=== PATIENT | male | born 1950 | race Caucasian/White ===

== ENCOUNTER → 2017-06-08 | Outpatient (CLI) | payer MEDICARE ==
--- NOTE | 2017-06-08 17:59 | Diagnostic Imaging Report ---
PROCEDURE: CT head without contrast. TECHNIQUE: Multiple contiguous axial images were obtained through the brain without the use of intravenous contrast. INDICATION: Headache. CT HEAD: Multiple contiguous axial CT images of the head were obtained. FINDINGS: Ventricles and sulci are within normal limits for size. There is no intracranial hemorrhage identified. There is no abnormal mass effect or shift of midline structures. IMPRESSION: Unremarkable CT of the head. Dictated by: Dictated on workstation # [id number]
== END ==
LOC: RAD 17:11
PROVIDERS: ATTEND Nurse Practitioner Family
DX: R51 Headache (principal); R11.10 Vomiting, unspecified
CPT/HCPCS: 70450

== ENCOUNTER → 2017-09-04 | Outpatient (CLI) | payer MEDICARE, BC ==
--- NOTE | 2017-09-04 14:20 | Diagnostic Imaging Report ---
Renal vascular duplex ultrasound. INDICATION: Hypertension, bradycardia. FINDINGS: The right kidney is 11.9 cm, and the left kidney is 11.2 cm in length. There is no hydronephrosis. There is a 5.0 x 4.8 x 5.8-cm cystic lesion suggested in the upper pole of the left kidney with minimal internal debris but without solid component, internal vascularity, or thickened septations. There is through transmission demonstrated. The proximal and mid segments of the right renal artery are obscured. The distal segment of the right renal artery is seen with velocity of 109 cm/s. The distal segment of the left renal artery demonstrates velocity of 72 cm/s. The resistive index in the right kidney is in the range of 0.62 to 0.72 and on the left side is 0.61 to 0.77. IMPRESSION: The proximal and mid segments of the renal arteries are obscured on both sides due to enlarged body habitus and bowel gas. The renal artery velocities distally are within normal limits. Dictated by: Dictated on workstation # [id number]
== END ==
LOC: RAD 08:10
PROVIDERS: ATTEND Internal Medicine Cardiovascular Disease
DX: I10 Essential (primary) hypertension (principal); R00.1 Bradycardia, unspecified
CPT/HCPCS: 93975

== ENCOUNTER → 2017-09-27 | Outpatient (CLI) | payer MEDICARE, BC | LOC: CARD 13:48 | PROVIDERS: ATTEND Internal Medicine Cardiovascular Disease | DX: R00.1 Bradycardia, unspecified (principal); R53.83 Other fatigue; E13.9 Other specified diabetes mellitus without complications; Z83.3 Family history of diabetes mellitus | CPT/HCPCS: 93306 ==

== ENCOUNTER → 2017-10-02 | Outpatient (CLI) | payer MEDICARE, BC ==
[~2017-10-02] MED LIST: CATHETER FLUSH 10 ML SYR IV PRN; REGADENOSON 0.4 MG/5 ML SYR (LEXISCAN) IV ONE
[2017-10-02 09:30] VITALS: BP 213/93
--- NOTE | 2017-10-02 23:02 | STRESS TEST ---
DATE OF SERVICE: LEXISCAN MYOVIEW STRESS TEST REPORT REFERRING PHYSICIAN: Dr. Loera. Baseline heart rate is 55. Baseline blood pressure 213/93. Baseline EKG is sinus rhythm with no ischemic changes. In summary, the patient was injected with 10.53 mCi of technetium-99 Myoview and the resting images were obtained. Then, the patient received 0.4 mg of Lexiscan followed by 29.5 mCi of technetium-99 Myoview. The patient was having Wenckebach pattern AV block, was asymptomatic. The resting and stress images were reviewed and compared in the short axis, horizontal long axis and vertical long axis views. Review of the images showed diaphragmatic attenuation with mild decreased uptake at the inferoapical segment of the left ventricle with mild reversibility. SSS is 3, SDS 3, TID value 1.02. No gated images were done due to the irregular rhythm. CONCLUSION: 1. The patient tolerated Lexiscan well. 2. The patient developed Wenckebach pattern second-degree AV block, Mobitz I, during the test, was asymptomatic. 3. Diaphragmatic attenuation with typical male pattern. 4. With typical male pattern, mild decreased uptake at the inferoapical segment with subtle reversibility. No significant ischemia was noted. 5. No gated images were done due to the irregular rhythm. Job ID: [id number] DocumentID: [id number] Dictated Date: 10/02/2017 16:54:25 Barrel Bander Date: 10/02/2017 19:46:57 Dictated By: PEPITO COLINDRES MD
== END ==
LOC: CARD 07:12
PROVIDERS: ATTEND Internal Medicine Cardiovascular Disease
DX: R00.1 Bradycardia, unspecified (principal); E11.9 Type 2 diabetes mellitus without complications; R53.83 Other fatigue; Z83.3 Family history of diabetes mellitus

== ENCOUNTER 2018-12-05 11:49 | Day surgery (SDC) | payer MEDICARE ==
[~2018-12-05] VITALS: Ht 180.3 cm; Wt 111.1 kg
[2018-12-05] MEDS ORDERED: LIDOCAINE 1% INJ 20 ML 20 ML VIAL ONE (11:52)
[2018-12-05] MEDS ORDERED: NS IV 1000 ML 1,000 ML ONE (11:52)
[2018-12-05] MEDS ORDERED: HEParin (CATH LAB) 1,000 ML IV ONE (11:52)
[2018-12-05] MEDS ORDERED: ceFAZolin INJECTION 1,000 MG VIAL ONE (11:52)
--- OUTSIDE RECORDS SUMMARY | 2018-12-05 11:57 | XMS REPORT | CCD ---
Author Author [facility] Organization [facility] Address [address] [place] [address] Phone Care Team Providers Care Sample Maker Original Name Role Phone Fatemeh Loera PP Unavailable CCM Unavailable Summary Purpose Interface Exchange Insurance Providers Payer name Policy type / Coverage type Covered democrat ID Effective Begin Date Effective End Date WPS Medicare Part B [id number] 2014 Unknown [facility] [id number] 2014 Unknown Family history Mother Diagnosis Age At Onset Diabetes mellitus Type 1 Unknown Social History Social History Element Codes Description Effective Dates Number of children Unknown 1 step-daughter 03/29/2018 Alcohol history Unknown occasionally drinks alcohol <1 per week 03/29/2018 Marital status Unknown Nicol Nathan 08/01/2017 Employment Unknown Retired 12/19/2016 Living arrangements Unknown House 08/21/2015 Education level Unknown College Graduate 08/21/[address]: 570704904 Never smoker 04/14/2014 Allergies, Adverse Reactions, Alerts Substance Reaction Codes Entered Date Inactivated Date Status * NO KNOWN FOOD ALLERGIES Unknown 04/14/2014 No Inactive Date Active * NO KNOWN DRUG ALLERGIES Unknown 04/14/2014 No Inactive Date Active Past Medical History Illness Codes Condition Status Onset Date Resolved Date Benign prostatic hyperplasia with lower urinary tract symptoms ICD-9: 600.01 ICD-10: N40.1 Active 10/09/2018 Unknown Essential (primary) hypertension ICD-9: 401.1 ICD-10: I10 Active 06/23/2017 Unknown Type 2 diabetes mellitus without complications ICD-9: 250.00 ICD-10: E11.9 Active 10/09/2018 Unknown Encounter for general adult medical examination with abnormal findings ICD-9: V70.0 ICD-10: Z00.01 Active 03/23/2017 Unknown Other elevated white blood cell count ICD-9: 288.69 ICD-10: D72.828 Active 07/13/2017 Unknown Rash and other nonspecific skin eruption ICD-9: 782.1 ICD-10: R21 Active 11/03/2017 Unknown Urethral discharge, unspecified ICD-9: 788.7 ICD-10: R36.9 Active 11/03/2017 Unknown Bradycardia, unspecified ICD-9: 427.89 ICD-10: R00.1 Active 07/06/2017 Unknown Melena ICD-9: 578.1 ICD-10: K92.1 Active 07/06/2017 Unknown Dysuria ICD-9: 788.1 ICD-10: R30.0 Active 06/26/2017 Unknown Other obesity due to excess calories ICD-9: 278.00 ICD-10: E66.09 Active 03/23/2016 Unknown Headache ICD-9: 784.0 ICD-10: R51 Active 06/08/2017 Unknown Vomiting, unspecified ICD-9: 787.03 ICD-10: R11.10 Active 06/08/2017 Unknown Other allergic rhinitis ICD-9: 477.8 ICD-10: J30.89 Active 06/08/2017 Unknown Benign prostatic hyperplasia without lower urinary tract symptoms ICD-9: 600.00 ICD-10: N40.0 Active 12/19/2016 Unknown Essential (primary) hypertension ICD-9: 401.9 ICD-10: I10 Active 04/29/2014 Unknown Type 2 diabetes mellitus with hyperglycemia ICD-9: 250.02 ICD-10: E11.65 Active 04/29/2014 Unknown Allergic rhinitis due to pollen ICD-9: 477.9 ICD-10: J30.1 Active 10/02/2016 Unknown Cough ICD-9: 786.2 ICD-10: R05 Active 10/02/2016 Unknown Actinic keratosis ICD- 9: 702.0 ICD-10: L57.0 Active 08/21/2016 Unknown Cellulitis of right lower limb ICD-9: 682.6 ICD-10: L03.115 Active 07/28/2015 Unknown OBESITY ICD-9: 278.00 Active 04/14/2014 Unknown DIABETES TYPE II ICD-9 : 250.00 Active 12/16/2014 Unknown ALLERGIC RHINITIS ICD- 9: 477.9 Active 08/05/2014 Unknown ACUTE URI ICD-9: 465.9 Active 07/25/2014 Unknown COUGH ICD-9: 786.2 Active 07/25/2014 Unknown Diabetes Unknown Active 04/29/2014 Unknown Hypertension Unknown Active 04/29/2014 Unknown ESSENTIAL HYPERTENSION ICD-9: 401.9 Active 04/29/2014 Unknown OA (osteoarthritis) of knee ICD-9: 715.96 Active 04/29/2014 Unknown Type II diabetes mellitus, uncontrolled ICD-9: 250.02 Active Unknown BPH (benign prostatic hyperplasia) ICD-9: 600.00 Active 2013 Unknown Elevated blood pressure ICD-9: 796.2 Active 04/14/2014 Unknown 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 male patient ICD-9: 607.84 Active 04/14/2014 Unknown Problems Condition Codes Effective Dates Condition Status Benign prostatic hyperplasia with lower urinary tract symptoms ICD-9: 600.01 ICD-10: N40.1 10/09/2018 Active Essential (primary) hypertension ICD-9: 401.1 ICD-10: I10 06/23/2017 Active Type 2 diabetes mellitus without complications ICD-9: 250.00 ICD-10: E11.9 10/09/2018 Active Encounter for general adult medical examination with abnormal findings ICD-9: V70.0 ICD-10: Z00.01 03/23/2017 Active Other elevated white blood cell count ICD-9: 288.69 ICD-10: D72.828 07/13/2017 Active Rash and other nonspecific skin eruption ICD-9: 782.1 ICD-10: R21 11/03/2017 Active Urethral discharge, unspecified ICD-9: 788.7 ICD-10: R36.9 11/03/2017 Active Bradycardia, unspecified ICD-9: 427.89 ICD-10: R00.1 07/06/2017 Active Melena ICD-9: 578.1 ICD-10: K92.1 07/06/2017 Active Dysuria ICD-9: 788.1 ICD-10: R30.0 06/26/2017 Active Other obesity due to excess calories ICD-9: 278.00 ICD-10: E66.09 03/23/2016 Active Headache ICD-9: 784.0 ICD-10: R51 06/08/2017 Active Vomiting, unspecified ICD-9: 787.03 ICD-10: R11.10 06/08/2017 Active Other allergic rhinitis ICD-9: 477.8 ICD-10: J30.89 06/08/2017 Active Benign prostatic hyperplasia without lower urinary tract symptoms ICD-9: 600.00 ICD-10: N40.0 12/19/2016 Active Essential (primary) hypertension ICD-9: 401.9 ICD-10: I10 04/29/2014 Active Type 2 diabetes mellitus with hyperglycemia ICD-9: 250.02 ICD-10: E11.65 04/29/2014 Active Allergic rhinitis due to pollen ICD-9: 477.9 ICD-10: J30.1 10/02/2016 Active Cough ICD-9: 786.2 ICD-10: R05 10/02/2016 Active Actinic keratosis ICD- 9: 702.0 ICD-10: L57.0 08/21/2016 Active Cellulitis of right lower limb ICD-9: 682.6 ICD-10: L03.115 07/28/2015 Active OBESITY ICD-9: 278.00 04/14/2014 Active DIABETES TYPE II ICD-9 : 250.00 12/16/2014 Active ALLERGIC RHINITIS ICD- 9: 477.9 08/05/2014 Active ACUTE URI ICD-9: 465.9 07/25/2014 Active COUGH ICD-9: 786.2 07/25/2014 Active Diabetes Unknown 04/29/2014 Active Hypertension Unknown 04/29/2014 Active ESSENTIAL HYPERTENSION ICD-9: 401.9 04/29/2014 Active OA (osteoarthritis) of knee ICD-9: 715.96 04/29/2014 Active Type II diabetes mellitus, uncontrolled ICD-9: 250.02 04/29/2014 Active BPH (benign prostatic hyperplasia) ICD-9: 600.00 04/14/2014 Active Elevated blood pressure ICD-9: 796.2 04/14/2014 Active 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 male patient ICD-9: 607.84 2013 Active Medications Medication Codes Instructions Start Date Stop Date Status Fill Instructions clonidine 0.3 mg/24 hr weekly transdermal patch RxNorm: 510507 1 TD QW 10/09/2018 No Stop Date Active berberine-herbal comb no.18 capsule RxNorm: 2 Capsule(s) PO BID 10/09/2018 No Stop Date Active finasteride 5 mg tablet RxNorm: 551187 TAKE ONE TABLET BY MOUTH EVERY NIGHT AT BEDTIME 08/09/2018 02/04/2019 Active pioglitazone 45 mg tablet RxNorm: 854353 TAKE ONE TABLET BY MOUTH DAILY 08/07/2018 01/03/2019 Active metformin 500 mg tablet RxNorm: 923128 Tablet(s) 1 Tablet(s) PO UD two tablets with breakfast and one tablet in afternoon and one tablet at supper 04/06/2018 08/03/2018 Inactive Zithromax Z-Addi 250 mg tablet RxNorm: 947828 1 Tablet(s) PO UD 11/10/2017 03/28/2018 Inactive prednisone 20 mg tablet RxNorm: 016152 Tablet(s) PO UD 201703/28/2018 Inactive 40mg x 2 days, then 20mg x 2 days, then 10mg x 2 days pioglitazone 45 mg tablet RxNorm: 946636 Tablet(s) PO TAKE 1 TABLET BY MOUTH EVERY DAY 11/03/2017 03/02/2018 Inactive Generic For:*ACTOS 30MG 02/06/2017 9:15: 26 AM prednisone 20 mg tablet RxNorm: 704528 2 Tablet(s) PO daily 11/07/2017 Inactive Zithromax Z-Addi 250 mg tablet RxNorm: 751145 1 Tablet(s) PO UD 11/03/2017 11/09/2017 Inactive ceftriaxone 500 mg solution for injection RxNorm: 6430782 Inj 11/03/2017 11/03/2017 Inactive losartan 100 mg tablet RxNorm: 275221 1 Tablet(s) PO daily 10/08/2018 Inactive hold until patient requests refill hydralazine 10 mg tablet RxNorm: 546988 TAKE ONE TABLET BY MOUTH THREE TIMES A DAY IF BLOOD PRESSURE IS ABOVE 170 TAKE AN EXTRA TABLET 10/3103/28/2018 Inactive hydrochlorothiazide 12.5 mg tablet RxNorm: 961073 1 Tablet(s) PO daily 08/04/2017 03/28/2018 Inactive finasteride 5 mg tablet RxNorm: 616783 1 Tablet(s) PO Q TAKE 1 TABLET BY MOUTH AT NIGHT 08/04/2017 01/30/2018 Inactive pioglitazone 45 mg tablet RxNorm: 730737 1 Tablet(s) PO daily 08/04/2017 01/30/2018 Inactive hydrochlorothiazide 12.5 mg tablet RxNorm: 425855 1 Tablet(s) PO daily 07/24/2017 08/03/2017 Inactive hydralazine 10 mg tablet RxNorm: 028603 1 Tablet(s) PO TID if blood pressure is above 170, take an extra pill 07/13/2017 10/10/2017 Inactive Bystolic 5 mg tablet RxNorm: 133656 1 Tablet(s) PO daily 201607/12/2017 Inactive Anusol-HC 2.5 % topical cream with perineal applicator RxNorm: 7547168 1 Application TOP BID as needed 07/06/2017 10/08/2018 Inactive Levaquin 500 mg tablet RxNorm: 765878 1 Tablet(s) PO daily 07/02/2017 Inactive metoprolol succinate ER 25 mg tablet,extended release 24 hr RxNorm: 512821 1 Tablet(s) PO daily 06/26/2017 07/05/2017 Inactive losartan 50 mg tablet RxNorm: 158064 1 Tablet(s) PO BID 201611/02/2017 Inactive hold until patient requests refill hydrochlorothiazide 12.5 mg tablet RxNorm: 427896 1 Tablet(s) PO daily 06/23/2017 07/22/2017 Inactive ketorolac 60 mg/2 mL intramuscular solution RxNorm: 391951 2 Milliliter(s) IM 06/22/2017 06/22/2017 Inactive promethazine 25 mg/mL injection solution RxNorm: 426668 1 Milliliter(s) Inj 06/22/2017 06/22/2017 Inactive promethazine 25 mg tablet RxNorm: 963762 1 Tablet(s) PO TID as needed nausea 06/08/2017 06/12/2017 Inactive losartan 50 mg tablet RxNorm: 060918 TAKE 1 TABLET BY MOUTH EACH EVENING 05/08/2017 06/25/2017 Inactive Generic For:*COZAAR 50MG 05/06/2017 9:41:39 AM pioglitazone 30 mg tablet RxNorm: 436705 TAKE 1 TABLET BY MOUTH EVERY DAY 02/07/2017 06/06/2017 Inactive Generic For:*ACTOS 30MG 02/06/2017 9:15:26 AM pioglitazone 45 mg tablet RxNorm: 844615 1 Tablet(s) PO daily 02/06/2017 08/03/2017 Inactive finasteride 5 mg tablet RxNorm: 490539 Tablet(s) TAKE 1 TABLET BY MOUTH AT NIGHT 02/06/2017 08/03/2017 Inactive Flomax 0.4 mg capsule RxNorm: 801403 1 Capsule(s) PO QPM 201603/28/2018 Inactive Keflex 500 mg capsule RxNorm: 442299 1 Capsule(s) PO TID 201510/09/2016 Inactive Keflex 500 mg capsule RxNorm: 141044 1 Capsule(s) PO TID 201510/02/2016 Inactive pioglitazone 45 mg tablet RxNorm: 310693 1 Tablet(s) PO daily TAKE 1 TABLET BY MOUTH ONCE DAILY 09/20/2016 02/05/2017 Inactive Generic For:*ACTOS 30MG 2015 9:21:49 AM losartan 50 mg tablet RxNorm: 853031 TAKE 1 TABLET BY MOUTH EACH EVENING 09/08/2016 04/05/2017 Inactive Generic For:*COZAAR 50MG 09/08/2016 9:07:41 AM N O T I C E Last quantity doesn't match original quantity metformin 500 mg tablet RxNorm: 501501 Tablet(s) 1 Tablet(s) PO UD two tablets with breakfast and one tablet in afternoon and one tablet at supper 08/22/2016 08/16/2017 Inactive finasteride 5 mg tablet RxNorm: 931774 Tablet(s) TAKE 1 TABLET BY MOUTH AT NIGHT 08/22/2016 02/05/[address] [facility] pioglitazone 30 mg tablet RxNorm: 507638 1 Tablet(s) PO daily TAKE 1 TABLET BY MOUTH ONCE DAILY 08/22/2016 09/19/2016 Inactive Generic For:*ACTOS 30MG 2015 9:21:49 AM losartan 50 mg tablet RxNorm: 198267 1 Tablet(s) PO daily 1 Tablet(s) PO QPM 08/22/2016 09/07/2016 Inactive Efudex 5 % topical cream RxNorm: 154570 1 Application TOP BID 08/22/2016 09/18/2016 Inactive pioglitazone 30 mg tablet RxNorm: 569742 TAKE 1 TABLET BY MOUTH ONCE DAILY 06/10/2016 08/21/2016 Inactive Generic For:*ACTOS 30MG 06/10/2016 9:21:49 AM metformin 500 mg tablet RxNorm: 411372 Tablet(s) 1 Tablet(s) PO UD two tablets with breakfast and one tablet in afternoon and one tablet at supper 05/11/2016 08/21/2016 Inactive finasteride 5 mg tablet RxNorm: 544840 TAKE 1 TABLET BY MOUTH AT NIGHT 05/11/2016 08/21/2016 Inactive Generic For:PROSCAR 5MG 05/11/2016 9:06:14 AM losartan 50 mg tablet RxNorm: 339981 1 Tablet(s) PO QPM 201508/21/2016 Inactive pioglitazone 30 mg tablet RxNorm: 592908 1 Tablet(s) PO daily 11/12/2015 06/08/2016 Inactive metformin 500 mg tablet RxNorm: 815155 1 Tablet(s) PO UD two tablets with breakfast and one tablet in afternoon and one tablet at supper 09/19/2015 05/10/2016 Inactive metformin 500 mg tablet RxNorm: 046075 1 Tablet(s) PO UD two tablets with breakfast and one tablet in afternoon and one tablet at supper 09/16/2015 09/09/2016 Inactive finasteride 5 mg tablet RxNorm: 511553 1 Tablet(s) PO QPM 09/1504/11/2016 Inactive cephalexin 500 mg capsule RxNorm: 243468 1 Capsule(s) PO TID 08/04/2015 Inactive losartan 50 mg tablet RxNorm: 353332 1 Tablet(s) PO QPM 201402/10/2016 Inactive pioglitazone 30 mg tablet RxNorm: 997235 1 Tablet(s) PO daily 03/10/2015 10/05/2015 Inactive losartan 25 mg tablet RxNorm: 184008 1 Tablet(s) PO QPM 201407/19/2015 Inactive metformin 500 mg tablet RxNorm: 936860 1 Tablet(s) PO UD two tablets with breakfast and one tablet in afternoon and one tablet at supper 03/04/2015 09/15/2015 Inactive finasteride 5 mg tablet RxNorm: 466532 1 Tablet(s) PO QPM 03/0409/14/2015 Inactive ceftriaxone 500 mg solution for injection RxNorm: 2010124 Inj 01/12/2015 01/12/2015 Inactive Zithromax 500 mg tablet RxNorm: 136774 1 Tablet(s) PO daily 07/201501/16/2015 Inactive Kenalog 40 mg/mL suspension for injection RxNorm: 2213454 Milliliter(s) Inj 01/12/2015 01/12/2015 Inactive pioglitazone 30 mg tablet RxNorm: 098238 1 Tablet(s) PO daily 12/16/2014 03/09/2015 Inactive Kenalog 40 mg/mL suspension for injection RxNorm: 0385690 Milliliter(s) Inj 11/27/2014 11/27/2014 Inactive Levaquin 500 mg tablet RxNorm: 649147 1 Tablet(s) PO daily 12/01/2014 Inactive pioglitazone 15 mg tablet RxNorm: 103348 1 Tablet(s) PO daily 10/06/2014 12/15/2014 Inactive pioglitazone 15 mg tablet RxNorm: 663527 1 Tablet(s) PO daily 10/06/2014 10/05/2014 Inactive metformin 500 mg tablet RxNorm: 293206 1 Tablet(s) PO UD two tablets with breakfast and one tablet in afternoon and one tablet at supper 09/16/2014 03/03/2015 Inactive daily in the evening x 1 week then twice daily losartan 25 mg tablet RxNorm: 484826 1 Tablet(s) PO QPM 201303/09/2015 Inactive Zithromax Z-Addi 250 mg tablet RxNorm: 076413 1 Tablet(s) PO UD 07/25/2014 07/29/2014 Inactive 2 tabs on day 1 then 1 tab on days 2-5 metformin 500 mg tablet RxNorm: 375778 1 Tablet(s) PO TID 06/2409/15/2014 Inactive daily in the evening x 1 week then twice daily lisinopril 10 mg tablet RxNorm: 829609 1 Tablet(s) PO daily 09/01/2014 Inactive metformin 500 mg tablet RxNorm: 585332 1 Tablet(s) PO TID 06/0206/23/2014 Inactive daily in the evening x 1 week then twice daily lisinopril 10 mg tablet RxNorm: 803031 1 Tablet(s) PO daily 06/17/2014 Inactive metformin 500 mg tablet RxNorm: 970230 1 Tablet(s) PO BID 05/0506/01/2014 Inactive daily in the evening x 1 week then twice daily lisinopril 10 mg tablet RxNorm: 982234 1 Tablet(s) PO daily 06/01/2014 Inactive finasteride 5 mg tablet RxNorm: 747614 1 Tablet(s) PO QPM 04/1411/09/2014 Inactive Truetest Test Strips RxNorm: Miscellaneous test twice daily No Start Date Active amlodipine 10 mg tablet RxNorm: 036590 1 Tablet(s) PO QAM No Start Date Active Centrum Silver tablet RxNorm: 2 Tablet(s) PO QAM No Start Date Active lisinopril 40 mg tablet RxNorm: 709405 1 Tablet(s) PO QAM No Start Date Active furosemide 20 mg tablet RxNorm: 853184 1 Tablet(s) PO QAM No Start Date Active chlorthalidone 25 mg tablet RxNorm: 007384 1 Tablet(s) PO QAM No Start Date Active potassium chloride ER 10 mEq tablet,extended release RxNorm: 007198 1 Tablet(s) PO QAM No Start Date Active clonidine 0.2 mg/24 hr weekly transdermal patch RxNorm: 091798 1 Patch TD QW No Start Date 10/08/2018 Inactive prednisone 20 mg tablet RxNorm: 929246 Tablet(s) PO No Start Date 11/09/2017 Inactive 40mg x 2 days, then 20mg x 2 days, then 10mg x 2 days berberine-herbal comb no.18 oral RxNorm: oral No Start Date 10/08/2018 Inactive hydrochlorothiazide 25 mg tablet RxNorm: 241429 1 Tablet(s) PO QAM No Start Date 10/08/2018 Inactive Medication Administered Medication Codes Instructions Start Date Status ceftriaxone 500 mg solution for injection RxNorm: 7016052 11/03/2017 No longer Active ketorolac 60 mg/2 mL intramuscular solution RxNorm: 009761 2Milliliter 06/22/2017 No longer Active promethazine 25 mg/mL injection solution RxNorm: 035358 1Milliliter 06/22/2017 No longer Active Kenalog 40 mg/mL suspension for injection RxNorm: 9738930 Milliliter 01/12/2015 No longer Active ceftriaxone 500 mg solution for injection RxNorm: 9139997 01/12/2015 No longer Active Kenalog 40 mg/mL suspension for injection RxNorm: 5333402 Milliliter 11/27/2014 No longer Active Immunizations No Immunization data Assessments Condition Codes Effective Dates Benign prostatic hyperplasia with lower urinary tract symptoms ICD-10: N40.1 ICD-9: 600.01 10/09/2018 Essential (primary) hypertension ICD-10: I10 ICD-9: 401.1 10/09/2018 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, bilateral ICD-10: E11.3553 ICD-9: 250.50 10/09/2018 Encounter for general adult medical examination with abnormal findings ICD-10: Z00.01 ICD-9: V70.0 03/29/2018 Urethral discharge, unspecified ICD-10: R36.9 ICD-9: 788.7 11/03/2017 Rash and other nonspecific skin eruption ICD-10: R21 ICD-9: 782.1 11/03/2017 Other elevated white blood cell count ICD-10: D72.828 ICD-9: 288.69 07/13/2017 Type 2 diabetes mellitus with hyperglycemia ICD-10: E11.65 ICD-9: 250.00 07/13/2017 Melena ICD-10: K92.1 ICD-9: 578.1 07/06/2017 Bradycardia, unspecified ICD-10: R00.1 ICD-9: 427.89 07/06/2017 Dysuria ICD-10: R30.0 ICD-9: 788.1 06/26/2017 Other obesity due to excess calories ICD-10: E66.09 ICD-9: 278.00 06/23/2017 Vomiting, unspecified ICD-10: R11.10 ICD-9: 787.03 06/22/2017 Headache ICD-10: R51 ICD-9: 784.0 06/22/2017 Other allergic rhinitis ICD-10: J30.89 ICD-9: 477.8 06/08/2017 Type 2 diabetes mellitus with hyperglycemia ICD-10: E11.65 ICD-9: 250.02 12/19/2016 Essential (primary) hypertension ICD-10: I10 ICD-9: 401.9 12/19/2016 Allergic rhinitis due to pollen ICD-10: J30.1 ICD-9: 477.9 10/03/2016 Cough ICD-10: R05 ICD-9: 786.2 10/03/2016 Actinic keratosis ICD-10: L57.0 ICD-9: 702.0 08/22/2016 Cellulitis of right lower limb ICD-10: L03.115 ICD-9: 682.6 07/29/2015 ESSENTIAL HYPERTENSION ICD-9: 401.9 07/20 OBESITY ICD-9: 278.00 07/20/2015 DM W/O COMPLICATION TYPE II, UNCONTROLLED ICD-9: 250.02 07/20/2015 DIABETES TYPE II ICD-9: 250.00 2014 COUGH ICD-9: 786.2 01/12/2015 ACUTE URI ICD-9: 465.9 01/12/2015 ALLERGIC RHINITIS ICD-9: 477.9 2013 OA (osteoarthritis) of knee ICD-9: 715.96 04/29/2014 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 male patient ICD-9: 607.84 04/14/2014 BPH (benign prostatic hyperplasia) ICD-9: 600.00 04/14/2014 Elevated blood pressure ICD-9: 796.2 07/2014 Reason For Visit Reason For Visit Effective Dates Notes hypertension 10/09/2018 Annual Medicare Wellness Exam 03/29/2018 edema 11/03/2017 hypertension 08/01/2017 diabetes mellitus 07/13/2017 hematochezia 07/06/2017 urinary frequency 06/29/2017 urinary frequency 06/26/2017 hypertension 06/23/2017 nausea 06/08/2017 Annual Medicare Wellness Exam 03/23/2017 diabetes mellitus 12/19/2016 cough 10/03/2016 diabetes mellitus 08/22/2016 he has bs log with him. diabetes mellitus 03/24/2016 he has bs log with him. diabetes mellitus 2015 he has bs log with him. rash 07/29/2015 diabetes mellitus 07/20/2015 he has bs log with him. diabetes mellitus 03/17/2015 he has bs log with him. cough 01/12/2015 diabetes mellitus 12/16/2014 Pt has kept an am /hs bs log for 2 weeks. cough 11/27/2014 pressure behind eyes diabetes mellitus 09/16/2014 Pt has kept an am /hs bs log for 2 weeks. diabetes mellitus 09/02/2014 215 this am cough 08/05/2014 cough 07/25/2014 diabetes mellitus 06/02/2014 171 this am diabetes mellitus 05/05/2014 shoulder pain 04/29/2014 well man exam (40-65 years) 04/14/2014 Results Observation Observation Code Item Item Code Result Date GC/CHL PRB 2795062 Chl trach DNA TNP:Improper Specimen 2016 GC/CHL PRB 6489043 GC PROBE TNP:Improper Specimen 11/03/2017 Cbc With Differential Ord2 WBC 8.47 K/ul 07/13/2017 Cbc With Differential Ord2 RBC 4.19 M/ul 07/13/2017 Cbc With Differential Ord2 HGB 12.7 g/dl 07/13/2017 Cbc With Differential Ord2 HCT 38.3 % 07/13/2017 Cbc With Differential Ord2 Neut% 71.0 % 07/13/2017 Cbc With Differential Ord2 MCV 91.4 fl 07/13/2017 Cbc With Differential Ord2 Lymph% 16.5 % 07/13/2017 Cbc With Differential Ord2 MCH 30.3 pg 07/13/2017 Cbc With Differential Ord2 [place]% 7.7 % 07/13/2017 Cbc With Differential Ord2 MCHC 33.2 pg 07/13/2017 Cbc With Differential Ord2 Eos% 4.3 % 07/13/2017 Cbc With Differential Ord2 PLT 358 K/ul 07/13/2017 Cbc With Differential Ord2 Baso% 0.5 % 07/13/2017 Cbc With Differential Ord2 RDW 14.9 % 07/13/2017 Cbc With Differential Ord2 Neut ABS# 6.02 K/ul 07/13/2017 Cbc With Differential Ord2 Lymph ABS# 1.40 K/ul 07/13/2017 Cbc With Differential Ord2 [place] ABS# 0.7 K/ul 07/13/2017 Cbc With Differential Ord2 Eos ABS# 0.4 K/ul 07/13/2017 Cbc With Differential Ord2 Baso ABS# 0.0 K/ul 07/13/2017 Urine Culture Ucult Preliminary NO Growth Day 1 06/28/2017 Urine Culture Ucult Complete NO Growth Day 2 06/28/2017 %Hba1C Gfi345 % HbA1c 16725-8 7.2 % 06/26/2017 %Hba1C Hgo052 Gluc Ave 160 mg/dL 06/26/2017 Tsh Ord6 hTSH II 2.04 uIU/mL 06/26/2017 Comp Metabolic Gfo719 NA 139 mEq/L 06/26/2017 Comp Metabolic Ycd756 K 3.6 mEq/L 06/26/2017 Comp Metabolic Eit903 CL 103 mEq/L 06/26/2017 Comp Metabolic Uia389 CO2 24.0 mEq/L 06/26/2017 Comp Metabolic Pqg265 ANION GAP 16 06/26/2017 Comp Metabolic Kas568 GLUCOSE 135 mg/dL 06/26/2017 Comp Metabolic Uzx116 Creat 1.3 mg/dL 06/26/2017 Comp Metabolic Lbg258 eGFR 58 ml/min/1.73m2 06/26/2017 Comp Metabolic Pmc293 BUN 17 mg/dL 06/26/2017 Comp Metabolic Ktv694 B/C Ratio 13.0 Ratio 06/26/2017 Comp Metabolic Pls229 CALCIUM 8.6 mg/dL 06/26/2017 Comp Metabolic Tru537 ALK PHOS 69 U/L 06/26/2017 Comp Metabolic Los064 AST(SGOT) 15 U/L 06/26/2017 Comp Metabolic Xoi198 ALT(SGPT) 13 U/L 06/26/2017 Comp Metabolic Hzs215 BILI T 0.5 mg/dL 06/26/2017 Comp Metabolic Fut852 ALBUMIN 3.3 g/dL 06/26/2017 Comp Metabolic Ggy710 TPRO 5.5 g/dL 06/26/2017 Comp Metabolic Tkt075 GLOB 2.2 g/dL 06/26/2017 Comp Metabolic Yff016 A/G Ratio 1.5 Ratio 06/26/2017 Comp Metabolic Tjo959 Osmo 281 mOsmo 06/26/2017 Cbc With Differential Ord2 WBC 12.34 K/ul 06/26/2017 Cbc With Differential Ord2 RBC 3.89 M/ul 06/26/2017 Cbc With Differential Ord2 HGB 11.7 g/dl 06/26/2017 Cbc With Differential Ord2 Neut% 73.9 % 06/26/2017 Cbc With Differential Ord2 HCT 35.5 % 06/26/2017 Cbc With Differential Ord2 Lymph% 14.1 % 06/26/2017 Cbc With Differential Ord2 MCV 91.3 fl 06/26/2017 Cbc With Differential Ord2 MCH 30.1 pg 06/26/2017 Cbc With Differential Ord2 [place]% 9.1 % 06/26/2017 Cbc With Differential Ord2 Eos% 2.7 % 06/26/2017 Cbc With Differential Ord2 MCHC 33.0 pg 06/26/2017 Cbc With Differential Ord2 PLT 333 K/ul 06/26/2017 Cbc With Differential Ord2 Baso% 0.2 % 06/26/2017 Cbc With Differential Ord2 Neut ABS# 9.13 K/ul 06/26/2017 Cbc With Differential Ord2 RDW 14.5 % 06/26/2017 Cbc With Differential Ord2 Lymph ABS# 1.74 K/ul 06/26/2017 Cbc With Differential Ord2 [place] ABS# 1.1 K/ul 06/26/2017 Cbc With Differential Ord2 Eos ABS# 0.3 K/ul 06/26/2017 Cbc With Differential Ord2 Baso ABS# 0.0 K/ul 06/26/2017 Total Psa Ord10 PSA 1.29 ng/mL 06/26/2017 Cbc With Differential Ord2 WBC 9.88 K/ul 12/12/2016 Cbc With Differential Ord2 RBC 4.40 M/ul 12/12/2016 Cbc With Differential Ord2 HGB 13.3 g/dl 12/12/2016 Cbc With Differential Ord2 HCT 40.2 % 12/12/2016 Cbc With Differential Ord2 Neut% 67.3 % 12/12/2016 Cbc With Differential Ord2 MCV 91.4 fl 12/12/2016 Cbc With Differential Ord2 Lymph% 21.6 % 12/12/2016 Cbc With Differential Ord2 MCH 30.2 pg 12/12/2016 Cbc With Differential Ord2 [place]% 7.7 % 12/12/2016 Cbc With Differential Ord2 Eos% 3.3 % 12/12/2016 Cbc With Differential Ord2 MCHC 33.1 pg 12/12/2016 Cbc With Differential Ord2 Baso% 0.1 % 12/12/2016 Cbc With Differential Ord2 PLT 284 K/ul 12/12/2016 Cbc With Differential Ord2 Neut ABS# 6.65 K/ul 12/12/2016 Cbc With Differential Ord2 RDW 15.9 % 12/12/2016 Cbc With Differential Ord2 Lymph ABS# 2.13 K/ul 12/12/2016 Cbc With Differential Ord2 [place] ABS# 0.8 K/ul 12/12/2016 Cbc With Differential Ord2 Eos ABS# 0.3 K/ul 12/12/2016 Cbc With Differential Ord2 Baso ABS# 0.0 K/ul 12/12/2016 %Hba1C Zwd246 % HbA1c 68313-3 6.9 % 12/12/2016 %Hba1C Gmb830 Gluc Ave 151 mg/dL 12/12/2016 Comp Metabolic Hdh958 NA 137 mEq/L 12/12/2016 Comp Metabolic Ywx690 K 4.2 mEq/L 12/12/2016 Comp Metabolic Vmj626 CL 106 mEq/L 12/12/2016 Comp Metabolic Enw981 CO2 21.0 mEq/L 12/12/2016 Comp Metabolic Tfw410 ANION GAP 14 12/12/2016 Comp Metabolic Ufl061 GLUCOSE 109 mg/dL 12/12/2016 Comp Metabolic Urc675 Creat 1.0 mg/dL 12/12/2016 Comp Metabolic Ivz572 eGFR 76 ml/min/1.73m2 12/12/2016 Comp Metabolic Lwa670 BUN 22 mg/dL 12/12/2016 Comp Metabolic Pib861 B/C Ratio 21.4 Ratio 12/12/2016 Comp Metabolic Dbc805 CALCIUM 9.7 mg/dL 12/12/2016 Comp Metabolic Lsq869 ALK PHOS 49 U/L 12/12/2016 Comp Metabolic Qpv433 AST(SGOT) 16 U/L 12/12/2016 Comp Metabolic Crc097 ALT(SGPT) 14 U/L 12/12/2016 Comp Metabolic Gxj869 BILI T 0.3 mg/dL 12/12/2016 Comp Metabolic Fcj228 ALBUMIN 4.2 g/dL 12/12/2016 Comp Metabolic Bpr344 TPRO 6.3 g/dL 12/12/2016 Comp Metabolic Yrr350 GLOB 2.2 g/dL 12/12/2016 Comp Metabolic Req929 A/G Ratio 1.9 Ratio 12/12/2016 Comp Metabolic Urb684 Osmo 278 mOsmo 12/12/2016 %Hba1C Sjm011 % HbA1c 96702-7 7.3 % 08/22/2016 %Hba1C Vzx504 Gluc Ave 163 mg/dL 08/22/2016 Microalbumin Anq212 MicroAlb 91.4 mg/dL 08/22/2016 Lipid Ord30 CHOL 152 mg/dL 08/22/2016 Lipid Ord30 HDL 36.0 mg/dl 08/22/2016 Lipid Ord30 TRIG 76 mg/dL 08/22/2016 Lipid Ord30 LDL 101 mg/dL 08/22/2016 Lipid Ord30 C/HDL 4.2 Ratio 08/22/2016 Cbc With Differential Ord2 WBC 9.93 K/ul 08/22/2016 Cbc With Differential Ord2 RBC 4.38 M/ul 08/22/2016 Cbc With Differential Ord2 HGB 13.3 g/dl 08/22/2016 Cbc With Differential Ord2 HCT 40.0 % 08/22/2016 Cbc With Differential Ord2 Neut% 69.6 % 08/22/2016 Cbc With Differential Ord2 Lymph% 19.8 % 08/22/2016 Cbc With Differential Ord2 MCV 91.3 fl 08/22/2016 Cbc With Differential Ord2 [place]% 7.0 % 08/22/2016 Cbc With Differential Ord2 MCH 30.4 pg 08/22/2016 Cbc With Differential Ord2 MCHC 33.3 pg 08/22/2016 Cbc With Differential Ord2 Eos% 3.4 % 08/22/2016 Cbc With Differential Ord2 Baso% 0.2 % 08/22/2016 Cbc With Differential Ord2 PLT 237 K/ul 08/22/2016 Cbc With Differential Ord2 Neut ABS# 6.90 K/ul 08/22/2016 Cbc With Differential Ord2 RDW 14.4 % 08/22/2016 Cbc With Differential Ord2 Lymph ABS# 1.97 K/ul 08/22/2016 Cbc With Differential Ord2 [place] ABS# 0.7 K/ul 08/22/2016 Cbc With Differential Ord2 Eos ABS# 0.3 K/ul 08/22/2016 Cbc With Differential Ord2 Baso ABS# 0.0 K/ul 08/22/2016 Tsh Ord6 hTSH II 1.05 uIU/mL 08/22/2016 Comp Metabolic Nbv732 NA 136 mEq/L 08/22/2016 Comp Metabolic Hyy066 K 4.1 mEq/L 08/22/2016 Comp Metabolic Ruj781 CL 104 mEq/L 08/22/2016 Comp Metabolic Eyr681 CO2 25.0 mEq/L 08/22/2016 Comp Metabolic Cxi770 ANION GAP 11 08/22/2016 Comp Metabolic Dgh703 GLUCOSE 125 mg/dL 08/22/2016 Comp Metabolic Wso131 Creat 0.9 mg/dL 08/22/2016 Comp Metabolic Voy634 eGFR 88 ml/min/1.73m2 08/22/2016 Comp Metabolic Zdl496 BUN 20 mg/dL 08/22/2016 Comp Metabolic Tic790 B/C Ratio 22.0 Ratio 08/22/2016 Comp Metabolic Bmw653 CALCIUM 9.2 mg/dL 08/22/2016 Comp Metabolic Cbz571 ALK PHOS 59 U/L 08/22/2016 Comp Metabolic Aoo503 AST(SGOT) 14 U/L 08/22/2016 Comp Metabolic Huc919 ALT(SGPT) 12 U/L 08/22/2016 Comp Metabolic Vwe707 BILI T 0.5 mg/dL 08/22/2016 Comp Metabolic Zos473 ALBUMIN 3.8 g/dL 08/22/2016 Comp Metabolic Wix091 TPRO 6.1 g/dL 08/22/2016 Comp Metabolic Bzk679 GLOB 2.3 g/dL 08/22/2016 Comp Metabolic Uhy869 A/G Ratio 1.7 Ratio 08/22/2016 Comp Metabolic Nui340 Osmo 276 mOsmo 08/22/2016 %Hba1C Aay785 % HbA1c 91257-3 6.7 % 03/24/2016 %Hba1C Xlj420 Gluc Ave 146 mg/dL 03/24/2016 %Hba1C Mom335 % HbA1c 74026-0 6.8 % 2015 %Hba1C Wbu059 Gluc Ave 148 mg/dL 2015 Comp Metabolic Ool506 NA 137 mEq/L 07/20/2015 Comp Metabolic Llq533 K 4.3 mEq/L 07/20/2015 Comp Metabolic Sqa234 CL 103 mEq/L 07/20/2015 Comp Metabolic Zqg590 CO2 26.0 mEq/L 07/20/2015 Comp Metabolic Fqg809 ANION GAP 12 07/20/2015 Comp Metabolic Ani186 GLUCOSE 99 mg/dL 07/20/2015 Comp Metabolic Nno898 Creat 0.7 mg/dL 07/20/2015 Comp Metabolic Clz189 eGFR 128 ml/min/1.73m2 07/20/2015 Comp Metabolic Ozb388 BUN 15 mg/dL 07/20/2015 Comp Metabolic Rfd579 B/C Ratio 22.7 Ratio 07/20/2015 Comp Metabolic Xvx142 CALCIUM 9.4 mg/dL 07/20/2015 Comp Metabolic Yiy007 ALK PHOS 47 U/L 07/20/2015 Comp Metabolic Tug493 AST(SGOT) 13 U/L 07/20/2015 Comp Metabolic Opa247 ALT(SGPT) 15 U/L 07/20/2015 Comp Metabolic Exe722 BILI T 0.5 mg/dL 07/20/2015 Comp Metabolic Rnu069 ALBUMIN 4.0 g/dL 07/20/2015 Comp Metabolic Web573 TPRO 6.1 g/dL 07/20/2015 Comp Metabolic Buj898 GLOB 2.1 g/dL 07/20/2015 Comp Metabolic Huv351 A/G Ratio 1.9 Ratio 07/20/2015 Comp Metabolic Png921 Osmo 275 mOsmo 07/20/2015 Lipid Ord30 CHOL 127 mg/dL 07/20/2015 Lipid Ord30 HDL 36.0 mg/dl 07/20/2015 Lipid Ord30 TRIG 55 mg/dL 07/20/2015 Lipid Ord30 LDL 80 mg/dL 07/20/2015 Lipid Ord30 C/HDL 3.5 Ratio 07/20/2015 Cbc With Differential Ord2 WBC 8.4 K/uL 07/20/2015 Cbc With Differential Ord2 LYM 1.9 K/uL 07/20/2015 Cbc With Differential Ord2 LYM% 22.8 % 07/20/2015 Cbc With Differential Ord2 NEUT/GRAN 5.8 K/uL 07/20/2015 Cbc With Differential Ord2 NEUT/GRAN % 69.0 % 07/20/2015 Cbc With Differential Ord2 MID 0.7 K/uL 07/20/2015 Cbc With Differential Ord2 MID% 8.2 % 07/20/2015 Cbc With Differential Ord2 RBC 4.27 M/uL 07/20/2015 Cbc With Differential Ord2 HGB 12.8 g/dL 07/20/2015 Cbc With Differential Ord2 HCT 39.5 % 07/20/2015 Cbc With Differential Ord2 MCV 93 fL 07/20/2015 Cbc With Differential Ord2 MCH 30 pg 07/20/2015 Cbc With Differential Ord2 MCHC 32 g/dL 07/20/2015 Cbc With Differential Ord2 PLT 274 K/uL 07/20/2015 Cbc With Differential Ord2 RDW 14.4 % 07/20/2015 %Hba1C Kzn645 % HbA1c 89910-8 6.5 % 07/20/2015 %Hba1C Xus590 Gluc Ave 140 mg/dL 07/20/2015 CBC [id number] WBC 8.5 10e9/L 12/05/2014 CBC [id number] RBC 4.67 10e12/L 12/05/2014 CBC 1381228 HGB 14.1 g/dL 12/05/2014 CBC [id number] HCT DET 41.2 % 12/05/2014 CBC 4403765 MCV 88.2 fL 12/05/2014 CBC 6866381 MCH 30.2 pg 12/05/2014 CBC 9054519 MCHC 34.2 g/dL 12/05/2014 CBC [id number] PLT 328 10e9/L 12/05/2014 CBC 8704625 MPV 8.9 fL 12/05/2014 CBC 0649357 YG % 59.0 % 12/05/2014 CBC 6431510 LY % 28.0 % 12/05/2014 CBC 6661129 MON % 8.9 % 12/05/2014 CBC [id number] EOS % 3.9 % 12/05/2014 CBC 4060958 BASO % 0.2 % 12/05/2014 CBC 6927824 RDW 13.6 % 12/05/2014 CBC 6746668 ABS YG 5.02 10e9/L 12/05/2014 CBC 9539470 ABS LYMPH 2.38 10e9/L 12/05/2014 CBC 6595484 ABS MONO 0.76 10e9/L 12/05/2014 CBC 9375000 ABS EOS 0.33 10e9/L 12/05/2014 CBC 3899589 ABS BASO 0.02 10e9/L 12/05/2014 CBC 8132910 RDW-SD 42.8 fL 12/05/2014 GFR CALC 5578313 GFR AA >60 ML/MIN 12/05/2014 GFR CALC 3591971 GFR NON-AA >60 ML/MIN 12/05/2014 LIPID GRP HDL TEST 37 MG/DL 12/05/2014 LIPID GRP TRIG 70 MG/DL 12/05/2014 LIPID GRP TEST LDL 132 MG/DL 12/05/2014 LIPID GRP CHOL 183 MG/DL 12/05/2014 LIPID GRP RCHOL/HDL 4.95 RATIO 12/05/2014 LIPID GRP NON-HDL CH 146 MG/DL 12/05/2014 CHEM 14 1252827 AST 15 U/L 12/05/2014 CHEM 14 0342781 ALT 12 IU/L 12/05/2014 CHEM 14 5345774 BUN 17 MG/DL 12/05/2014 CHEM 14 8486862 ALBUMIN 4.2 GM/DL 12/05/2014 CHEM 14 3998261 CHLORIDE 104 MMOL/L 12/05/2014 CHEM 14 3484957 BILI TOT 0.5 MG/DL 12/05/2014 CHEM 14 4789042 ALK PHOS 48 U/L 12/05/2014 CHEM 14 5048429 SODIUM 137 MMOL/L 12/05/2014 CHEM 14 1001750 CREATININE 0.87 MG/DL 12/05/2014 CHEM 14 9984219 CALCIUM 9.3 MG/DL 12/05/2014 CHEM 14 4784223 POTASSIUM 4.1 MMOL/L 12/05/2014 CHEM 14 0566689 PROT TOT 6.6 GM/DL 12/05/2014 CHEM 14 6082727 GLUCOSE 152 MG/DL 12/05/2014 CHEM 14 9015651 BICARB 28 MMOL/L 12/05/2014 CHEM 14 8122540 ANION GAP 5 MEQ/L 12/05/2014 A1C HPLC 2963918 A1C HPLC 96755-7 8.0 % 12/05/2014 GFR CALC 8286944 GFR AA >60 ML/MIN 08/15/2014 GFR CALC 5413730 GFR NON-AA >60 ML/MIN 08/15/2014 CHEM 14 3829143 AST 17 U/L 08/15/2014 CHEM 14 0819052 ALT 21 IU/L 08/15/2014 CHEM 14 1769773 BUN 10 MG/DL 08/15/2014 CHEM 14 2275684 ALBUMIN 4.2 GM/DL 08/15/2014 CHEM 14 2715488 CHLORIDE 102 MMOL/L 08/15/2014 CHEM 14 5986837 BILI TOT 0.7 MG/DL 08/15/2014 CHEM 14 4421705 ALK PHOS 53 U/L 08/15/2014 CHEM 14 1348072 SODIUM 136 MMOL/L 08/15/2014 CHEM 14 0279961 CREATININE 0.77 MG/DL 08/15/2014 CHEM 14 6300138 CALCIUM 9.5 MG/DL 08/15/2014 CHEM 14 0918119 POTASSIUM 3.9 MMOL/L 08/15/2014 CHEM 14 6575967 PROT TOT 6.5 GM/DL 08/15/2014 CHEM 14 1199576 GLUCOSE 159 MG/DL 08/15/2014 CHEM 14 0194657 BICARB 26 MMOL/L 08/15/2014 CHEM 14 9458224 ANION GAP 8 MEQ/L 08/15/2014 A1C HPLC [id number] A1C HPLC 58306-0 7.7 % 08/15/2014 LIPID GRP HDL TEST 34 MG/DL 08/15/2014 LIPID GRP TRIG 84 MG/DL 08/15/2014 LIPID GRP TEST LDL 81 MG/DL 08/15/2014 LIPID GRP CHOL 132 MG/DL 08/15/2014 LIPID GRP RCHOL/HDL 3.88 RATIO 08/15/2014 LIPID GRP NON-HDL CH 98 MG/DL 08/15/2014 CBC [id number] WBC 8.4 10e9/L 08/15/2014 CBC [id number] RBC 5.16 10e12/L 08/15/2014 CBC [id number] HGB 15.7 g/dL 08/15/2014 CBC 2374819 HCT DET 45.6 % 08/15/2014 CBC 9719834 MCV 88.4 fL 08/15/2014 CBC 4983798 MCH 30.4 pg 08/15/2014 CBC 8966127 MCHC 34.4 g/dL 08/15/2014 CBC 7164224 PLT 296 10e9/L 08/15/2014 CBC 4010352 MPV 11.5 fL 08/15/2014 CBC 9236010 YG % 64.0 % 08/15/2014 CBC 1589806 LY % 23.2 % 08/15/2014 CBC 8323487 MON % 7.8 % 08/15/2014 CBC 9525844 EOS % 4.9 % 08/15/2014 CBC [id number] BASO % 0.1 % 08/15/2014 CBC 6877500 RDW 14.6 % 08/15/2014 CBC [id number] ABS YG 5.38 10e9/L 08/15/2014 CBC 2629410 ABS LYMPH 1.95 10e9/L 08/15/2014 CBC [id number] ABS MONO 0.66 10e9/L 08/15/2014 CBC 3560441 ABS EOS 0.41 10e9/L 08/15/2014 CBC 5901978 ABS BASO 0.01 10e9/L 08/15/2014 CBC 1099272 RDW-SD 46.4 fL 08/15/2014 A1C HPLC [id number] A1C HPLC 66346-2 10.5 % 04/29/2014 PSA EQ 8710663 PSA EQ 2.51 NG/ML 04/21/2014 TSH 7225950 TSH 0.605 uIU/ML 04/21/2014 CBC 5555706 WBC 8.3 10e9/L 04/21/2014 CBC [id number] RBC 5.50 10e12/L 04/21/2014 CBC 5671365 HGB 16.6 g/dL 04/21/2014 CBC 0553439 HCT DET 47.7 % 04/21/2014 CBC 7108769 MCV 86.7 fL 04/21/2014 CBC 1947435 MCH 30.2 pg 04/21/2014 CBC 3978027 MCHC 34.8 g/dL 04/21/2014 CBC 3813021 PLT 306 10e9/L 04/21/2014 CBC 6058843 MPV 9.7 fL 04/21/2014 CBC 5457070 YG % 68.0 % 04/21/2014 CBC 7982308 LY % 20.1 % 04/21/2014 CBC 5295293 MON % 8.1 % 04/21/2014 CBC 9960544 EOS % 3.6 % 04/21/2014 CBC 3738948 BASO % 0.2 % 04/21/2014 CBC 3518941 RDW 14.1 % 04/21/2014 CBC 0535876 ABS YG 5.64 10e9/L 04/21/2014 CBC 2446952 ABS LYMPH 1.67 10e9/L 04/21/2014 CBC 8551629 ABS MONO 0.67 10e9/L 04/21/2014 CBC 6826856 ABS EOS 0.30 10e9/L 04/21/2014 CBC [id number] ABS BASO 0.02 10e9/L 04/21/2014 CBC 2368954 RDW-SD 44.3 fL 04/21/2014 CHEM 14 8586300 AST 10 U/L 04/21/2014 CHEM 14 0518427 ALT 13 IU/L 04/21/2014 CHEM 14 5158420 BUN 15 MG/DL 04/21/2014 CHEM 14 2736880 ALBUMIN 4.6 GM/DL 04/21/2014 CHEM 14 4039938 CHLORIDE 103 MMOL/L 04/21/2014 CHEM 14 2485414 BILI TOT 0.5 MG/DL 04/21/2014 CHEM 14 2109071 ALK PHOS 76 U/L 04/21/2014 CHEM 14 0311668 SODIUM 135 MMOL/L 04/21/2014 CHEM 14 5225946 CREATININE 0.72 MG/DL 04/21/2014 CHEM 14 5853018 CALCIUM 10.1 MG/DL 04/21/2014 CHEM 14 8797274 POTASSIUM 4.2 MMOL/L 04/21/2014 CHEM 14 5039100 PROT TOT 7.0 GM/DL 04/21/2014 CHEM 14 6324642 GLUCOSE 263 MG/DL 04/21/2014 CHEM 14 2829081 BICARB 25 MMOL/L 04/21/2014 CHEM 14 4168520 ANION GAP 7 MEQ/L 04/21/2014 TESTOS TO [id number] TESTOS TO 450 NG/DL 04/21/2014 LIPID GRP HDL TEST 37 MG/DL 04/21/2014 LIPID GRP TRIG 70 MG/DL 04/21/2014 LIPID GRP TEST LDL 122 MG/DL 04/21/2014 LIPID GRP CHOL 173 MG/DL 04/21/2014 LIPID GRP RCHOL/HDL 4.68 RATIO 04/21/2014 GFR CALC 0662028 GFR AA >60 ML/MIN 04/21/2014 GFR CALC 3264761 GFR NON-AA >60 ML/MIN 04/21/2014 Review of Systems System Result Effective Dates Constitutional No chills 10/09/2018 Constitutional No diaphoresis 10/09/2018 Constitutional No fever 10/09/2018 Eyes No blindness 10/09/2018 Ears/Nose/Throat/Neck No nasal allergies 10/09/2018 Ears/Nose/Throat/Neck No nasal discharge 10/09/2018 Cardiovascular No chest pain/pressure 02/2018 Cardiovascular No dyspnea 10/09/2018 Respiratory No cough 10/09/2018 Respiratory No dyspnea 10/09/2018 Gastrointestinal No abdominal pain 2017 Gastrointestinal nausea 10/09/2018 Musculoskeletal No joint complaint 2017 Dermatologic No rash 10/09/2018 Neurologic No aphasia 10/09/2018 Neurologic No mental status change 2017 Psychiatric No anxiety 10/09/2018 Psychiatric No depression 10/09/2018 Psychiatric No confusion 10/09/2018 Endocrine diabetes mellitus type 2 2017 Constitutional No chills 03/29/2018 Constitutional No diaphoresis 03/29/2018 Constitutional No fatigue 03/29/2018 Constitutional No fever 03/29/2018 Eyes No blindness 03/29/2018 Ears/Nose/Throat/Neck No nasal allergies 03/29/2018 Ears/Nose/Throat/Neck No nasal discharge 03/29/2018 Cardiovascular No chest pain/pressure Cardiovascular No dyspnea 03/29/2018 Respiratory No cough 03/29/2018 Respiratory No dyspnea 03/29/2018 Gastrointestinal No abdominal pain 2017 Genitourinary/Nephrology No dysuria 03/29 Musculoskeletal No joint complaint 2017 Dermatologic No rash 03/29/2018 Neurologic No aphasia 03/29/2018 Neurologic No mental status change 2017 Psychiatric No anxiety 03/29/2018 Endocrine diabetes mellitus type 2 2017 Constitutional No recent illness 2017 Constitutional No anorexia 03/29/2018 Constitutional No night sweats 2017 Constitutional No insomnia 03/29/2018 Constitutional No malaise 03/29/2018 Constitutional No weight loss 03/29/2018 Constitutional No weight gain 03/29/2018 Constitutional No recent illness 2016 Constitutional No chills 11/03/2017 Constitutional No diaphoresis 11/03/2017 Constitutional No fever 11/03/2017 Eyes No eye erythema 11/03/2017 Ears/Nose/Throat/Neck No nasal discharge 11/03/2017 Cardiovascular No chest pain/pressure Respiratory No cough 11/03/2017 Respiratory No chest congestion 2016 Gastrointestinal No abdominal pain 2016 Genitourinary/Nephrology No dysuria 11/03 Genitourinary/Nephrology penile pain and discharge 11/03/2017 Dermatologic rash 11/03/2017 Neurologic No alteration of consciousness 11/03/2017 Neurologic No mental status change 2016 Constitutional No chills 07/13/2017 Constitutional No diaphoresis 07/13/2017 Constitutional No fever 07/13/2017 Eyes No blindness 07/13/2017 Ears/Nose/Throat/Neck No nasal allergies 07/13/2017 Ears/Nose/Throat/Neck No nasal discharge 07/13/2017 Cardiovascular No chest pain/pressure 05/2017 Cardiovascular No dyspnea 07/13/2017 Respiratory No cough 07/13/2017 Respiratory No dyspnea 07/13/2017 Gastrointestinal No abdominal pain 2016 Musculoskeletal No joint complaint 2016 Dermatologic No rash 07/13/2017 Neurologic No aphasia 07/13/2017 Neurologic No mental status change 2016 Genitourinary/Nephrology No dysuria 07/13 Psychiatric No anxiety 07/13/2017 Constitutional fatigue 07/13/2017 Endocrine diabetes mellitus type 2 2016 Constitutional recent illness 07/06/2017 Constitutional No chills 07/06/2017 Constitutional No diaphoresis 07/06/2017 Constitutional No fever 07/06/2017 Eyes No eye erythema 07/06/2017 Ears/Nose/Throat/Neck No nasal discharge 07/06/2017 Cardiovascular No chest pain/pressure Cardiovascular No dyspnea 07/06/2017 Respiratory No cough 07/06/2017 Respiratory No dyspnea 07/06/2017 Gastrointestinal No abdominal pain 2016 Gastrointestinal No constipation 2016 Gastrointestinal No diarrhea 07/06/2017 Gastrointestinal No vomiting 07/06/2017 Gastrointestinal No nausea 07/06/2017 Gastrointestinal No melena 07/06/2017 Gastrointestinal hematochezia 07/06/2017 Neurologic No alteration of consciousness 07/06/2017 Neurologic No mental status change 2016 Constitutional recent illness 06/29/2017 Constitutional No anorexia 06/29/2017 Constitutional No night sweats 2016 Constitutional No chills 06/29/2017 Constitutional No diaphoresis 06/29/2017 Constitutional No fatigue 06/29/2017 Constitutional No fever 06/29/2017 Constitutional No insomnia 06/29/2017 Constitutional No malaise 06/29/2017 Constitutional No weight loss 06/29/2017 Constitutional No weight gain 06/29/2017 Eyes No eye discharge 06/29/2017 Eyes No eye erythema 06/29/2017 Eyes No vision change 06/29/2017 Ears/Nose/Throat/Neck No dizziness 2016 Ears/Nose/Throat/Neck No headache 2016 Cardiovascular No chest pain/pressure Cardiovascular No dyspnea 06/29/2017 Cardiovascular edema 06/29/2017 Respiratory No productive sputum 2016 Respiratory cough 06/29/2017 Gastrointestinal No abdominal pain 2016 Gastrointestinal No constipation 2016 Gastrointestinal diarrhea 06/29/2017 Genitourinary/Nephrology No dysuria 06/29 Genitourinary/Nephrology No testicular pain 06/29/2017 Musculoskeletal No joint complaint 2016 Dermatologic No rash 06/29/2017 Neurologic No alteration of consciousness 06/29/2017 Genitourinary/Nephrology dysuria 2016 Genitourinary/Nephrology urinary frequency 06/26/2017 Constitutional No anorexia 06/26/2017 Constitutional recent illness 06/26/2017 Constitutional No night sweats 2016 Constitutional No chills 06/26/2017 Constitutional No diaphoresis 06/26/2017 Constitutional No fatigue 06/26/2017 Constitutional No fever 06/26/2017 Constitutional No insomnia 06/26/2017 Constitutional No malaise 06/26/2017 Constitutional No weight loss 06/26/2017 Constitutional No weight gain 06/26/2017 Eyes No eye discharge 06/26/2017 Eyes No eye erythema 06/26/2017 Eyes No vision change 06/26/2017 Ears/Nose/Throat/Neck No dizziness 2016 Ears/Nose/Throat/Neck No headache 2016 Cardiovascular No chest pain/pressure Cardiovascular No dyspnea 06/26/2017 Cardiovascular edema 06/26/2017 Respiratory No productive sputum 2016 Respiratory cough 06/26/2017 Gastrointestinal No abdominal pain 2016 Gastrointestinal No constipation 2016 Gastrointestinal diarrhea 06/26/2017 Musculoskeletal No joint complaint 2016 Dermatologic No rash 06/26/2017 Neurologic No alteration of consciousness 06/26/2017 Genitourinary/Nephrology No testicular pain 06/26/2017 Constitutional No chills 06/23/2017 Constitutional No diaphoresis 06/23/2017 Constitutional No fever 06/23/2017 Eyes No eye erythema 06/23/2017 Ears/Nose/Throat/Neck No nasal discharge 06/23/2017 Ears/Nose/Throat/Neck No nasal allergies 06/23/2017 Cardiovascular No chest pain/pressure Cardiovascular No dyspnea 06/23/2017 Respiratory No cough 06/23/2017 Respiratory No dyspnea 06/23/2017 Gastrointestinal No abdominal pain 2016 Gastrointestinal nausea 06/23/2017 Musculoskeletal No joint complaint 2016 Dermatologic No rash 06/23/2017 Neurologic No aphasia 06/23/2017 Neurologic No mental status change 2016 Constitutional recent illness 06/08/2017 Constitutional No chills 06/08/2017 Constitutional diaphoresis 06/08/2017 Constitutional No fever 06/08/2017 Eyes No eye erythema 06/08/2017 Ears/Nose/Throat/Neck nasal discharge 01/2017 Ears/Nose/Throat/Neck nasal allergies 01/2017 Ears/Nose/Throat/Neck sinus congestion Ears/Nose/Throat/Neck No postnasal drip 06/08/2017 Ears/Nose/Throat/Neck No otalgia 2016 Ears/Nose/Throat/Neck headache 2016 Ears/Nose/Throat/Neck No dizziness 2016 Cardiovascular No chest pain/pressure 01/2017 Respiratory No dyspnea 06/08/2017 Respiratory No cough 06/08/2017 Respiratory snoring 06/08/2017 Gastrointestinal No abdominal pain 2016 Gastrointestinal No constipation 2016 Gastrointestinal No diarrhea 06/08/2017 Gastrointestinal nausea 06/08/2017 Gastrointestinal vomiting 06/08/2017 Musculoskeletal No joint complaint 2016 Dermatologic No rash 06/08/2017 Neurologic No alteration of consciousness 06/08/2017 Neurologic No mental status change 2016 Neurologic headache 06/08/2017 Neurologic No gait abnormality 2016 Neurologic No seizure 06/08/2017 Neurologic No weakness 06/08/2017 Neurologic No speech difficulties 2016 Constitutional No recent illness 2016 Constitutional No chills 03/23/2017 Constitutional No diaphoresis 03/23/2017 Constitutional No fever 03/23/2017 Eyes No vision change 03/23/2017 Ears/Nose/Throat/Neck nasal allergies Cardiovascular No chest pain/pressure Cardiovascular No dyspnea 03/23/2017 Respiratory No cough 03/23/2017 Gastrointestinal No abdominal pain 2016 Neurologic No alteration of consciousness 03/23/2017 Neurologic No mental status change 2016 Eyes No eye erythema 03/23/2017 Ears/Nose/Throat/Neck nasal discharge Ears/Nose/Throat/Neck No sore throat Ears/Nose/Throat/Neck No sinus congestion 03/23/2017 Respiratory No dyspnea 03/23/2017 Constitutional No night sweats 2016 Constitutional No recent illness 2016 Constitutional No chills 12/19/2016 Constitutional No diaphoresis 12/19/2016 Constitutional No fatigue 12/19/2016 Constitutional No fever 12/19/2016 Constitutional No insomnia 12/19/2016 Constitutional No malaise 12/19/2016 Eyes No vision change 12/19/2016 Ears/Nose/Throat/Neck No dental pain Ears/Nose/Throat/Neck No dizziness 2016 Ears/Nose/Throat/Neck No dysphagia 2016 Ears/Nose/Throat/Neck No headache 2016 Ears/Nose/Throat/Neck No hearing loss Ears/Nose/Throat/Neck No nasal allergies 12/19/2016 Ears/Nose/Throat/Neck No postnasal drip 12/19/2016 Ears/Nose/Throat/Neck No sinus congestion 12/19/2016 Ears/Nose/Throat/Neck No sore throat Cardiovascular No chest pain/pressure Cardiovascular No dyspnea 12/19/2016 Cardiovascular No edema 12/19/2016 Respiratory No productive sputum 2016 Respiratory No chest congestion 2016 Respiratory No cough 12/19/2016 Gastrointestinal No abdominal pain 2016 Gastrointestinal No constipation 2016 Gastrointestinal No diarrhea 12/19/2016 Gastrointestinal No nausea 12/19/2016 Gastrointestinal No vomiting 12/19/2016 Genitourinary/Nephrology No dysuria 12/19 Musculoskeletal No stiffness 12/19/2016 Musculoskeletal No swelling 12/19/2016 Musculoskeletal No muscle weakness 2016 Musculoskeletal No myalgias 12/19/2016 Dermatologic No rash 12/19/2016 Dermatologic No scar 12/19/2016 Neurologic No alteration of consciousness 12/19/2016 Neurologic No mental status change 2016 Psychiatric No anxiety 12/19/2016 Psychiatric No depression 12/19/2016 Endocrine diabetes mellitus type 2 2016 Genitourinary/Nephrology nocturia 2016 Genitourinary/Nephrology urinary retention/hesitancy 12/19/2016 Constitutional recent illness 10/03/2016 Constitutional No anorexia 10/03/2016 Constitutional No night sweats 2015 Constitutional No chills 10/03/2016 Constitutional No fatigue 10/03/2016 Constitutional No fever 10/03/2016 Constitutional No insomnia 10/03/2016 Constitutional No malaise 10/03/2016 Constitutional No weight loss 10/03/2016 Constitutional No weight gain 10/03/2016 Constitutional No diaphoresis 10/03/2016 Eyes No eye erythema 10/03/2016 Eyes No eye discharge 10/03/2016 Ears/Nose/Throat/Neck nasal allergies Ears/Nose/Throat/Neck nasal discharge Ears/Nose/Throat/Neck postnasal drip Cardiovascular No chest pain/pressure Cardiovascular No dyspnea 10/03/2016 Respiratory No productive sputum 2015 Respiratory No chest congestion 2015 Respiratory cough 10/03/2016 Gastrointestinal No abdominal pain 2015 Gastrointestinal No constipation 2015 Gastrointestinal No diarrhea 10/03/2016 Genitourinary/Nephrology No dysuria 10/03 Musculoskeletal No joint complaint 2015 Dermatologic No rash 10/03/2016 Constitutional No night sweats 2015 Constitutional No recent illness 2015 Constitutional No chills 08/22/2016 Constitutional No diaphoresis 08/22/2016 Constitutional No fatigue 08/22/2016 Constitutional No fever 08/22/2016 Constitutional No insomnia 08/22/2016 Constitutional No malaise 08/22/2016 Eyes No vision change 08/22/2016 Ears/Nose/Throat/Neck No dental pain Ears/Nose/Throat/Neck No dizziness 2015 Ears/Nose/Throat/Neck No dysphagia 2015 Ears/Nose/Throat/Neck No headache 2015 Ears/Nose/Throat/Neck No hearing loss Ears/Nose/Throat/Neck No nasal allergies 08/22/2016 Ears/Nose/Throat/Neck No postnasal drip 08/22/2016 Ears/Nose/Throat/Neck No sinus congestion 08/22/2016 Ears/Nose/Throat/Neck No sore throat Cardiovascular No chest pain/pressure Cardiovascular No dyspnea 08/22/2016 Cardiovascular No edema 08/22/2016 Respiratory No productive sputum 2015 Respiratory No chest congestion 2015 Respiratory No cough 08/22/2016 Gastrointestinal No abdominal pain 2015 Gastrointestinal No constipation 2015 Gastrointestinal No diarrhea 08/22/2016 Gastrointestinal No nausea 08/22/2016 Gastrointestinal No vomiting 08/22/2016 Genitourinary/Nephrology No dysuria 08/22 Musculoskeletal No stiffness 08/22/2016 Musculoskeletal No swelling 08/22/2016 Musculoskeletal No muscle weakness 2015 Musculoskeletal No myalgias 08/22/2016 Dermatologic No rash 08/22/2016 Dermatologic No scar 08/22/2016 Neurologic No alteration of consciousness 08/22/2016 Neurologic No mental status change 2015 Psychiatric No anxiety 08/22/2016 Psychiatric No depression 08/22/2016 Endocrine diabetes mellitus type 2 2015 Constitutional No recent illness 2015 Constitutional No night sweats 2015 Constitutional No chills 03/24/2016 Constitutional No diaphoresis 03/24/2016 Constitutional No fatigue 03/24/2016 Constitutional No fever 03/24/2016 Constitutional No insomnia 03/24/2016 Constitutional No malaise 03/24/2016 Eyes No vision change 03/24/2016 Ears/Nose/Throat/Neck No dental pain Ears/Nose/Throat/Neck No dizziness 2015 Ears/Nose/Throat/Neck No dysphagia 2015 Ears/Nose/Throat/Neck No headache 2015 Ears/Nose/Throat/Neck No hearing loss Ears/Nose/Throat/Neck No nasal allergies 03/24/2016 Ears/Nose/Throat/Neck No postnasal drip 03/24/2016 Ears/Nose/Throat/Neck No sinus congestion 03/24/2016 Ears/Nose/Throat/Neck No sore throat Cardiovascular No chest pain/pressure Cardiovascular No dyspnea 03/24/2016 Cardiovascular No edema 03/24/2016 Respiratory No chest congestion 2015 Gastrointestinal No abdominal pain 2015 Gastrointestinal No constipation 2015 Gastrointestinal No diarrhea 03/24/2016 Gastrointestinal No nausea 03/24/2016 Gastrointestinal No vomiting 03/24/2016 Genitourinary/Nephrology No dysuria 03/24 Musculoskeletal No stiffness 03/24/2016 Musculoskeletal No swelling 03/24/2016 Musculoskeletal No muscle weakness 2015 Musculoskeletal No myalgias 03/24/2016 Dermatologic No rash 03/24/2016 Dermatologic No scar 03/24/2016 Neurologic No alteration of consciousness 03/24/2016 Psychiatric No anxiety 03/24/2016 Psychiatric No depression 03/24/2016 Endocrine diabetes mellitus type 2 2015 Respiratory No cough 03/24/2016 Respiratory No productive sputum 2015 Neurologic No mental status change 2015 Constitutional No recent illness 2015 Constitutional No anorexia 2015 Constitutional No night sweats 2015 Constitutional No chills 2015 Constitutional No diaphoresis 2015 Constitutional No fatigue 2015 Constitutional No fever 2015 Constitutional No insomnia 2015 Constitutional No malaise 2015 Eyes No vision change 2015 Ears/Nose/Throat/Neck No dental pain Ears/Nose/Throat/Neck No dizziness 2015 Ears/Nose/Throat/Neck No dysphagia 2015 Ears/Nose/Throat/Neck No headache 2015 Ears/Nose/Throat/Neck No hearing loss Ears/Nose/Throat/Neck No nasal allergies 2015 Ears/Nose/Throat/Neck No sore throat Ears/Nose/Throat/Neck No postnasal drip 2015 Ears/Nose/Throat/Neck No sinus congestion 2015 Cardiovascular No chest pain/pressure Cardiovascular No dyspnea 2015 Cardiovascular No edema 2015 Cardiovascular hypertension 2015 Respiratory No chest congestion 2015 Respiratory No chest tightness 2015 Gastrointestinal No abdominal pain 2015 Gastrointestinal No constipation 2015 Gastrointestinal No diarrhea 2015 Gastrointestinal No nausea 2015 Gastrointestinal No vomiting 2015 Genitourinary/Nephrology No dysuria 11/23 Genitourinary/Nephrology No nocturia Genitourinary/Nephrology No urinary incontinence 2015 Musculoskeletal No stiffness 2015 Musculoskeletal No swelling 2015 Musculoskeletal No muscle weakness 2015 Musculoskeletal No myalgias 2015 Dermatologic No rash 2015 Dermatologic No scar 2015 Psychiatric No anxiety 2015 Psychiatric No depression 2015 Endocrine diabetes mellitus type 2 2015 Neurologic No alteration of consciousness 2015 Constitutional No recent illness 2014 Constitutional No chills 07/29/2015 Constitutional No fatigue 07/29/2015 Constitutional No fever 07/29/2015 Cardiovascular No chest pain/pressure Psychiatric No anxiety 07/29/2015 Neurologic pain, limb 07/29/2015 Dermatologic rash 07/29/2015 Constitutional No recent illness 2014 Constitutional No anorexia 07/20/2015 Constitutional No night sweats 2014 Constitutional No chills 07/20/2015 Constitutional No diaphoresis 07/20/2015 Constitutional No fatigue 07/20/2015 Constitutional No fever 07/20/2015 Constitutional No insomnia 07/20/2015 Constitutional No malaise 07/20/2015 Eyes No vision change 07/20/2015 Cardiovascular No chest pain/pressure Cardiovascular No dyspnea 07/20/2015 Cardiovascular No edema 07/20/2015 Respiratory No chest congestion 2014 Respiratory No chest tightness 2014 Gastrointestinal No abdominal pain 2014 Gastrointestinal No constipation 2014 Gastrointestinal No diarrhea 07/20/2015 Gastrointestinal No dyspepsia 07/20/2015 Gastrointestinal No dysphagia 07/20/2015 Gastrointestinal No nausea 07/20/2015 Gastrointestinal No vomiting 07/20/2015 Musculoskeletal No stiffness 07/20/2015 Musculoskeletal No swelling 07/20/2015 Musculoskeletal No muscle weakness 2014 Musculoskeletal No myalgias 07/20/2015 Dermatologic No rash 07/20/2015 Dermatologic No scar 07/20/2015 Neurologic No dizziness 07/20/2015 Neurologic No headache 07/20/2015 Neurologic No neck pain 07/20/2015 Neurologic No syncope 07/20/2015 Psychiatric No anxiety 07/20/2015 Psychiatric No depression 07/20/2015 Endocrine diabetes mellitus type 2 2014 Ears/Nose/Throat/Neck No dental pain Ears/Nose/Throat/Neck No dizziness 2014 Ears/Nose/Throat/Neck No dysphagia 2014 Ears/Nose/Throat/Neck No headache 2014 Ears/Nose/Throat/Neck No hearing loss Ears/Nose/Throat/Neck No nasal allergies 07/20/2015 Ears/Nose/Throat/Neck No sore throat Ears/Nose/Throat/Neck No postnasal drip 07/20/2015 Ears/Nose/Throat/Neck No sinus congestion 07/20/2015 Genitourinary/Nephrology No dysuria 07/20 Genitourinary/Nephrology No nocturia Genitourinary/Nephrology No urinary incontinence 07/20/2015 Cardiovascular hypertension 07/20/2015 Constitutional No recent illness 2014 Constitutional No anorexia 03/17/2015 Constitutional No night sweats 2014 Constitutional No chills 03/17/2015 Constitutional No diaphoresis 03/17/2015 Constitutional No fatigue 03/17/2015 Constitutional No fever 03/17/2015 Constitutional No insomnia 03/17/2015 Constitutional No malaise 03/17/2015 Eyes No vision change 03/17/2015 Ears/Nose/Throat/Neck nasal discharge 10/2015 Ears/Nose/Throat/Neck postnasal drip 10/2015 Cardiovascular No chest pain/pressure 10/2015 Cardiovascular No dyspnea 03/17/2015 Cardiovascular No edema 03/17/2015 Respiratory No chest congestion 2014 Respiratory No chest tightness 2014 Respiratory cough 03/17/2015 Gastrointestinal No abdominal pain 2014 Gastrointestinal No constipation 2014 Gastrointestinal No diarrhea 03/17/2015 Gastrointestinal No dyspepsia 03/17/2015 Gastrointestinal No dysphagia 03/17/2015 Gastrointestinal No nausea 03/17/2015 Gastrointestinal No vomiting 03/17/2015 Musculoskeletal No stiffness 03/17/2015 Musculoskeletal No swelling 03/17/2015 Musculoskeletal No muscle weakness 2014 Musculoskeletal No myalgias 03/17/2015 Dermatologic No rash 03/17/2015 Dermatologic No scar 03/17/2015 Neurologic No dizziness 03/17/2015 Neurologic No headache 03/17/2015 Neurologic No neck pain 03/17/2015 Neurologic No syncope 03/17/2015 Psychiatric No anxiety 03/17/2015 Psychiatric No depression 03/17/2015 Endocrine diabetes mellitus type 2 2014 Constitutional recent illness 01/12/2015 Constitutional No anorexia 01/12/2015 Constitutional No night sweats 2014 Constitutional No chills 01/12/2015 Constitutional No diaphoresis 01/12/2015 Constitutional fatigue 01/12/2015 Constitutional No fever 01/12/2015 Constitutional No insomnia 01/12/2015 Constitutional No malaise 01/12/2015 Constitutional No weight gain 01/12/2015 Constitutional No weight loss 01/12/2015 Eyes No eye discharge 01/12/2015 Eyes No eye erythema 01/12/2015 Ears/Nose/Throat/Neck No headache 2014 Ears/Nose/Throat/Neck nasal allergies 07/2015 Ears/Nose/Throat/Neck nasal discharge 07/2015 Ears/Nose/Throat/Neck otalgia 01/12/2015 Ears/Nose/Throat/Neck sinus congestion Ears/Nose/Throat/Neck No sore throat 07/2015 Cardiovascular No chest pain/pressure 07/2015 Respiratory No productive sputum 2014 Respiratory chest congestion 01/12/2015 Respiratory cough 01/12/2015 Gastrointestinal No constipation 2014 Gastrointestinal No diarrhea 01/12/2015 Gastrointestinal No nausea 01/12/2015 Genitourinary/Nephrology No dysuria 01/12 Musculoskeletal No joint complaint 2014 Dermatologic No rash 01/12/2015 Dermatologic No sores 01/12/2015 Constitutional No recent illness 2014 Constitutional No insomnia 12/16/2014 Constitutional No fatigue 12/16/2014 Ears/Nose/Throat/Neck nasal discharge 08/2015 Ears/Nose/Throat/Neck postnasal drip 08/2015 Cardiovascular No chest pain/pressure 08/2015 Cardiovascular No dyspnea 12/16/2014 Cardiovascular No edema 12/16/2014 Respiratory cough 12/16/2014 Respiratory No chest congestion 2014 Gastrointestinal No constipation 2014 Gastrointestinal No diarrhea 12/16/2014 Gastrointestinal No vomiting 12/16/2014 Gastrointestinal No nausea 12/16/2014 Gastrointestinal No abdominal pain 2014 Psychiatric No anxiety 12/16/2014 Psychiatric No depression 12/16/2014 Musculoskeletal No stiffness 12/16/2014 Musculoskeletal No swelling 12/16/2014 Musculoskeletal No muscle weakness 2014 Musculoskeletal No myalgias 12/16/2014 Constitutional No anorexia 12/16/2014 Constitutional No night sweats 2014 Constitutional No chills 12/16/2014 Constitutional No diaphoresis 12/16/2014 Constitutional No fever 12/16/2014 Constitutional No malaise 12/16/2014 Eyes No vision change 12/16/2014 Respiratory No chest tightness 2014 Gastrointestinal No dyspepsia 12/16/2014 Gastrointestinal No dysphagia 12/16/2014 Dermatologic No rash 12/16/2014 Dermatologic No scar 12/16/2014 Neurologic No dizziness 12/16/2014 Neurologic No headache 12/16/2014 Neurologic No neck pain 12/16/2014 Neurologic No syncope 12/16/2014 Constitutional recent illness 11/27/2014 Constitutional anorexia 11/27/2014 Constitutional No night sweats 2014 Constitutional No chills 11/27/2014 Constitutional No diaphoresis 11/27/2014 Constitutional fatigue 11/27/2014 Constitutional fever 11/27/2014 Constitutional No insomnia 11/27/2014 Constitutional No malaise 11/27/2014 Cardiovascular No dyspnea 11/27/2014 Cardiovascular No edema 11/27/2014 Cardiovascular No fatigue 11/27/2014 Respiratory No chest tightness 2014 Respiratory cough 11/27/2014 Gastrointestinal No abdominal pain 2014 Musculoskeletal No stiffness 11/27/2014 Musculoskeletal No swelling 11/27/2014 Musculoskeletal No muscle weakness 2014 Musculoskeletal No myalgias 11/27/2014 Dermatologic No rash 11/27/2014 Dermatologic No scar 11/27/2014 Neurologic No dizziness 11/27/2014 Neurologic No headache 11/27/2014 Neurologic No neck pain 11/27/2014 Neurologic No syncope 11/27/2014 Psychiatric No anxiety 11/27/2014 Psychiatric No depression 11/27/2014 Eyes No eye discharge 11/27/2014 Eyes No eye erythema 11/27/2014 Eyes No vision change 11/27/2014 Ears/Nose/Throat/Neck headache 2014 Ears/Nose/Throat/Neck nasal allergies Ears/Nose/Throat/Neck No otalgia 2014 Ears/Nose/Throat/Neck sinus congestion Respiratory productive sputum 11/27/2014 Gastrointestinal No nausea 11/27/2014 Gastrointestinal No vomiting 11/27/2014 Ears/Nose/Throat/Neck nasal discharge Gastrointestinal No constipation 2014 Gastrointestinal No diarrhea 11/27/2014 Genitourinary/Nephrology No dysuria 11/27 Constitutional No recent illness 2013 Constitutional No anorexia 09/16/2014 Constitutional No night sweats 2013 Constitutional No chills 09/16/2014 Constitutional No diaphoresis 09/16/2014 Constitutional fatigue 09/16/2014 Constitutional No fever 09/16/2014 Constitutional No insomnia 09/16/2014 Constitutional No malaise 09/16/2014 Eyes No vision change 09/16/2014 Cardiovascular No dyspnea 09/16/2014 Cardiovascular No edema 09/16/2014 Cardiovascular No fatigue 09/16/2014 Respiratory No chest tightness 2013 Respiratory No cough 09/16/2014 Gastrointestinal No abdominal pain 2013 Gastrointestinal No dyspepsia 09/16/2014 Gastrointestinal No dysphagia 09/16/2014 Musculoskeletal No stiffness 09/16/2014 Musculoskeletal No swelling 09/16/2014 Musculoskeletal No muscle weakness 2013 Musculoskeletal No myalgias 09/16/2014 Dermatologic No rash 09/16/2014 Dermatologic No scar 09/16/2014 Neurologic No dizziness 09/16/2014 Neurologic No headache 09/16/2014 Neurologic No neck pain 09/16/2014 Neurologic No syncope 09/16/2014 Psychiatric No anxiety 09/16/2014 Psychiatric No depression 09/16/2014 Constitutional No recent illness 2013 Constitutional No anorexia 09/02/2014 Constitutional No night sweats 2013 Constitutional No chills 09/02/2014 Constitutional No diaphoresis 09/02/2014 Constitutional fatigue 09/02/2014 Constitutional No fever 09/02/2014 Constitutional No insomnia 09/02/2014 Constitutional No malaise 09/02/2014 Cardiovascular No dyspnea 09/02/2014 Cardiovascular No edema 09/02/2014 Cardiovascular No fatigue 09/02/2014 Respiratory No chest tightness 2013 Respiratory No cough 09/02/2014 Gastrointestinal No abdominal pain 2013 Gastrointestinal No dyspepsia 09/02/2014 Gastrointestinal No dysphagia 09/02/2014 Psychiatric No anxiety 09/02/2014 Psychiatric No depression 09/02/2014 Musculoskeletal No stiffness 09/02/2014 Musculoskeletal No swelling 09/02/2014 Musculoskeletal No muscle weakness 2013 Musculoskeletal No myalgias 09/02/2014 Dermatologic No rash 09/02/2014 Dermatologic No scar 09/02/2014 Neurologic No dizziness 09/02/2014 Neurologic No headache 09/02/2014 Neurologic No neck pain 09/02/2014 Neurologic No syncope 09/02/2014 Eyes No vision change 09/02/2014 Constitutional recent illness 08/05/2014 Constitutional No anorexia 08/05/2014 Constitutional night sweats 08/05/2014 Constitutional No chills 08/05/2014 Constitutional No diaphoresis 08/05/2014 Constitutional No fatigue 08/05/2014 Constitutional No fever 08/05/2014 Constitutional No insomnia 08/05/2014 Constitutional No malaise 08/05/2014 Eyes eye discharge 08/05/2014 Eyes No eye erythema 08/05/2014 Cardiovascular No chest pain/pressure Ears/Nose/Throat/Neck nasal allergies Ears/Nose/Throat/Neck nasal discharge Ears/Nose/Throat/Neck No otalgia 2013 Gastrointestinal No abdominal pain 2013 Gastrointestinal No constipation 2013 Gastrointestinal No diarrhea 08/05/2014 Gastrointestinal No nausea 08/05/2014 Genitourinary/Nephrology No dysuria 08/05 Musculoskeletal No joint complaint 2013 Dermatologic No rash 08/05/2014 Dermatologic No sores 08/05/2014 Neurologic No alteration of consciousness 08/05/2014 Constitutional recent illness 07/25/2014 Constitutional No anorexia 07/25/2014 Constitutional No night sweats 2013 Constitutional chills 07/25/2014 Constitutional diaphoresis 07/25/2014 Constitutional No fatigue 07/25/2014 Constitutional fever 07/25/2014 Constitutional insomnia 07/25/2014 Constitutional No malaise 07/25/2014 Constitutional No weight loss 07/25/2014 Constitutional No weight gain 07/25/2014 Eyes No eye discharge 07/25/2014 Eyes No eye erythema 07/25/2014 Ears/Nose/Throat/Neck No dizziness 2013 Ears/Nose/Throat/Neck No headache 2013 Ears/Nose/Throat/Neck nasal discharge Ears/Nose/Throat/Neck No otalgia 2013 Ears/Nose/Throat/Neck No sore throat Ears/Nose/Throat/Neck sinus congestion Cardiovascular No chest pain/pressure Cardiovascular No dyspnea 07/25/2014 Respiratory No productive sputum 2013 Respiratory No chest congestion 2013 Respiratory cough 07/25/2014 Gastrointestinal No diarrhea 07/25/2014 Gastrointestinal No nausea 07/25/2014 Gastrointestinal No vomiting 07/25/2014 Genitourinary/Nephrology No dysuria 07/25 Musculoskeletal No joint complaint 2013 Dermatologic No sores 07/25/2014 Dermatologic No rash 07/25/2014 Constitutional No recent illness 2013 Constitutional No anorexia 06/02/2014 Constitutional No night sweats 2013 Constitutional No chills 06/02/2014 Constitutional No diaphoresis 06/02/2014 Constitutional fatigue 06/02/2014 Constitutional No fever 06/02/2014 Constitutional No insomnia 06/02/2014 Constitutional No malaise 06/02/2014 Psychiatric No anxiety 06/02/2014 Psychiatric No depression 06/02/2014 Respiratory No cough 06/02/2014 Respiratory No chest tightness 2013 Cardiovascular No dyspnea 06/02/2014 Cardiovascular No edema 06/02/2014 Cardiovascular No fatigue 06/02/2014 Gastrointestinal No abdominal pain 2013 Gastrointestinal No dyspepsia 06/02/2014 Gastrointestinal No dysphagia 06/02/2014 Constitutional No recent illness 2013 Constitutional No anorexia 05/05/2014 Constitutional No diaphoresis 05/05/2014 Constitutional No chills 05/05/2014 Constitutional No night sweats 2013 Constitutional fatigue 05/05/2014 Constitutional No fever 05/05/2014 Constitutional No insomnia 05/05/2014 Constitutional No malaise 05/05/2014 Constitutional No recent illness 2013 Constitutional No chills 04/29/2014 Constitutional No fatigue 04/29/2014 Constitutional No fever 04/29/2014 Constitutional No insomnia 04/29/2014 Constitutional No malaise 04/29/2014 Cardiovascular No chest pain/pressure Cardiovascular No dyspnea 04/29/2014 Cardiovascular No edema 04/29/2014 Cardiovascular exercise intolerance 04/29 Cardiovascular No fatigue 04/29/2014 Cardiovascular No near-syncope/dizziness 04/29/2014 Respiratory No chest tightness 2013 Respiratory No cigarette smoking 2013 Respiratory No cough 04/29/2014 Respiratory No dyspnea 04/29/2014 Respiratory No pedal edema 04/29/2014 Respiratory No snoring 04/29/2014 Respiratory No wheezing 04/29/2014 Gastrointestinal No abdominal pain 2013 Gastrointestinal No constipation 2013 Gastrointestinal No diarrhea 04/29/2014 Gastrointestinal No gastroesophageal reflux 04/29/2014 Musculoskeletal stiffness 04/29/2014 Musculoskeletal muscle weakness 2013 Musculoskeletal No myalgias 04/29/2014 Dermatologic No sores 04/29/2014 Neurologic No dizziness 04/29/2014 Neurologic No headache 04/29/2014 Neurologic No neck pain 04/29/2014 Neurologic No syncope 04/29/2014 Psychiatric No anxiety 04/29/2014 Psychiatric No depression 04/29/2014 Musculoskeletal arthralgia(s) 04/29/2014 Constitutional No recent illness 2013 Constitutional No chills 04/14/2014 Constitutional No fatigue 04/14/2014 Constitutional No fever 04/14/2014 Constitutional No insomnia 04/14/2014 Constitutional No malaise 04/14/2014 Eyes No blindness 04/14/2014 Eyes No vision change 04/14/2014 Ears/Nose/Throat/Neck No dental pain 07/2014 Ears/Nose/Throat/Neck No dizziness 2013 Ears/Nose/Throat/Neck No dysphagia 2013 Ears/Nose/Throat/Neck No headache 2013 Ears/Nose/Throat/Neck No hearing loss 07/2014 Ears/Nose/Throat/Neck No nasal allergies 04/14/2014 Ears/Nose/Throat/Neck No sore throat 07/2014 Ears/Nose/Throat/Neck No postnasal drip 04/14/2014 Ears/Nose/Throat/Neck No sinus congestion 04/14/2014 Cardiovascular No chest pain/pressure 07/2014 Cardiovascular No dyspnea 04/14/2014 Cardiovascular No edema 04/14/2014 Cardiovascular exercise intolerance 04/14 Cardiovascular No fatigue 04/14/2014 Cardiovascular No near-syncope/dizziness 04/14/2014 Respiratory No chest tightness 2013 Respiratory No cigarette smoking 2013 Respiratory No cough 04/14/2014 Respiratory No dyspnea 04/14/2014 Respiratory No pedal edema 04/14/2014 Respiratory No snoring 04/14/2014 Respiratory No wheezing 04/14/2014 Gastrointestinal No abdominal pain 2013 Gastrointestinal No constipation 2013 Gastrointestinal No diarrhea 04/14/2014 Gastrointestinal No gastroesophageal reflux 04/14/2014 Genitourinary/Nephrology No dysuria 04/14 Genitourinary/Nephrology nocturia 2013 Genitourinary/Nephrology No urinary incontinence 04/14/2014 Genitourinary/Nephrology urinary urgency 04/14/2014 Musculoskeletal No stiffness 04/14/2014 Musculoskeletal No swelling 04/14/2014 Musculoskeletal No muscle weakness 2013 Musculoskeletal No myalgias 04/14/2014 Dermatologic No rash 04/14/2014 Dermatologic No scar 04/14/2014 Dermatologic No sores 04/14/2014 Neurologic No dizziness 04/14/2014 Neurologic No headache 04/14/2014 Neurologic No neck pain 04/14/2014 Neurologic No syncope 04/14/2014 Psychiatric No anxiety 04/14/2014 Psychiatric No depression 04/14/2014 Physical Exam Exam Name System Name Item Name Status Result Effective Dates Notes Full Exam - General 1994 Constitutional general appearance Overall: well developed 10/09/2018 None Full Exam - General 1994 Constitutional general appearance Overall: in no acute distress 10/09/2018 None Full Exam - General 1994 Constitutional general appearance Overall: well nourished 10/09/2018 None Full Exam - General 1994 Eyes conjunctiva /eyelids Overall: conjunctiva clear 10/09/2018 None Full Exam - General 1994 Eyes conjunctiva /eyelids Overall: eyelids normal 10/09/2018 None Full Exam - General 1994 Ears/Nose/Throat lips/teeth/gingiva Overall: benign lips 10/09/2018 None Full Exam - General 1994 Ears/Nose/Throat oral cavity/pharynx/larynx Overall: oral mucosa clear 10/09/2018 None Full Exam - General 1994 Respiratory respiratory effort/rhythm Overall: no retractions 10/09/2018 None Full Exam - General 1994 Respiratory respiratory effort/rhythm Overall: normal rate 10/09/2018 None Full Exam - General 1994 Cardiovascular auscultation of heart Rate: regular rate 10/09/2018 None Full Exam - General 1994 Musculoskeletal gait and station Overall: normal gait 10/09/2018 None Full Exam - General 1994 Musculoskeletal gait and station Overall: normal station 10/09/2018 None Full Exam - General 1994 Musculoskeletal head and neck Overall: head atraumatic 10/09/2018 None Full Exam - General 1994 Neurologic cranial nerves Overall: crainial nerves 2 - 12 grossly intact 10/09/2018 None Full Exam - General 1994 Psychiatric orientation/consciousness Overall: oriented to person, place and time 10/09/2018 None Full Exam - General 1994 Psychiatric mood and affect Overall: normal mood and affect 10/09/2018 None Full Exam - General 1994 Psychiatric appearance Overall: well-groomed, good eye contact 10/09/2018 None Full Exam - General 1994 Abdomen abdominal exam Overall: no tenderness 10/09/2018 None Full Exam - General 1994 Abdomen abdominal exam Overall: normal bowel sounds 10/09/2018 None Full Exam - General 1994 Constitutional general appearance Overall: well developed 03/29/2018 None Full Exam - General 1994 Constitutional general appearance Overall: in no acute distress 03/29/2018 None Full Exam - General 1994 Constitutional general appearance Overall: well nourished 03/29/2018 None Full Exam - General 1994 Eyes conjunctiva /eyelids Overall: conjunctiva clear 03/29/2018 None Full Exam - General 1994 Eyes conjunctiva /eyelids Overall: eyelids normal 03/29/2018 None Full Exam - General 1994 Ears/Nose/Throat lips/teeth/gingiva Overall: benign lips 03/29/2018 None Full Exam - General 1994 Ears/Nose/Throat oral cavity/pharynx/larynx Overall: oral mucosa clear 03/29/2018 None Full Exam - General 1994 Respiratory respiratory effort/rhythm Overall: no retractions 03/29/2018 None Full Exam - General 1994 Respiratory respiratory effort/rhythm Overall: normal rate 03/29/2018 None Full Exam - General 1994 Abdomen abdominal exam Overall: no tenderness 03/29/2018 None Full Exam - General 1994 Abdomen abdominal exam Overall: normal bowel sounds 03/29/2018 None Full Exam - General 1994 Musculoskeletal gait and station Overall: normal gait 03/29/2018 None Full Exam - General 1994 Musculoskeletal gait and station Overall: normal station 03/29/2018 None Full Exam - General 1994 Musculoskeletal head and neck Overall: head atraumatic 03/29/2018 None Full Exam - General 1994 Neurologic cranial nerves Overall: crainial nerves 2 - 12 grossly intact 03/29/2018 None Full Exam - General 1994 Psychiatric orientation/consciousness Overall: oriented to person, place and time 03/29/2018 None Full Exam - General 1994 Psychiatric mood and affect Overall: normal mood and affect 03/29/2018 None Full Exam - General 1994 Psychiatric appearance Overall: well-groomed, good eye contact 03/29/2018 None Full Exam - General 1994 Cardiovascular auscultation of heart Rate: bradycardia 03/29/2018 None Full Exam - General 1994 Cardiovascular auscultation of heart Rhythm: regular rhythm 03/29/2018 None Full Exam - General 1994 Constitutional general appearance Overall: well developed 11/03/2017 None Full Exam - General 1994 Constitutional general appearance Overall: in no acute distress 11/03/2017 None Full Exam - General 1994 Constitutional general appearance Overall: well nourished 11/03/2017 None Full Exam - General 1994 Eyes conjunctiva /eyelids Overall: conjunctiva clear 11/03/2017 None Full Exam - General 1994 Eyes conjunctiva /eyelids Overall: cornea clear 11/03/2017 None Full Exam - General 1994 Eyes conjunctiva /eyelids Overall: eyelids normal 11/03/2017 None Full Exam - General 1994 Ears/Nose/Throat oral cavity/pharynx/larynx Overall: oral mucosa clear 11/03/2017 None Full Exam - General 1994 Ears/Nose/Throat lips/teeth/gingiva Overall: benign lips 11/03/2017 None Full Exam - General 1994 Respiratory respiratory effort/rhythm Overall: normal rate 11/03/2017 None Full Exam - General 1994 Respiratory respiratory effort/rhythm Overall: no retractions 11/03/2017 None Full Exam - General 1994 Genitourinary penis Inspection: inflammation 11/03/2017 None Full Exam - General 1994 Genitourinary penis Penile discharge: yellow 11/03/2017 to clear - moderate amount Full Exam - General 1994 Genitourinary scrotum/testes Scrotum: non-tender 11/03/2017 None Full Exam - General 1994 Genitourinary scrotum/testes Scrotum: swelling 11/03/2017 mild Full Exam - General 1994 Musculoskeletal head and neck Overall: head atraumatic 11/03/2017 None Full Exam - General 1994 Integument inspection of skin Location: face 11/03/2017 under right eye Full Exam - General 1994 Integument inspection of skin Dermatitis: erythema 11/03/2017 very mild Full Exam - General 1994 Integument inspection of skin Rash/Lesions: patch 11/03/2017 None Full Exam - General 1994 Neurologic cranial nerves Overall: crainial nerves 2 - 12 grossly intact 11/03/2017 None Full Exam - General 1994 Psychiatric orientation/consciousness Overall: oriented to person, place and time 11/03/2017 None Full Exam - General 1994 Psychiatric mood and affect Overall: normal mood and affect 11/03/2017 None Full Exam - General 1994 Psychiatric appearance Overall: well-groomed, good eye contact 11/03/2017 None Full Exam - General 1994 Constitutional general appearance Overall: well developed 07/13/2017 None Full Exam - General 1994 Constitutional general appearance Overall: in no acute distress 07/13/2017 None Full Exam - General 1994 Constitutional general appearance Overall: well nourished 07/13/2017 None Full Exam - General 1994 Eyes conjunctiva /eyelids Overall: conjunctiva clear 07/13/2017 None Full Exam - General 1994 Eyes conjunctiva /eyelids Overall: eyelids normal 07/13/2017 None Full Exam - General 1995 Ears/Nose/Throat lips/teeth/gingiva Overall: benign lips 07/13/2017 None Full Exam - General 1994 Ears/Nose/Throat oral cavity/pharynx/larynx Overall: oral mucosa clear 07/13/2017 None Full Exam - General 1994 Respiratory respiratory effort/rhythm Overall: no retractions 07/13/2017 None Full Exam - General 1994 Respiratory respiratory effort/rhythm Overall: normal rate 07/13/2017 None Full Exam - General 1994 Cardiovascular auscultation of heart Rate: regular rate 07/13/2017 None Full Exam - General 1994 Musculoskeletal gait and station Overall: normal gait 07/13/2017 None Full Exam - General 1994 Musculoskeletal gait and station Overall: normal station 07/13/2017 None Full Exam - General 1994 Musculoskeletal head and neck Overall: head atraumatic 07/13/2017 None Full Exam - General 1994 Neurologic cranial nerves Overall: crainial nerves 2 - 12 grossly intact 07/13/2017 None Full Exam - General 1994 Psychiatric orientation/consciousness Overall: oriented to person, place and time 07/13/2017 None Full Exam - General 1994 Psychiatric mood and affect Overall: normal mood and affect 07/13/2017 None Full Exam - General 1994 Psychiatric appearance Overall: well-groomed, good eye contact 07/13/2017 None Full Exam - General 1994 Abdomen abdominal exam Overall: no tenderness 07/13/2017 None Full Exam - General 1994 Abdomen abdominal exam Overall: normal bowel sounds 07/13/2017 None Full Exam - General 1994 Constitutional general appearance Overall: well developed 07/06/2017 None Full Exam - General 1994 Constitutional general appearance Overall: in no acute distress 07/06/2017 None Full Exam - General 1994 Constitutional general appearance Overall: well nourished 07/06/2017 None Full Exam - General 1994 Eyes conjunctiva /eyelids Overall: conjunctiva clear 07/06/2017 None Full Exam - General 1994 Eyes conjunctiva /eyelids Overall: eyelids normal 07/06/2017 None Full Exam - General 1994 Ears/Nose/Throat lips/teeth/gingiva Overall: benign lips 07/06/2017 None Full Exam - General 1994 Ears/Nose/Throat oral cavity/pharynx/larynx Overall: oral mucosa clear 07/06/2017 None Full Exam - General 1994 Respiratory respiratory effort/rhythm Overall: no retractions 07/06/2017 None Full Exam - General 1994 Respiratory respiratory effort/rhythm Overall: normal rate 07/06/2017 None Full Exam - General 1994 Respiratory auscultation Overall: breath sounds clear bilaterally 07/06/2017 None Full Exam - General 1994 Cardiovascular auscultation of heart Rate: bradycardia 07/06/2017 None Full Exam - General 1994 Cardiovascular auscultation of heart Rhythm: regular rhythm 07/06/2017 None Full Exam - General 1994 Abdomen abdominal exam Overall: normal bowel sounds 07/06/2017 None Full Exam - General 1994 Abdomen abdominal exam Overall: no tenderness 07/06/2017 None Full Exam - General 1994 Musculoskeletal head and neck Overall: head atraumatic 07/06/2017 None Full Exam - General 1994 Musculoskeletal gait and station Overall: normal gait 07/06/2017 None Full Exam - General 1994 Musculoskeletal gait and station Overall: normal station 07/06/2017 None Full Exam - General 1994 Neurologic cranial nerves Overall: crainial nerves 2 - 12 grossly intact 07/06/2017 None Full Exam - General 1994 Psychiatric orientation/consciousness Overall: oriented to person, place and time 07/06/2017 None Full Exam - General 1994 Psychiatric mood and affect Overall: normal mood and affect 07/06/2017 None Full Exam - General 1994 Psychiatric appearance Overall: well-groomed, good eye contact 07/06/2017 None Full Exam - General 1994 Constitutional general appearance Overall: well developed 06/29/2017 None Full Exam - General 1994 Constitutional general appearance Overall: in no acute distress 06/29/2017 None Full Exam - General 1994 Constitutional general appearance Overall: well nourished 06/29/2017 None Full Exam - General 1994 Eyes conjunctiva /eyelids Overall: conjunctiva clear 06/29/2017 None Full Exam - General 1994 Eyes conjunctiva /eyelids Overall: eyelids normal 06/29/2017 None Full Exam - General 1994 Ears/Nose/Throat lips/teeth/gingiva Overall: benign lips 06/29/2017 None Full Exam - General 1994 Ears/Nose/Throat oral cavity/pharynx/larynx Overall: oral mucosa clear 06/29/2017 None Full Exam - General 1994 Respiratory respiratory effort/rhythm Overall: no retractions 06/29/2017 None Full Exam - General 1994 Respiratory respiratory effort/rhythm Overall: normal rate 06/29/2017 None Full Exam - General 1994 Cardiovascular auscultation of heart Rate: regular rate 06/29/2017 None Full Exam - General 1994 Abdomen abdominal exam Overall: no tenderness 06/29/2017 None Full Exam - General 1994 Abdomen abdominal exam Overall: normal bowel sounds 06/29/2017 None Full Exam - General 1994 Musculoskeletal gait and station Overall: normal gait 06/29/2017 None Full Exam - General 1994 Musculoskeletal gait and station Overall: normal station 06/29/2017 None Full Exam - General 1994 Musculoskeletal head and neck Overall: head atraumatic 06/29/2017 None Full Exam - General 1994 Neurologic cranial nerves Overall: crainial nerves 2 - 12 grossly intact 06/29/2017 None Full Exam - General 1994 Psychiatric orientation/consciousness Overall: oriented to person, place and time 06/29/2017 None Full Exam - General 1994 Psychiatric mood and affect Overall: normal mood and affect 06/29/2017 None Full Exam - General 1994 Psychiatric appearance Overall: well-groomed, good eye contact 06/29/2017 None Full Exam - General 1994 Constitutional general appearance Overall: well developed 06/26/2017 None Full Exam - General 1994 Constitutional general appearance Overall: in no acute distress 06/26/2017 None Full Exam - General 1994 Constitutional general appearance Overall: well nourished 06/26/2017 None Full Exam - General 1994 Eyes conjunctiva /eyelids Overall: conjunctiva clear 06/26/2017 None Full Exam - General 1994 Eyes conjunctiva /eyelids Overall: eyelids normal 06/26/2017 None Full Exam - General 1994 Ears/Nose/Throat lips/teeth/gingiva Overall: benign lips 06/26/2017 None Full Exam - General 1994 Ears/Nose/Throat oral cavity/pharynx/larynx Overall: oral mucosa clear 06/26/2017 None Full Exam - General 1994 Respiratory respiratory effort/rhythm Overall: no retractions 06/26/2017 None Full Exam - General 1994 Respiratory respiratory effort/rhythm Overall: normal rate 06/26/2017 None Full Exam - General 1994 Cardiovascular auscultation of heart Rate: regular rate 06/26/2017 None Full Exam - General 1994 Musculoskeletal gait and station Overall: normal gait 06/26/2017 None Full Exam - General 1994 Musculoskeletal gait and station Overall: normal station 06/26/2017 None Full Exam - General 1994 Musculoskeletal head and neck Overall: head atraumatic 06/26/2017 None Full Exam - General 1994 Neurologic cranial nerves Overall: crainial nerves 2 - 12 grossly intact 06/26/2017 None Full Exam - General 1994 Psychiatric orientation/consciousness Overall: oriented to person, place and time 06/26/2017 None Full Exam - General 1994 Psychiatric mood and affect Overall: normal mood and affect 06/26/2017 None Full Exam - General 1994 Psychiatric appearance Overall: well-groomed, good eye contact 06/26/2017 None Full Exam - General 1994 Abdomen abdominal exam Overall: normal bowel sounds 06/26/2017 None Full Exam - General 1994 Abdomen abdominal exam Overall: no tenderness 06/26/2017 None Full Exam - General 1994 Constitutional general appearance Overall: well developed 06/23/2017 None Full Exam - General 1994 Constitutional general appearance Overall: in no acute distress 06/23/2017 None Full Exam - General 1994 Constitutional general appearance Overall: well nourished 06/23/2017 None Full Exam - General 1994 Eyes conjunctiva /eyelids Overall: conjunctiva clear 06/23/2017 None Full Exam - General 1994 Eyes conjunctiva /eyelids Overall: eyelids normal 06/23/2017 None Full Exam - General 1994 Ears/Nose/Throat lips/teeth/gingiva Overall: benign lips 06/23/2017 None Full Exam - General 1994 Ears/Nose/Throat oral cavity/pharynx/larynx Overall: oral mucosa clear 06/23/2017 None Full Exam - General 1994 Respiratory respiratory effort/rhythm Overall: no retractions 06/23/2017 None Full Exam - General 1994 Respiratory respiratory effort/rhythm Overall: normal rate 06/23/2017 None Full Exam - General 1994 Cardiovascular auscultation of heart Rate: regular rate 06/23/2017 None Full Exam - General 1994 Musculoskeletal head and neck Overall: head atraumatic 06/23/2017 None Full Exam - General 1994 Musculoskeletal gait and station Overall: normal station 06/23/2017 None Full Exam - General 1994 Musculoskeletal gait and station Overall: normal gait 06/23/2017 None Full Exam - General 1994 Neurologic cranial nerves Overall: crainial nerves 2 - 12 grossly intact 06/23/2017 None Full Exam - General 1994 Psychiatric orientation/consciousness Overall: oriented to person, place and time 06/23/2017 None Full Exam - General 1994 Psychiatric mood and affect Overall: normal mood and affect 06/23/2017 None Full Exam - General 1994 Psychiatric appearance Overall: well-groomed, good eye contact 06/23/2017 None Full Exam - General 1994 Constitutional general appearance Overall: well developed 06/08/2017 None Full Exam - General 1994 Constitutional general appearance Overall: well nourished 06/08/2017 None Full Exam - General 1994 Eyes conjunctiva /eyelids Overall: conjunctiva clear 06/08/2017 None Full Exam - General 1994 Eyes conjunctiva /eyelids Overall: eyelids normal 06/08/2017 None Full Exam - General 1994 Eyes conjunctiva /eyelids Overall: cornea clear 06/08/2017 None Full Exam - General 1994 Eyes pupils and irises Overall: pupils equal, round, reactive to light and accomodation 06/08/2017 None Full Exam - General 1994 Ears/Nose/Throat otoscopic exam Overall: external auditory canals clear 06/08/2017 None Full Exam - General 1994 Ears/Nose/Throat otoscopic exam Overall: tympanic membranes clear 06/08/2017 None Full Exam - General 1994 Ears/Nose/Throat lips/teeth/gingiva Overall: benign lips 06/08/2017 None Full Exam - General 1994 Ears/Nose/Throat oral cavity/pharynx/larynx Overall: oral mucosa clear 06/08/2017 None Full Exam - General 1994 Ears/Nose/Throat oral cavity/pharynx/larynx Overall: oropharyngeal mucosa clear 06/08/2017 None Full Exam - General 1994 Respiratory respiratory effort/rhythm Overall: no retractions 06/08/2017 None Full Exam - General 1994 Respiratory respiratory effort/rhythm Overall: normal rate 06/08/2017 None Full Exam - General 1994 Respiratory auscultation Overall: breath sounds clear bilaterally 06/08/2017 None Full Exam - General 1994 Cardiovascular auscultation of heart Overall: regular rate 06/08/2017 None Full Exam - General 1994 Cardiovascular auscultation of heart Overall: normal heart sounds 06/08/2017 None Full Exam - General 1994 Abdomen abdominal exam Overall: normal bowel sounds 06/08/2017 None Full Exam - General 1994 Abdomen abdominal exam Overall: no tenderness 06/08/2017 None Full Exam - General 1994 Lymphatic neck nodes Overall: posterior cervical chain benign 06/08/2017 None Full Exam - General 1994 Lymphatic neck nodes Overall: anterior cervical chain benign 06/08/2017 None Full Exam - General 1994 Musculoskeletal spine, ribs and pelvis Overall: good posture 06/08/2017 None Full Exam - General 1994 Musculoskeletal gait and station Overall: normal gait 06/08/2017 None Full Exam - General 1994 Musculoskeletal gait and station Overall: normal station 06/08/2017 None Full Exam - General 1994 Musculoskeletal head and neck Overall: head atraumatic 06/08/2017 None Full Exam - General 1994 Neurologic cranial nerves Overall: crainial nerves 2 - 12 grossly intact 06/08/2017 None Full Exam - General 1994 Psychiatric orientation/consciousness Overall: oriented to person, place and time 06/08/2017 None Full Exam - General 1994 Constitutional general appearance Hygiene/Attention to Grooming: good hygiene 03/23/2017 None Full Exam - General 1994 Ears/Nose/Throat lips/teeth/gingiva Overall: benign lips 03/23/2017 None Full Exam - General 1994 Ears/Nose/Throat oral cavity/pharynx/larynx Overall: oral mucosa clear 03/23/2017 None Full Exam - General 1994 Respiratory auscultation Overall: breath sounds clear bilaterally 03/23/2017 None Full Exam - General 1994 Respiratory respiratory effort/rhythm Overall: no retractions 03/23/2017 None Full Exam - General 1994 Respiratory respiratory effort/rhythm Overall: normal rate 03/23/2017 None Full Exam - General 1994 Cardiovascular extremities Overall: no clubbing 03/23/2017 None Full Exam - General 1994 Cardiovascular auscultation of heart Overall: regular rate 03/23/2017 None Full Exam - General 1994 Cardiovascular auscultation of heart Overall: normal heart sounds 03/23/2017 None Full Exam - General 1994 Neurologic cranial nerves Overall: crainial nerves 2 - 12 grossly intact 03/23/2017 None Full Exam - General 1994 Psychiatric orientation/consciousness Overall: oriented to person, place and time 03/23/2017 None Full Exam - General 1994 Psychiatric mood and affect Overall: normal mood and affect 03/23/2017 None Full Exam - General 1994 Psychiatric appearance Overall: well-groomed, good eye contact 03/23/2017 None Full Exam - General 1994 Constitutional general appearance Overall: well developed 03/23/2017 None Full Exam - General 1994 Constitutional general appearance Overall: in no acute distress 03/23/2017 None Full Exam - General 1994 Constitutional general appearance Overall: well nourished 03/23/2017 None Full Exam - General 1994 Eyes conjunctiva /eyelids Overall: conjunctiva clear 03/23/2017 None Full Exam - General 1994 Eyes conjunctiva /eyelids Overall: eyelids normal 03/23/2017 None Full Exam - General 1994 Constitutional general appearance Development: well developed 12/19/2016 None Full Exam - General 1994 Constitutional general appearance Development: appears stated age 0212/19/2016 None Full Exam - General 1994 Constitutional general appearance Hygiene/Attention to Grooming: good hygiene 12/19/2016 None Full Exam - General 1994 Eyes pupils and irises Overall: pupils equal, round, reactive to light and accomodation 12/19/2016 None Full Exam - General 1994 Ears/Nose/Throat otoscopic exam Overall: external auditory canals clear 12/19/2016 None Full Exam - General 1994 Ears/Nose/Throat otoscopic exam Overall: tympanic membranes clear 12/19/2016 None Full Exam - General 1994 Ears/Nose/Throat lips/teeth/gingiva Overall: benign lips 12/19/2016 None Full Exam - General 1994 Ears/Nose/Throat lips/teeth/gingiva Overall: normal dentition 12/19/2016 None Full Exam - General 1994 Ears/Nose/Throat oral cavity/pharynx/larynx Overall: oral mucosa clear 12/19/2016 None Full Exam - General 1994 Ears/Nose/Throat oral cavity/pharynx/larynx Overall: oropharyngeal mucosa clear 12/19/2016 None Full Exam - General 1994 Ears/Nose/Throat oral cavity/pharynx/larynx Overall: no masses 12/19/2016 None Full Exam - General 1994 Respiratory auscultation Overall: breath sounds clear bilaterally 12/19/2016 None Full Exam - General 1994 Respiratory respiratory effort/rhythm Overall: no retractions 12/19/2016 None Full Exam - General 1994 Respiratory respiratory effort/rhythm Overall: normal rate 12/19/2016 None Full Exam - General 1994 Cardiovascular extremities Overall: no clubbing 12/19/2016 None Full Exam - General 1994 Cardiovascular auscultation of heart Overall: regular rate 12/19/2016 None Full Exam - General 1994 Cardiovascular auscultation of heart Overall: normal heart sounds 12/19/2016 None Full Exam - General 1994 Abdomen abdominal exam Overall: no tenderness 12/19/2016 None Full Exam - General 1994 Abdomen abdominal exam Overall: normal bowel sounds 12/19/2016 None Full Exam - General 1994 Lymphatic neck nodes Overall: anterior cervical chain benign 12/19/2016 None Full Exam - General 1994 Lymphatic neck nodes Overall: posterior cervical chain benign 12/19/2016 None Full Exam - General 1994 Integument inspection of skin Overall: no rash, lesions 12/19/2016 None Full Exam - General 1994 Neurologic cranial nerves Overall: crainial nerves 2 - 12 grossly intact 12/19/2016 None Full Exam - General 1994 Psychiatric orientation/consciousness Overall: oriented to person, place and time 12/19/2016 None Full Exam - General 1994 Psychiatric mood and affect Overall: normal mood and affect 12/19/2016 None Full Exam - General 1994 Psychiatric appearance Overall: well-groomed, good eye contact 12/19/2016 None Full Exam - ENT Constitutional general appearance Overall: well nourished 10/03/2016 None Full Exam - ENT Constitutional general appearance Overall: well developed 10/03/2016 None Full Exam - ENT Constitutional general appearance Overall: in no acute distress 10/03/2016 None Full Exam - ENT Ears/Nose/Throat otoscopic exam Overall: external auditory canals normal 10/03/2016 None Full Exam - ENT Ears/Nose/Throat otoscopic exam Overall: tympanic membranes normal 10/03/2016 None Full Exam - ENT Ears/Nose/Throat oropharynx Overall: oral mucosa clear 10/03/2016 None Full Exam - ENT Face and Head palpation Overall: no sinus tenderness 10/03/2016 None Full Exam - ENT Face and Head palpation Overall: no induration, no tenderness 10/03/2016 None Full Exam - ENT Respiratory inspection Overall: no retractions 10/03/2016 None Full Exam - ENT Respiratory inspection Overall: normal rate None Full Exam - ENT Respiratory auscultation Overall: breath sounds clear bilaterally 10/03/2016 None Full Exam - ENT Cardiovascular auscultation of heart Overall: regular rate 10/03/2016 None Full Exam - ENT Cardiovascular auscultation of heart Overall: normal heart sounds 10/03/2016 None Full Exam - ENT Cardiovascular auscultation of heart Overall: no murmurs 10/03/2016 None Full Exam - ENT Lymphatic palpation of lymph nodes Overall: anterior cervical chain benign 10/03/2016 None Full Exam - ENT Lymphatic palpation of lymph nodes Overall: posterior cervical chain benign 10/03/2016 None Full Exam - ENT Neurologic orientation Overall: oriented to person, place and time 10/03/2016 None Full Exam - General 1994 Constitutional general appearance Development: well developed 08/22/2016 None Full Exam - General 1994 Constitutional general appearance Development: appears stated age 1008/22/2016 None Full Exam - General 1994 Constitutional general appearance Hygiene/Attention to Grooming: good hygiene 08/22/2016 None Full Exam - General 1994 Eyes pupils and irises Overall: pupils equal, round, reactive to light and accomodation 08/22/2016 None Full Exam - General 1994 Ears/Nose/Throat otoscopic exam Overall: external auditory canals clear 08/22/2016 None Full Exam - General 1994 Ears/Nose/Throat otoscopic exam Overall: tympanic membranes clear 08/22/2016 None Full Exam - General 1994 Ears/Nose/Throat lips/teeth/gingiva Overall: benign lips 08/22/2016 None Full Exam - General 1994 Ears/Nose/Throat lips/teeth/gingiva Overall: normal dentition 08/22/2016 None Full Exam - General 1994 Ears/Nose/Throat oral cavity/pharynx/larynx Overall: oral mucosa clear 08/22/2016 None Full Exam - General 1994 Ears/Nose/Throat oral cavity/pharynx/larynx Overall: oropharyngeal mucosa clear 08/22/2016 None Full Exam - General 1994 Ears/Nose/Throat oral cavity/pharynx/larynx Overall: no masses 08/22/2016 None Full Exam - General 1994 Respiratory auscultation Overall: breath sounds clear bilaterally 08/22/2016 None Full Exam - General 1994 Respiratory respiratory effort/rhythm Overall: no retractions 08/22/2016 None Full Exam - General 1994 Respiratory respiratory effort/rhythm Overall: normal rate 08/22/2016 None Full Exam - General 1994 Cardiovascular extremities Overall: no clubbing 08/22/2016 None Full Exam - General 1994 Cardiovascular auscultation of heart Overall: regular rate 08/22/2016 None Full Exam - General 1994 Cardiovascular auscultation of heart Overall: normal heart sounds 08/22/2016 None Full Exam - General 1994 Abdomen abdominal exam Overall: no tenderness 08/22/2016 None Full Exam - General 1994 Abdomen abdominal exam Overall: normal bowel sounds 08/22/2016 None Full Exam - General 1994 Lymphatic neck nodes Overall: anterior cervical chain benign 08/22/2016 None Full Exam - General 1994 Lymphatic neck nodes Overall: posterior cervical chain benign 08/22/2016 None Full Exam - General 1994 Neurologic cranial nerves Overall: crainial nerves 2 - 12 grossly intact 08/22/2016 None Full Exam - General 1994 Psychiatric orientation/consciousness Overall: oriented to person, place and time 08/22/2016 None Full Exam - General 1994 Psychiatric mood and affect Overall: normal mood and affect 08/22/2016 None Full Exam - General 1994 Psychiatric appearance Overall: well-groomed, good eye contact 08/22/2016 None Full Exam - General 1994 Integument inspection of skin Rash/Lesions: nodule 08/22/2016 left mid cheek - Full Exam - General 1994 Constitutional general appearance Development: well developed 03/24/2016 None Full Exam - General 1994 Constitutional general appearance Development: appears stated age 0503/24/2016 None Full Exam - General 1994 Constitutional general appearance Hygiene/Attention to Grooming: good hygiene 03/24/2016 None Full Exam - General 1994 Eyes pupils and irises Overall: pupils equal, round, reactive to light and accomodation 03/24/2016 None Full Exam - General 1994 Ears/Nose/Throat oral cavity/pharynx/larynx Overall: oral mucosa clear 03/24/2016 None Full Exam - General 1994 Ears/Nose/Throat oral cavity/pharynx/larynx Overall: oropharyngeal mucosa clear 03/24/2016 None Full Exam - General 1994 Ears/Nose/Throat oral cavity/pharynx/larynx Overall: no masses 03/24/2016 None Full Exam - General 1994 Respiratory auscultation Overall: breath sounds clear bilaterally 03/24/2016 None Full Exam - General 1994 Respiratory respiratory effort/rhythm Overall: no retractions 03/24/2016 None Full Exam - General 1994 Respiratory respiratory effort/rhythm Overall: normal rate 03/24/2016 None Full Exam - General 1994 Cardiovascular auscultation of heart Overall: regular rate 03/24/2016 None Full Exam - General 1994 Cardiovascular auscultation of heart Overall: normal heart sounds 03/24/2016 None Full Exam - General 1994 Integument inspection of skin Overall: no rash, lesions 03/24/2016 None Full Exam - General 1994 Psychiatric orientation/consciousness Overall: oriented to person, place and time 03/24/2016 None Full Exam - General 1994 Ears/Nose/Throat lips/teeth/gingiva Overall: benign lips 03/24/2016 None Full Exam - General 1994 Ears/Nose/Throat lips/teeth/gingiva Overall: normal dentition 03/24/2016 None Full Exam - General 1994 Ears/Nose/Throat otoscopic exam Overall: external auditory canals clear 03/24/2016 None Full Exam - General 1994 Ears/Nose/Throat otoscopic exam Overall: tympanic membranes clear 03/24/2016 None Full Exam - General 1994 Cardiovascular extremities Overall: no clubbing 03/24/2016 None Full Exam - General 1994 Abdomen abdominal exam Overall: no tenderness 03/24/2016 None Full Exam - General 1994 Abdomen abdominal exam Overall: normal bowel sounds 03/24/2016 None Full Exam - General 1994 Lymphatic neck nodes Overall: anterior cervical chain benign 03/24/2016 None Full Exam - General 1994 Lymphatic neck nodes Overall: posterior cervical chain benign 03/24/2016 None Full Exam - General 1994 Psychiatric mood and affect Overall: normal mood and affect 03/24/2016 None Full Exam - General 1994 Psychiatric appearance Overall: well-groomed, good eye contact 03/24/2016 None Full Exam - General 1994 Neurologic cranial nerves Overall: crainial nerves 2 - 12 grossly intact 03/24/2016 None Full Exam - General 1994 Constitutional general appearance Development: well developed 2015 None Full Exam - General 1994 Constitutional general appearance Development: appears stated age 0111/23/2015 None Full Exam - General 1994 Constitutional general appearance Hygiene/Attention to Grooming: good hygiene 2015 None Full Exam - General 1994 Eyes pupils and irises Overall: pupils equal, round, reactive to light and accomodation 2015 None Full Exam - General 1994 Ears/Nose/Throat oral cavity/pharynx/larynx Overall: oral mucosa clear 2015 None Full Exam - General 1994 Ears/Nose/Throat oral cavity/pharynx/larynx Overall: oropharyngeal mucosa clear 2015 None Full Exam - General 1994 Ears/Nose/Throat oral cavity/pharynx/larynx Overall: no masses 2015 None Full Exam - General 1994 Respiratory auscultation Overall: breath sounds clear bilaterally 2015 None Full Exam - General 1994 Respiratory respiratory effort/rhythm Overall: no retractions 2015 None Full Exam - General 1994 Respiratory respiratory effort/rhythm Overall: normal rate 2015 None Full Exam - General 1994 Cardiovascular auscultation of heart Overall: regular rate 2015 None Full Exam - General 1994 Cardiovascular auscultation of heart Overall: normal heart sounds 2015 None Full Exam - General 1994 Integument inspection of skin Overall: no rash, lesions 2015 None Full Exam - General 1994 Psychiatric orientation/consciousness Overall: oriented to person, place and time 2015 None Full Exam - General 1994 Constitutional general appearance Overall: well nourished 07/29/2015 None Full Exam - General 1994 Constitutional general appearance Overall: well developed 07/29/2015 None Full Exam - General 1994 Constitutional general appearance Overall: in no acute distress 07/29/2015 None Full Exam - General 1994 Psychiatric orientation/consciousness Overall: oriented to person, place and time 07/29/2015 None Full Exam - General 1994 Respiratory auscultation Overall: breath sounds clear bilaterally 07/29/2015 None Full Exam - General 1994 Respiratory respiratory effort/rhythm Overall: normal rate 07/29/2015 None Full Exam - General 1994 Respiratory respiratory effort/rhythm Overall: no retractions 07/29/2015 None Full Exam - General 1994 Cardiovascular auscultation of heart Overall: regular rate 07/29/2015 None Full Exam - General 1994 Cardiovascular auscultation of heart Overall: normal heart sounds 07/29/2015 None Full Exam - General 1994 Cardiovascular auscultation of heart Overall: no murmurs 07/29/2015 None Full Exam - General 1994 Integument inspection of skin Rash/Lesions: patch 07/29/2015 of irritated skin tissue with eyrthema, slight induration of tissues Full Exam - General 1994 Constitutional general appearance Development: well developed 07/20/2015 None Full Exam - General 1994 Constitutional general appearance Development: appears stated age 0907/20/2015 None Full Exam - General 1994 Constitutional general appearance Hygiene/Attention to Grooming: good hygiene 07/20/2015 None Full Exam - General 1994 Eyes pupils and irises Overall: pupils equal, round, reactive to light and accomodation 07/20/2015 None Full Exam - General 1994 Ears/Nose/Throat oral cavity/pharynx/larynx Overall: oral mucosa clear 07/20/2015 None Full Exam - General 1994 Ears/Nose/Throat oral cavity/pharynx/larynx Overall: oropharyngeal mucosa clear 07/20/2015 None Full Exam - General 1994 Ears/Nose/Throat oral cavity/pharynx/larynx Overall: no masses 07/20/2015 None Full Exam - General 1994 Respiratory auscultation Overall: breath sounds clear bilaterally 07/20/2015 None Full Exam - General 1994 Respiratory respiratory effort/rhythm Overall: no retractions 07/20/2015 None Full Exam - General 1994 Respiratory respiratory effort/rhythm Overall: normal rate 07/20/2015 None Full Exam - General 1994 Cardiovascular auscultation of heart Overall: regular rate 07/20/2015 None Full Exam - General 1994 Cardiovascular auscultation of heart Overall: normal heart sounds 07/20/2015 None Full Exam - General 1994 Cardiovascular auscultation of heart Overall: no murmurs 07/20/2015 None Full Exam - General 1994 Integument inspection of skin Overall: no rash, lesions 07/20/2015 None Full Exam - General 1994 Psychiatric orientation/consciousness Overall: oriented to person, place and time 07/20/2015 None Full Exam - General 1994 Constitutional general appearance Development: well developed 03/17/2015 None Full Exam - General 1994 Constitutional general appearance Development: appears stated age 0503/17/2015 None Full Exam - General 1994 Constitutional general appearance Hygiene/Attention to Grooming: good hygiene 03/17/2015 None Full Exam - General 1994 Respiratory auscultation Overall: breath sounds clear bilaterally 03/17/2015 None Full Exam - General 1994 Respiratory respiratory effort/rhythm Overall: no retractions 03/17/2015 None Full Exam - General 1994 Respiratory respiratory effort/rhythm Overall: normal rate 03/17/2015 None Full Exam - General 1994 Cardiovascular auscultation of heart Overall: regular rate 03/17/2015 None Full Exam - General 1994 Cardiovascular auscultation of heart Overall: normal heart sounds 03/17/2015 None Full Exam - General 1994 Cardiovascular auscultation of heart Overall: no murmurs 03/17/2015 None Full Exam - General 1994 Abdomen abdominal exam Overall: no tenderness 03/17/2015 None Full Exam - General 1994 Abdomen abdominal exam Overall: normal bowel sounds 03/17/2015 None Full Exam - General 1994 Psychiatric orientation/consciousness Overall: oriented to person, place and time 03/17/2015 None Full Exam - General 1994 Eyes pupils and irises Overall: pupils equal, round, reactive to light and accomodation 03/17/2015 None Full Exam - General 1994 Ears/Nose/Throat oral cavity/pharynx/larynx Overall: oropharyngeal mucosa clear 03/17/2015 None Full Exam - General 1994 Ears/Nose/Throat oral cavity/pharynx/larynx Overall: no masses 03/17/2015 None Full Exam - General 1994 Ears/Nose/Throat oral cavity/pharynx/larynx Overall: oral mucosa clear 03/17/2015 None Full Exam - General 1994 Integument inspection of skin Overall: no rash, lesions 03/17/2015 None Full Exam - ENT Constitutional general appearance Overall: well nourished 01/12/2015 None Full Exam - ENT Constitutional general appearance Overall: well developed 01/12/2015 None Full Exam - ENT Constitutional general appearance Overall: in no acute distress 01/12/2015 None Full Exam - ENT Ears/Nose/Throat otoscopic exam Overall: external auditory canals normal 01/12/2015 None Full Exam - ENT Ears/Nose/Throat otoscopic exam Overall: tympanic membranes normal 01/12/2015 None Full Exam - ENT Ears/Nose/Throat oropharynx Overall: oral mucosa clear 01/12/2015 None Full Exam - ENT Face and Head palpation Overall: no sinus tenderness 01/12/2015 None Full Exam - ENT Face and Head palpation Overall: no induration, no tenderness 01/12/2015 None Full Exam - ENT Respiratory inspection Overall: no retractions 01/12/2015 None Full Exam - ENT Respiratory inspection Overall: normal rate 07/2015 None Full Exam - ENT Respiratory auscultation Overall: breath sounds clear bilaterally 01/12/2015 None Full Exam - ENT Cardiovascular auscultation of heart Overall: regular rate 01/12/2015 None Full Exam - ENT Cardiovascular auscultation of heart Overall: normal heart sounds 01/12/2015 None Full Exam - ENT Cardiovascular auscultation of heart Overall: no murmurs 01/12/2015 None Full Exam - ENT Lymphatic palpation of lymph nodes Overall: anterior cervical chain benign 01/12/2015 None Full Exam - ENT Lymphatic palpation of lymph nodes Overall: posterior cervical chain benign 01/12/2015 None Full Exam - ENT Neurologic orientation Overall: oriented to person, place and time 01/12/2015 None Full Exam - General 1994 Constitutional general appearance Development: well developed 12/16/2014 None Full Exam - General 1994 Constitutional general appearance Development: appears stated age 0212/16/2014 None Full Exam - General 1994 Constitutional general appearance Hygiene/Attention to Grooming: good hygiene 12/16/2014 None Full Exam - General 1994 Respiratory auscultation Overall: breath sounds clear bilaterally 12/16/2014 None Full Exam - General 1994 Respiratory respiratory effort/rhythm Overall: no retractions 12/16/2014 None Full Exam - General 1994 Respiratory respiratory effort/rhythm Overall: normal rate 12/16/2014 None Full Exam - General 1994 Cardiovascular auscultation of heart Overall: regular rate 12/16/2014 None Full Exam - General 1994 Cardiovascular auscultation of heart Overall: normal heart sounds 12/16/2014 None Full Exam - General 1994 Cardiovascular auscultation of heart Overall: no murmurs 12/16/2014 None Full Exam - General 1994 Psychiatric orientation/consciousness Overall: oriented to person, place and time 12/16/2014 None Full Exam - General 1994 Abdomen abdominal exam Overall: no tenderness 12/16/2014 None Full Exam - General 1994 Abdomen abdominal exam Overall: normal bowel sounds 12/16/2014 None Full Exam - ENT Constitutional general appearance Overall: well nourished 11/27/2014 None Full Exam - ENT Constitutional general appearance Overall: well developed 11/27/2014 None Full Exam - ENT Constitutional general appearance Overall: in no acute distress 11/27/2014 None Full Exam - ENT Ears/Nose/Throat otoscopic exam Overall: external auditory canals normal 11/27/2014 None Full Exam - ENT Ears/Nose/Throat otoscopic exam Overall: tympanic membranes normal 11/27/2014 None Full Exam - ENT Ears/Nose/Throat oropharynx Overall: oral mucosa clear 11/27/2014 None Full Exam - ENT Face and Head palpation Overall: no sinus tenderness 11/27/2014 None Full Exam - ENT Face and Head palpation Overall: no induration, no tenderness 11/27/2014 None Full Exam - ENT Respiratory inspection Overall: no retractions 11/27/2014 None Full Exam - ENT Respiratory inspection Overall: normal rate None Full Exam - ENT Respiratory auscultation Overall: breath sounds clear bilaterally 11/27/2014 None Full Exam - ENT Cardiovascular auscultation of heart Overall: regular rate 11/27/2014 None Full Exam - ENT Cardiovascular auscultation of heart Overall: normal heart sounds 11/27/2014 None Full Exam - ENT Cardiovascular auscultation of heart Overall: no murmurs 11/27/2014 None Full Exam - ENT Lymphatic palpation of lymph nodes Overall: anterior cervical chain benign 11/27/2014 None Full Exam - ENT Lymphatic palpation of lymph nodes Overall: posterior cervical chain benign 11/27/2014 None Full Exam - ENT Neurologic orientation Overall: oriented to person, place and time 11/27/2014 None Full Exam - General 1994 Constitutional general appearance Development: well developed 09/16/2014 None Full Exam - General 1994 Constitutional general appearance Development: appears stated age 1109/16/2014 None Full Exam - General 1994 Constitutional general appearance Hygiene/Attention to Grooming: good hygiene 09/16/2014 None Full Exam - General 1994 Respiratory auscultation Overall: breath sounds clear bilaterally 09/16/2014 None Full Exam - General 1994 Respiratory respiratory effort/rhythm Overall: no retractions 09/16/2014 None Full Exam - General 1994 Respiratory respiratory effort/rhythm Overall: normal rate 09/16/2014 None Full Exam - General 1994 Cardiovascular auscultation of heart Overall: regular rate 09/16/2014 None Full Exam - General 1994 Cardiovascular auscultation of heart Overall: normal heart sounds 09/16/2014 None Full Exam - General 1994 Cardiovascular auscultation of heart Overall: no murmurs 09/16/2014 None Full Exam - General 1994 Psychiatric orientation/consciousness Overall: oriented to person, place and time 09/16/2014 None Full Exam - General 1994 Eyes pupils and irises Overall: pupils equal, round, reactive to light and accomodation 09/16/2014 None Full Exam - General 1994 Constitutional general appearance Development: well developed 09/02/2014 None Full Exam - General 1994 Constitutional general appearance Development: appears stated age 1009/02/2014 None Full Exam - General 1994 Constitutional general appearance Hygiene/Attention to Grooming: good hygiene 09/02/2014 None Full Exam - General 1994 Respiratory auscultation Overall: breath sounds clear bilaterally 09/02/2014 None Full Exam - General 1994 Respiratory respiratory effort/rhythm Overall: no retractions 09/02/2014 None Full Exam - General 1994 Respiratory respiratory effort/rhythm Overall: normal rate 09/02/2014 None Full Exam - General 1994 Cardiovascular auscultation of heart Overall: regular rate 09/02/2014 None Full Exam - General 1994 Cardiovascular auscultation of heart Overall: normal heart sounds 09/02/2014 None Full Exam - General 1994 Cardiovascular auscultation of heart Overall: no murmurs 09/02/2014 None Full Exam - General 1994 Psychiatric orientation/consciousness Overall: oriented to person, place and time 09/02/2014 None Full Exam - ENT Constitutional general appearance Overall: well nourished 08/05/2014 None Full Exam - ENT Constitutional general appearance Overall: well developed 08/05/2014 None Full Exam - ENT Constitutional general appearance Overall: in no acute distress 08/05/2014 None Full Exam - ENT Ears/Nose/Throat otoscopic exam Overall: external auditory canals normal 08/05/2014 None Full Exam - ENT Ears/Nose/Throat otoscopic exam Overall: tympanic membranes normal 08/05/2014 None Full Exam - ENT Ears/Nose/Throat oropharynx Overall: oral mucosa clear 08/05/2014 None Full Exam - ENT Face and Head palpation Overall: no sinus tenderness 08/05/2014 None Full Exam - ENT Face and Head palpation Overall: no induration, no tenderness 08/05/2014 None Full Exam - ENT Respiratory inspection Overall: no retractions 08/05/2014 None Full Exam - ENT Respiratory inspection Overall: normal rate None Full Exam - ENT Respiratory auscultation Overall: breath sounds clear bilaterally 08/05/2014 None Full Exam - ENT Cardiovascular auscultation of heart Overall: regular rate 08/05/2014 None Full Exam - ENT Cardiovascular auscultation of heart Overall: normal heart sounds 08/05/2014 None Full Exam - ENT Cardiovascular auscultation of heart Overall: no murmurs 08/05/2014 None Full Exam - ENT Lymphatic palpation of lymph nodes Overall: anterior cervical chain benign 08/05/2014 None Full Exam - ENT Lymphatic palpation of lymph nodes Overall: posterior cervical chain benign 08/05/2014 None Full Exam - ENT Neurologic orientation Overall: oriented to person, place and time 08/05/2014 None Full Exam - ENT Constitutional general appearance Overall: well nourished 07/25/2014 None Full Exam - ENT Constitutional general appearance Overall: well developed 07/25/2014 None Full Exam - ENT Constitutional general appearance Overall: in no acute distress 07/25/2014 None Full Exam - ENT Neurologic orientation Overall: oriented to person, place and time 07/25/2014 None Full Exam - ENT Lymphatic palpation of lymph nodes Overall: anterior cervical chain benign 07/25/2014 None Full Exam - ENT Lymphatic palpation of lymph nodes Overall: posterior cervical chain benign 07/25/2014 None Full Exam - ENT Cardiovascular auscultation of heart Overall: regular rate 07/25/2014 None Full Exam - ENT Cardiovascular auscultation of heart Overall: normal heart sounds 07/25/2014 None Full Exam - ENT Cardiovascular auscultation of heart Overall: no murmurs 07/25/2014 None Full Exam - ENT Respiratory inspection Overall: no retractions 07/25/2014 None Full Exam - ENT Respiratory inspection Overall: normal rate None Full Exam - ENT Respiratory auscultation Overall: breath sounds clear bilaterally 07/25/2014 None Full Exam - ENT Face and Head palpation Overall: no induration, no tenderness 07/25/2014 None Full Exam - ENT Face and Head palpation Overall: no sinus tenderness 07/25/2014 None Full Exam - ENT Ears/Nose/Throat otoscopic exam Overall: external auditory canals normal 07/25/2014 None Full Exam - ENT Ears/Nose/Throat otoscopic exam Overall: tympanic membranes normal 07/25/2014 None Full Exam - ENT Ears/Nose/Throat oropharynx Overall: oral mucosa clear 07/25/2014 None Full Exam - General 1994 Constitutional general appearance Development: well developed 06/02/2014 None Full Exam - General 1994 Constitutional general appearance Development: appears stated age 0706/02/2014 None Full Exam - General 1994 Constitutional general appearance Hygiene/Attention to Grooming: good hygiene 06/02/2014 None Full Exam - General 1994 Respiratory auscultation Overall: breath sounds clear bilaterally 06/02/2014 None Full Exam - General 1994 Respiratory respiratory effort/rhythm Overall: no retractions 06/02/2014 None Full Exam - General 1994 Respiratory respiratory effort/rhythm Overall: normal rate 06/02/2014 None Full Exam - General 1994 Cardiovascular auscultation of heart Overall: regular rate 06/02/2014 None Full Exam - General 1994 Cardiovascular auscultation of heart Overall: normal heart sounds 06/02/2014 None Full Exam - General 1994 Cardiovascular auscultation of heart Overall: no murmurs 06/02/2014 None Full Exam - General 1994 Psychiatric orientation/consciousness Overall: oriented to person, place and time 06/02/2014 None Full Exam - General 1994 Constitutional general appearance Development: well developed 05/05/2014 None Full Exam - General 1994 Constitutional general appearance Development: appears stated age 0605/05/2014 None Full Exam - General 1994 Constitutional general appearance Hygiene/Attention to Grooming: good hygiene 05/05/2014 None Full Exam - General 1994 Psychiatric orientation/consciousness Overall: oriented to person, place and time 05/05/2014 None Full Exam - General 1994 Cardiovascular auscultation of heart Overall: regular rate 05/05/2014 None Full Exam - General 1994 Cardiovascular auscultation of heart Overall: normal heart sounds 05/05/2014 None Full Exam - General 1994 Cardiovascular auscultation of heart Overall: no murmurs 05/05/2014 None Full Exam - General 1994 Respiratory auscultation Overall: breath sounds clear bilaterally 05/05/2014 None Full Exam - General 1994 Respiratory respiratory effort/rhythm Overall: normal rate 05/05/2014 None Full Exam - General 1994 Respiratory respiratory effort/rhythm Overall: no retractions 05/05/2014 None Full Exam - General 1994 Constitutional general appearance Development: well developed 04/29/2014 None Full Exam - General 1994 Constitutional general appearance Development: appears stated age 0604/29/2014 None Full Exam - General 1994 Constitutional general appearance Hygiene/Attention to Grooming: good hygiene 04/29/2014 None Full Exam - General 1994 Eyes conjunctiva /eyelids Overall: conjunctiva clear 04/29/2014 None Full Exam - General 1994 Eyes conjunctiva /eyelids Overall: cornea clear 04/29/2014 None Full Exam - General 1994 Eyes conjunctiva /eyelids Overall: eyelids normal 04/29/2014 None Full Exam - General 1994 Eyes pupils and irises Overall: pupils equal, round, reactive to light and accomodation 04/29/2014 None Full Exam - General 1994 Ears/Nose/Throat otoscopic exam Overall: external auditory canals clear 04/29/2014 None Full Exam - General 1994 Ears/Nose/Throat otoscopic exam Overall: tympanic membranes clear 04/29/2014 None Full Exam - General 1994 Ears/Nose/Throat lips/teeth/gingiva Overall: benign lips 04/29/2014 None Full Exam - General 1994 Ears/Nose/Throat lips/teeth/gingiva Overall: normal dentition 04/29/2014 None Full Exam - General 1994 Ears/Nose/Throat oral cavity/pharynx/larynx Overall: oral mucosa clear 04/29/2014 None Full Exam - General 1994 Ears/Nose/Throat oral cavity/pharynx/larynx Overall: oropharyngeal mucosa clear 04/29/2014 None Full Exam - General 1994 Ears/Nose/Throat oral cavity/pharynx/larynx Overall: hypopharynx benign 04/29/2014 None Full Exam - General 1994 Ears/Nose/Throat oral cavity/pharynx/larynx Overall: no masses 04/29/2014 None Full Exam - General 1994 Respiratory auscultation Overall: breath sounds clear bilaterally 04/29/2014 None Full Exam - General 1994 Respiratory respiratory effort/rhythm Overall: no retractions 04/29/2014 None Full Exam - General 1994 Respiratory respiratory effort/rhythm Overall: normal rate 04/29/2014 None Full Exam - General 1994 Cardiovascular extremities Overall: no clubbing 04/29/2014 None Full Exam - General 1994 Cardiovascular auscultation of heart Overall: regular rate 04/29/2014 None Full Exam - General 1994 Cardiovascular auscultation of heart Overall: normal heart sounds 04/29/2014 None Full Exam - General 1994 Neurologic deep tendon reflexes Overall: deep tendon reflexes intact 04/29/2014 None Full Exam - General 1994 Neurologic cranial nerves Overall: crainial nerves 2 - 12 grossly intact 04/29/2014 None Full Exam - General 1994 Psychiatric orientation/consciousness Overall: oriented to person, place and time 04/29/2014 None Full Exam - General 1994 Psychiatric mood and affect Overall: normal mood and affect 04/29/2014 None Full Exam - General 1994 Musculoskeletal lower extremity Palpation - knee: crepitus 04/29/2014 None Full Exam - General 1994 Musculoskeletal lower extremity ROM - knee: a normal exam 04/29/2014 None Full Exam - General 1994 Musculoskeletal lower extremity ROM - knee: crepitus 04/29/2014 None Full Exam - General 1994 Constitutional general appearance Development: appears stated age 0604/14/2014 None Full Exam - General 1994 Constitutional general appearance Development: well developed 04/14/2014 None Full Exam - General 1994 Constitutional general appearance Hygiene/Attention to Grooming: good hygiene 04/14/2014 None Full Exam - General 1994 Eyes conjunctiva /eyelids Overall: conjunctiva clear 04/14/2014 None Full Exam - General 1994 Eyes conjunctiva /eyelids Overall: cornea clear 04/14/2014 None Full Exam - General 1994 Eyes conjunctiva /eyelids Overall: eyelids normal 04/14/2014 None Full Exam - General 1994 Eyes pupils and irises Overall: pupils equal, round, reactive to light and accomodation 04/14/2014 None Full Exam - General 1994 Ears/Nose/Throat otoscopic exam Overall: external auditory canals clear 04/14/2014 None Full Exam - General 1994 Ears/Nose/Throat otoscopic exam Overall: tympanic membranes clear 04/14/2014 None Full Exam - General 1994 Ears/Nose/Throat lips/teeth/gingiva Overall: benign lips 04/14/2014 None Full Exam - General 1994 Ears/Nose/Throat lips/teeth/gingiva Overall: normal dentition 04/14/2014 None Full Exam - General 1995 Ears/Nose/Throat oral cavity/pharynx/larynx Overall: hypopharynx benign 04/14/2014 None Full Exam - General 1994 Ears/Nose/Throat oral cavity/pharynx/larynx Overall: no masses 04/14/2014 None Full Exam - General 1995 Ears/Nose/Throat oral cavity/pharynx/larynx Overall: oral mucosa clear 04/14/2014 None Full Exam - General 1994 Ears/Nose/Throat oral cavity/pharynx/larynx Overall: oropharyngeal mucosa clear 04/14/2014 None Full Exam - General 1994 Respiratory auscultation Overall: breath sounds clear bilaterally 04/14/2014 None Full Exam - General 1994 Respiratory respiratory effort/rhythm Overall: no retractions 04/14/2014 None Full Exam - General 1994 Respiratory respiratory effort/rhythm Overall: normal rate 04/14/2014 None Full Exam - General 1994 Cardiovascular extremities Overall: no clubbing 04/14/2014 None Full Exam - General 1994 Cardiovascular auscultation of heart Overall: normal heart sounds 04/14/2014 None Full Exam - General 1994 Cardiovascular auscultation of heart Overall: regular rate 04/14/2014 None Full Exam - General 1994 Abdomen abdominal exam Overall: no tenderness 04/14/2014 None Full Exam - General 1994 Abdomen abdominal exam Overall: normal bowel sounds 04/14/2014 None Full Exam - General 1994 Integument inspection of skin Overall: few scattered moles, no gross abnormalities 04/14/2014 None Full Exam - General 1994 Neurologic deep tendon reflexes Overall: deep tendon reflexes intact 04/14/2014 None Full Exam - General 1994 Neurologic cranial nerves Overall: crainial nerves 2 - 12 grossly intact 04/14/2014 None Full Exam - General 1994 Psychiatric orientation/consciousness Overall: oriented to person, place and time 04/14/2014 None Full Exam - General 1994 Psychiatric mood and affect Overall: normal mood and affect 04/14/2014 None Full Exam - General 1994 Lymphatic neck nodes Overall: anterior cervical chain benign 04/14/2014 None Full Exam - General 1994 Lymphatic neck nodes Overall: posterior cervical chain benign 04/14/2014 None Full Exam - General 1994 Abdomen rectal exam Prostate: enlarged 04/14/2014 None Full Exam - General 1994 Abdomen rectal exam Palpation: a normal exam 04/14/2014 None Full Exam - General 1994 Abdomen rectal exam Inspection: a normal exam 04/14/2014 None Full Exam - General 1994 Abdomen rectal exam Sphincter tone: a normal exam 04/14/2014 None Full Exam - General 1994 Musculoskeletal spine, ribs and pelvis Overall: good posture 04/14/2014 None Full Exam - General 1994 Musculoskeletal spine, ribs and pelvis Overall: sacroiliac joint benign 04/14/2014 None Full Exam - General 1994 Musculoskeletal spine, ribs and pelvis Overall: spine benign 04/14/2014 None Full Exam - General 1994 Musculoskeletal head and neck Overall: cervical spine benign 04/14/2014 None Full Exam - General 1994 Musculoskeletal head and neck Overall: head atraumatic 04/14/2014 None Procedures Procedure Codes Date PPPS, SUBSEQ VISIT CPT -4: G0439 03/29/2018 THER/PROPH/DIAG INJ SC/IM CPT-4: 77125 11/03/2017 ROCEPHIN, PER 250 MG CPT-4: J0696 11/03/2017 URINALYSIS NONAUTO W/O SCOPE CPT-4: 90507 06/26/2017 THER/PROPH/DIAG INJ SC/IM CPT-4: 72048 06/22/2017 KETOROLAC TROMETHAMINE INJ CPT-4: J1885 06/22/2017 PROMETHAZINE HCL INJECTION CPT-4: J2550 06/22/2017 PPPS, SUBSEQ VISIT CPT -4: G0439 03/23/2017 TRIAMCINOLONE ACET INJ NOS CPT-4: J3301 01/12/2015 ROCEPHIN, PER 250 MG CPT-4: J0696 01/12/2015 TRIAMCINOLONE ACET INJ NOS CPT-4: J3301 11/27/2014 ROUTINE VENIPUNCTURE CPT-4: 74526 04/29/2014 Vital Signs Date Vital 10/09/2018 Blood Pressure 1: 160/80 Code : 8480-6 BMI: 34.2 Code : 03424-8 Heart Rate 1 : 40 bpm Height: 5'11" Weight: 245 lbs 03/29/2018 Blood Pressure 1: 130/66 Code : 8480-6 BMI: 34.3 Code : 89170-8 Heart Rate 1 : 45 bpm Height: 5'11" SpO2: 97% Waist Measure (cm): 112 cm Weight: 246 lbs 11/03/2017 Blood Pressure 1: 148/62 Code : 8480-6 BMI: 35.6 Code : 05419-1 Heart Rate 1 : 60 bpm Height: 5'11" SpO2: 94% Weight: 255 lbs 08/01/2017 Blood Pressure 1: 142/76 Code : 8480-6 BMI: 36.3 Code : 06182-5 Heart Rate 1 : 50 bpm Height: 5'11" SpO2: 98% Weight: 260 lbs 07/13/2017 Blood Pressure 1: 128/68 Code : 8480-6 BMI: 37.2 Code : 83551-9 Heart Rate 1 : 64 bpm Height: 5'11" SpO2: 96% Weight: 266 lbs 8 oz 07/06/2017 Blood Pressure 1: 140/72 Code : 8480-6 BMI: 37.1 Code : 80598-9 Heart Rate 1 : 47 bpm Height: 5'11" SpO2: 97% Weight: 266 lbs 06/29/2017 Blood Pressure 1: 136/66 Code : 8480-6 BMI: 37.9 Code : 67636-9 Heart Rate 1 : 60 bpm Height: 5'11" SpO2: 97% Weight: 272 lbs 06/26/2017 Blood Pressure 1: 180/80 Code : 8480-6 BMI: 37.9 Code : 65693-7 Heart Rate 1 : 79 bpm Height: 5'11" SpO2: 98% Weight: 272 lbs 06/23/2017 Blood Pressure 1: 162/78 Code : 8480-6 BMI: 37.9 Code : 32481-4 Heart Rate 1 : 74 bpm Height: 5'11" SpO2: 98% Weight: 272 lbs 06/22/2017 Blood Pressure 1: 154/78 Code : 8480-6 Blood Pressure 1: 160/80 Code: 8480-6 06/08/2017 Blood Pressure 1: 148/88 Code : 8480-6 BMI: 38.5 Code : 66424-0 Heart Rate 1 : 62 bpm Height: 5'11" SpO2: 96% Weight: 276 lbs 03/23/2017 Blood Pressure 1: 150/86 Code : 8480-6 BMI: 39.3 Code : 28545-2 Heart Rate 1 : 42 bpm Height: 5'11" SpO2: 95% Waist Measure (cm): 117 cm Weight: 282 lbs 12/19/2016 Blood Pressure 1: 142/82 Code : 8480-6 BMI: 37.9 Code : 90230-2 Heart Rate 1 : 78 bpm Height: 5'11" SpO2: 97% Weight: 272 lbs 10/03/2016 Blood Pressure 1: 140/80 Code : 8480-6 BMI: 38.4 Code : 52414-9 Heart Rate 1 : 91 bpm Height: 5'11" SpO2: 90% Weight: 275 lbs 08/22/2016 Blood Pressure 1: 148/52 Code : 8480-6 BMI: 38.2 Code : 37278-3 Heart Rate 1 : 79 bpm Height: 5'11" SpO2: 96% Weight: 274 lbs 03/24/2016 Blood Pressure 1: 140/70 Code : 8480-6 BMI: 37.2 Code : 25167-1 Heart Rate 1 : 80 bpm Height: 5'11" SpO2: 98% Weight: 267 lbs 2015 Blood Pressure 1: 150/78 Code : 8480-6 BMI: 37.8 Code : 89339-7 Heart Rate 1 : 75 bpm Height: 5'11" SpO2: 96% Weight: 271 lbs 07/29/2015 Blood Pressure 1: 146/80 Code : 8480-6 BMI: 36.8 Code : 12419-6 Heart Rate 1 : 77 bpm Height: 5'11" SpO2: 97% Weight: 264 lbs 07/20/2015 Blood Pressure 1: 160/82 Code : 8480-6 Blood Pressure 1: 152/76 Code: 8480-6 BMI: 36.5 Code: 26377-5 Heart Rate 1: 81 bpm Height: 5'11" SpO2: 98% Weight: 262 lbs 03/17/2015 Blood Pressure 1: 128/68 Code : 8480-6 BMI: 35.6 Code : 24301-3 Heart Rate 1 : 64 bpm Height: 5'11" Weight: 255 lbs 01/12/2015 Blood Pressure 1: 122/68 Code : 8480-6 BMI: 34.3 Code : 40817-1 Heart Rate 1 : 86 bpm Height: 5'11" SpO2: 96% Weight: 246 lbs 12/16/2014 Blood Pressure 1: 148/78 Code : 8480-6 BMI: 34.9 Code : 61291-3 Heart Rate 1 : 80 bpm Height: 5'11" SpO2: 98% Weight: 250 lbs 11/27/2014 Blood Pressure 1: 142/80 Code : 8480-6 BMI: 34.6 Code : 86739-5 Heart Rate 1 : 80 bpm Height: 5'11" SpO2: 96% Temperature: 37.1 (C) / 98.8 (F) Weight: 248 lbs 09/16/2014 Blood Pressure 1: 138/64 Code : 8480-6 BMI: 34.6 Code : 03085-0 Heart Rate 1 : 86 bpm Height: 5'11" SpO2: 96% Weight: 248 lbs 09/02/2014 Blood Pressure 1: 130/70 Code : 8480-6 BMI: 34.9 Code : 54166-7 Heart Rate 1 : 74 bpm Height: 5'11" Weight: 250 lbs 08/14/2014 Blood Pressure 1: 138/78 Code : 8480-6 08/05/2014 Blood Pressure 1: 112/74 Code : 8480-6 Heart Rate 1: 91 bpm Height: SpO2: 98% Weight: 07/25/2014 Blood Pressure 1: 120/68 Code : 8480-6 BMI: 34.9 Code : 62672-4 Heart Rate 1 : 88 bpm Height: 5'11" SpO2: 96% Weight: 250 lbs 06/02/2014 Blood Pressure 1: 118/70 Code : 8480-6 BMI: 34.0 Code : 43845-4 Heart Rate 1 : 76 bpm Height: 5'11" Weight: 244 lbs 05/05/2014 Blood Pressure 1: 108/62 Code : 8480-6 BMI: 35.1 Code : 08183-0 Heart Rate 1 : 84 bpm Height: 5'11" Weight: 252 lbs 04/29/2014 Blood Pressure 1: 158/80 Code : 8480-6 BMI: 35.4 Code : 98640-9 Heart Rate 1 : 82 bpm Height: 5'11" SpO2: 97% Weight: 254 lbs 04/14/2014 Blood Pressure 1: 158/80 Code : 8480-6 BMI: 34.9 Code : 84723-2 Heart Rate 1 : 80 bpm Height: 5'11" Weight: 250 lbs Functional Status No Functional Status data History of Present Illness Symptom Name Status Result Effective Date Notes Quality chronic 10/09 None Quality primary hypertension 10/09/2018 None Onset and Resolution ongoing 10/09/2018 None Onset of Symptom during adulthood 10/09/2018 None Blood Pressure Values pt checking blood pressure - see scanned document 10/09/2018 None Alleviating Factors medication 10/09/2018 None Pertinent Findings Denies dizziness 10/09/2018 None Pertinent Findings Denies dyspnea 10/09/2018 None Pertinent Findings edema 10/09/2018 in the left foot Onset of Symptom onset as an adult 10/09/2018 None Onset of Symptom 7 years ago 10/09/2018 None Quality non-insulin dependent 10/09/2018 None Severity moderate 02/2018 None Alleviating Factors medication 10/09/2018 None Alleviating Factors diet 10/09/2018 None Alleviating Factors exercise 10/09/2018 None Exacerbating Factors diet 10/09/2018 None Nutrition regular diet 10/09/2018 None Pertinent Findings Denies dizziness 10/09/2018 None Pertinent Findings Denies lethargy 10/09/2018 None Pertinent Findings Denies nausea 10/09/2018 None Blood Pressure Values not checking blood pressure at home 10/09/2018 None Glucose monitoring Denies occasional glucose testing 10/09/2018 once q 3 days Annual Medicare Wellness Exam Alcohol Use drinks 1 drinks per day 03/29/2018 None Annual Medicare Wellness Exam Alcohol Use drinks <1 days per week 03/29/2018 None Annual Medicare Wellness Exam Aspirin Use no 03/29/2018 None Annual Medicare Wellness Exam Blood Glucose (self reported) borderline high (100-125) 03/29/2018 None Annual Medicare Wellness Exam Blood Pressure (self reported ) diagnosed with hypertension 03/29/2018 None Annual Medicare Wellness Exam Cholesterol (self reported) desireable (below 200) 03/29/2018 None Annual Medicare Wellness Exam Depression (last 6 months) almost never 03/29/2018 None Annual Medicare Wellness Exam Depression or Hopelessness almost never 03/29/2018 None Annual Medicare Wellness Exam Describe Your Health excellent 03/29/2018 None Annual Medicare Wellness Exam Exercise Habits exercises 2 days per week 03/29/2018 None Annual Medicare Wellness Exam Exercise Habits exercises 60 minutes per day 03/29/2018 None Annual Medicare Wellness Exam Handling Stress usually vanessa effectively 03/29/2018 None Annual Medicare Wellness Exam Hemaglobin A-1C (self reported ) borderline high (7) 03/29/2018 None Annual Medicare Wellness Exam Hours of Sleep 7-8 03/29/2018 None Annual Medicare Wellness Exam Interaction with Friends no 03/29/2018 None Annual Medicare Wellness Exam Interests & Pleasure almost all of the time 03/29/2018 None Annual Medicare Wellness Exam Life Satisfaction very satisfied 03/29/2018 None Annual Medicare Wellness Exam Motor Vehicle Safety always fastens seat belt: yes 03/29/2018 None Annual Medicare Wellness Exam Motor Vehicle Safety drives after drinking: no 03/29/2018 None Annual Medicare Wellness Exam Motor Vehicle Safety rides with someone who has been drinking: no 03/29 None Annual Medicare Wellness Exam Nutrition servings of fried food / high fat foods per day: 0-1 2017 None Annual Medicare Wellness Exam Nutrition servings of high fiber / whole grain per day: 1-2 03/29/2018 None Annual Medicare Wellness Exam Nutrition servings of vegetables / fruit per day: 1-2 03/29/2018 None Annual Medicare Wellness Exam Smoking and Tobacco Use non smoker 03/29/2018 None Annual Medicare Wellness Exam Social & Emotional Support always 03/29/2018 None Annual Medicare Wellness Exam Stress almost never 03/29/2018 None Annual Medicare Wellness Exam Sun Exposure protects skin when outdoors: yes 03/29/2018 None edema Onset and Resolution sudden in onset 11/03/2017 None edema Onset of Symptom _ days ago 11/03/2017 None edema Location on the face 11/03/2017 None edema Location on the scrotum 11/03/2017 None edema Quality painful 11/03/2017 None hypertension Quality chronic 08/01/2017 None hypertension Onset and Resolution ongoing 08/01/2017 None hypertension Onset of Symptom during adulthood 08/01/2017 None hypertension Pertinent Findings Denies dizziness 08/01/2017 None hypertension Pertinent Findings Denies dyspnea 08/01/2017 None hypertension Pertinent Findings edema 08/01/2017 in the left foot hypertension Quality primary hypertension 08/01/2017 None hypertension Alleviating Factors medication 08/01/2017 None hypertension Blood Pressure Values pt checking blood pressure - see scanned document 08/01/2017 None diabetes mellitus Quality non-insulin dependent 07/13/2017 None diabetes mellitus Severity moderate 07/13/2017 None diabetes mellitus Alleviating Factors medication 07/13/2017 None diabetes mellitus Alleviating Factors diet 07/13/2017 None diabetes mellitus Alleviating Factors exercise 07/13/2017 None diabetes mellitus Exacerbating Factors diet 07/13/2017 None diabetes mellitus Nutrition regular diet 07/13/2017 None diabetes mellitus Pertinent Findings Denies dizziness 07/13/2017 None diabetes mellitus Pertinent Findings Denies lethargy 07/13/2017 None diabetes mellitus Pertinent Findings Denies nausea 07/13/2017 None diabetes mellitus Onset of Symptom onset as an adult 07/13/2017 None diabetes mellitus Onset of Symptom 7 years ago 07/13/2017 None hypertension Quality chronic 07/13/2017 None hypertension Onset and Resolution ongoing 07/13/2017 None hypertension Onset of Symptom during adulthood 07/13/2017 None hypertension Blood Pressure Values not checking blood pressure at home 07/13/2017 None hypertension Pertinent Findings Denies dizziness 07/13/2017 None hypertension Pertinent Findings Denies dyspnea 07/13/2017 None hypertension Pertinent Findings Denies edema 07/13/2017 None hematochezia Quality acute 07/06/2017 None hematochezia Quality bright red blood per rectum 07/06/2017 None hematochezia Quality intermittent 07/06/2017 None hematochezia Onset and Resolution sudden in onset 07/06/2017 None hematochezia Onset of Symptom 1 days ago 07/06/2017 None hematochezia Pertinent Findings Denies abdominal distension 07/06/2017 None hematochezia Pertinent Findings Denies chills 07/06/2017 None hematochezia Pertinent Findings Denies decreased energy level 07/06/2017 None hematochezia Pertinent Findings Denies dyspnea 07/06/2017 None hematochezia Pertinent Findings Denies emesis 07/06/2017 None hematochezia Pertinent Findings Denies fever 07/06/2017 None hematochezia Pertinent Findings Denies melena 07/06/2017 None hematochezia Pertinent Findings Denies nausea 07/06/2017 None hematochezia Pertinent Findings Denies painful stools 07/06/2017 None urinary frequency Quality constant 06/29/2017 None urinary frequency Onset and Resolution sudden in onset 06/29/2017 None urinary frequency Onset of Symptom 2 days ago 06/29/2017 None urinary frequency Pertinent Findings bladder pain 06/29/2017 None urinary frequency Pertinent Findings pelvic pain 06/29/2017 None urinary frequency Pertinent Findings urinary urgency 06/29/2017 None urinary urgency Onset and Resolution sudden in onset 06/29/2017 None urinary urgency Onset of Symptom 2 days ago 06/29/2017 None urinary urgency Pertinent Findings bladder pain 06/29/2017 None urinary frequency Quality constant 06/26/2017 None urinary frequency Onset and Resolution sudden in onset 06/26/2017 None urinary frequency Onset of Symptom 2 days ago 06/26/2017 None urinary frequency Pertinent Findings pelvic pain 06/26/2017 None urinary frequency Pertinent Findings bladder pain 06/26/2017 None urinary frequency Pertinent Findings urinary urgency 06/26/2017 None urinary urgency Onset and Resolution sudden in onset 06/26/2017 None urinary urgency Onset of Symptom 2 days ago 06/26/2017 None urinary urgency Pertinent Findings bladder pain 06/26/2017 None hypertension Quality intermittent 06/23/2017 None hypertension Onset and Resolution gradual in onset 06/23/2017 None hypertension Blood Pressure Values Stage 2:SBP 160-179 mmHg / DBP 100-109 mmHg 06/23/2017 None hypertension Severity not consistently severe symptoms, the symptoms fluctuate from no symptoms to anxiety and headaches 06/23/2017 None hypertension Pertinent Findings Denies dyspnea 06/23/2017 None nausea Onset of Symptom 2 hours ago 06/08/2017 None nausea Frequency of Episodes hourly 06/08/2017 None headache Location diffusely 06/08/2017 None headache Quality aching 06/08/2017 None headache Quality constant 06/08/2017 None headache Quality pressure 06/08/2017 None headache Onset and Resolution gradual in onset 06/08/2017 None headache Onset of Symptom 1 months ago 06/08/2017 None headache Frequency of Episodes daily 06/08/2017 None headache Pertinent Findings dizziness 06/08/2017 None headache Pertinent Findings lightheadedness 06/08/2017 None headache Pertinent Findings nausea 06/08/2017 None headache Pertinent Findings weakness 06/08/2017 None Annual Medicare Wellness Exam Alcohol Use does not drink any alcohol 03/23/2017 None Annual Medicare Wellness Exam Aspirin Use no 03/23/2017 None Annual Medicare Wellness Exam Blood Glucose (self reported) don't know 03/23/2017 None Annual Medicare Wellness Exam Blood Pressure (self reported ) borderline (120/80 - 139/89) 03/23/2017 None Annual Medicare Wellness Exam Cholesterol (self reported) desireable (below 200) 03/23/2017 None Annual Medicare Wellness Exam Depression (last 6 months) almost never 03/23/2017 None Annual Medicare Wellness Exam Depression or Hopelessness almost never 03/23/2017 None Annual Medicare Wellness Exam Describe Your Health excellent 03/23/2017 None Annual Medicare Wellness Exam Exercise Habits does not exercise 03/23/2017 None Annual Medicare Wellness Exam Handling Stress usually vanessa effectively 03/23/2017 None Annual Medicare Wellness Exam Hemaglobin A-1C (self reported ) desireable (6 or lower) 03/23/2017 None Annual Medicare Wellness Exam Hours of Sleep 8 03/23/2017 None Annual Medicare Wellness Exam Interaction with Friends yes 03/23/2017 None Annual Medicare Wellness Exam Interests & Pleasure daily 03/23/2017 None Annual Medicare Wellness Exam Life Satisfaction very satisfied 03/23/2017 None Annual Medicare Wellness Exam Motor Vehicle Safety always fastens seat belt: y 03/23/2017 None Annual Medicare Wellness Exam Motor Vehicle Safety drives after drinking: n 03/23/2017 None Annual Medicare Wellness Exam Motor Vehicle Safety rides with someone who has been drinking: n 2016 None Annual Medicare Wellness Exam Nutrition servings of fried food / high fat foods per day: 1 2016 None Annual Medicare Wellness Exam Nutrition servings of high fiber / whole grain per day: 2 03/23/2017 None Annual Medicare Wellness Exam Nutrition servings of vegetables / fruit per day: 2 03/23/2017 None Annual Medicare Wellness Exam Smoking and Tobacco Use non smoker 03/23/2017 None Annual Medicare Wellness Exam Social & Emotional Support always 03/23/2017 None Annual Medicare Wellness Exam Stress almost never 03/23/2017 None Annual Medicare Wellness Exam Sun Exposure protects skin when outdoors: y 03/23/2017 None diabetes mellitus Onset of Symptom onset as an adult 12/19/2016 None diabetes mellitus Quality non-insulin dependent 12/19/2016 None diabetes mellitus Severity moderate 12/19/2016 None diabetes mellitus Alleviating Factors medication 12/19/2016 None diabetes mellitus Alleviating Factors diet 12/19/2016 None diabetes mellitus Alleviating Factors exercise 12/19/2016 None diabetes mellitus Exacerbating Factors diet 12/19/2016 None diabetes mellitus Nutrition regular diet 12/19/2016 None diabetes mellitus Pertinent Findings Denies dizziness 12/19/2016 None diabetes mellitus Pertinent Findings nausea 12/19/2016 -depends on whether he takes his morning meds with/without food hypertension Quality chronic 12/19/2016 None hypertension Onset and Resolution ongoing 12/19/2016 None hypertension Onset of Symptom during adulthood 12/19/2016 None hypertension Pertinent Findings Denies dizziness 12/19/2016 None hypertension Pertinent Findings Denies dyspnea 12/19/2016 None hypertension Pertinent Findings Denies edema 12/19/2016 None diabetes mellitus Test results Pt checking blood glucose readings, did not bring results to clinic 12/19/2016 None diabetes mellitus Glucose monitoring occasional glucose testing 12/19/2016 None diabetes mellitus Pertinent Findings Denies dyspnea 12/19/2016 None hypertension Blood Pressure Values patient checking blood pressure at home - did not bring in readings 12/19/2016 None hypertension Alleviating Factors medication 12/19/2016 None cough Location in the throat 10/03/2016 None cough Quality productive 10/03/2016 None cough Onset and Resolution sudden in onset 10/03/2016 None cough Onset of Symptom 3 days ago 10/03/2016 None cough Pertinent Findings Denies chest discomfort 10/03/2016 None cough Pertinent Findings Denies dyspnea 10/03/2016 None cough Pertinent Findings Denies fever 10/03/2016 None cough Limitation on Activities does not limit activities 10/03/2016 None cough Frequency of Episodes increasing 10/03/2016 None cough Triggers ill contacts 10/03/2016 None cough Triggers known allergens 10/03/2016 None diabetes mellitus Quality non-insulin dependent 08/22/2016 None diabetes mellitus Severity moderate 08/22/2016 None diabetes mellitus Alleviating Factors medication 08/22/2016 None diabetes mellitus Alleviating Factors diet 08/22/2016 None diabetes mellitus Alleviating Factors exercise 08/22/2016 None diabetes mellitus Exacerbating Factors diet 08/22/2016 None diabetes mellitus Nutrition regular diet 08/22/2016 None diabetes mellitus Pertinent Findings Denies dizziness 08/22/2016 None diabetes mellitus Pertinent Findings Denies lethargy 08/22/2016 None diabetes mellitus Pertinent Findings Denies nausea 08/22/2016 None diabetes mellitus Onset of Symptom onset as an adult 08/22/2016 None diabetes mellitus Onset of Symptom 7 years ago 08/22/2016 None hypertension Quality chronic 08/22/2016 None hypertension Onset and Resolution ongoing 08/22/2016 None hypertension Onset of Symptom during adulthood 08/22/2016 None hypertension Blood Pressure Values not checking blood pressure at home 08/22/2016 None hypertension Pertinent Findings Denies dizziness 08/22/2016 None hypertension Pertinent Findings Denies dyspnea 08/22/2016 None hypertension Pertinent Findings Denies edema 08/22/2016 None diabetes mellitus Quality non-insulin dependent 03/24/2016 None diabetes mellitus Severity moderate 03/24/2016 None diabetes mellitus Alleviating Factors medication 03/24/2016 None diabetes mellitus Alleviating Factors diet 03/24/2016 None diabetes mellitus Alleviating Factors exercise 03/24/2016 None diabetes mellitus Exacerbating Factors diet 03/24/2016 None diabetes mellitus Nutrition regular diet 03/24/2016 None diabetes mellitus Pertinent Findings Denies dizziness 03/24/2016 None diabetes mellitus Pertinent Findings Denies lethargy 03/24/2016 None diabetes mellitus Pertinent Findings Denies nausea 03/24/2016 None diabetes mellitus Onset of Symptom onset as an adult 03/24/2016 None diabetes mellitus Onset of Symptom 7 years ago 03/24/2016 None hypertension Quality chronic 03/24/2016 None hypertension Onset and Resolution ongoing 03/24/2016 None hypertension Onset of Symptom during adulthood 03/24/2016 None hypertension Blood Pressure Values not checking blood pressure at home 03/24/2016 None hypertension Pertinent Findings Denies dizziness 03/24/2016 None hypertension Pertinent Findings Denies dyspnea 03/24/2016 None hypertension Pertinent Findings Denies edema 03/24/2016 None diabetes mellitus Onset of Symptom onset as an adult 2015 None diabetes mellitus Onset of Symptom 7 years ago 2015 None diabetes mellitus Quality non-insulin dependent 2015 None diabetes mellitus Severity moderate 2015 None diabetes mellitus Alleviating Factors medication 2015 None diabetes mellitus Alleviating Factors diet 2015 None diabetes mellitus Alleviating Factors exercise 2015 None diabetes mellitus Exacerbating Factors diet 2015 None diabetes mellitus Nutrition regular diet 2015 None diabetes mellitus Pertinent Findings Denies dizziness 2015 None diabetes mellitus Pertinent Findings Denies lethargy 2015 None diabetes mellitus Pertinent Findings Denies nausea 2015 None hypertension Quality chronic 2015 None hypertension Onset and Resolution ongoing 2015 None hypertension Onset of Symptom during adulthood 2015 None hypertension Blood Pressure Values not checking blood pressure at home 2015 None hypertension Pertinent Findings Denies dizziness 2015 None hypertension Pertinent Findings Denies dyspnea 2015 None hypertension Pertinent Findings Denies edema 2015 None diabetes mellitus Test results Pt checking blood glucose at home, see scanned readings 2015 None rash Location-Extremities on the right leg 07/29/2015 None rash Quality aching None rash Quality burning 07/29/2015 None rash Quality new 07/29 None rash Color red 2014 None rash Onset of Symptom 2 days ago 07/29/2015 None rash Triggers no known triggers 07/29/2015 None rash Pertinent Findings itching 07/29/2015 None rash Pertinent Findings pain 07/29/2015 None diabetes mellitus Onset of Symptom onset as an adult 07/20/2015 None diabetes mellitus Onset of Symptom 7 years ago 07/20/2015 None diabetes mellitus Quality non-insulin dependent 07/20/2015 None diabetes mellitus Severity moderate 07/20/2015 None diabetes mellitus Alleviating Factors medication 07/20/2015 None diabetes mellitus Alleviating Factors diet 07/20/2015 None diabetes mellitus Alleviating Factors exercise 07/20/2015 None diabetes mellitus Exacerbating Factors diet 07/20/2015 None diabetes mellitus Nutrition regular diet 07/20/2015 None diabetes mellitus Pertinent Findings Denies dizziness 07/20/2015 None diabetes mellitus Pertinent Findings Denies lethargy 07/20/2015 None diabetes mellitus Pertinent Findings Denies nausea 07/20/2015 None hypertension Blood Pressure Values not checking blood pressure at home 07/20/2015 None hypertension Pertinent Findings Denies dizziness 07/20/2015 None hypertension Pertinent Findings Denies dyspnea 07/20/2015 None hypertension Pertinent Findings Denies edema 07/20/2015 None diabetes mellitus Test results Pt checking blood glucose at home, see scanned readings 2014 None hypertension Onset and Resolution ongoing 07/20/2015 None hypertension Onset of Symptom during adulthood 07/20/2015 None hypertension Quality chronic 07/20/2015 None diabetes mellitus Onset of Symptom onset as an adult 03/17/2015 None diabetes mellitus Onset of Symptom 7 years ago 03/17/2015 None diabetes mellitus Quality non-insulin dependent 03/17/2015 None diabetes mellitus Severity moderate 03/17/2015 None diabetes mellitus Alleviating Factors medication 03/17/2015 None diabetes mellitus Alleviating Factors diet 03/17/2015 None diabetes mellitus Alleviating Factors exercise 03/17/2015 None diabetes mellitus Exacerbating Factors diet 03/17/2015 None diabetes mellitus Nutrition regular diet 03/17/2015 None diabetes mellitus Pertinent Findings Denies dizziness 03/17/2015 None diabetes mellitus Pertinent Findings Denies lethargy 03/17/2015 None diabetes mellitus Pertinent Findings Denies nausea 03/17/2015 None hypertension Blood Pressure Values not checking blood pressure at home 03/17/2015 None hypertension Pertinent Findings Denies dizziness 03/17/2015 None hypertension Pertinent Findings Denies dyspnea 03/17/2015 None hypertension Pertinent Findings Denies edema 03/17/2015 None diabetes mellitus Glucose monitoring daily 03/17/2015 None diabetes mellitus Test results Pt checking blood glucose at home, see scanned readings 2014 None cough Location in the throat 01/12/2015 None cough Quality dry 07/2015 he reports not being able to sleep laying down r/t cough. he is sleeping in recliner. cough Onset of Symptom 5 days ago 01/12/2015 None cough Pertinent Findings Denies chest discomfort 01/12/2015 None cough Pertinent Findings Denies fever 01/12/2015 None cough Limitation on Activities does not limit activities 01/12/2015 None cough Frequency of Episodes increasing 01/12/2015 None cough Triggers ill contacts 01/12/2015 None diabetes mellitus Onset of Symptom onset as an adult 12/16/2014 None diabetes mellitus Onset of Symptom 7 years ago 12/16/2014 None diabetes mellitus Quality non-insulin dependent 12/16/2014 None diabetes mellitus Severity moderate 12/16/2014 None diabetes mellitus Alleviating Factors medication 12/16/2014 None diabetes mellitus Alleviating Factors diet 12/16/2014 None diabetes mellitus Alleviating Factors exercise 12/16/2014 None diabetes mellitus Exacerbating Factors diet 12/16/2014 None diabetes mellitus Nutrition regular diet 12/16/2014 None diabetes mellitus Pertinent Findings Denies dizziness 12/16/2014 None diabetes mellitus Pertinent Findings Denies lethargy 12/16/2014 None diabetes mellitus Pertinent Findings Denies nausea 12/16/2014 None hypertension Blood Pressure Values not checking blood pressure at home 12/16/2014 None hypertension Pertinent Findings Denies dizziness 12/16/2014 None hypertension Pertinent Findings Denies dyspnea 12/16/2014 None hypertension Pertinent Findings Denies edema 12/16/2014 None cough Onset of Symptom 2 days ago 11/27/2014 None cough Triggers post nasal drip 11/27/2014 reports so much drainage he cant lay down without choking cough Pertinent Findings Denies chest discomfort 11/27/2014 None cough Pertinent Findings Denies dyspnea 11/27/2014 None cough Pertinent Findings fever 11/27/2014 low grade cough Pertinent Findings facial pain 11/27/2014 pain and pressure behind eyes cough Pertinent Findings post nasal drip 11/27/2014 None sore throat Location on both sides 11/27/2014 None sore throat Onset of Symptom 2 days ago 11/27/2014 None sore throat Pertinent Findings facial pain 11/27/2014 None sore throat Pertinent Findings cough 11/27/2014 due to drainage eye pain Location in the left eye 11/27/2014 None eye pain Location in the right eye 11/27/2014 None eye pain Quality pressure 11/27/2014 None eye pain Onset of Symptom 2 days ago 11/27/2014 None eye pain Pertinent Findings facial pain 11/27/2014 None eye pain Pertinent Findings fever 11/27/2014 None eye pain Pertinent Findings eye pressure 11/27/2014 None eye pain Pertinent Findings eye tearing 11/27/2014 None cough Quality acute None cough Onset and Resolution ongoing 11/27/2014 None cough Limitation on Activities moderately limits activities 11/27/2014 None cough Frequency of Episodes increasing 11/27/2014 None cough Location in the lung 11/27/2014 None cough Location in the throat 11/27/2014 None cough Alleviating Factors OTC medications 11/27/2014 None sore throat Quality acute 11/27/2014 None sore throat Onset and Resolution ongoing 11/27/2014 None sore throat Limitation on Activities does not limit oral intake 11/27/2014 None sore throat Frequency of Episodes increasing 11/27/2014 None diabetes mellitus Onset of Symptom onset as an adult 09/16/2014 None diabetes mellitus Onset of Symptom 7 years ago 09/16/2014 None diabetes mellitus Quality non-insulin dependent 09/16/2014 None diabetes mellitus Severity moderate 09/16/2014 None diabetes mellitus Alleviating Factors medication 09/16/2014 None diabetes mellitus Alleviating Factors diet 09/16/2014 None diabetes mellitus Alleviating Factors exercise 09/16/2014 None diabetes mellitus Exacerbating Factors diet 09/16/2014 None diabetes mellitus Nutrition regular diet 09/16/2014 None diabetes mellitus Pertinent Findings Denies dizziness 09/16/2014 None diabetes mellitus Pertinent Findings Denies lethargy 09/16/2014 None diabetes mellitus Pertinent Findings Denies nausea 09/16/2014 None hypertension Blood Pressure Values not checking blood pressure at home 09/16/2014 None hypertension Pertinent Findings Denies dizziness 09/16/2014 None hypertension Pertinent Findings Denies dyspnea 09/16/2014 None hypertension Pertinent Findings Denies edema 09/16/2014 None diabetes mellitus Onset of Symptom onset as an adult 09/02/2014 None diabetes mellitus Onset of Symptom 7 years ago 09/02/2014 None diabetes mellitus Quality non-insulin dependent 09/02/2014 None diabetes mellitus Severity moderate 09/02/2014 None diabetes mellitus Alleviating Factors medication 09/02/2014 None diabetes mellitus Alleviating Factors diet 09/02/2014 None diabetes mellitus Alleviating Factors exercise 09/02/2014 None diabetes mellitus Exacerbating Factors diet 09/02/2014 None diabetes mellitus Nutrition regular diet 09/02/2014 None diabetes mellitus Pertinent Findings Denies dizziness 09/02/2014 None diabetes mellitus Pertinent Findings Denies lethargy 09/02/2014 None diabetes mellitus Pertinent Findings Denies nausea 09/02/2014 None diabetes mellitus Glucose monitoring twice daily 09/02/2014 None hypertension Blood Pressure Values not checking blood pressure at home 09/02/2014 None hypertension Pertinent Findings Denies dizziness 09/02/2014 None hypertension Pertinent Findings Denies dyspnea 09/02/2014 None hypertension Pertinent Findings Denies edema 09/02/2014 None cough Location in the throat 08/05/2014 None cough Quality acute None cough Onset and Resolution ongoing 08/05/2014 None cough Onset of Symptom 2 weeks ago 08/05/2014 None cough Limitation on Activities does not limit activities 08/05/2014 None cough Frequency of Episodes increasing 08/05/2014 None cough Triggers known allergens 08/05/2014 None cough Pertinent Findings Denies chest discomfort 08/05/2014 None cough Pertinent Findings Denies dyspnea 08/05/2014 None cough Pertinent Findings Denies fever 08/05/2014 None cough Pertinent Findings Denies ill contacts 08/05/2014 None cough Pertinent Findings Denies sputum production 08/05/2014 None cough Location in the throat 07/25/2014 None cough Quality constant 07/25/2014 None cough Quality dry None cough Onset of Symptom 3 days ago 07/25/2014 None cough Triggers post nasal drip 07/25/2014 None cough Pertinent Findings chest discomfort 07/25/2014 r/t coughing so much cough Pertinent Findings fever 07/25/2014 99 cough Pertinent Findings hoarseness 07/25/2014 some cough Pertinent Findings post nasal drip 07/25/2014 None cough Pertinent Findings Denies purulent sputum 07/25/2014 None cough Limitation on Activities does not limit activities 07/25/2014 None cough Frequency of Episodes increasing 07/25/2014 None cough Alleviating Factors OTC medications 07/25/2014 dante diabetes mellitus Quality non-insulin dependent 06/02/2014 None diabetes mellitus Severity moderate 06/02/2014 None diabetes mellitus Alleviating Factors medication 06/02/2014 None diabetes mellitus Alleviating Factors diet 06/02/2014 None diabetes mellitus Alleviating Factors exercise 06/02/2014 None diabetes mellitus Exacerbating Factors diet 06/02/2014 None diabetes mellitus Nutrition regular diet 06/02/2014 None diabetes mellitus Onset of Symptom onset as an adult 06/02/2014 None diabetes mellitus Onset of Symptom 7 years ago 06/02/2014 None diabetes mellitus Pertinent Findings Denies dizziness 06/02/2014 None diabetes mellitus Pertinent Findings Denies lethargy 06/02/2014 None diabetes mellitus Pertinent Findings Denies nausea 06/02/2014 None diabetes mellitus Exercise minimal exercise 06/02/2014 None diabetes mellitus Blood glucose levels greater than 120 06/02/2014 None diabetes mellitus Glucose monitoring twice daily 06/02/2014 None diabetes mellitus Test results HgbA1c level 10.5 05/05/2014 new diagnosis diabetes mellitus Glucose monitoring does not test 05/05/2014 None diabetes mellitus Exacerbating Factors diet 05/05/2014 None diabetes mellitus Nutrition regular diet 05/05/2014 None diabetes mellitus Exercise no exercise 05/05/2014 None diabetes mellitus Onset of Symptom onset as an adult 05/05/2014 None diabetes mellitus Onset of Symptom 7 years ago 05/05/2014 None diabetes mellitus Quality non-insulin dependent 05/05/2014 None diabetes mellitus Severity moderate 05/05/2014 None diabetes mellitus Test results Pt not checking blood glucose readings at home 05/05/2014 None diabetes mellitus Alleviating Factors medication 05/05/2014 None diabetes mellitus Alleviating Factors diet 05/05/2014 None diabetes mellitus Alleviating Factors exercise 05/05/2014 None shoulder pain Location on the right shoulder 04/29/2014 None shoulder pain Quality dull 04/29/2014 wakes him at night shoulder pain Onset and Resolution improved during the day 04/29/2014 None shoulder pain Pertinent Findings point tenderness 04/29/2014 None shoulder pain Pertinent Findings stiffness 04/29/2014 None shoulder pain Pertinent Findings swelling 04/29/2014 None knee pain Location on the right 04/29/2014 mainly with sitting, driving, or stairs knee pain Quality popping 04/29/2014 None knee pain Pertinent Findings Denies instability 04/29/2014 None knee pain Pertinent Findings pain with movement 04/29/2014 None knee pain Pertinent Findings Denies swelling 04/29/2014 None knee pain Pertinent Findings Denies stiffness 04/29/2014 None knee pain Onset of Symptom 6 weeks ago 04/29/2014 None well man exam (40-65 years) Health Guidance regular exercise 04/14/2014 None well man exam (40-65 years) Cardiovascular Risk Factors obesity 04/14/2014 None well man exam (40-65 years) Nutrition and Exercise overweight 04/14/2014 None well man exam (40-65 years) Urinary complaints frequency 04/14/2014 every 4 hours he has to go to the restroom - even at night. well man exam (40-65 years) Lifestyle satisfactory work experience 04/14/2014 None well man exam (40-65 years) Lifestyle normal sleep patterns 04/14/2014 None well man exam (40-65 years) Lifestyle normal amount of stress 04/14/2014 None well man exam (40-65 years) Sexual Activity is monogamous 04/14/2014 None well man exam (40-65 years) Sexual Activity does not experience sexual satisfaction 04/14/2014 - he states that he has trouble with erectile dysfunction - well man exam (40-65 years) Control partner S/P menopause 04/14/2014 None Advance Directives No Advance Directive data Encounters Encounter Performer Location Codes Date () 62747 EST. 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 PATIENT, LEVEL III Diagnosis: Urethral discharge, unspecified[ICD10: R36.9] Diagnosis: Rash and other nonspecific skin eruption[ICD10: R21] Madeline Loera MD, [facility] CPT-4: 07516 11/03/2017 ([id number]) 40936 EST. PATIENT, LEVEL III Diagnosis: Essential (primary) hypertension[ICD10: I10] Fatemeh Loera MD, [facility] CPT-4: 51873 08/01/2017 ([id number]) 74194 EST. PATIENT, LEVEL IV Diagnosis: Other elevated white blood cell count[ICD10: D72.828] Diagnosis: Essential (primary) hypertension[ICD10: I10] Diagnosis: Type 2 diabetes mellitus with hyperglycemia[ICD10: E11.65] Fatemeh Loera MD , [facility] CPT-4: 68426 07/13/2017 23718 EST. PATIENT, LEVEL III Diagnosis: Melena[ICD10: K92.1] Diagnosis: Bradycardia, unspecified[ICD10: R00.1] Madeline Loera MD, [facility] CPT-4: 23453 07/06/2017 ([id number]) Miscellaneous no charge Diagnosis: Essential (primary) hypertension[ICD10: I10] Mandy Loera MD, [facility] CPT-4: 96839 06/29/2017 ([id number]) 65295 EST. PATIENT, LEVEL III Diagnosis: Dysuria[ICD10: R30.0] Diagnosis: Essential (primary) hypertension[ICD10: I10] Diagnosis: Type 2 diabetes mellitus with hyperglycemia[ICD10: E11.65] Mandy Loera MD, [facility] CPT-4: 54557 06/26/2017 23809 EST. PATIENT, LEVEL IV Diagnosis: Essential (primary) hypertension[ICD10: I10] Diagnosis: Other obesity due to excess calories[ICD10: E66.09] Madeline Loera MD, [facility] CPT-4: 10693 06/23/2017 25697 EST. PATIENT, LEVEL IV Diagnosis: Headache[ICD10: R51] Diagnosis: Vomiting, unspecified[ICD10: R11.10] Diagnosis: Other allergic rhinitis[ICD10: J30.89] Madeline Loera MD, [facility] CPT-4: 02595 06/08/2017 ([id number]) 85409 EST. PATIENT, LEVEL IV Diagnosis: Type 2 diabetes mellitus with hyperglycemia[ICD10: E11.65] Diagnosis: Essential (primary) hypertension[ICD10: I10] Diagnosis: Benign prostatic hyperplasia with lower urinary tract symptoms[ICD10 : N40.1] Fatemeh Loera MD, [facility] CPT-4: 88783 2016 ([id number]) 17140 EST. PATIENT, LEVEL III Diagnosis: Cough[ICD10: R05] Diagnosis: Allergic rhinitis due to pollen[ICD10: J30.1] Mandy Loera MD, [facility] CPT-4: 65336 10/03/2016 ([id number]) 18450 EST. PATIENT, LEVEL IV Diagnosis: Type 2 diabetes mellitus with hyperglycemia[ICD10: E11.65] Diagnosis: Essential (primary) hypertension[ICD10: I10] Diagnosis: Actinic keratosis[ICD10: L57.0] Fatemeh Loera MD, [facility] CPT- 4: 45671 08/22/2016 [id number] EST. PATIENT, LEVEL IV Diagnosis: Type 2 diabetes mellitus with hyperglycemia[ICD10: E11.65] Diagnosis: Other obesity due to excess calories[ICD10: E66.09] Diagnosis: Essential (primary) hypertension[ICD10: I10] Madeline Loera MD, [facility] CPT-4: 13409 03/24/2016 03883 EST. PATIENT, LEVEL IV Diagnosis: Type 2 diabetes mellitus with hyperglycemia[ICD10: E11.65] Diagnosis: Other obesity due to excess calories[ICD10: E66.09] Diagnosis: Essential (primary) hypertension[ICD10: I10] Madeline Loera MD, [facility] CPT-4: 43511 2015 ([id number]) 89421 EST. PATIENT, LEVEL III Diagnosis: Cellulitis of right lower limb[ICD10: L03.115] Fatemeh Loera MD [facility] CPT-4: 00733 07/29/2015 ([id number]) 67400 EST. PATIENT, LEVEL IV Diagnosis: DM W/O COMPLICATION TYPE II, UNCONTROLLED[ICD9: 250.02] Diagnosis: ESSENTIAL HYPERTENSION[ICD9: 401.9] Diagnosis: OBESITY[ICD9: 278.00] Fatemeh Loera MD, [facility] CPT-4: 25692 07/20/2015 ([id number]) 66152 EST. PATIENT, LEVEL IV Diagnosis: DIABETES TYPE II[ICD9: 250.00] Diagnosis: ESSENTIAL HYPERTENSION[ICD9: 401.9] Fatemeh Loera MD, [facility] CPT-4: 71121 03/17/2015 ([id number]) 27872 EST. PATIENT, LEVEL III Diagnosis: ACUTE URI[ICD9: 465.9] Diagnosis: COUGH[ICD9: 786.2] Mandy Loera MD, [facility] CPT-4: 05592 01/12/2015 ([id number]) 05066 EST. PATIENT, LEVEL III Diagnosis: ESSENTIAL HYPERTENSION[ICD9: 401.9] Diagnosis: DIABETES TYPE II[ICD9: 250.00] Fatemeh Loera MD, [facility] CPT- 4: 19224 12/16/2014 ([id number]) 09066 EST. PATIENT, LEVEL III Diagnosis: ACUTE URI[ICD9: 465.9] Diagnosis: COUGH[ICD9: 786.2] Mandy Loera MD, [facility] CPT-4: 72846 11/27/2014 ([id number]) 83963 EST. PATIENT, LEVEL III Diagnosis: Type II diabetes mellitus, uncontrolled[ICD9: 250.02] Diagnosis: ESSENTIAL HYPERTENSION[ICD9: 401.9] Fatemeh Loera MD, [facility] CPT-4: 90936 09/16/2014 ([id number]) 57222 EST. PATIENT, LEVEL III Diagnosis: DM W/O COMPLICATION TYPE II, UNCONTROLLED[ICD9: 250.02] Diagnosis: ESSENTIAL HYPERTENSION[ICD9: 401.9] Fatemeh Loera MD, [facility] CPT-4: 45957 09/02/2014 ([id number]) 34201 EST. PATIENT, LEVEL I Diagnosis: ESSENTIAL HYPERTENSION[ICD9: 401.9] Diagnosis: Type II diabetes mellitus, uncontrolled[ICD9: 250.02] Fatemeh Loera MD, [facility] CPT-4: 13876 08/14/2014 ([id number]) 57727 EST. PATIENT, LEVEL III Diagnosis: Cough due to MARCIAL inhibitor[ICD9: 786.2] Diagnosis: ESSENTIAL HYPERTENSION[ICD9: 401.9] Diagnosis: ALLERGIC RHINITIS[ICD9: 477.9] Mandy Loera MD, [facility] CPT-4: 30092 08/05/2014 ([id number]) 52087 EST. PATIENT, LEVEL III Diagnosis: ACUTE URI[ICD9: 465.9] Diagnosis: COUGH[ICD9: 786.2] Mandy Loera MD, [facility] CPT-4: 93765 07/25/2014 ([id number]) 59224 EST. PATIENT, LEVEL III Diagnosis: ESSENTIAL HYPERTENSION[ICD9: 401.9] Diagnosis: Type II diabetes mellitus, uncontrolled[ICD9: 250.02] Fatemeh Loera MD, [facility] CPT-4: 93852 06/02/2014 ([id number]) 04335 EST. PATIENT, LEVEL III Diagnosis: Type II diabetes mellitus, uncontrolled[ICD9: 250.02] Mandy Loera MD, [facility] CPT-4: 77859 05/05/2014 ([id number]) 75302 EST. PATIENT, LEVEL IV Diagnosis: ESSENTIAL HYPERTENSION[ICD9: 401.9] Diagnosis: Type II diabetes mellitus, uncontrolled[ICD9: 250.02] Diagnosis: OA (osteoarthritis) of knee[ICD9: 715.96] Fatemeh Loera MD, [facility] CPT-4: 51372 04/29/2014 ([id number]) OFFICE VISIT, NEW - LEVEL 4 Diagnosis: Elevated blood pressure[ICD9: 796.2] Diagnosis: BPH (benign prostatic hyperplasia)[ICD9: 600.00] Diagnosis: 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 male patient[ICD9: 607.84] Diagnosis: OBESITY[ICD9: 278.00] [facility] CPT-4: 04529 04/14/2014 Plan of Care Planned Activity Notes Codes Status Date Visit Plan: Hypertension - well controlled - continue with current medications, continue with no added salt diet. Pt has been encouraged to exercise daily. The pt has been advised to call the office if there are any acute concerns about change in blood pressure readings at home. Diabetes Mellitus - controlled - per recent FSBS reports. I have recommended for the patient to have follow up labs prior to the next office visit. The patient has been instructed to continue with current medications as previously directed, continue with regular FSBS monitoring to assure continued control of diabetes. Pt to call for any acute concerns, complaints, or if the blood glucose readings are starting to become less controlled. BPH - check PSA. 10/09/2018 Patient Education: Patient Medication Summary Completed 10/09/2018 Care Plan: Comp Metabolic Pending 10/09/2018 Care Plan: Cbc With Differential Pending 10/09/2018 Care Plan: %Hba1C LOINC : 08938-3 Pending 10/09/2018 Care Plan: Tsh Pending 10/09/2018 Care Plan: Lipid Pending 10/09/2018 Care Plan: Total Psa Pending 10/09/2018 Care Plan: Microalbumin Pending 10/09/2018 Appointment: Mandy Bergeron WPtel: [address] [place], [place] [phone] (30 min) Complex 10/01/2018 Appointment: Mandy Bergeron WPtel: [phone] (15 min) Moderate 09/27/2018 Visit Plan: Medicare Exam - today we discussed the patients past history, immunizations, preventative exams/evaluations - colonoscopy, fecal occult blood testing, routine labs for renal function, glucose, cholesterol, osteoporosis evaluations, cardiovascular testing and cancer screenings. We have also discussed mental health and the signs/symptoms of depression. The patient was advised of home safety evaluations and the need to make sure that as the aging process continues, we need to be aware of different ways to make the home a safer place to reside. The patient has also been counseled that exercise is necessary - and of utmost importance as we age to help decrease fall risk and to maintain independence in the home. Today we discussed the need for the patient to create paperwork for Advanced directives as well as for the patient to provide this office with a copy of her DOPA paperwork for health care surrogate. 03/29/2018 Appointment: Mandy Bergeron WPtel[facility] [phone] [phone] [facility] - Annual Wellness Visit 03/29/2018 Patient Education: Patient Medication Summary Completed 03/29/2018 Visit Plan: Penile discharge - will swab pt - will send RX - pt is to notify clinic if symptoms do not improve, if they worsen, or with any other changes, questions, or concerns. Rash - will send RX - The patient is to call for any change in symptoms, increase in size of the lesion, increase in pain, worsening redness, warmth, discharge. 11/03/2017 Appointment: Madeline Ramos [facility]el[facility] [phone] [facility] (15 min) Moderate 11/03/2017 Patient Education: Patient Medication Summary Completed 11/03/2017 Referral: Lynnette Murdock Referral Initiated 08/15/2017 Visit Plan: Hypertension - uncontrolled - better at office than reported blood pressures - continue current medications - Keep appointment with Dr. Murdock. 08/01/2017 Appointment: Fatemeh Loera WPtel: [phone] (15 min) Moderate 08/01/2017 Patient Education: Patient Medication Summary Completed 08/01/2017 Patient Education: Obesity Completed 08/01/2017 Visit Plan: Bradycardia - referral to Dr. Murdock Hypertension - uncontrolled - the patient's medications have been modified as documented in the visit note. The patient has been counseled to cut back on salt in diet for a no added salt diet, low fat diet, start an exercise program with low weight bearing exercises and higher aerobic activity for heart health. The patient is to check blood pressure readings as an outpatient and either fax , call, or email the readings to the office next week for practitioner to review. The pt is to call for acute concerns. Diabetes Mellitus - controlled - per recent FSBS reports. I have recommended for the patient to have follow up labs prior to the next office visit. The patient has been instructed to continue with current medications as previously directed, continue with regular FSBS monitoring to assure continued control of diabetes. Pt to call for any acute concerns, complaints, or if the blood glucose readings are starting to become less controlled. 07/13/2017 Appointment: Fatemeh Loera WPtel: 1010 [facility] (15 min) Moderate 07/13/2017 Patient Education: Patient Medication Summary Completed 07/13/2017 Patient Education: Obesity Completed 07/13/2017 Care Plan: Referral Order SNOMED-CT : [id number] Pending 07/13/2017 Visit Plan: Hematochezia/hemorrhoids - intermittent bright red blood with some BMs x 1 day - pt does not want a hgb checked at this time - will send RX - pt is to notify clinic with any increasing fatigue, dizziness, light headedness, or any other changes or concerns - pt is to update clinic of symptoms next week - if no improvement will check hgb and refer for colonoscopy. Bradycardia - since starting on the metoprolol - will change to bystolic - pt is to continue to monitor BP and HR and bring a copy to his appointment next week for review. 07/06/2017 Appointment: Madeline Ramos WPtel: [facility]1 [facility] (30 min) Complex 07/06/2017 Patient Education: Patient Medication Summary Completed 07/06/2017 Patient Education: Obesity Completed 07/06/2017 Visit Plan: Hypertension - well controlled - continue with current medications, continue with no added salt diet. Pt has been encouraged to exercise daily. The pt has been advised to call the office if there are any acute concerns about change in blood pressure readings at home. 06/29/2017 Appointment: Mandy Bergeron WPtel: [phone] [phone] [place] (15 min) Moderate 06/29/2017 Patient Education: Patient Medication Summary Completed 06/29/2017 Patient Education: Obesity Completed 06/29/2017 Visit Plan: Urinary Tract Infection-discussed natural and expected course of this diagnosis and to alert me if symptoms do not follow expected course, or if any worse. UA positive for infection today in the office- plan to send for culture and will call patient with results. RX sent to patient' s pharmacy. Avoid tub baths, restrictive underwear, etc. Recommend patient start on probiotic while taking the antibiotic to prevent diarrhea. Patient verbalized understanding of plan. Hypertension - uncontrolled - the patient's medications have been modified as documented in the visit note. The patient has been counseled to cut back on salt in diet for a no added salt diet, low fat diet, start an exercise program with low weight bearing exercises and higher aerobic activity for heart health. The patient is to check blood pressure readings as an outpatient and either fax, call, or email the readings to the office next week for practitioner to review. The pt is to call for acute concerns. 06/26/2017 Appointment: [facility]el[id number] (15 min) Moderate 06/26/2017 Patient Education: Patient Medication Summary Completed 06/26/2017 Visit Plan: Hypertension - uncontrolled - the patient's medications have been modified as documented in the visit note. The patient has been counseled to cut back on salt in diet for a no added salt diet, low fat diet, start an exercise program with low weight bearing exercises and higher aerobic activity for heart health. The patient is to check blood pressure readings as an outpatient and either fax, call, or email the readings to the office next week for practitioner to review. The pt is to call for acute concerns. Obesity - chronic issue with this patient. The pt has been counseled about diet changes, calorie restriction, and need to exercise. Pt will RTC in one month for weight check. 06/23/2017 Appointment: Mad[facility] Ramos [facility]Ptel: [facility]5 [facility] (30 min) Complex 06/23/2017 Patient Education: Patient Medication Summary Completed 06/23/2017 Patient Education: Obesity Completed 06/23/2017 Care Plan: BMI Above normal followup SELF-MGMT EDUC & TRAIN 1 PT Pending 2016 Appointment: Injection 06/22/2017 Patient Education: Patient Medication Summary Completed 06/22/2017 Visit Plan: Headache - acute, with vomiting - will order CT - will send RX - Liquids initially until the nausea improves, then recommend to advance to bland diet for 1 day, then advance as tolerated - pt is to notify clinic if symptoms do not imrpove, if they worsen, or with any questions or concerns. Allergies - chronic - recommended pt to use allergy medication as prescribed. Pt has been counseled as to the appropriate use of the medication. Pt to call if allergy symptoms are not controlled with the medication. 06/08/2017 Appointment: Madeline Ramos WPtel: [address] (15 min) Moderate 06/08/2017 Patient Education: Patient Medication Summary Completed 06/08/2017 Visit Plan: Medicare Exam - today we discussed the patients past history, immunizations, preventative exams/evaluations - colonoscopy, fecal occult blood testing, routine labs for renal function, glucose, cholesterol, osteoporosis evaluations, cardiovascular testing and cancer screenings. We have also discussed mental health and the signs/symptoms of depression. The patient was advised of home safety evaluations and the need to make sure that as the aging process continues, we need to be aware of different ways to make the home a safer place to reside. The patient has also been counseled that exercise is necessary - and of utmost importance as we age to help decrease fall risk and to maintain independence in the home. Today we discussed the need for the patient to create paperwork for Advanced directives as well as for the patient to provide this office with a copy of her DOPA paperwork for health care surrogate. 03/23/2017 Appointment: Madeline Ramos WPtel: [phone] [facility] [facility] - Annual Wellness Visit 03/23/2017 Patient Education: Patient Medication Summary Completed 03/23/2017 Patient Education: Obesity Completed 03/23/2017 Visit Plan: Hypertension - well controlled - continue with current medications, continue with no added salt diet. Pt has been encouraged to exercise daily. The pt has been advised to call the office if there are any acute concerns about change in blood pressure readings at home. Diabetes Mellitus - controlled - per recent FSBS reports. I have recommended for the patient to have follow up labs prior to the next office visit. The patient has been instructed to continue with current medications as previously directed, continue with regular FSBS monitoring to assure continued control of diabetes. Pt to call for any acute concerns, complaints, or if the blood glucose readings are starting to become less controlled. BPH with urinary hesitancy - referral to urologist - discussed with pt and he would like to consider an appt in [place] or [place] 12/19/2016 Appointment: Fatemeh Loera [facility]Ptel: [facility]5 [facility] [place] (15 min) Moderate 12/19/2016 Patient Education: Patient Medication Summary Completed 12/19/2016 Patient Education: Obesity Completed 12/19/2016 Patient Education: Hypertension Completed 12/19/2016 Visit Plan: Allergies-start jace or zyrtec daily Cough- URI-finish keflex-call if symptoms do not resolve or if any worse-patient verbalized understanding of plan. 10/03/2016 Patient Education: Patient Medication Summary Completed 10/03/2016 Patient Education: Obesity Completed 10/03/2016 Visit Plan: Hypertension - well controlled - continue with current medications, continue with no added salt diet. Pt has been encouraged to exercise daily. The pt has been advised to call the office if there are any acute concerns about change in blood pressure readings at home. Diabetes Mellitus - controlled - per recent FSBS reports. I have recommended for the patient to have follow up labs prior to the next office visit. The patient has been instructed to continue with current medications as previously directed, continue with regular FSBS monitoring to assure continued control of diabetes. Pt to call for any acute concerns, complaints, or if the blood glucose readings are starting to become less controlled. Actinic Keratosis - RX for efudex to use on skin on left cheek - pt to rtc to let us know if the lesion is not improving. 08/22/2016 Appointment: Fatemeh Loera WPtel: [phone] [facility] [place] (15 min) Moderate 08/22/2016 Patient Education: Patient Medication Summary Completed 08/22/2016 Patient Education: Obesity Completed 08/22/2016 Appointment: Fatemeh Loera WPtel: [phone] [facility] [place] (15 min) Moderate 07/25/2016 Visit Plan: Diabetes Mellitus - controlled - per recent FSBS reports. I have recommended for the patient to have follow up labs prior to the next office visit. The patient has been instructed to continue with current medications as previously directed, continue with regular FSBS monitoring to assure continued control of diabetes. Pt to call for any acute concerns, complaints, or if the blood glucose readings are starting to become less controlled. Hypertension - The patient has been counseled to cut back on salt in diet for a no added salt diet, low fat diet, start an exercise program with low weight bearing exercises and higher aerobic activity for heart health. The patient is to check blood pressure readings as an outpatient and either fax , call, or email the readings to the office next week for practitioner to review. The pt is to call for acute concerns. BMI 37 - The pt has been counseled about diet changes and need to exercise. Pt will RTC for weight check. 03/24/2016 Appointment: (30 min) Complex 03/24/2016 Patient Education: Patient Medication Summary Completed 03/24/2016 Patient Education: Obesity Completed 03/24/2016 Patient Education: Hypertension Completed 03/24/2016 Care Plan: BMI Above normal followup SELF-MGMT EDUC & TRAIN 1 PT Pending 2015 Visit Plan: Diabetes Mellitus - controlled - per recent FSBS reports. I have recommended for the patient to have follow up labs prior to the next office visit. The patient has been instructed to continue with current medications as previously directed, continue with regular FSBS monitoring to assure continued control of diabetes. Pt to call for any acute concerns, complaints, or if the blood glucose readings are starting to become less controlled. Hypertension - The patient has been counseled to cut back on salt in diet for a no added salt diet, low fat diet, start an exercise program with low weight bearing exercises and higher aerobic activity for heart health. The patient is to check blood pressure readings as an outpatient and either fax , call, or email the readings to the office next week for practitioner to review. The pt is to call for acute concerns. Obesity - recommended - weight loss - caloric restriction. 2015 Appointment: Mandy Bergeron WPtel: [address] [place], [place] [id number] (15 min) Moderate 2015 Patient Education: Patient Medication Summary Completed 2015 Patient Education: Hypertension Completed 2015 Patient Education: Obesity Completed 2015 Patient Education: Diabetes Completed 2015 Visit Plan: Cellulitis - continue with oral antibiotics as previously directed, return to clinic as previously directed, call for acute change in symptoms, worsening redness, warmth, discharge. 07/29/2015 Appointment: Fatemeh Loera WPtel: [phone] [facility] (10 min) Simple 07/29/2015 Patient Education: Patient Medication Summary Completed 07/29/2015 Visit Plan: Diabetes Mellitus - controlled - per recent FSBS reports. I have recommended for the patient to have follow up labs prior to the next office visit. The patient has been instructed to continue with current medications as previously directed, continue with regular FSBS monitoring to assure continued control of diabetes. Pt to call for any acute concerns, complaints, or if the blood glucose readings are starting to become less controlled. Hypertension - uncontrolled - the patient's medications have been modified as documented in the visit note. The patient has been counseled to cut back on salt in diet for a no added salt diet, low fat diet, start an exercise program with low weight bearing exercises and higher aerobic activity for heart health. The patient is to check blood pressure readings as an outpatient and either fax, call, or email the readings to the office next week for practitioner to review. The pt is to call for acute concerns. Obesity - recommended - weight loss - caloric restriction. 07/20/2015 Appointment: Fatemeh Loera WPtel: [phone] [facility] Follow up 07/20/2015 Patient Education: Patient Medication Summary Completed 07/20/2015 Patient Education: Hypertension Completed 07/20/2015 Visit Plan: Diabetes Mellitus - controlled - per recent FSBS reports. I have recommended for the patient to have follow up labs prior to the next office visit. The patient has been instructed to continue with current medications as previously directed, continue with regular FSBS monitoring to assure continued control of diabetes. Pt to call for any acute concerns, complaints, or if the blood glucose readings are starting to become less controlled. Hypertension - well controlled - continue with current medications, continue with no added salt diet. Pt has been encouraged to exercise daily. The pt has been advised to call the office if there are any acute concerns about change in blood pressure readings at home. 03/17/2015 Appointment: Fatemeh Loera WPtel: [phone] [facility] Follow up 03/17/2015 Patient Education: Patient Medication Summary Completed 03/17/2015 Patient Education: Hypertension Completed 03/17/2015 Visit Plan: URI - Pt advised to increase fluids, vitamin C. Discussed natural and expected course of this diagnosis and need to alert me if symptoms do not follow expected course, or if any worse. RX sent to patient' s pharmacy. Rocephin and kenalog injections today in the office. 01/12/2015 Patient Education: Patient Medication Summary Completed 01/12/2015 Visit Plan: Hypertension - well controlled - continue with current medications, continue with no added salt diet. Pt has been encouraged to exercise daily. The pt has been advised to call the office if there are any acute concerns about change in blood pressure readings at home. Diabetes Mellitus - Uncontrolled - per recent FSBS reports. I have recommended for the patient to have follow up labs prior to the next office visit. The patient has been instructed to continue with current medications as previously directed, continue with regular FSBS monitoring to assure continued control of diabetes. Pt to call for any acute concerns, complaints, or if the blood glucose readings are starting to become less controlled. I have recommended for the patient to follow more strictly to the diabetic diet as discussed in clinic to allow for greater blood glucose control. Increase actos to 30mg daily 12/16/2014 Appointment: Fatemeh Loera WPtel: [phone] [facility] Follow up 12/16/2014 Patient Education: Patient Medication Summary Completed 12/16/2014 Patient Education: Hypertension Completed 12/16/2014 Visit Plan: URI - Pt advised to increase fluids, vitamin C. Discussed natural and expected course of this diagnosis and need to alert me if symptoms do not follow expected course, or if any worse. RX sent to patient' s pharmacy. 11/27/2014 Appointment: Sick 11/27/2014 Patient Education: Patient Medication Summary Completed 11/27/2014 Visit Plan: Diabetes Mellitus - Uncontrolled - per recent FSBS reports. I have recommended for the patient to have follow up labs prior to the next office visit. The patient has been instructed to continue with current medications as previously directed, continue with regular FSBS monitoring to assure continued control of diabetes. Pt to call for any acute concerns, complaints, or if the blood glucose readings are starting to become less controlled. I have recommended for the patient to follow more strictly to the diabetic diet as discussed in clinic to allow for greater blood glucose control. increase metformin to 1000 mg in morning and 500mg at lunch and 500mg at supper. Hypertension - well controlled - continue with current medications, continue with no added salt diet. Pt has been encouraged to exercise daily. The pt has been advised to call the office if there are any acute concerns about change in blood pressure readings at home. 09/16/2014 Appointment: Fatemeh Loera WPtel: [phone] Follow up 09/16/2014 Patient Education: Patient Medication Summary Completed 09/16/2014 Patient Education: Hypertension Completed 09/16/2014 Visit Plan: Diabetes Mellitus - controlled - per recent FSBS reports. I have recommended for the patient to have follow up labs prior to the next office visit. The patient has been instructed to continue with current medications as previously directed, continue with regular FSBS monitoring to assure continued control of diabetes. Pt to call for any acute concerns, complaints, or if the blood glucose readings are starting to become less controlled. Hypertension - uncontrolled - the patient's medications have been modified as documented in the visit note. The patient has been counseled to cut back on salt in diet for a no added salt diet, low fat diet, start an exercise program with low weight bearing exercises and higher aerobic activity for heart health. The patient is to check blood pressure readings as an outpatient and either fax, call, or email the readings to the office next week for practitioner to review. The pt is to call for acute concerns. 09/02/2014 Appointment: Fatemeh Loera WPtel: [phone] [facility] Follow up 09/02/2014 Patient Education: Patient Medication Summary Completed 09/02/2014 Patient Education: Hypertension Completed 09/02/2014 Appointment: Fatemeh Loera WPtel: [phone] [facility] [place] Nurse Visit 08/14/2014 Patient Education: Patient Medication Summary Completed 08/14/2014 Visit Plan: Cough-stop lisinopril-monitor symptoms and call if cough does not resolve HTN-monitor daily at home and call with readings in 1 week Allergies-recommend zyrtec or jace daily for symptoms 08/05/2014 Appointment: Sick 08/05/2014 Patient Education: Patient Medication Summary Completed 08/05/2014 Patient Education: Hypertension Completed 08/05/2014 Visit Plan: URI - Pt advised to increase fluids, vitamin C. Discussed natural and expected course of this diagnosis and need to alert me if symptoms do not follow expected course, or if any worse. RX sent to patient' s pharmacy. 07/25/2014 Patient Education: Patient Medication Summary Completed 07/25/2014 Visit Plan: Hypertension - well controlled - continue with current medications, continue with no added salt diet. Pt has been encouraged to exercise daily. The pt has been advised to call the office if there are any acute concerns about change in blood pressure readings at home. Diabetes Mellitus - Uncontrolled - per recent FSBS reports. I have recommended for the patient to have follow up labs prior to the next office visit. The patient has been instructed to continue with current medications as previously directed, continue with regular FSBS monitoring to assure continued control of diabetes. Pt to call for any acute concerns, complaints, or if the blood glucose readings are starting to become less controlled. I have recommended for the patient to follow more strictly to the diabetic diet as discussed in clinic to allow for greater blood glucose control. - pt to increase metformin to 500mg three times daily. 06/02/2014 Appointment: Fatemeh Loera WPtel: [facility] Follow up 06/02/2014 Patient Education: Patient Medication Summary Completed 06/02/2014 Patient Education: Hypertension Completed 06/02/2014 Visit Plan: Diabetes fovbhtad-lrgmsinadpfj-mfhktaio and diabetic diet discussed in detail with patient and significant other. Discussed cutting back on carbs/sweets/sugars-handouts provided. Discussed regular checks of blood sugars-RX for glucometer provided and instructed to check blood sugars at different intervals-fasting, 30 minutes before eating or 2 hours after meals. RX for metformin sent electronically to patient's pharmacy and instructed on use. Follow up with Dr Loera as scheduled-plan to repeat Hgb A1C in 3 months. Patient verbalized understanding of plan. 05/05/2014 Appointment: Diabetic education 05/05/2014 Patient Education: Patient Medication Summary Completed 05/05/2014 Visit Plan: Hypertension - well controlled - continue with current medications, continue with no added salt diet. Pt has been encouraged to exercise daily. The pt has been advised to call the office if there are any acute concerns about change in blood pressure readings at home. Diabetes, uncertain of level of control, will likely need medication, but need to see his hgba1c prior to initiation of medication. Pt had hgba1c drawn today - will have appt with LILIYA Anaya to go over the diabetic diet. OA - pt to use anti-inflammatory medication twice daily x 2 weeks, and start on glucosamine and chondroiton, pt to call if symptoms do not improve and we will schedule him with an orthopedic surgeon. 04/29/2014 Appointment: Fatemeh Loera WPtel: [facility]4 [facility] Follow up 04/29/2014 Patient Education: Patient Medication Summary Completed 04/29/2014 Visit Plan: Elevated Blood Pressure - without diagnosis of hypertension - pt has been instructed to check blood pressure as an outpatient, record blood pressure and heart rate and report to the clinic in two weeks on the findings. Pt advised to cut back on added salt in the diet. BPH - check PSA - start on finasteride - monitor symptoms. Erectile dysfunction symptoms - recommended pt to have testosterone checked. Obesity - chronic issue with this patient. The pt has been counseled about diet changes, calorie restriction, and need to exercise. Pt will RTC for weight check. 04/14/2014 Appointment: Fatemeh Loera WPtel: [phone] [facility] New Patient 04/14/2014 Patient Education: Patient Medication Summary Completed 04/14/2014 Referral: Lynnette Murdock Referral Appointment Requested Instructions Comment increase the losartan to 50mg daily. . Diabetes Mellitus - controlled - per recent FSBS reports. I have recommended for the patient to have follow up labs prior to the next office visit. The patient has been instructed to continue with current medications as previously directed, continue with regular FSBS monitoring to assure continued control of diabetes. Pt to call for any acute concerns, complaints, or if the blood glucose readings are starting to become less controlled. Hypertension - uncontrolled - the patient's medications have been modified as documented in the visit note. The patient has been counseled to cut back on salt in diet for a no added salt diet, low fat diet, start an exercise program with low weight bearing exercises and higher aerobic activity for heart health. The patient is to check blood pressure readings as an outpatient and either fax , call, or email the readings to the office next week for practitioner to review. The pt is to call for acute concerns. Obesity - recommended - weight loss - caloric restriction. Declined Procedure: (86806) FLU VAC NO PRSV 4 ASHWIN 3 YRS+; Declined Reason: does not want vaccine. URI - Pt advised to increase fluids, vitamin C. Discussed natural and expected course of this diagnosis and need to alert me if symptoms do not follow expected course, or if any worse. RX sent to patient's pharmacy. Stop metoprolol - start bystolic 5mg daily - if top blood pressure number is running in the 100s then change bystolic to 1/2 pill - write down you blood pressures and heart rates and bring them to the clinic for your next appointment. avoid straining for bowel movements - if symptoms do not improve then we will need to check a hgb and consider ordering a colonoscopy. . Hematochezia/hemorrhoids - intermittent bright red blood with some BMs x 1 day - pt does not want a hgb checked at this time - will send RX - pt is to notify clinic with any increasing fatigue, dizziness, light headedness, or any other changes or concerns - pt is to update clinic of symptoms next week - if no improvement will check hgb and refer for colonoscopy. Bradycardia - since starting on the metoprolol - will change to bystolic - pt is to continue to monitor BP and HR and bring a copy to his appointment next week for review. . URI - Pt advised to increase fluids, vitamin C. Discussed natural and expected course of this diagnosis and need to alert me if symptoms do not follow expected course, or if any worse. RX sent to patient's pharmacy. Rocephin and kenalog injections today in the office. Recommend prevnar 13-patient not interested . Medicare Exam - today we discussed the patients past history, immunizations, preventative exams/evaluations - colonoscopy, fecal occult blood testing, routine labs for renal function, glucose, cholesterol, osteoporosis evaluations , cardiovascular testing and cancer screenings. We have also discussed mental health and the signs/symptoms of depression. The patient was advised of home safety evaluations and the need to make sure that as the aging process continues , we need to be aware of different ways to make the home a safer place to reside. The patient has also been counseled that exercise is necessary - and of utmost importance as we age to help decrease fall risk and to maintain independence in the home. Today we discussed the need for the patient to create paperwork for Advanced directives as well as for the patient to provide this office with a copy of her DOPA paperwork for health care surrogate. . Diabetes Mellitus - controlled - per recent FSBS reports. I have recommended for the patient to have follow up labs prior to the next office visit. The patient has been instructed to continue with current medications as previously directed, continue with regular FSBS monitoring to assure continued control of diabetes. Pt to call for any acute concerns, complaints, or if the blood glucose readings are starting to become less controlled. Hypertension - The patient has been counseled to cut back on salt in diet for a no added salt diet, low fat diet, start an exercise program with low weight bearing exercises and higher aerobic activity for heart health. The patient is to check blood pressure readings as an outpatient and either fax , call, or email the readings to the office next week for practitioner to review. The pt is to call for acute concerns. BMI 37 - The pt has been counseled about diet changes and need to exercise. Pt will RTC for weight check. CONTINUE JACE DAILY-OK TO ADD MUCINEX TWICE DAILY . URI - Pt advised to increase fluids, vitamin C. Discussed natural and expected course of this diagnosis and need to alert me if symptoms do not follow expected course, or if any worse. RX sent to patient's pharmacy. . Hypertension - well controlled - continue with current medications, continue with no added salt diet. Pt has been encouraged to exercise daily. The pt has been advised to call the office if there are any acute concerns about change in blood pressure readings at home. Diabetes Mellitus - controlled - per recent FSBS reports. I have recommended for the patient to have follow up labs prior to the next office visit. The patient has been instructed to continue with current medications as previously directed, continue with regular FSBS monitoring to assure continued control of diabetes. Pt to call for any acute concerns, complaints, or if the blood glucose readings are starting to become less controlled. Actinic Keratosis - RX for efudex to use on skin on left cheek - pt to rtc to let us know if the lesion is not improving. . Hypertension - well controlled - continue with current medications, continue with no added salt diet. Pt has been encouraged to exercise daily. The pt has been advised to call the office if there are any acute concerns about change in blood pressure readings at home. Diabetes Mellitus - controlled - per recent FSBS reports. I have recommended for the patient to have follow up labs prior to the next office visit. The patient has been instructed to continue with current medications as previously directed, continue with regular FSBS monitoring to assure continued control of diabetes. Pt to call for any acute concerns, complaints, or if the blood glucose readings are starting to become less controlled. BPH with urinary hesitancy - referral to urologist - discussed with pt and he would like to consider an appt in [place] or [place] . Penile discharge - will swab pt - will send RX - pt is to notify clinic if symptoms do not improve, if they worsen, or with any other changes, questions, or concerns. Rash - will send RX - The patient is to call for any change in symptoms, increase in size of the lesion, increase in pain, worsening redness, warmth, discharge. . Hypertension - well controlled - continue with current medications, continue with no added salt diet. Pt has been encouraged to exercise daily. The pt has been advised to call the office if there are any acute concerns about change in blood pressure readings at home. Diabetes, uncertain of level of control, will likely need medication, but need to see his hgba1c prior to initiation of medication. Pt had hgba1c drawn today - will have appt with LILIYA Anaya to go over the diabetic diet. OA - pt to use anti-inflammatory medication twice daily x 2 weeks, and start on glucosamine and chondroiton, pt to call if symptoms do not improve and we will schedule him with an orthopedic surgeon. . Headache - acute, with vomiting - will order CT - will send RX - Liquids initially until the nausea improves, then recommend to advance to bland diet for 1 day, then advance as tolerated - pt is to notify clinic if symptoms do not imrpove, if they worsen, or with any questions or concerns. Allergies - chronic - recommended pt to use allergy medication as prescribed. Pt has been counseled as to the appropriate use of the medication. Pt to call if allergy symptoms are not controlled with the medication. KEFLEX 500MG TID X 7 DAYS PROBIOTIC JACE OR ZYRTEC PHENERGAN WITH CODEINE COUGH SYRUP . Allergies-start jace or zyrtec daily Nqjnw-KIV-ukmagh keflex-call if symptoms do not resolve or if any worse-patient verbalized understanding of plan. increase metformin to 1000 mg in morning and 500mg at lunch and 500mg at supper. . Diabetes Mellitus - Uncontrolled - per recent FSBS reports. I have recommended for the patient to have follow up labs prior to the next office visit. The patient has been instructed to continue with current medications as previously directed, continue with regular FSBS monitoring to assure continued control of diabetes. Pt to call for any acute concerns, complaints, or if the blood glucose readings are starting to become less controlled. I have recommended for the patient to follow more strictly to the diabetic diet as discussed in clinic to allow for greater blood glucose control. increase metformin to 1000 mg in morning and 500mg at lunch and 500mg at supper. Hypertension - well controlled - continue with current medications, continue with no added salt diet. Pt has been encouraged to exercise daily. The pt has been advised to call the office if there are any acute concerns about change in blood pressure readings at home. GO HOME AND TAKE YOUR MEDICATIONS UA WITH C&S IF INDICATED START ANTIBIOTIC AFTER UA COLLECTED CHECK LABS START METOPROLOL XL 25MG DAILY MONITOR BLOOD PRESSURE AND FOLLOW UP MONDAY IN THE OFFICE . Urinary Tract Infection-discussed natural and expected course of this diagnosis and to alert me if symptoms do not follow expected course, or if any worse. UA positive for infection today in the office-plan to send for culture and will call patient with results. RX sent to patient's pharmacy. Avoid tub baths, restrictive underwear, etc. Recommend patient start on probiotic while taking the antibiotic to prevent diarrhea. Patient verbalized understanding of plan. Hypertension - uncontrolled - the patient's medications have been modified as documented in the visit note. The patient has been counseled to cut back on salt in diet for a no added salt diet, low fat diet, start an exercise program with low weight bearing exercises and higher aerobic activity for heart health. The patient is to check blood pressure readings as an outpatient and either fax , call, or email the readings to the office next week for practitioner to review. The pt is to call for acute concerns. . Diabetes swqqchik-htsuyyvqvhsw-qloqlhde and diabetic diet discussed in detail with patient and significant other. Discussed cutting back on carbs/sweets/sugars-handouts provided. Discussed regular checks of blood sugars-RX for glucometer provided and instructed to check blood sugars at different intervals-fasting, 30 minutes before eating or 2 hours after meals. RX for metformin sent electronically to patient's pharmacy and instructed on use. Follow up with Dr Loera as scheduled-plan to repeat Hgb A1C in 3 months. Patient verbalized understanding of plan. stop bystolic start hydralazine - 10mg three times daily - if top number of blood pressure is above 170 - an hour after taking the medication, then repeat the dose of hydralazine . Bradycardia - referral to Dr. Murdock Hypertension - uncontrolled - the patient's medications have been modified as documented in the visit note. The patient has been counseled to cut back on salt in diet for a no added salt diet, low fat diet, start an exercise program with low weight bearing exercises and higher aerobic activity for heart health. The patient is to check blood pressure readings as an outpatient and either fax , call, or email the readings to the office next week for practitioner to review. The pt is to call for acute concerns. Diabetes Mellitus - controlled - per recent FSBS reports. I have recommended for the patient to have follow up labs prior to the next office visit. The patient has been instructed to continue with current medications as previously directed, continue with regular FSBS monitoring to assure continued control of diabetes. Pt to call for any acute concerns, complaints, or if the blood glucose readings are starting to become less controlled. . Diabetes Mellitus - controlled - per recent FSBS reports. I have recommended for the patient to have follow up labs prior to the next office visit. The patient has been instructed to continue with current medications as previously directed, continue with regular FSBS monitoring to assure continued control of diabetes. Pt to call for any acute concerns, complaints, or if the blood glucose readings are starting to become less controlled. Hypertension - The patient has been counseled to cut back on salt in diet for a no added salt diet, low fat diet, start an exercise program with low weight bearing exercises and higher aerobic activity for heart health. The patient is to check blood pressure readings as an outpatient and either fax , call, or email the readings to the office next week for practitioner to review. The pt is to call for acute concerns. Obesity - recommended - weight loss - caloric restriction. hgb A1c down from 8.0 to 6.7!!! good job! . Diabetes Mellitus - controlled - per recent FSBS reports. I have recommended for the patient to have follow up labs prior to the next office visit. The patient has been instructed to continue with current medications as previously directed, continue with regular FSBS monitoring to assure continued control of diabetes. Pt to call for any acute concerns, complaints, or if the blood glucose readings are starting to become less controlled. Hypertension - well controlled - continue with current medications, continue with no added salt diet. Pt has been encouraged to exercise daily. The pt has been advised to call the office if there are any acute concerns about change in blood pressure readings at home. need to check labs 2 wks before next appt . Diabetes Mellitus - controlled - per recent FSBS reports. I have recommended for the patient to have follow up labs prior to the next office visit. The patient has been instructed to continue with current medications as previously directed, continue with regular FSBS monitoring to assure continued control of diabetes. Pt to call for any acute concerns, complaints, or if the blood glucose readings are starting to become less controlled. Hypertension - uncontrolled - the patient's medications have been modified as documented in the visit note. The patient has been counseled to cut back on salt in diet for a no added salt diet, low fat diet, start an exercise program with low weight bearing exercises and higher aerobic activity for heart health. The patient is to check blood pressure readings as an outpatient and either fax , call, or email the readings to the office next week for practitioner to review. The pt is to call for acute concerns. Increase losartan to 50mg twice a day. Hypertension - uncontrolled - the patient's medications have been modified as documented in the visit note. The patient has been counseled to cut back on salt in diet for a no added salt diet, low fat diet, start an exercise program with low weight bearing exercises and higher aerobic activity for heart health. The patient is to check blood pressure readings as an outpatient and either fax , call, or email the readings to the office next week for practitioner to review. The pt is to call for acute concerns. Obesity - chronic issue with this patient. The pt has been counseled about diet changes, calorie restriction, and need to exercise. Pt will RTC in one month for weight check. . Cellulitis - continue with oral antibiotics as previously directed, return to clinic as previously directed, call for acute change in symptoms, worsening redness, warmth, discharge. . Hypertension - well controlled - continue with current medications, continue with no added salt diet. Pt has been encouraged to exercise daily. The pt has been advised to call the office if there are any acute concerns about change in blood pressure readings at home. Diabetes Mellitus - Uncontrolled - per recent FSBS reports. I have recommended for the patient to have follow up labs prior to the next office visit. The patient has been instructed to continue with current medications as previously directed, continue with regular FSBS monitoring to assure continued control of diabetes. Pt to call for any acute concerns, complaints, or if the blood glucose readings are starting to become less controlled. I have recommended for the patient to follow more strictly to the diabetic diet as discussed in clinic to allow for greater blood glucose control. Increase actos to 30mg daily . Elevated Blood Pressure - without diagnosis of hypertension - pt has been instructed to check blood pressure as an outpatient, record blood pressure and heart rate and report to the clinic in two weeks on the findings. Pt advised to cut back on added salt in the diet. BPH - check PSA - start on finasteride - monitor symptoms. Erectile dysfunction symptoms - recommended pt to have testosterone checked. Obesity - chronic issue with this patient. The pt has been counseled about diet changes, calorie restriction, and need to exercise. Pt will RTC for weight check. STOP LISINOPRIL . Cough-stop lisinopril-monitor symptoms and call if cough does not resolve HTN-monitor daily at home and call with readings in 1 week Allergies-recommend zyrtec or jace daily for symptoms Check blood pressure tonight if the top number is over 150 take another 50mg Cozaar. . . Medicare Exam - today we discussed the patients past history, immunizations, preventative exams/evaluations - colonoscopy, fecal occult blood testing, routine labs for renal function, glucose, cholesterol, osteoporosis evaluations, cardiovascular testing and cancer screenings. We have also discussed mental health and the signs/symptoms of depression. The patient was advised of home safety evaluations and the need to make sure that as the aging process continues, we need to be aware of different ways to make the home a safer place to reside. The patient has also been counseled that exercise is necessary - and of utmost importance as we age to help decrease fall risk and to maintain independence in the home. Today we discussed the need for the patient to create paperwork for Advanced directives as well as for the patient to provide this office with a copy of her DOPA paperwork for health care surrogate. . Hypertension - uncontrolled - better at office than reported blood pressures - continue current medications - Keep appointment with Dr. Murdock. . Hypertension - well controlled - continue with current medications, continue with no added salt diet. Pt has been encouraged to exercise daily. The pt has been advised to call the office if there are any acute concerns about change in blood pressure readings at home. Diabetes Mellitus - Uncontrolled - per recent FSBS reports. I have recommended for the patient to have follow up labs prior to the next office visit. The patient has been instructed to continue with current medications as previously directed, continue with regular FSBS monitoring to assure continued control of diabetes. Pt to call for any acute concerns, complaints, or if the blood glucose readings are starting to become less controlled. I have recommended for the patient to follow more strictly to the diabetic diet as discussed in clinic to allow for greater blood glucose control. - pt to increase metformin to 500mg three times daily. do not eat after midnight on - have labs done on Monday morning. . Hypertension - well controlled - continue with current medications, continue with no added salt diet. Pt has been encouraged to exercise daily. The pt has been advised to call the office if there are any acute concerns about change in blood pressure readings at home. Diabetes Mellitus - controlled - per recent FSBS reports. I have recommended for the patient to have follow up labs prior to the next office visit. The patient has been instructed to continue with current medications as previously directed, continue with regular FSBS monitoring to assure continued control of diabetes. Pt to call for any acute concerns, complaints, or if the blood glucose readings are starting to become less controlled. BPH - check PSA. MONITOR BLOOD PRESSURE AND BRING LOG TO APPT IN 2 WEEKS . Hypertension - well controlled - continue with current medications, continue with no added salt diet. Pt has been encouraged to exercise daily. The pt has been advised to call the office if there are any acute concerns about change in blood pressure readings at home.
[2018-12-05] MEDS ORDERED: ceFAZolin INJECTION 1,000 MG VIAL IV ONE (12:00)
[2018-12-05] MEDS ORDERED: BACITRACIN INJECTION 50,000 UNIT, SODIUM CHLORIDE 0.9% IRRIGATIO 500 ML IR ONE ×2 (12:00)
[2018-12-05] MEDS ORDERED: NS IV 1000 ML 1,000 ML IV SCH ×2 (12:00→15:26)
--- OUTSIDE RECORDS SUMMARY | 2018-12-05 12:01 | XMS REPORT | CCD ---
Author Author [facility] Organization [facility] Address [address] [place] [address] Phone Care Team Providers Care [employer] Mechan[employer] Name Role Phone Fatemeh Loera PP Unavailable CCM Unavailable Summary Purpose Interface Exchange Insurance Providers Payer name Policy type / Coverage type Covered libertarian ID Effective Begin Date Effective End Date WPS Medicare Part B [id number] 2014 Unknown [facility] [id number] 2014 Unknown Family history Mother Diagnosis Age At Onset Diabetes mellitus Type 1 Unknown Social History Social History Element Codes Description Effective Dates Marital status Unknown Nicol Nathan 08/01/2017 Employment Unknown Retired 12/19/2016 Living arrangements Unknown House 08/21/2015 Education level Unknown College Graduate 08/21/[address]: 636389910 Never smoker 04/14/2014 Alcohol history Unknown occasionally drinks alcohol twice weekly 04/14/2014 Allergies, Adverse Reactions, Alerts Allergies, Adverse Reactions, Alerts data not found Past Medical History Illness Codes Condition Status Onset Date Resolved Date Rash and other nonspecific skin eruption ICD-9: 782.1 ICD-10: R21 Active 11/03/2017 Unknown Urethral discharge, unspecified ICD-9: 788.7 ICD-10: R36.9 Active 11/03/2017 Unknown Essential (primary) hypertension ICD-9: 401.1 ICD-10: I10 Active 06/23/2017 Unknown Other elevated white blood cell count ICD-9: 288.69 ICD-10: D72.828 Active 07/13/2017 Unknown Bradycardia, unspecified ICD-9: 427.89 ICD-10: R00.1 [...] ICD-9: 477.8 ICD-10: J30.89 Active 06/08/2017 Unknown Encounter for general adult medical examination with abnormal findings ICD-9: V70.0 ICD-10: Z00.01 Active 03/23/2017 Unknown Benign prostatic hyperplasia without lower urinary [...] Problems Condition Codes Effective Dates Condition Status Rash and other nonspecific skin eruption ICD-9: 782.1 ICD-10: R21 11/03/2017 Active Urethral discharge, unspecified ICD-9: 788.7 ICD-10: R36.9 11/03/2017 Active Essential (primary) hypertension ICD-9: 401.1 ICD-10: I10 06/23/2017 Active Other elevated white blood cell count ICD-9: 288.69 ICD-10: D72.828 07/13/2017 Active Bradycardia, unspecified ICD-9: 427.89 ICD-10: R00.1 07/06/2017 Active Melena ICD-9: 578.1 ICD-10: K92.1 07/06/2017 Active Dysuria ICD-9: 788.1 ICD-10: R30.0 06/26/2017 Active Other obesity due to excess calories ICD-9: 278.00 ICD-10: E66.09 03/23/2016 Active Headache ICD-9: 784.0 ICD-10: R51 06/08/2017 Active Vomiting, unspecified ICD-9: 787.03 ICD-10: R11.10 06/08/2017 Active Other allergic rhinitis ICD-9: 477.8 ICD-10: J30.89 06/08/2017 Active Encounter for general adult medical examination with abnormal findings ICD-9: V70.0 ICD-10: Z00.01 03/23/2017 Active Benign prostatic hyperplasia without lower urinary [...] Start Date Stop Date Status Fill Instructions Zithromax Z-Addi 250 mg tablet RxNorm: 758745 1 Tablet(s) PO UD 11/10/2017 No Stop Date Active prednisone 20 mg tablet RxNorm: 997728 Tablet(s) PO UD 2017 No Stop Date Active 40mg x 2 days, then 20mg x 2 days, then 10mg x 2 days pioglitazone 45 mg tablet RxNorm: 073134 Tablet(s) PO TAKE 1 TABLET BY MOUTH EVERY DAY 11/03/2017 03/02/2018 Active Generic For:*ACTOS 30MG 02/06/2017 9:15:26 AM losartan 100 mg tablet RxNorm: 484666 1 Tablet(s) PO daily 05/31/2018 Active hold until patient requests refill prednisone 20 mg tablet RxNorm: 838107 2 Tablet(s) PO daily 11/07/2017 Inactive Zithromax Z-Addi 250 mg tablet RxNorm: 305777 1 Tablet(s) PO UD 11/03/2017 11/09/2017 Inactive ceftriaxone 500 mg solution for injection RxNorm: 1882728 Inj 11/03/2017 11/03/2017 Inactive hydralazine 10 mg tablet RxNorm: 398931 TAKE ONE TABLET BY MOUTH THREE TIMES A DAY IF BLOOD PRESSURE IS ABOVE 170 TAKE AN EXTRA TABLET 10/3102/27/2018 Active hydrochlorothiazide 12.5 mg tablet RxNorm: 974906 1 Tablet(s) PO daily 08/04/2017 01/30/2018 Active finasteride 5 mg tablet RxNorm: 782353 1 Tablet(s) PO QHS TAKE 1 TABLET BY MOUTH AT NIGHT 08/04/2017 01/30/2018 Active pioglitazone 45 mg tablet RxNorm: 136278 1 Tablet(s) PO daily 08/04/2017 01/30/2018 Active hydrochlorothiazide 12.5 mg tablet RxNorm: 945664 1 Tablet(s) PO daily 07/24/2017 08/03/2017 Inactive hydralazine 10 mg tablet RxNorm: 504723 1 Tablet(s) PO TID if blood pressure is above 170, take an extra pill 07/13/2017 10/10/2017 Inactive Anusol-HC 2.5 % topical cream with perineal applicator RxNorm: 5289426 1 Application TOP BID as needed 07/06/2017 No Stop Date Active Bystolic 5 mg tablet RxNorm: 918880 1 Tablet(s) PO daily 201607/12/2017 Inactive Levaquin 500 mg tablet RxNorm: 155942 1 Tablet(s) PO daily 07/02/2017 Inactive metoprolol succinate ER 25 mg tablet,extended release 24 hr RxNorm: 187431 1 Tablet(s) PO daily 06/26/2017 07/05/2017 Inactive losartan 50 mg tablet RxNorm: 068210 1 Tablet(s) PO BID 201611/02/2017 Inactive hold until patient requests refill hydrochlorothiazide 12.5 mg tablet RxNorm: 699174 1 Tablet(s) PO daily 06/23/2017 07/22/2017 Inactive ketorolac 60 mg/2 mL intramuscular solution RxNorm: 792610 2 Milliliter(s) IM 06/22/2017 06/22/2017 Inactive promethazine 25 mg/mL injection solution RxNorm: 594118 1 Milliliter(s) Inj 06/22/2017 06/22/2017 Inactive promethazine 25 mg tablet RxNorm: 892654 1 Tablet(s) PO TID as needed nausea 06/08/2017 06/12/2017 Inactive losartan 50 mg tablet RxNorm: 899896 TAKE 1 TABLET BY MOUTH EACH EVENING 05/08/2017 06/25/2017 Inactive Generic For:*COZAAR 50MG 05/06/2017 9:41:39 AM pioglitazone 30 mg tablet RxNorm: 995966 TAKE 1 TABLET BY MOUTH EVERY DAY 02/07/2017 06/06/2017 Inactive Generic For:*ACTOS 30MG 02/06/2017 9:15:26 AM pioglitazone 45 mg tablet RxNorm: 463873 1 Tablet(s) PO daily 02/06/2017 08/03/2017 Inactive finasteride 5 mg tablet RxNorm: 761703 Tablet(s) TAKE 1 TABLET BY MOUTH AT NIGHT 02/06/2017 08/03/2017 Inactive Flomax 0.4 mg capsule RxNorm: 611585 1 Capsule(s) PO QPM 201607/16/2017 Inactive Keflex 500 mg capsule RxNorm: 798007 1 Capsule(s) PO TID 201510/09/2016 Inactive Keflex 500 mg capsule RxNorm: 120646 1 Capsule(s) PO TID 201510/02/2016 Inactive pioglitazone 45 mg tablet RxNorm: 599580 1 Tablet(s) PO daily TAKE 1 TABLET BY MOUTH ONCE DAILY 09/20/2016 02/05/2017 Inactive Generic For:*ACTOS 30MG 2015 9:21:49 AM losartan 50 mg tablet RxNorm: 642354 TAKE 1 TABLET BY MOUTH EACH EVENING 09/08/2016 04/05/2017 Inactive Generic For:*COZAAR 50MG 09/08/2016 9:07:41 AM N O T I C E Last quantity doesn't match original quantity metformin 500 mg tablet RxNorm: 148130 Tablet(s) 1 Tablet(s) PO UD two tablets with breakfast and one tablet in afternoon and one tablet at supper 08/22/2016 08/16/2017 Inactive finasteride 5 mg tablet RxNorm: 114495 Tablet(s) TAKE 1 TABLET BY MOUTH AT NIGHT 08/22/2016 02/05/2017 Inactive [facility] pioglitazone 30 mg tablet RxNorm: 390344 1 Tablet(s) PO daily TAKE 1 TABLET BY MOUTH ONCE DAILY 08/22/2016 09/19/2016 Inactive Generic For:*ACTOS 30MG 2015 9:21:49 AM losartan 50 mg tablet RxNorm: 562325 1 Tablet(s) PO daily 1 Tablet(s) PO QPM 08/22/2016 09/07/2016 Inactive Efudex 5 % topical cream RxNorm: 573329 1 Application TOP BID 08/22/2016 09/18/2016 Inactive pioglitazone 30 mg tablet RxNorm: 881547 TAKE 1 TABLET BY MOUTH ONCE DAILY 06/10/2016 08/21/2016 Inactive Generic For:*ACTOS 30MG 06/10/2016 9:21:49 AM metformin 500 mg tablet RxNorm: 040129 Tablet(s) 1 Tablet(s) PO UD two tablets with breakfast and one tablet in afternoon and one tablet at supper 05/11/2016 08/21/2016 Inactive finasteride 5 mg tablet RxNorm: 345101 TAKE 1 TABLET BY MOUTH AT NIGHT 05/11/2016 08/21/2016 Inactive Generic For:PROSCAR 5MG 05/11/2016 9:06:14 AM losartan 50 mg tablet RxNorm: 597544 1 Tablet(s) PO QPM 201508/21/2016 Inactive pioglitazone 30 mg tablet RxNorm: 287092 1 Tablet(s) PO daily 11/12/2015 06/08/2016 Inactive metformin 500 mg tablet RxNorm: 125266 1 Tablet(s) PO UD two tablets with breakfast and one tablet in afternoon and one tablet at supper 09/19/2015 05/10/2016 Inactive metformin 500 mg tablet RxNorm: 515477 1 Tablet(s) PO UD two tablets with breakfast and one tablet in afternoon and one tablet at supper 09/16/2015 09/09/2016 Inactive finasteride 5 mg tablet RxNorm: 043110 1 Tablet(s) PO QPM 09/1504/11/2016 Inactive cephalexin 500 mg capsule RxNorm: 683416 1 Capsule(s) PO TID 08/04/2015 Inactive losartan 50 mg tablet RxNorm: 733904 1 Tablet(s) PO QPM 201402/10/2016 Inactive pioglitazone 30 mg tablet RxNorm: 727951 1 Tablet(s) PO daily 03/10/2015 10/05/2015 Inactive losartan 25 mg tablet RxNorm: 330173 1 Tablet(s) PO QPM 201407/19/2015 Inactive metformin 500 mg tablet RxNorm: 125464 1 Tablet(s) PO UD two tablets with breakfast and one tablet in afternoon and one tablet at supper 03/04/2015 09/15/2015 Inactive finasteride 5 mg tablet RxNorm: 217023 1 Tablet(s) PO QPM 03/0409/14/2015 Inactive ceftriaxone 500 mg solution for injection RxNorm: 8483403 Inj 01/12/2015 01/12/2015 Inactive Zithromax 500 mg tablet RxNorm: 042813 1 Tablet(s) PO daily 07/201501/16/2015 Inactive Kenalog 40 mg/mL suspension for injection RxNorm: 2363388 Milliliter(s) Inj 01/12/2015 01/12/2015 Inactive pioglitazone 30 mg tablet RxNorm: 071763 1 Tablet(s) PO daily 12/16/2014 03/09/2015 Inactive Kenalog 40 mg/mL suspension for injection RxNorm: 4894277 Milliliter(s) Inj 11/27/2014 11/27/2014 Inactive Levaquin 500 mg tablet RxNorm: 389983 1 Tablet(s) PO daily 12/01/2014 Inactive pioglitazone 15 mg tablet RxNorm: 666538 1 Tablet(s) PO daily 10/06/2014 12/15/2014 Inactive pioglitazone 15 mg tablet RxNorm: 084619 1 Tablet(s) PO daily 10/06/2014 10/05/2014 Inactive metformin 500 mg tablet RxNorm: 996234 1 Tablet(s) PO UD two tablets with breakfast and one tablet in afternoon and one tablet at supper 09/16/2014 03/03/2015 Inactive daily in the evening x 1 week then twice daily losartan 25 mg tablet RxNorm: 642636 1 Tablet(s) PO QPM 201303/09/2015 Inactive Zithromax Z-Addi 250 mg tablet RxNorm: 904667 1 Tablet(s) PO UD 07/25/2014 07/29/2014 Inactive 2 tabs on day 1 then 1 tab on days 2-5 metformin 500 mg tablet RxNorm: 518722 1 Tablet(s) PO TID 06/2409/15/2014 Inactive daily in the evening x 1 week then twice daily lisinopril 10 mg tablet RxNorm: 248382 1 Tablet(s) PO daily 09/01/2014 Inactive metformin 500 mg tablet RxNorm: 342542 1 Tablet(s) PO TID 06/0206/23/2014 Inactive daily in the evening x 1 week then twice daily lisinopril 10 mg tablet RxNorm: 696096 1 Tablet(s) PO daily 06/17/2014 Inactive metformin 500 mg tablet RxNorm: 252584 1 Tablet(s) PO BID 05/0506/01/2014 Inactive daily in the evening x 1 week then twice daily lisinopril 10 mg tablet RxNorm: 209343 1 Tablet(s) PO daily 06/01/2014 Inactive finasteride 5 mg tablet RxNorm: 586173 1 Tablet(s) PO QPM 04/1411/09/2014 Inactive Truetest Test Strips RxNorm: Miscellaneous test twice daily No Start Date Active prednisone 20 mg tablet RxNorm: 468206 Tablet(s) PO No Start Date 11/09/2017 Inactive 40mg x 2 days, then 20mg x 2 days, then 10mg x 2 days Medication Administered Medication Codes Instructions Start Date Status ceftriaxone 500 mg solution for injection RxNorm: 7988323 11/03/2017 No longer Active promethazine 25 mg/mL injection solution RxNorm: 281283 1Milliliter 06/22/2017 No longer Active ketorolac 60 mg/2 mL intramuscular solution RxNorm: 925884 2Milliliter 06/22/2017 No longer Active Kenalog 40 mg/mL suspension for injection RxNorm: 1278588 Milliliter 01/12/2015 No longer Active ceftriaxone 500 mg solution for injection RxNorm: 1284880 01/12/2015 No longer Active Kenalog 40 mg/mL suspension for injection RxNorm: 4983530 Milliliter 11/27/2014 No longer Active Immunizations No Immunization data Assessments Condition Codes Effective Dates Urethral discharge, unspecified ICD-10: R36.9 ICD-9: 788.7 11/03/2017 Rash and other nonspecific skin eruption ICD-10: R21 ICD-9: 782.1 11/03/2017 Essential (primary) hypertension ICD-10: I10 ICD-9: 401.1 08/01/2017 Other elevated white blood cell count ICD-10: [...] allergic rhinitis ICD-10: J30.89 ICD-9: 477.8 06/08/2017 Encounter for general adult medical examination with abnormal findings ICD-10: Z00.01 ICD-9: V70.0 03/23/2017 Benign prostatic hyperplasia with lower urinary tract symptoms ICD-10: N40.1 ICD-9: 600.01 12/19/2016 Type 2 diabetes mellitus with hyperglycemia ICD-10: [...] Visit Reason For Visit Effective Dates Notes edema 11/03/2017 hypertension 08/01/2017 diabetes mellitus 07/13/2017 [...] Item Item Code Result Date GC/CHL PRB 0232759 Chl trach DNA TNP:Improper Specimen 2016 GC/CHL PRB 3625381 GC PROBE TNP:Improper Specimen 11/03/2017 Cbc With [...] 30.3 pg 07/13/2017 Cbc With Differential Ord2 [place]% 7.7 % 07/13/2017 Cbc With Differential Ord2 MCHC 33.2 pg 07/13/2017 Cbc With Differential Ord2 Eos% 4.3 % 07/13/2017 Cbc With Differential Ord2 PLT 358 K/ul 07/13/2017 Cbc With Differential Ord2 Baso% 0.5 % 07/13/2017 Cbc With Differential Ord2 Neut ABS# 6.02 K/ul 07/13/2017 Cbc With Differential Ord2 RDW 14.9 % 07/13/2017 Cbc With Differential Ord2 Lymph ABS# 1.40 K/ul 07/13/2017 Cbc With Differential Ord2 [place] ABS# 0.7 K/ul 07/13/2017 Cbc With Differential Ord2 Eos ABS# 0.4 K/ul 07/13/2017 Cbc With Differential Ord2 Baso ABS# 0.0 K/ul 07/13/2017 Urine Culture Ucult Preliminary NO Growth Day 1 06/28/2017 Urine Culture Ucult Complete NO Growth Day 2 06/28/2017 %Hba1C Awq815 % HbA1c 22889-2 7.2 % 06/26/2017 %Hba1C Dmq006 Gluc Ave 160 mg/dL 06/26/2017 Tsh Ord6 hTSH II 2.04 uIU/mL 06/26/2017 Comp Metabolic Zus408 NA 139 mEq/L 06/26/2017 Comp Metabolic Vdc757 K 3.6 mEq/L 06/26/2017 Comp Metabolic Ptp705 CL 103 mEq/L 06/26/2017 Comp Metabolic Wxb022 CO2 24.0 mEq/L 06/26/2017 Comp Metabolic Mcb557 ANION GAP 16 06/26/2017 Comp Metabolic Lzm635 GLUCOSE 135 mg/dL 06/26/2017 Comp Metabolic Loh529 Creat 1.3 mg/dL 06/26/2017 Comp Metabolic Dxf814 eGFR 58 ml/min/1.73m2 06/26/2017 Comp Metabolic Stw032 BUN 17 mg/dL 06/26/2017 Comp Metabolic Liq254 B/C Ratio 13.0 Ratio 06/26/2017 Comp Metabolic Apv033 CALCIUM 8.6 mg/dL 06/26/2017 Comp Metabolic Jnw705 ALK PHOS 69 U/L 06/26/2017 Comp Metabolic Hsh224 AST(SGOT) 15 U/L 06/26/2017 Comp Metabolic Fpd756 ALT(SGPT) 13 U/L 06/26/2017 Comp Metabolic Ikw567 BILI T 0.5 mg/dL 06/26/2017 Comp Metabolic Pcp486 ALBUMIN 3.3 g/dL 06/26/2017 Comp Metabolic Mxz662 TPRO 5.5 g/dL 06/26/2017 Comp Metabolic Rno014 GLOB 2.2 g/dL 06/26/2017 Comp Metabolic Qqj466 A/G Ratio 1.5 Ratio 06/26/2017 Comp Metabolic Jvg604 Osmo 281 mOsmo 06/26/2017 Cbc With Differential Ord2 WBC 12.34 K/ul 06/26/2017 Cbc With Differential Ord2 RBC 3.89 M/ul 06/26/2017 Cbc With Differential Ord2 HGB 11.7 g/dl 06/26/2017 Cbc With Differential Ord2 Neut% 73.9 % 06/26/2017 Cbc With Differential Ord2 HCT 35.5 % 06/26/2017 Cbc With Differential Ord2 MCV 91.3 fl 06/26/2017 Cbc With Differential Ord2 Lymph% 14.1 % 06/26/2017 Cbc With Differential Ord2 [place]% 9.1 % 06/26/2017 Cbc With Differential Ord2 MCH 30.1 pg 06/26/2017 Cbc With Differential Ord2 MCHC 33.0 pg 06/26/2017 Cbc With Differential Ord2 Eos% 2.7 % 06/26/2017 Cbc With Differential Ord2 PLT 333 K/ul 06/26/2017 Cbc With Differential Ord2 Baso% 0.2 % 06/26/2017 Cbc With Differential Ord2 RDW 14.5 % 06/26/2017 Cbc With Differential Ord2 Neut ABS# 9.13 K/ul 06/26/2017 Cbc With Differential Ord2 Lymph ABS# 1.74 K/ul 06/26/2017 Cbc With Differential Ord2 [place] ABS# 1.1 K/ul 06/26/2017 Cbc With Differential Ord2 Eos ABS# 0.3 K/ul 06/26/2017 Cbc With Differential Ord2 Baso ABS# 0.0 K/ul 06/26/2017 Total Psa Ord10 PSA 1.29 ng/mL 06/26/2017 Cbc With Differential Ord2 WBC 9.88 K/ul 12/12/2016 Cbc With Differential Ord2 RBC 4.40 M/ul 12/12/2016 Cbc With Differential Ord2 HGB 13.3 g/dl 12/12/2016 Cbc With Differential Ord2 Neut% 67.3 % 12/12/2016 Cbc With Differential Ord2 HCT 40.2 % 12/12/2016 Cbc With Differential Ord2 Lymph% 21.6 % 12/12/2016 Cbc With Differential Ord2 MCV 91.4 fl 12/12/2016 Cbc With Differential Ord2 MCH 30.2 pg 12/12/2016 Cbc With Differential Ord2 [place]% 7.7 % 12/12/2016 Cbc With Differential Ord2 Eos% 3.3 % 12/12/2016 Cbc With Differential Ord2 MCHC 33.1 pg 12/12/2016 Cbc With Differential Ord2 Baso% 0.1 % 12/12/2016 Cbc With Differential Ord2 PLT 284 K/ul 12/12/2016 Cbc With Differential Ord2 RDW 15.9 % 12/12/2016 Cbc With Differential Ord2 Neut ABS# 6.65 K/ul 12/12/2016 Cbc With Differential Ord2 Lymph ABS# 2.13 K/ul 12/12/2016 Cbc With Differential Ord2 [place] ABS# 0.8 K/ul 12/12/2016 Cbc With Differential Ord2 Eos ABS# 0.3 K/ul 12/12/2016 Cbc With Differential Ord2 Baso ABS# 0.0 K/ul 12/12/2016 %Hba1C Yus882 % HbA1c 09979-0 6.9 % 12/12/2016 %Hba1C Fep401 Gluc Ave 151 mg/dL 12/12/2016 Comp Metabolic Jot162 NA 137 mEq/L 12/12/2016 Comp Metabolic Iqv853 K 4.2 mEq/L 12/12/2016 Comp Metabolic Lhz309 CL 106 mEq/L 12/12/2016 Comp Metabolic Dkt988 CO2 21.0 mEq/L 12/12/2016 Comp Metabolic Jqa027 ANION GAP 14 12/12/2016 Comp Metabolic Whg385 GLUCOSE 109 mg/dL 12/12/2016 Comp Metabolic Fjm459 Creat 1.0 mg/dL 12/12/2016 Comp Metabolic Qjv814 eGFR 76 ml/min/1.73m2 12/12/2016 Comp Metabolic Nzm843 BUN 22 mg/dL 12/12/2016 Comp Metabolic Efy058 B/C Ratio 21.4 Ratio 12/12/2016 Comp Metabolic Wue348 CALCIUM 9.7 mg/dL 12/12/2016 Comp Metabolic Ufk168 ALK PHOS 49 U/L 12/12/2016 Comp Metabolic Emr016 AST(SGOT) 16 U/L 12/12/2016 Comp Metabolic Urw796 ALT(SGPT) 14 U/L 12/12/2016 Comp Metabolic Myi967 BILI T 0.3 mg/dL 12/12/2016 Comp Metabolic Xps093 ALBUMIN 4.2 g/dL 12/12/2016 Comp Metabolic Zko443 TPRO 6.3 g/dL 12/12/2016 Comp Metabolic Aii255 GLOB 2.2 g/dL 12/12/2016 Comp Metabolic Vwq732 A/G Ratio 1.9 Ratio 12/12/2016 Comp Metabolic Wpb759 Osmo 278 mOsmo 12/12/2016 %Hba1C Qnr408 % HbA1c 14683-5 7.3 % 08/22/2016 %Hba1C Hdv490 Gluc Ave 163 mg/dL 08/22/2016 Microalbumin Xby999 MicroAlb 91.4 mg/dL 08/22/2016 Lipid Ord30 CHOL 152 mg/dL 08/22/2016 Lipid Ord30 HDL 36.0 mg/dl 08/22/2016 Lipid Ord30 TRIG 76 mg/dL 08/22/2016 Lipid Ord30 LDL 101 mg/dL 08/22/2016 Lipid Ord30 C/HDL 4.2 Ratio 08/22/2016 Cbc With Differential Ord2 WBC 9.93 K/ul 08/22/2016 Cbc With Differential Ord2 RBC 4.38 M/ul 08/22/2016 Cbc With Differential Ord2 HGB 13.3 g/dl 08/22/2016 Cbc With Differential Ord2 Neut% 69.6 % 08/22/2016 Cbc With Differential Ord2 HCT 40.0 % 08/22/2016 Cbc With Differential Ord2 MCV 91.3 fl 08/22/2016 Cbc With Differential Ord2 Lymph% 19.8 % 08/22/2016 Cbc With Differential Ord2 MCH 30.4 pg 08/22/2016 Cbc With Differential Ord2 [place]% 7.0 % 08/22/2016 Cbc With Differential Ord2 MCHC 33.3 pg 08/22/2016 Cbc With Differential Ord2 Eos% 3.4 % 08/22/2016 Cbc With Differential Ord2 Baso% 0.2 % 08/22/2016 Cbc With Differential Ord2 PLT 237 K/ul 08/22/2016 Cbc With Differential Ord2 RDW 14.4 % 08/22/2016 Cbc With Differential Ord2 Neut ABS# 6.90 K/ul 08/22/2016 Cbc With Differential Ord2 Lymph ABS# 1.97 K/ul 08/22/2016 Cbc With Differential Ord2 [place] ABS# 0.7 K/ul 08/22/2016 Cbc With Differential Ord2 Eos ABS# 0.3 K/ul 08/22/2016 Cbc With Differential Ord2 Baso ABS# 0.0 K/ul 08/22/2016 Tsh Ord6 hTSH II 1.05 uIU/mL 08/22/2016 Comp Metabolic Akp654 NA 136 mEq/L 08/22/2016 Comp Metabolic Pvl161 K 4.1 mEq/L 08/22/2016 Comp Metabolic Jlk569 CL 104 mEq/L 08/22/2016 Comp Metabolic Hkl959 CO2 25.0 mEq/L 08/22/2016 Comp Metabolic Uhc782 ANION GAP 11 08/22/2016 Comp Metabolic Vzj230 GLUCOSE 125 mg/dL 08/22/2016 Comp Metabolic Ntx983 Creat 0.9 mg/dL 08/22/2016 Comp Metabolic Ehz771 eGFR 88 ml/min/1.73m2 08/22/2016 Comp Metabolic Wdb952 BUN 20 mg/dL 08/22/2016 Comp Metabolic Kmn879 B/C Ratio 22.0 Ratio 08/22/2016 Comp Metabolic Rln613 CALCIUM 9.2 mg/dL 08/22/2016 Comp Metabolic Ywq046 ALK PHOS 59 U/L 08/22/2016 Comp Metabolic Imm034 AST(SGOT) 14 U/L 08/22/2016 Comp Metabolic Tak232 ALT(SGPT) 12 U/L 08/22/2016 Comp Metabolic Yuy960 BILI T 0.5 mg/dL 08/22/2016 Comp Metabolic Ejx347 ALBUMIN 3.8 g/dL 08/22/2016 Comp Metabolic Lrs320 TPRO 6.1 g/dL 08/22/2016 Comp Metabolic Ojt032 GLOB 2.3 g/dL 08/22/2016 Comp Metabolic Ldi734 A/G Ratio 1.7 Ratio 08/22/2016 Comp Metabolic Nex606 Osmo 276 mOsmo 08/22/2016 %Hba1C Nns488 % HbA1c 69278-2 6.7 % 03/24/2016 %Hba1C Bqz609 Gluc Ave 146 mg/dL 03/24/2016 %Hba1C Imk490 % HbA1c 26136-6 6.8 % 2015 %Hba1C Vfc721 Gluc Ave 148 mg/dL 2015 Comp Metabolic Yjm167 NA 137 mEq/L 07/20/2015 Comp Metabolic Bgl849 K 4.3 mEq/L 07/20/2015 Comp Metabolic Nsu216 CL 103 mEq/L 07/20/2015 Comp Metabolic Aay936 CO2 26.0 mEq/L 07/20/2015 Comp Metabolic Zkr000 ANION GAP 12 07/20/2015 Comp Metabolic Ptn837 GLUCOSE 99 mg/dL 07/20/2015 Comp Metabolic Hny359 Creat 0.7 mg/dL 07/20/2015 Comp Metabolic Bdh576 eGFR 128 ml/min/1.73m2 07/20/2015 Comp Metabolic Rkx526 BUN 15 mg/dL 07/20/2015 Comp Metabolic Xoo601 B/C Ratio 22.7 Ratio 07/20/2015 Comp Metabolic Jef271 CALCIUM 9.4 mg/dL 07/20/2015 Comp Metabolic Tpn376 ALK PHOS 47 U/L 07/20/2015 Comp Metabolic Txz680 AST(SGOT) 13 U/L 07/20/2015 Comp Metabolic Fza128 ALT(SGPT) 15 U/L 07/20/2015 Comp Metabolic Itb728 BILI T 0.5 mg/dL 07/20/2015 Comp Metabolic Pgh572 ALBUMIN 4.0 g/dL 07/20/2015 Comp Metabolic Glz004 TPRO 6.1 g/dL 07/20/2015 Comp Metabolic Cxm616 GLOB 2.1 g/dL 07/20/2015 Comp Metabolic Bvt605 A/G Ratio 1.9 Ratio 07/20/2015 Comp Metabolic Emk106 Osmo 275 mOsmo 07/20/2015 Lipid Ord30 CHOL [...] Differential Ord2 RDW 14.4 % 07/20/2015 %Hba1C Rmc593 % HbA1c 31960-8 6.5 % 07/20/2015 %Hba1C Vfu529 Gluc Ave 140 mg/dL 07/20/2015 CBC 4659046 WBC 8.5 10e9/L 12/05/2014 CBC 4877053 RBC 4.67 10e12/L 12/05/2014 CBC 7782238 HGB 14.1 g/dL 12/05/2014 CBC 4286758 HCT DET 41.2 % 12/05/2014 CBC 7380919 MCV 88.2 fL 12/05/2014 CBC 5808759 MCH 30.2 pg 12/05/2014 CBC 5866393 MCHC 34.2 g/dL 12/05/2014 CBC 6230542 PLT 328 10e9/L 12/05/2014 CBC 4519519 MPV 8.9 fL 12/05/2014 CBC 7392617 YG % 59.0 % 12/05/2014 CBC 0744573 LY % 28.0 % 12/05/2014 CBC 1697060 MON % 8.9 % 12/05/2014 CBC 9652317 EOS % 3.9 % 12/05/2014 CBC 3519236 BASO % 0.2 % 12/05/2014 CBC 6301847 RDW 13.6 % 12/05/2014 CBC 7341155 ABS YG 5.02 10e9/L 12/05/2014 CBC 2565082 ABS LYMPH 2.38 10e9/L 12/05/2014 CBC 8281961 ABS MONO 0.76 10e9/L 12/05/2014 CBC 7703702 ABS EOS 0.33 10e9/L 12/05/2014 CBC 0636021 ABS BASO 0.02 10e9/L 12/05/2014 CBC 7085436 RDW-SD 42.8 fL 12/05/2014 GFR CALC 1273994 GFR AA >60 ML/MIN 12/05/2014 GFR CALC 1379616 GFR NON-AA >60 ML/MIN 12/05/2014 LIPID GRP HDL TEST 37 MG/DL 12/05/2014 LIPID GRP TRIG 70 MG/DL 12/05/2014 LIPID GRP TEST LDL 132 MG/DL 12/05/2014 LIPID GRP CHOL 183 MG/DL 12/05/2014 LIPID GRP RCHOL/HDL 4.95 RATIO 12/05/2014 LIPID GRP NON-HDL CH 146 MG/DL 12/05/2014 CHEM 14 7652684 AST 15 U/L 12/05/2014 CHEM 14 2385945 ALT 12 IU/L 12/05/2014 CHEM 14 2764291 BUN 17 MG/DL 12/05/2014 CHEM 14 8053030 ALBUMIN 4.2 GM/DL 12/05/2014 CHEM 14 0642048 CHLORIDE 104 MMOL/L 12/05/2014 CHEM 14 8462093 BILI TOT 0.5 MG/DL 12/05/2014 CHEM 14 3150267 ALK PHOS 48 U/L 12/05/2014 CHEM 14 6791845 SODIUM 137 MMOL/L 12/05/2014 CHEM 14 2993680 CREATININE 0.87 MG/DL 12/05/2014 CHEM 14 1949740 CALCIUM 9.3 MG/DL 12/05/2014 CHEM 14 2764121 POTASSIUM 4.1 MMOL/L 12/05/2014 CHEM 14 5087819 PROT TOT 6.6 GM/DL 12/05/2014 CHEM 14 6177404 GLUCOSE 152 MG/DL 12/05/2014 CHEM 14 2525822 BICARB 28 MMOL/L 12/05/2014 CHEM 14 7676635 ANION GAP 5 MEQ/L 12/05/2014 A1C HPLC 1536009 A1C HPLC 76815-2 8.0 % 12/05/2014 GFR CALC 4752298 GFR AA >60 ML/MIN 08/15/2014 GFR CALC 6286266 GFR NON-AA >60 ML/MIN 08/15/2014 CHEM 14 8481951 AST 17 U/L 08/15/2014 CHEM 14 0196038 ALT 21 IU/L 08/15/2014 CHEM 14 5837939 BUN 10 MG/DL 08/15/2014 CHEM 14 9900294 ALBUMIN 4.2 GM/DL 08/15/2014 CHEM 14 8803063 CHLORIDE 102 MMOL/L 08/15/2014 CHEM 14 0645350 BILI TOT 0.7 MG/DL 08/15/2014 CHEM 14 0504211 ALK PHOS 53 U/L 08/15/2014 CHEM 14 5702413 SODIUM 136 MMOL/L 08/15/2014 CHEM 14 8395344 CREATININE 0.77 MG/DL 08/15/2014 CHEM 14 7788469 CALCIUM 9.5 MG/DL 08/15/2014 CHEM 14 7733982 POTASSIUM 3.9 MMOL/L 08/15/2014 CHEM 14 2229594 PROT TOT 6.5 GM/DL 08/15/2014 CHEM 14 8725429 GLUCOSE 159 MG/DL 08/15/2014 CHEM 14 9674653 BICARB 26 MMOL/L 08/15/2014 CHEM 14 8110282 ANION GAP 8 MEQ/L 08/15/2014 A1C HPLC 7633262 A1C HPLC 74608-0 7.7 % 08/15/2014 LIPID GRP HDL TEST 34 MG/DL 08/15/2014 LIPID GRP 9816266 TRIG 84 MG/DL 08/15/2014 LIPID GRP 8467026 TEST LDL 81 MG/DL 08/15/2014 LIPID GRP 9008162 CHOL 132 MG/DL 08/15/2014 LIPID GRP 7152343 RCHOL/HDL 3.88 RATIO 08/15/2014 LIPID GRP 7543294 NON-HDL CH 98 MG/DL 08/15/2014 CBC [id number] WBC 8.4 10e9/L 08/15/2014 CBC 8463418 RBC 5.16 10e12/L 08/15/2014 CBC 1489998 HGB 15.7 g/dL 08/15/2014 CBC 0900419 HCT DET 45.6 % 08/15/2014 CBC 8515743 MCV 88.4 fL 08/15/2014 CBC 3827380 MCH 30.4 pg 08/15/2014 CBC 5702722 MCHC 34.4 g/dL 08/15/2014 CBC 1342103 PLT 296 10e9/L 08/15/2014 CBC 0165165 MPV 11.5 fL 08/15/2014 CBC 3766116 YG % 64.0 % 08/15/2014 CBC 8296259 LY % 23.2 % 08/15/2014 CBC 4348719 MON % 7.8 % 08/15/2014 CBC 5911233 EOS % 4.9 % 08/15/2014 CBC 9274540 BASO % 0.1 % 08/15/2014 CBC 7478219 RDW 14.6 % 08/15/2014 CBC 2743097 ABS YG 5.38 10e9/L 08/15/2014 CBC 1913161 ABS LYMPH 1.95 10e9/L 08/15/2014 CBC 9250649 ABS MONO 0.66 10e9/L 08/15/2014 CBC 3100289 ABS EOS 0.41 10e9/L 08/15/2014 CBC 0767677 ABS BASO 0.01 10e9/L 08/15/2014 CBC 2007487 RDW-SD 46.4 fL 08/15/2014 A1C HPLC 8840680 A1C HPLC 31622-9 10.5 % 04/29/2014 PSA EQ 20111231 PSA EQ 2.51 NG/ML 04/21/2014 TSH 7387838 TSH 0.605 uIU/ML 04/21/2014 CBC 5432943 WBC 8.3 10e9/L 04/21/2014 CBC 1766235 RBC 5.50 10e12/L 04/21/2014 CBC 8057053 HGB 16.6 g/dL 04/21/2014 CBC 3049519 HCT DET 47.7 % 04/21/2014 CBC 7152966 MCV 86.7 fL 04/21/2014 CBC 1334901 MCH 30.2 pg 04/21/2014 CBC 4488679 MCHC 34.8 g/dL 04/21/2014 CBC 2602490 PLT 306 10e9/L 04/21/2014 CBC 5175747 MPV 9.7 fL 04/21/2014 CBC 9922294 YG % 68.0 % 04/21/2014 CBC 4142548 LY % 20.1 % 04/21/2014 CBC 7846769 MON % 8.1 % 04/21/2014 CBC 9905100 EOS % 3.6 % 04/21/2014 CBC 2232107 BASO % 0.2 % 04/21/2014 CBC 0435244 RDW 14.1 % 04/21/2014 CBC 8755627 ABS YG 5.64 10e9/L 04/21/2014 CBC 5306233 ABS LYMPH 1.67 10e9/L 04/21/2014 CBC 3310647 ABS MONO 0.67 10e9/L 04/21/2014 CBC 1609494 ABS EOS 0.30 10e9/L 04/21/2014 CBC 0982004 ABS BASO 0.02 10e9/L 04/21/2014 CBC 3430238 RDW-SD 44.3 fL 04/21/2014 CHEM 14 1153943 AST 10 U/L 04/21/2014 CHEM 14 6539725 ALT 13 IU/L 04/21/2014 CHEM 14 5285501 BUN 15 MG/DL 04/21/2014 CHEM 14 6393863 ALBUMIN 4.6 GM/DL 04/21/2014 CHEM 14 6626903 CHLORIDE 103 MMOL/L 04/21/2014 CHEM 14 3231476 BILI TOT 0.5 MG/DL 04/21/2014 CHEM 14 2451820 ALK PHOS 76 U/L 04/21/2014 CHEM 14 5957785 SODIUM 135 MMOL/L 04/21/2014 CHEM 14 5376043 CREATININE 0.72 MG/DL 04/21/2014 CHEM 14 8477519 CALCIUM 10.1 MG/DL 04/21/2014 CHEM 14 6190336 POTASSIUM 4.2 MMOL/L 04/21/2014 CHEM 14 3674842 PROT TOT 7.0 GM/DL 04/21/2014 CHEM 14 4501405 GLUCOSE 263 MG/DL 04/21/2014 CHEM 14 8830049 BICARB 25 MMOL/L 04/21/2014 CHEM 14 0261136 ANION GAP 7 MEQ/L 04/21/2014 TESTOS TO 9537802 TESTOS TO 450 NG/DL 04/21/2014 LIPID GRP HDL TEST 37 MG/DL 04/21/2014 LIPID GRP TRIG 70 MG/DL 04/21/2014 LIPID GRP TEST LDL 122 MG/DL 04/21/2014 LIPID GRP CHOL 173 MG/DL 04/21/2014 LIPID GRP RCHOL/HDL 4.68 RATIO 04/21/2014 GFR CALC 8473209 GFR AA >60 ML/MIN 04/21/2014 GFR CALC 8417485 GFR NON-AA >60 ML/MIN 04/21/2014 Review of Systems System Result Effective Dates Constitutional No recent illness 2016 Constitutional No [...] Effective Dates Notes Full Exam - General 1995 Constitutional general appearance Overall: well developed 11/03/2017 [...] normal 07/13/2017 None Full Exam - General 1994 Ears/Nose/Throat lips/teeth/gingiva Overall: benign lips 07/13/2017 None Full Exam - General 1995 [...] masses 04/29/2014 None Full Exam - General 1995 Respiratory auscultation Overall: breath sounds clear bilaterally [...] dentition 04/14/2014 None Full Exam - General 1994 Ears/Nose/Throat oral cavity/pharynx/larynx Overall: hypopharynx benign 04/14/2014 None Full Exam - General 1994 Ears/Nose/Throat oral cavity/pharynx/larynx Overall: no masses 04/14/2014 None Full Exam - General 1994 Ears/Nose/Throat oral cavity/pharynx/larynx Overall: oral mucosa clear 04/14/2014 None Full Exam - General 1995 Ears/Nose/Throat oral cavity/pharynx/larynx Overall: oropharyngeal mucosa clear [...] atraumatic 04/14/2014 None Procedures Procedure Codes Date THER/PROPH/DIAG INJ SC/IM CPT-4: 18343 11/03/2017 ROCEPHIN, PER 250 MG CPT-4: J0696 11/03/2017 URINALYSIS NONAUTO W/O SCOPE CPT-4: 19760 06/26/2017 THER/PROPH/DIAG INJ SC/IM CPT-4: 97330 06/22/2017 KETOROLAC TROMETHAMINE INJ CPT-4: J1885 06/22/2017 PROMETHAZINE HCL INJECTION CPT-4: J2550 06/22/2017 PPPS, SUBSEQ VISIT CPT -4: G0439 03/23/2017 TRIAMCINOLONE ACET INJ NOS CPT-4: J3301 01/12/2015 ROCEPHIN, PER 250 MG CPT-4: J0696 01/12/2015 TRIAMCINOLONE ACET INJ NOS CPT-4: J3301 11/27/2014 ROUTINE VENIPUNCTURE CPT-4: 71851 04/29/2014 Vital Signs Date Vital 11/03/2017 Blood Pressure 1: 148/62 Code : 8480-6 BMI: 35.6 Code : 95493-1 Heart Rate 1 : 60 bpm Height: 5'11" SpO2: 94% Weight: 255 lbs 08/01/2017 Blood Pressure 1: 142/76 Code : 8480-6 BMI: 36.3 Code : 48005-5 Heart Rate 1 : 50 bpm Height: 5'11" SpO2: 98% Weight: 260 lbs 07/13/2017 Blood Pressure 1: 128/68 Code : 8480-6 BMI: 37.2 Code : 40853-1 Heart Rate 1 : 64 bpm Height: 5'11" SpO2: 96% Weight: 266 lbs 8 oz 07/06/2017 Blood Pressure 1: 140/72 Code : 8480-6 BMI: 37.1 Code : 60264-9 Heart Rate 1 : 47 bpm Height: 5'11" SpO2: 97% Weight: 266 lbs 06/29/2017 Blood Pressure 1: 136/66 Code : 8480-6 BMI: 37.9 Code : 22366-9 Heart Rate 1 : 60 bpm Height: 5'11" SpO2: 97% Weight: 272 lbs 06/26/2017 Blood Pressure 1: 180/80 Code : 8480-6 BMI: 37.9 Code : 44011-7 Heart Rate 1 : 79 bpm Height: 5'11" SpO2: 98% Weight: 272 lbs 06/23/2017 Blood Pressure 1: 162/78 Code : 8480-6 BMI: 37.9 Code : 83600-0 Heart Rate 1 : 74 bpm Height: 5'11" SpO2: 98% Weight: 272 lbs 06/22/2017 Blood Pressure 1: 154/78 Code : 8480-6 Blood Pressure 1: 160/80 Code: 8480-6 06/08/2017 Blood Pressure 1: 148/88 Code : 8480-6 BMI: 38.5 Code : 80070-4 Heart Rate 1 : 62 bpm Height: 5'11" SpO2: 96% Weight: 276 lbs 03/23/2017 Blood Pressure 1: 150/86 Code : 8480-6 BMI: 39.3 Code : 65432-2 Heart Rate 1 : 42 bpm Height: 5'11" SpO2: 95% Waist Measure (cm): 117 cm Weight: 282 lbs 12/19/2016 Blood Pressure 1: 142/82 Code : 8480-6 BMI: 37.9 Code : 15148-9 Heart Rate 1 : 78 bpm Height: 5'11" SpO2: 97% Weight: 272 lbs 10/03/2016 Blood Pressure 1: 140/80 Code : 8480-6 BMI: 38.4 Code : 40723-8 Heart Rate 1 : 91 bpm Height: 5'11" SpO2: 90% Weight: 275 lbs 08/22/2016 Blood Pressure 1: 148/52 Code : 8480-6 BMI: 38.2 Code : 49810-7 Heart Rate 1 : 79 bpm Height: 5'11" SpO2: 96% Weight: 274 lbs 03/24/2016 Blood Pressure 1: 140/70 Code : 8480-6 BMI: 37.2 Code : 49092-1 Heart Rate 1 : 80 bpm Height: 5'11" SpO2: 98% Weight: 267 lbs 2015 Blood Pressure 1: 150/78 Code : 8480-6 BMI: 37.8 Code : 72515-4 Heart Rate 1 : 75 bpm Height: 5'11" SpO2: 96% Weight: 271 lbs 07/29/2015 Blood Pressure 1: 146/80 Code : 8480-6 BMI: 36.8 Code : 57035-0 Heart Rate 1 : 77 bpm Height: 5'11" SpO2: 97% Weight: 264 lbs 07/20/2015 Blood Pressure 1: 160/82 Code : 8480-6 Blood Pressure 1: 152/76 Code: 8480-6 BMI: 36.5 Code: 83670-9 Heart Rate 1: 81 bpm Height: 5'11" SpO2: 98% Weight: 262 lbs 03/17/2015 Blood Pressure 1: 128/68 Code : 8480-6 BMI: 35.6 Code : 31588-0 Heart Rate 1 : 64 bpm Height: 5'11" Weight: 255 lbs 01/12/2015 Blood Pressure 1: 122/68 Code : 8480-6 BMI: 34.3 Code : 63726-6 Heart Rate 1 : 86 bpm Height: 5'11" SpO2: 96% Weight: 246 lbs 12/16/2014 Blood Pressure 1: 148/78 Code : 8480-6 BMI: 34.9 Code : 54121-0 Heart Rate 1 : 80 bpm Height: 5'11" SpO2: 98% Weight: 250 lbs 11/27/2014 Blood Pressure 1: 142/80 Code : 8480-6 BMI: 34.6 Code : 80537-4 Heart Rate 1 : 80 bpm Height: 5'11" SpO2: 96% Temperature: 37.1 (C) / 98.8 (F) Weight: 248 lbs 09/16/2014 Blood Pressure 1: 138/64 Code : 8480-6 BMI: 34.6 Code : 65279-1 Heart Rate 1 : 86 bpm Height: 5'11" SpO2: 96% Weight: 248 lbs 09/02/2014 Blood Pressure 1: 130/70 Code : 8480-6 BMI: 34.9 Code : 46858-4 Heart Rate 1 : 74 bpm Height: 5'11" Weight: 250 lbs 08/14/2014 Blood Pressure 1: 138/78 Code : 8480-6 08/05/2014 Blood Pressure 1: 112/74 Code : 8480-6 Heart Rate 1: 91 bpm Height: SpO2: 98% Weight: 07/25/2014 Blood Pressure 1: 120/68 Code : 8480-6 BMI: 34.9 Code : 24607-5 Heart Rate 1 : 88 bpm Height: 5'11" SpO2: 96% Weight: 250 lbs 06/02/2014 Blood Pressure 1: 118/70 Code : 8480-6 BMI: 34.0 Code : 06207-3 Heart Rate 1 : 76 bpm Height: 5'11" Weight: 244 lbs 05/05/2014 Blood Pressure 1: 108/62 Code : 8480-6 BMI: 35.1 Code : 37821-4 Heart Rate 1 : 84 bpm Height: 5'11" Weight: 252 lbs 04/29/2014 Blood Pressure 1: 158/80 Code : 8480-6 BMI: 35.4 Code : 03534-7 Heart Rate 1 : 82 bpm Height: 5'11" SpO2: 97% Weight: 254 lbs 04/14/2014 Blood Pressure 1: 158/80 Code : 8480-6 BMI: 34.9 Code : 49597-4 Heart Rate 1 : 80 bpm Height: 5'11" Weight: 250 lbs Functional Status No Functional Status data History of Present Illness Symptom Name Status Result Effective Date Notes edema Onset and Resolution sudden in onset [...] None cough Alleviating Factors OTC medications 07/25/2014 coricidin diabetes mellitus Quality non-insulin dependent 06/02/2014 None [...] data Encounters Encounter Performer Location Codes Date EST. PATIENT, LEVEL III Diagnosis: Urethral discharge, unspecified[ICD10: R36.9] Diagnosis: Rash and other nonspecific skin eruption[ICD10: R21] Madeline Loera MD, [facility] CPT-4: 37963 11/03/2017 ([id number]) 54255 EST. PATIENT, LEVEL III Diagnosis: Essential (primary) hypertension[ICD10: I10] [facility] CPT-4: 33492 08/01/2017 [id number]) 45046 EST. PATIENT, LEVEL IV Diagnosis: Other elevated white blood cell count[ICD10: D72.828] Diagnosis: Essential (primary) hypertension[ICD10: I10] Diagnosis: Type 2 diabetes mellitus with hyperglycemia[ICD10: E11.65] Fatemeh Loera MD , [facility] CPT-4: 37423 07/13/2017 15145 EST. PATIENT, LEVEL III Diagnosis: Melena[ICD10: K92.1] Diagnosis: Bradycardia, unspecified[ICD10: R00.1] Madeline Loera MD, [facility] CPT-4: 14034 07/06/2017 ([id number]) Miscellaneous no charge Diagnosis: Essential (primary) hypertension[ICD10: I10] Mandy Loera MD, [facility] CPT-4: 26682 06/29/2017 ([id number]) 60046 EST. PATIENT, LEVEL III Diagnosis: Dysuria[ICD10: R30.0] Diagnosis: Essential (primary) hypertension[ICD10: I10] Diagnosis: Type 2 diabetes mellitus with hyperglycemia[ICD10: E11.65] Mandy Loera MD, [facility] CPT-4: 41440 06/26/2017 61622 EST. PATIENT, LEVEL IV Diagnosis: Essential (primary) hypertension[ICD10: I10] Diagnosis: Other obesity due to excess calories[ICD10: E66.09] Madeline Loera MD, [facility] CPT-4: 97801 06/23/2017 41672 EST. PATIENT, LEVEL IV Diagnosis: Headache[ICD10: R51] Diagnosis: Vomiting, unspecified[ICD10: R11.10] Diagnosis: Other allergic rhinitis[ICD10: J30.89] Madeline Loera MD, [facility] CPT-4: 81460 06/08/2017 ([id number]) 51950 EST. PATIENT, LEVEL IV Diagnosis: Type 2 diabetes mellitus with hyperglycemia[ICD10: E11.65] Diagnosis: Essential (primary) hypertension[ICD10: I10] Diagnosis: Benign prostatic hyperplasia with lower urinary tract symptoms[ICD10 : N40.1] Fatemeh Loera MD, [facility] CPT-4: 36302 2016 ([id number]) 49447 EST. PATIENT, LEVEL III Diagnosis: Cough[ICD10: R05] Diagnosis: Allergic rhinitis due to pollen[ICD10: J30.1] Mandy Loera MD, [facility] CPT-4: 99669 10/03/2016 ([id number]) 41285 EST. PATIENT, LEVEL IV Diagnosis: Type 2 diabetes mellitus with hyperglycemia[ICD10: E11.65] Diagnosis: Essential (primary) hypertension[ICD10: I10] Diagnosis: Actinic keratosis[ICD10: L57.0] Fatemeh Loera MD, [facility] CPT- 4: 50040 08/22/2016 70653 EST. PATIENT, LEVEL IV Diagnosis: Type 2 diabetes mellitus with hyperglycemia[ICD10: E11.65] Diagnosis: Other obesity due to excess calories[ICD10: E66.09] Diagnosis: Essential (primary) hypertension[ICD10: I10] Madeline Loera MD [facility] CPT-4: 34571 03/24/2016 08161 EST. PATIENT, LEVEL IV Diagnosis: Type 2 diabetes mellitus with hyperglycemia[ICD10: E11.65] Diagnosis: Other obesity due to excess calories[ICD10: E66.09] Diagnosis: Essential (primary) hypertension[ICD10: I10] Madeline Loera MD, [facility] CPT-4: 85666 2015 ([id number]) 23773 EST. PATIENT, LEVEL III Diagnosis: Cellulitis of right lower limb[ICD10: L03.115] Fatemeh Loera MD, [facility] CPT-4: 38218 07/29/2015 ([id number]) 90949 EST. PATIENT, LEVEL IV Diagnosis: DM W/O COMPLICATION TYPE II, UNCONTROLLED[ICD9: 250.02] Diagnosis: ESSENTIAL HYPERTENSION[ICD9: 401.9] Diagnosis: OBESITY[ICD9: 278.00] Fatemeh Loera MD, [facility] CPT-4: 74336 07/20/2015 ([id number]) 12971 EST. PATIENT, LEVEL IV Diagnosis: DIABETES TYPE II[ICD9: 250.00] Diagnosis: ESSENTIAL HYPERTENSION[ICD9: 401.9] Fatemeh Loera MD, [facility] CPT-4: 27946 03/17/2015 ([id number]) 50990 EST. PATIENT, LEVEL III Diagnosis: ACUTE URI[ICD9: 465.9] Diagnosis: COUGH[ICD9: 786.2] Mandy Loera MD, [facility] CPT-4: 29312 01/12/2015 ([id number]) 68580 EST. PATIENT, LEVEL III Diagnosis: ESSENTIAL HYPERTENSION[ICD9: 401.9] Diagnosis: DIABETES TYPE II[ICD9: 250.00] Fatemeh Loera MD, [facility] CPT- 4: 36730 12/16/2014 ([id number]) 33164 EST. PATIENT, LEVEL III Diagnosis: ACUTE URI[ICD9: 465.9] Diagnosis: COUGH[ICD9: 786.2] Mandy Loera MD, [facility] CPT-4: 90018 11/27/2014 ([id number]) 07273 EST. PATIENT, LEVEL III Diagnosis: Type II diabetes mellitus, uncontrolled[ICD9: 250.02] Diagnosis: ESSENTIAL HYPERTENSION[ICD9: 401.9] Fatemeh Loera MD, [facility] CPT-4: 60623 09/16/2014 ([id number]) 14631 EST. PATIENT, LEVEL III Diagnosis: DM W/O COMPLICATION TYPE II, UNCONTROLLED[ICD9: 250.02] Diagnosis: ESSENTIAL HYPERTENSION[ICD9: 401.9] Fatemeh Loera MD, [facility] CPT-4: 36532 09/02/2014 ([id number]) 70231 EST. PATIENT, LEVEL I Diagnosis: ESSENTIAL HYPERTENSION[ICD9: 401.9] Diagnosis: Type II diabetes mellitus, uncontrolled[ICD9: 250.02] Fatemeh Loera MD, [facility] CPT-4: 12659 08/14/2014 ([id number]) 12955 EST. PATIENT, LEVEL III Diagnosis: Cough due to MARCIAL inhibitor[ICD9: 786.2] Diagnosis: ESSENTIAL HYPERTENSION[ICD9: 401.9] Diagnosis: ALLERGIC RHINITIS[ICD9: 477.9] Mandy Loera MD, [facility] CPT-4: 71647 08/05/2014 ([id number]) 84967 EST. PATIENT, LEVEL III Diagnosis: ACUTE URI[ICD9: 465.9] Diagnosis: COUGH[ICD9: 786.2] Mandy Loera MD, [facility] CPT-4: 15797 07/25/2014 ([id number]) 72889 EST. PATIENT, LEVEL III Diagnosis: ESSENTIAL HYPERTENSION[ICD9: 401.9] Diagnosis: Type II diabetes mellitus, uncontrolled[ICD9: 250.02] Fatemeh Loera MD, [facility] CPT-4: 01257 06/02/2014 ([id number]) 17344 EST. PATIENT, LEVEL III Diagnosis: Type II diabetes mellitus, uncontrolled[ICD9: 250.02] Mandy Loera MD, [facility] CPT-4: 92687 05/05/2014 ([id number]) 08014 EST. 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 11/03/2017 Appointment: Madeline Ramos WPtel: [facility] (15 min) Moderate 11/03/2017 Patient Education: Patient Medication Summary Completed 11/03/2017 Referral: Lynnette Murdock Referral Initiated 08/15/2017 Visit Plan: Hypertension - uncontrolled - better at office than reported blood pressures - continue current medications - Keep appointment with Dr. Murdock. 08/01/2017 Appointment: Fatemeh Loera WPtel: [facility] (15 min) Moderate 08/01/2017 Patient Education: Patient [...] less controlled. 07/13/2017 [phone] (15 min) Moderate 07/13/2017 Patient Education: Patient Medication Summary Completed 07/13/2017 Patient Education: Obesity Completed 07/13/2017 Care Plan: Referral Order SNOMED-CT : [id number] Pending 07/13/2017 Visit Plan: Hematochezia/hemorrhoids - intermittent [...] for review. 07/06/2017 [phone] ([facility] min) Complex 07/06/2017 Patient Education: Patient [...] at home. 06/29/2017 Appointment: Mandy Bergeron WPtel: [phone] [phone] (15 min) Moderate 06/29/2017 Patient Education: Patient [...] concerns. 06/26/2017 App[facility]ment[phone] (15 min) Moderate 06/26/2017 Patient Education: Patient [...] check. 06/23/2017 App[facility]ment[phone] (30 min) Complex 06/23/2017 Patient Education: Patient [...] the medication. 06/08/2017 Appointment: Madeline Ramos WPtel: [facility] (15 min) Moderate 06/08/2017 Patient Education: Patient [...] care surrogate. 03/23/2017 Appointment: Madeline Ramos WPtel: [facility] [facility] - Annual Wellness Visit 03/23/2017 Patient [...] would like to consider [place] appt [place] 12/19/2016 Appointment: [phone] (15 min) Moderate 12/19/2016 Patient Education: Patient [...] improving. 08/22/2016 Appointment: [phone] [place] (15 min) Moderate 08/22/2016 Patient Education: Patient Medication Summary Completed 08/22/2016 Patient Education: Obesity Completed 08/22/2016 Appointment: Fatemeh Loera WPtel[facility] (15 min) Moderate 07/25/2016 Visit Plan: Diabetes [...] caloric restriction. 2015 App[phone] (15 min) Moderate 2015 Patient Education: Patient Medication Summary Completed 2015 Patient Education: Hypertension Completed 2015 Patient Education: Obesity Completed 2015 Patient Education: Diabetes Completed 2015 Visit Plan: Cellulitis - continue with oral antibiotics as previously directed, return to clinic as previously directed, call for acute change in symptoms, worsening redness, warmth, discharge. 07/29/2015 Appointment: [phone] [facility] (10 min) Simple 07/29/2015 Patient Education: Patient [...] caloric restriction. 07/20/2015 Appointment: [phone] [facility] Follow up 07/20/2015 Patient Education: Patient Medication [...] pressure readings at home. 03/17/2015 Appointment: [phone] Follow up 03/17/2015 Patient Education: Patient Medication [...] 30mg daily 12/16/2014 Appointment: [phone] [facility] Follow up 12/16/2014 Patient Education: Patient Medication [...] at home. 09/16/2014 Appointment: [phone] [facility] Follow up 09/16/2014 Patient Education: Patient Medication [...] concerns. 09/02/2014 Appointment: [phone] [facility] [place] Follow up 09/02/2014 Patient Education: Patient Medication Summary Completed 09/02/2014 Patient Education: Hypertension Completed 09/02/2014 Appointment: [phone] [facility] [place] Nurse Visit 08/14/2014 Patient Education: Patient [...] times daily. 06/02/2014 Appointment: [phone] [facility] Follow up 06/02/2014 Patient Education: Patient Medication Summary Completed 06/02/2014 Patient Education: Hypertension Completed 06/02/2014 Visit Plan: Diabetes nsmsjxio-hakwvslkwras-mhmgtchv and diabetic diet discussed in detail with [...] orthopedic surgeon. 04/29/2014 Appointment: Fatemeh Loera WPtel: [facility] Follow up 04/29/2014 Patient Education: Patient Medication [...] weight check. 04/14/2014 Appointment: [phone] [facility] [place] New Patient 04/14/2014 Patient Education: Patient Medication [...] weight loss - caloric restriction. Declined Procedure: (03789) FLU VAC NO PRSV 4 ASHWIN 3 [...] and kenalog injections today in the office. . Diabetes Mellitus - controlled - per [...] would like to consider an appt in [place] . Penile discharge - will swab pt [...] SYRUP . Allergies-start jace or zyrtec daily Uqcfb-JXA-wtbiyn keflex-call if symptoms do not resolve or [...] to call for acute concerns. . Diabetes yzzvxpkk-rxnepgxwznsn-dqzuvthp and diabetic diet discussed in detail with [...] increase metformin to 500mg three times daily. MONITOR BLOOD PRESSURE AND BRING LOG TO [...]
[2018-12-05 12:21] LABS: HEMOGLOBIN 11.6 G/DL (13.3-17.7); MEAN PLATELET VOLUME 10.5 FL (7.4-10.4); RED CELL DISTRIBUTION WIDTH 14.1 % (10.0-14.5); WHITE BLOOD COUNT 9.5 10^3/uL (4.3-11.0)
[2018-12-05] MEDS ORDERED: LINA5TAB PO (12:26)
[2018-12-05] MEDS ORDERED: FURO20TA4 PO (12:26)
[2018-12-05] MEDS ORDERED: LISI40TA PO (12:26)
[2018-12-05] MEDS ORDERED: POTA10CA43 PO (12:26)
[2018-12-05] MEDS ORDERED: FINA5TAB6 PO (12:26)
[2018-12-05] MEDS ORDERED: PIOG15TA67 PO (12:26)
[2018-12-05 12:37] LABS: INR 1.1 (0.8-1.4); PROTHROMBIN TIME PATIENT 14.3 SEC (12.2-14.7)
[2018-12-05 12:43] LABS: ALBUMIN 4.1 GM/DL (3.2-4.5); BILIRUBIN,TOTAL 0.4 MG/DL (0.1-1.0); CREATININE SERUM 1.76 MG/DL (0.60-1.30); POTASSIUM 4.3 MMOL/L (3.6-5.0); TOTAL PROTEIN 7.2 GM/DL (6.4-8.2)
--- NOTE | 2018-12-05 12:45 | Cardiac Procedure Note-CS/ASA ---
Pre-Procedure Note Pre-Op Procedure Note H&P Reviewed The H&P was reviewed, patient examined and no changes noted. Date H&P Reviewed: Dec 05, 2018 Time H&P Reviewed: 12:45 Conscious Sedation Pre-Proced Time 12:45 ASA Score 3 For ASA 3 and 4: Consider anesthesia and medical clearance. Also, for patients with a history of failed moderate sedation consider anesthesia. Airway Lungs Heart ASA score ASA 1: a normal healthy patient ASA 2: a patient with a mild systemic disease (mid diabetes, controlled hypertension, obesity x ASA 3: a patient with a severe systemic disease that limits activity (angina , COPD, prior Myocardial infarction) ASA 4: a patient with an incapacitating disease that is a constant threat to life (CHF, renal failure) ASA 5: a moribund patient not expected to survive 24 hrs. (ruptured aneurysm) ASA 6: a declared brain- patient whose organs are being harvested. For emergent operations, add the letter E after the classification Mallampati Classification Grade 3 Sedation Plan Analgesia, Amnesia, Plan communicated to team members, Discussed options with patient/fam, Discussed risks with patient/fam The patient is an appropriate candidate to undergo the planned procedure, sedation, and anesthesia. The patient immediately re-assessed prior to indication. PEPITO COLINDRES MD Dec 05, 2018 12:45
[2018-12-05] MEDS ORDERED: FLU QUADRIvalent (5+ YOA) 2018-2019 (AFLURIA) 0.5 ML IM ONE (13:15)
--- NOTE | 2018-12-05 13:20 | Diagnostic Imaging Report ---
INDICATION: Heart block and diabetes and hypertension. Frontal chest obtained at 12:17 p.m. There is prominent cardiomegaly. There is elevation of right hemidiaphragm. There is no focal infiltrate, pneumothorax, or pleural fluid. IMPRESSION: Prominent cardiomegaly. No focal infiltrate, pneumothorax, or pleural fluid. Dictated by: Dictated on workstation # [id number]
[2018-12-05] MEDS ORDERED: MIDAZOLAM 5 MG/5 ML (VERSED) VIAL ONE (13:49)
[2018-12-05] MEDS ORDERED: fentaNYL INJECTION 100 MCG/2 ML AMP ONE ×2 (13:49→14:36)
[2018-12-05] MEDS ORDERED: NS (IVPB) 50 ML ONE (13:49)
[2018-12-05 13:54] LABS: BILIRUBIN,URINE NEGATIVE (NEGATIVE); CLARITY,URINE CLEAR; COLOR,URINE YELLOW; GLUCOSE, URINE (UA) NEGATIVE (NEGATIVE); KETONES,URINE NEGATIVE (NEGATIVE); LEUKOCYTE ESTERASE ,URINE 2+ (NEGATIVE); NITRITE,URINE NEGATIVE (NEGATIVE); PH,URINE 6.5 (5-9); PROTEIN,URINE 3+ (NEGATIVE); UROBILINOGEN,URINE NORMAL (NORMAL)
[2018-12-05 14:01] LABS: BACTERIA,URINE TRACE /HPF; RBC,URINE RARE /HPF; SQUAMOUS EPITHELIAL CELL,UR 0-2 /HPF; WBC,URINE 25-50 /HPF
[2018-12-05] MEDS ORDERED: MIDAZOLAM 2 MG/2 ML (VERSED) VIAL ONE (14:36)
[2018-12-05] MEDS ORDERED: PATIENT MAY USE OWN MEDS, ALL PO SCH (15:30)
[2018-12-05] MEDS ORDERED: NEO/POLY/BAC (NEOSPORIN) OINT 15 GM TUBE ONE (15:32)
--- NOTE | 2018-12-05 15:35 | Permanent Pacemaker Implant ---
Dual Chamber Pacemaker Implant PROCEDURE PHYSICIAN: Pepito Murdock DUAL CHAMBER PACEMAKER IMPLANTATION: DATE OF PROCEDURE: 12/05/18 INDICATION: complete heart block PREOPERATIVE DIAGNOSIS: complete heart block POSTOPERATIVE DIAGNOSIS: complete heart block HISTORY: 68 years old gentleman with malignant hypertension, noted to have complete heart block with severe bradycardia. Dual-chamber permanent pacemaker was recommended. PROCEDURE PERFORMED: 1. Dual-chamber permanent pacemaker implantation. 2. Fluoroscopy. 3. Central venous access. ANESTHESIA: Local anesthesia, conscious sedation. COMPLICATIONS: None. ESTIMATED BLOOD LOSS:20 mL. SPECIMENS: None. ORAL ANTICOAGULATION: None. FLUOROSCOPY TIME: FLUOROSCOPY DOSE: CONTRAST DOSE: PROCEDURE DETAILS: The patient is a 68 male and after all of the patients questions were answered, the patient was brought to the EP Lab. The patient's left chest was prepped and draped in sterile fashion. A 2 inch horizontal incision was made 1 cm below the clavicle and dissection carried down to the pectoralis fascia. Using the modified Seldinger technique and under fluoroscopy guidance, the anterior aspect of the left axillary vein was accessed 2 times. The J wires were secured to the drapes with a mosquito clamp. A 7-Telugu sheath was introduced over one of the J-wires. The RV lead was then inserted. The RV lead was directed across the tricuspid valve to the apical septal portion of the right ventricle. The position was checked in LITHUANIAN and STANLEY views. The screw was deployed and the lead connected to the plc programmer. Close sensing and pacing thresholds were obtained. Diaphragmatic pacing was ruled out. The lead was secured with 2-0 silk ties to the underlying muscle and fascia. Next, a 7-Telugu sheath was introduced through the remaining J-wire. An atrial lead was then introduced and guided to the level of the right appendage. The screw was deployed and the lead was connected to the interrogator. Good sensing and pacing thresholds were obtained. Diaphragmatic pacing was ruled out. The leads were secured with 2-0 silk ties to the underlying muscle and fascia. The leads were connected to the device in a hermetic fashion. The device and leads were placed in the pocket. Aggressive irrigation with saline solution was done. The device was secured to the underlying muscle and fascia with a 2-0 silk tie. interrogation of the device revealed good integrity of all the leads and good connections. The wound was then closed using 2 layers. The first layer was interrupted 2-0 absorbable Vicryl suture. The last layer was a single subcuticular layer with 4- 0 Vicryl suture. Half inch Steri-Strips and a small dressing were then applied to the wound. The patient tolerated the procedure well and was returned to the recovery room in stable condition with stable vital signs. DEVICE INFORMATION: [employer] MARLEN Gonzalez DR MRI Serial [id number] RA LEAD: MODEL 5076-58, 58 CM, Serial [id number] RV LEAD: MODEL [id number], 52 CM, Serial [id number] IMMEDIATE POSTOPERATIVE DEVICE INTERROGATION: Right atrium bipolar 0.5 ms, 0.7 V, impedance 432, P-wave 4.6 Right ventricle, bipolar, 0.5, 0.5 V impedance 652, R-wave 8.1 PLAN: The patient transferred to the ICU. We will continue with two more doses of IV antibiotics. We will check a chest x-ray and interrogate the device in the morning. The patient will continue on oral antibiotics for 5 days. CONCLUSION: Successful dual-chamber pacemaker implantation with no complication FINAL DIAGNOSIS: Complete heart block Bradycardia Malignant hypertension PEPITO MURDOCK MD Dec 05, 2018 15:35
[2018-12-05 16:00] VITALS: BP 186/88
--- NOTE | 2018-12-05 17:09 | Diagnostic Imaging Report ---
EXAMINATION: Portable erect AP chest at 03:55 p.m. INDICATION: Pacemaker placement. FINDINGS: In the interval since the prior exam performed earlier today at 12:17 p.m., a left-sided pacemaker has been inserted. The pacer leads seem to be in good position. There is no sign of a pneumothorax on the left and the overall appearance of the chest has not changed significantly otherwise. IMPRESSION: There has been interval insertion of a left-sided pacemaker without apparent complication. Dictated by: Dictated on workstation # [id number]
[2018-12-05 20:00] VITALS: BP 171/90
[2018-12-05] MEDS: ceFAZolin INJECTION 1,000 MG in NS (IVPB) 50 ML IV SCH (20:29)
[2018-12-05] MEDS ORDERED: FINASTERIDE (PROSCAR) 5 MG TAB PO SCH (21:00)
[2018-12-05] MEDS ORDERED: CARVEDILOL 12.5 MG (COREG) TABLET PO SCH (21:00)
[2018-12-05 23:53] VITALS: BP 146/85
[2018-12-06 03:53] LABS: HEMOGLOBIN 10.6 G/DL (13.3-17.7); MEAN PLATELET VOLUME 10.6 FL (7.4-10.4); RED CELL DISTRIBUTION WIDTH 13.5 % (10.0-14.5); WHITE BLOOD COUNT 8.7 10^3/uL (4.3-11.0)
[2018-12-06 04:00] VITALS: BP 169/86
[2018-12-06 04:23] LABS: ALBUMIN 3.4 GM/DL (3.2-4.5); BILIRUBIN,TOTAL 0.5 MG/DL (0.1-1.0); CALCIUM 9.1 MG/DL (8.5-10.1); CREATININE SERUM 1.62 MG/DL (0.60-1.30); TOTAL PROTEIN 5.8 GM/DL (6.4-8.2)
[2018-12-06] MEDS: ceFAZolin INJECTION 1,000 MG in NS (IVPB) 50 ML IV SCH (05:56)
[2018-12-06] MEDS ORDERED: KCL 10 MEQ TAB (MICRO K) PO SCH (07:00)
[2018-12-06] MEDS ORDERED: PIOGLITAZONE 30MG (ACTOS) TAB PO SCH (07:00)
--- NOTE | 2018-12-06 07:21 | Cardiology Progress Note ---
Subjective Date Seen by Provider: Dec 06, 2018 Time Seen by Provider: 07:20 Subjective/Events-last exam patient is laying down in bed, feeling well, site is healing well Review of Systems General: No Chills, No Night Sweats, No Fatigue, No Malaise, No Appetite, No Other HEENT: No Head Aches, No Visual Changes, No Eye Pain, No Ear Pain, No Dysphasia , No Sinus Congestion, No Post Nasal Drip, No Sore Throat, No Other Pulmonary: No Dyspnea, No Cough, No Pleuritic Chest Pain, No Other Cardiovascular: No: Chest Pain, Palpitations, Orthopnea, Paroxysmal Noc. Dyspnea, Edema, Lt Headedness, Other Objective-Cardiology Exam Last Set of Vital Signs Vital Signs 12/06/18 04:00 Temp 98.2 Pulse 61 Resp 20 B/P (MAP) 169/86 (113) Pulse Ox 95 O2 Delivery Room Air Capillary Refill : I&O Intake and Output 12/06/18 00:00 Intake Total 1550 ml Output Total 2500 ml Balance -950 ml Intake Oral 500 ml IV Total 1050 ml Output Urine Total 2500 ml General: Alert, Oriented X3, Cooperative HEENT: Atraumatic, PERRLA Neck: Supple, No JVD, No Thyromegaly Lungs: Clear to Auscultation, Normal Air Movement Heart: Regular Rate, Normal S1, Normal S2, No Murmurs Abdomen: Normal Bowel Sounds, Soft, No Tenderness, No Hepatosplenomegaly, No Masses Extremities: No Clubbing, No Cyanosis, No Edema, Normal Pulses, No Tenderness/ Swelling Skin: No Rashes, No Breakdown, No Significant Lesion Neuro: Normal Gait, Normal Speech, Strength at 5/5 X4 Ext, Normal Tone, Sensation Intact Psych/Mental Status: Mental Status NL, Mood NL Results Lab Laboratory Tests 12/05/18 12:14 12/06/18 03:29 A/P-Cardiology Admission Diagnosis Complete heart block Bradycardia Hypertension Hyperlipidemia Assessment/Plan Complete heart block, bradycardia, status post dual-chamber pacemaker implantation with no complication Hypertension, good control, continue to monitor Hyperlipidemia, continue medication monitor next Chronic renal insufficiency, chronic kidney disease stage III, monitor renal function PEPITO COLINDRES MD Dec 06, 2018 07:21
[2018-12-06] MEDS ORDERED: CEFU500T63 PO (07:23)
[2018-12-06] MEDS ORDERED: CARV12.53 PO (07:23)
--- NOTE | 2018-12-06 08:13 | NUR ---
Pt states he will take his home morning medication when he gets home. Pt also states he already has a follow up appointment next .
[2018-12-06] MEDS ORDERED: NON-FORMULARY MEDICATION 1 EA EA (Pioglitazone HCl 15 MG) PO SCH (09:00)
[2018-12-06] MEDS ORDERED: FUROSEMIDE 20 MG (LASIX) TAB PO SCH (09:00)
[2018-12-06] MEDS ORDERED: lisINopril 40 MG (PRINIVIL) TABLET PO SCH (09:00)
[2018-12-06] MEDS ORDERED: NON-FORMULARY MEDICATION 1 EA EA (Potassium Chloride 10 MEQ) PO SCH (09:00)
[2018-12-06] MEDS ORDERED: LINAGLIPTIN (TRADJENTA) 5 MG TABLET PO SCH (09:00)
== END 2018-12-06 09:15 | disposition home or self-care (01) ==
LOC: CATH 11:49 → ICU 16:15 → CATH 12-06 09:15
PROVIDERS: ATTEND Internal Medicine Cardiovascular Disease
DX: I44.2 Atrioventricular block, complete (principal); R00.1 Bradycardia, unspecified; I10 Essential (primary) hypertension; E11.9 Type 2 diabetes mellitus without complications; J30.2 Other seasonal allergic rhinitis; G47.33 Obstructive sleep apnea (adult) (pediatric); Z79.899 Other long term (current) drug therapy; Z11.2 Encounter for screening for other bacterial diseases; E78.5 Hyperlipidemia, unspecified; I27.20 Pulmonary hypertension, unspecified; I65.23 Occlusion and stenosis of bilateral carotid arteries; Z87.11 Personal history of peptic ulcer disease; R82.998 Other abnormal findings in urine
CPT/HCPCS: 33208; 36415; 71045; 80053; 81000; 85027; 85610; 85730; 87077; 87081; 87088

== ENCOUNTER → 2018-12-18 | Outpatient (CLI) | payer MEDICARE ==
[~2018-12-18] MED LIST changes: +CARV12.53 PO; -CATHETER FLUSH 10 ML SYR IV PRN; +CEFU500T63 PO; +FINA5TAB6 PO; +FURO20TA4 PO; +LINA5TAB PO; +LISI40TA PO; +PIOG15TA67 PO; +POTA10CA43 PO; -REGADENOSON 0.4 MG/5 ML SYR (LEXISCAN) IV ONE
--- NOTE | 2018-12-18 15:28 | Diagnostic Imaging Report ---
PROCEDURE: US Renal Bilateral. TECHNIQUE: Multiple real-time grayscale images were obtained over the kidneys in various projections bilaterally. INDICATION: Chronic kidney disease stage 3. Right kidney measures 10.8 x 6.5 x 5.4 cm and the left kidney measures 9.3 x 5.1 x 4.1 cm. Cortical thickness and echogenicity appears normal. There is a cyst involving the left kidney superiorly measuring approximately 4.7 x 4.2 cm. No calculi or hydronephrosis is identified. The urinary bladder is unremarkable. IMPRESSION: Left renal cyst. No other significant abnormality is detected. Dictated by: Dictated on workstation # [id number]
== END ==
LOC: RAD 13:18
PROVIDERS: ATTEND Internal Medicine Nephrology
DX: N18.3 Chronic kidney disease, stage 3 (moderate) (principal); N28.1 Cyst of kidney, acquired
CPT/HCPCS: 76770

== ENCOUNTER → 2019-12-02 | Outpatient (CLI) | payer MEDICARE ==
--- NOTE | 2019-12-02 18:12 | Diagnostic Imaging Report ---
INDICATION: Back pain. FINDINGS: Thoracic vertebral body heights are maintained, their alignment is anatomic. No bony destruction. No fracture. IMPRESSION: No acute-appearing abnormality. Dictated by: Dictated on workstation # [id number]
== END ==
LOC: RAD 13:23
PROVIDERS: ATTEND Nurse Practitioner Family
DX: M54.9 Dorsalgia, unspecified (principal)
CPT/HCPCS: 72072

== ENCOUNTER → 2019-12-23 | Outpatient (CLI) | payer MEDICARE ==
--- NOTE | 2019-12-23 13:52 | Diagnostic Imaging Report ---
INDICATION: Pre-MRI screening. FINDINGS: There is cardiomegaly. Some elevation of right hemidiaphragm. Pacemaker overlies left hemithorax. There are no abandoned leads. No pleural effusion, pneumothorax or pneumonia. Mediastinum is unremarkable. IMPRESSION: No acute cardiopulmonary abnormality. Cardiomegaly Dictated by: Dictated on workstation # [id number]
--- NOTE | 2019-12-23 14:27 | Diagnostic Imaging Report ---
INDICATION: Shoulder pain below shoulder blades. TECHNIQUE: Multiplanar and multisequence acquisitions were acquired of the shoulder without the use of gadolinium. FINDINGS: The alignment of thoracic spine is normal. The vertebral body heights are well-maintained. No spondylolysis or spondylolisthesis. No fractures are identified. Visualized portions of the spinal cord are normal signal intensity morphology. There is a benign hemangioma at approximately T7 vertebral body. There is no focal disc extrusion or high-grade spinal stenosis. Conus medullaris seen at L1 is normal in appearance. IMPRESSION: Mild thoracic spondylosis otherwise unremarkable. Dictated by: Dictated on workstation # [id number]
== END ==
LOC: RAD 12:26
PROVIDERS: ATTEND Nurse Practitioner Family
DX: M47.814 Spondylosis without myelopathy or radiculopathy, thoracic region (principal); Z95.0 Presence of cardiac pacemaker
CPT/HCPCS: 71045; 72146

== ENCOUNTER → 2022-02-07 | Outpatient (CLI) | payer MEDICARE ==
[~2022-02-07] MED LIST changes: -LISI40TA PO; +LISI40TA9 PO
== END ==
LOC: CARD 11:25
PROVIDERS: ATTEND Physician Assistant
DX: I08.0 Rheumatic disorders of both mitral and aortic valves (principal)
CPT/HCPCS: 93306

== ENCOUNTER → 2022-03-02 | Outpatient (CLI) | payer MEDICARE ==
[~2022-03-02] VITALS: Ht 180 cm; Wt 118.0 kg
[~2022-03-02] MED LIST changes: +CATHETER FLUSH 10 ML SYR IVP PRN; +REGADENOSON 0.4 MG/5 ML SYR (LEXISCAN) IV ONE
[2022-03-02 08:50] VITALS: BP 217/102
--- NOTE | 2022-03-02 11:58 | Cardiology Stress Test Report ---
Stress Test Report Date of Procedure/Referring: Date of Procedure: Mar 02, 2022 Kathrin Lopez Admitting Physician Fatemeh Loera MD Indications: HTN Baseline Heart Rate: 70 Baseline Blood Pressure: Blood Pressure Systolic: 217 Blood Pressure Diastolic: 102 Baseline Vitals Vital Signs Date Time Temp Pulse Resp B/P (MAP) Pulse Ox O2 Delivery O2 Flow Rate FiO2 03/02/22 08:50 70 217/102 (140) 98 Baseline EKG: Baseline EKG: LBBB Summary After explaining the procedure to the patient, he signed a consent and then brought to the stress nuclear laboratory. Patient received 0.4 mg Lexiscan for stress test, ECG, heart rate and blood pressure were monitored continuously. Resting and stress dose of radio tracer were injected, imaging was acquired and reviewed in short axis, horizontal long axis and vertical long axis views. TID: 1.09 SSS: 10 SDS: 5 EF: 42 1. Patient tolerated Lexiscan well 2. Baseline paced rhythm persisted during test 3. Baseline hypertension persisted during test 4. Diaphragmatic attenuation with reversible ischemia involving the mid to apical inferior wall inferolateral wall and fixed defect at the apex 5. Normal left ventricular size with hypokinesia of the inferior wall inferoapex and inferolateral wall, ejection fraction 43% PEPITO COLINDRES MD Mar 02, 2022 11:57
== END ==
LOC: CARD 08:00
PROVIDERS: ATTEND Physician Assistant
DX: I10 Essential (primary) hypertension (principal); I25.10 Atherosclerotic heart disease of native coronary artery without angina pectoris
CPT/HCPCS: 78452; 93017; A9502

== ENCOUNTER 2022-03-09 08:00 | Day surgery (SDC) | payer MEDICARE ==
[2022-03-09] VITALS (11 sets, daily range): BP systolic 137–170; BP diastolic 73–90
[~2022-03-09] VITALS: Ht 180.3 cm; Wt 121.1 kg
[2022-03-09 07:24] LABS: HEMATOCRIT 35 % (40-54); HEMOGLOBIN 11.8 g/dL (13.3-17.7); MEAN CORPUSCULAR HEMOGLOBIN 31 pg (25-34); MEAN CORPUSCULAR HGB CONC 33 g/dL (32-36); MEAN CORPUSCULAR VOLUME 94 fL (80-99); MEAN PLATELET VOLUME 9.9 fL (9.0-12.2); PLATELET COUNT 273 10^3/uL (130-400); WHITE BLOOD COUNT 10.9 10^3/uL (4.3-11.0)
[2022-03-09 07:25] LABS: BILIRUBIN,URINE NEGATIVE (NEGATIVE); CLARITY,URINE CLEAR; COLOR,URINE YELLOW; GLUCOSE, URINE (UA) NEGATIVE (NEGATIVE); KETONES,URINE NEGATIVE (NEGATIVE); LEUKOCYTE ESTERASE ,URINE NEGATIVE (NEGATIVE); NITRITE,URINE NEGATIVE (NEGATIVE); PH,URINE 5.5 (5-9); PROTEIN,URINE 2+ (NEGATIVE)
[2022-03-09 07:41] LABS: PROTHROMBIN TIME PATIENT 13.8 SEC (12.2-14.7)
[2022-03-09 07:42] LABS: ALBUMIN 3.8 GM/DL (3.2-4.5); POTASSIUM 4.2 MMOL/L (3.6-5.0)
[2022-03-09 07:43] LABS: CALCIUM 8.8 MG/DL (8.5-10.1)
[2022-03-09 07:44] LABS: TOTAL PROTEIN 6.4 GM/DL (6.4-8.2)
[2022-03-09 07:46] LABS: BILIRUBIN,TOTAL 0.3 MG/DL (0.1-1.0)
--- NOTE | 2022-03-09 07:47 | Diagnostic Imaging Report ---
EXAMINATION: Chest 1 view HISTORY: Abnormal stress test. Preop clearance for heart catheterization. COMPARISON: 12/23/2019. FINDINGS: There is elevation of the right hemidiaphragm. No focal consolidation is seen. No large pleural effusion or pneumothorax is seen. The cardiomediastinal silhouette is prominent. Left pectoral dual-chamber pacemaker is stable in configuration. No acute osseous abnormality is seen. IMPRESSION: 1. No acute pleuroparenchymal process. 2. Stable elevation of the right hemidiaphragm 3. Stable cardiomegaly. No overt pulmonary edema. Dictated by: Dictated on workstation # [id number]
[2022-03-09 07:48] LABS: CREATININE SERUM 2.48 MG/DL (0.60-1.30)
[2022-03-09 07:53] LABS: BACTERIA,URINE NEGATIVE /HPF; RBC,URINE 0-2 /HPF; SQUAMOUS EPITHELIAL CELL,UR 0-2 /HPF; WBC,URINE 0-2 /HPF
[2022-03-09 07:54] LABS: WAXY CASTS,URINE RARE /LPF
[~2022-03-09 08:00] MED LIST changes: +ASPI-1238 PO; +ATOR20TA66 PO; +BERBERINE PO; +CALC0.253 PO; -CATHETER FLUSH 10 ML SYR IVP PRN; +CHOL200074 PO; +CLON1PAT2 TD; +HEParin (CATH LAB) 2,000 ML IV ONE; +ISOS60TA63 PO; +LIDOCAINE 1% INJ 20 ML VIAL ONE; +MIDAZOLAM 5 MG/5 ML (VERSED) VIAL ONE; +MULT-1136 PO; +NS IV 1000 ML 0 ML ONE; +NS IV 1000 ML 1,000 ML IV SCH; -REGADENOSON 0.4 MG/5 ML SYR (LEXISCAN) IV ONE; +ZINC50TA61 PO; +fentaNYL INJ 100 MCG/2 ML AMP ONE
[2022-03-09] MEDS ORDERED: NS IV 1000 ML 1,000 ML ONE (08:17)
--- NOTE | 2022-03-09 08:35 | Conscious Sedation/ASA ---
Conscious Sedation Pre-Proced Time 08:35 ASA Score 3 For ASA 3 and 4: Consider anesthesia and medical clearance. Also, for patients with a history of failed moderate sedation consider anesthesia. Airway Lungs Heart ASA score ASA 1: a normal healthy patient ASA 2: a patient with a mild systemic disease (mid diabetes, controlled hypertension, obesity x ASA 3: a patient with a severe systemic disease that limits activity (angina, COPD, prior Myocardial infarction) ASA 4: a patient with an incapacitating disease that is a constant threat to life (CHF, renal failure) ASA 5: a moribund patient not expected to survive 24 hrs. (ruptured aneurysm) ASA 6: a declared brain- patient whose organs are being harvested. For emergent operations, add the letter E after the classification Mallampati Classification Grade 3 Sedation Plan Analgesia, Amnesia, Plan communicated to team members, Discussed options with patient/fam, Discussed risks with patient/fam The patient is an appropriate candidate to undergo the planned procedure, sedation, and anesthesia. The patient immediately re-assessed prior to indication. PEPITO COLINDRES MD March 09, 2022 08:35
--- NOTE | 2022-03-09 08:40 | Discharge Inst-Post CATH ---
Discharge Inst-CATH/EP Problems Reviewed?: Yes Post Cardiac Cath/EP D/C Inst Follow Up/Plan Appointment with Dr. Murdock's office in 2 to 4-week <b>CARDIAC CATH/EP PROCEDURE DISCHARGE INSTRUCTIONS</b> ACTIVITY * Go Home directly and rest. * Limit activity of the leg (or wrist if it was used) for 7 days including aero bics, swimming, jogging, bicycling, etc. * Restrict stair-climbing for 7 days if possible, if not, climb up with your non-cath leg, then bring together on the same step. * Avoid lifting, pushing, pulling or excessive movement of the affected extremit y for 7 days. * Customary sexual activity may be resumed after 2 days-use caution not to use a position that strains or causes pain to the affected extremity. * No driving for 24 hours. * NO SMOKING. * Avoid straining for bowel movements for 7 days. * Gentle walking on level ground is allowed. * Returning to work will depend on the type of procedure and the results. Your doctor will discuss this with you. CALL YOUR DOCTOR FOR ANY OF THE FOLLOWING: *If bleeding from the puncture site occurs- Apply gentle pressure to site with clean cloth and call your doctor or EMS. * If a knot or lump forms under the skin, increases in size, or causes pain. * If bruising appears to be worsening or moving further down your leg instead of disappearing. * Temperature above 101 F. CARE OF YOUR GROIN INCISION; * Bruising or purple discoloration of the skin near the puncture site is common. * You may shower only, no bathtub bathing for 5 days. Be careful to avoid slipping as your leg may feel stiff. * If a closure device was used on your femoral artery, please see the attached guide regarding care of the device and your leg. * Leave dressing on FOR 24 hours. CARE OF YOUR WRIST INCISION; * Bruising or purple discoloration of the skin near the puncture site is common. * You may shower. * DO NOT submerge wrist. * Leave dressing on FOR 24 hours. PEPITO MURDOCK MD March 09, 2022 08:40
--- NOTE | 2022-03-09 08:43 | Cardiac Cath Report ---
Cardiac Cath Report Physician (s)/Residential Team Leader (s) Physician PEPITO COLINDRES MD Pre-Procedure Diagnosis Pre-Procedure Diagnosis: Coronary artery disease Post-Procedure Note Procedure Start Date: March 09, 2022 Name of Procedure: Left heart catheterization Findings/Procedure Note PROCEDURE NOTE: 71-year-old gentleman with history of hypertension, hyperlipidemia, had an abnormal stress test, scheduled for cardiac catheterization possible PTCA. After explaining the procedure to the patient, all pros and cons were explained, all questions were answered. The patient signed the consent and then he was placed on the cardiac catheterization laboratory. Groin was prepped SL fashion local anesthesia was used. Sheath placed in the right radial artery. Brea right and left catheter were used to access the coronary system. Pigtail was used to access the left ventricular cavity. Left ventriculogram was not done to limit the exposure to contrast, pressure was measured At the end of the procedure the sheath was removed. Closure device was deployed FINDINGS: Hemodynamics LV 149/12, end-diastolic pressure of 12 Aorta 147/61 mean of 100 ANATOMY: Left Main is free of obstructive disease Left Anterior Descending is slightly tortuous with mild disease nonobstructive disease Left Circumflex has mild disease nonobstructive disease Right Coronary Artery is dominant artery with mild ectasia no obstructive disease LV Gram was not done, pressure was measured CONCLUSION: 1. Mild coronary artery disease nonobstructive disease, mild ectasia in the right coronary artery 2. Normal left ventricular end-diastolic pressure DISCUSSION AND RECOMMENDATION: Patient had very small amount of contrast received during the cardiac catheterization. Conservative management is recommended, abnormal stress test is probably due to extracardiac attenuation Anesthesia Type: Conscious Sedation Estimated blood loss (mL): 15 ml Contrast Amount: 12 ml Total Radiation Dose: 339 mGy Post-Procedure Diagnosis Post-operative diagnosis: Chest pain Coronary artery disease Hypertension Hyperlipidemia PEPITO COLINDRES MD March 09, 2022 08:42
[2022-03-09] MEDS ORDERED: NS IV 1000 ML 1,000 ML IV SCH (08:45)
[2022-03-09] MEDS ORDERED: PATIENT MAY USE OWN MEDS, ALL PO SCH (08:45)
== END 2022-03-09 13:10 ==
LOC: CATH 08:00 → SDC 08:54 → CATH 13:10
PROVIDERS: ATTEND Internal Medicine Cardiovascular Disease
DX: I25.10 Atherosclerotic heart disease of native coronary artery without angina pectoris (principal); I44.2 Atrioventricular block, complete; I12.9 Hypertensive chronic kidney disease with stage 1 through stage 4 chronic kidney disease, or unspecified chronic kidney disease; N18.9 Chronic kidney disease, unspecified; E11.22 Type 2 diabetes mellitus with diabetic chronic kidney disease; I65.23 Occlusion and stenosis of bilateral carotid arteries; R60.0 Localized edema; G47.33 Obstructive sleep apnea (adult) (pediatric); M17.10 Unilateral primary osteoarthritis, unspecified knee; Z79.899 Other long term (current) drug therapy; Z95.0 Presence of cardiac pacemaker; Z99.89 Dependence on other enabling machines and devices; Z87.19 Personal history of other diseases of the digestive system; Z79.84 Long term (current) use of oral hypoglycemic drugs
CPT/HCPCS: 71045; 80053; 80061; 81000; 85027; 85610; 85730; 87081; 93005; 93458; C1760; C1894; 36415

== ENCOUNTER → 2022-08-03 | Outpatient (CLI) | payer MEDICARE ==
[~2022-08-03] MED LIST changes: +GADOTERATE 0.5 MMOL/ML (CLARISCAN) 20 ML VIAL IV ONE; -HEParin (CATH LAB) 2,000 ML IV ONE; -LIDOCAINE 1% INJ 20 ML VIAL ONE; -MIDAZOLAM 5 MG/5 ML (VERSED) VIAL ONE; -NS IV 1000 ML 0 ML ONE; -NS IV 1000 ML 1,000 ML IV SCH; -fentaNYL INJ 100 MCG/2 ML AMP ONE
--- NOTE | 2022-08-03 13:58 | Diagnostic Imaging Report ---
EXAMINATION: Chest 1 view HISTORY: PRE-MRI SCREENING, PACEMAKER COMPARISON: 03/09/2022 FINDINGS: Heart size and pulmonary vasculature are normal. The lungs are clear without consolidation, pleural effusion, or pneumothorax. Degenerative changes of the thoracic spine. Osseous structures are otherwise intact. A left-sided cardiac device is present. IMPRESSION: 1. No acute radiographic abnormality in the chest. Dictated by: Dictated on workstation # [id number]
--- NOTE | 2022-08-03 16:11 | Diagnostic Imaging Report ---
EXAMINATION: MRI of the abdomen with and without contrast. TECHNIQUE: Multiplanar, multisequence MR images of the abdomen were obtained with and without intravenous contrast. HISTORY: RENAL MASS COMPARISON: None available. FINDINGS: Liver: The liver is normal in signal and smooth in contour. Numerous hepatic cysts are present. The portal and hepatic veins are patent. Gallbladder and Bile Ducts: There is no intrahepatic or extrahepatic bile duct dilation. There are no filling defects in the gallbladder or common bile duct. Pancreas: The pancreas is normal in volume, signal intensity and enhancement. There is no dilation of the main pancreatic duct. Kidneys: There are multiple bilateral renal cysts present. Many of the smaller cysts demonstrate intrinsic T1 hyperintense signal likely hemorrhagic cysts. No suspicious enhancing renal lesion. No hydronephrosis. Adrenal glands: There is no adrenal gland nodule or thickening. Spleen: The spleen is normal in size without focal lesion. Lymph Nodes: There is no suspicious lymphadenopathy. Other: There is no ascites. IMPRESSION: 1. Bilateral renal cysts, a few which are likely hemorrhagic. No suspicious enhancing renal lesion. 2. Otherwise unremarkable abdominal MRI. Dictated by: Dictated on workstation # [id number]
--- NOTE | 2022-08-03 16:13 | Diagnostic Imaging Report ---
PROCEDURE: MRI pelvis with and without contrast. TECHNIQUE: Multiplanar, multisequence MRI of the pelvis was performed with and without contrast. INDICATION: Renal mass COMPARISON: None available. FINDINGS: There is a fat-containing umbilical hernia. Bladder is normal. Prostate is unremarkable. Rectum is normal. No lymphadenopathy is seen in the pelvis. Aorta is normal. The iliofemoral arteries are normal in caliber. No free fluid or air. There are no suspicious osseus lesions. IMPRESSION: 1. No acute abnormality in the pelvis. Dictated by: Dictated on workstation # [id number]
== END ==
LOC: RAD 14:00
PROVIDERS: ATTEND Internal Medicine Nephrology
DX: N28.1 Cyst of kidney, acquired (principal)
CPT/HCPCS: 71045; 72197; 74183

== ENCOUNTER 2023-02-21 18:12 | Observation (INO) | payer MEDICARE ==
[~2023-02-21] VITALS: Ht 180 cm; Wt 124.1 kg
[~2023-02-21 18:12] MED LIST changes: -GADOTERATE 0.5 MMOL/ML (CLARISCAN) 20 ML VIAL IV ONE; -POTA10CA43 PO; +POTA10CA44 PO
[2023-02-21] MEDS ORDERED: NS IV 1000 ML 1,000 ML IV SCH (18:45)
[2023-02-21] MEDS ORDERED: CEFEPIME INJECTION 1,000 MG in NS (IVPB) 50 ML IV ONE (18:45)
[2023-02-21] MEDS ORDERED: ACETAMINOPHEN 500 MG TAB (TYLENOL) PO ONE (18:45)
[2023-02-21] MEDS ORDERED: ONDANSETRON 4 MG/2 ML (SDV) Z0FRAN IVP ONE (18:45)
--- NOTE | 2023-02-21 19:00 | ED General ---
General Chief Complaint: Fever-Adult/Adol Stated Complaint: FEVER Nursing Triage Note: PT AMB TO RM 3 PT STARTED HAVING CHILLS AROUND 1400 TODAY. PT DENIES DIFF W URINAITON, DENIES COUGH. PT CO OF NAUSEA AT TIMES. Source of Information: Patient, Spouse History of Present Illness Date Seen by Provider: Feb 21, 2023 Time Seen by Provider: 18:33 Initial Comments PT ARRIVES VIA POV FROM HOME PT BEGAN FEELING ILL AROUND 1400--HAD CHILLS AND FEVER OF 103 HAS NOT TAKEN ANYTHING FOR FEVER C/O LOWER BACK PAIN BEGAN HAVING NAUSEA ON ARRIVAL, NO VOMITING. STATES HE HAD NOT HAD NAUSEA UNTIL NOW. NO DIARRHEA NO URINARY SYMPTOMS NO COUGH OR CONGESTION NO CHEST PAIN OR SHORTNESS OF BREATH NO ABDOMINAL PAIN PT IS DIABETIC, HAS NOT CHECKED HIS BLOOD SUGAR TODAY PT HAS BEEN ABLE TO TAKE ALL HIS MEDICATIONS TODAY IN ADDITION TO DIABETES, PT HAS HTN, A FIB, CHRONIC KIDNEY DISEASE HAS PACEMAKER IN PLACE. HE HAS HAD PRIOR CARDIAC CATH-NO INTERVENTION PT HAS HAD COVID VACCINE X 4, AND FLU VACCINE. NO KNOWN SICK CONTACTS. 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 COLINDRES Allergies and Home Medications Allergies Coded Allergies: No Known Drug Allergies (Unverified , 12/05/18) Patient Home Medication List Home Medication List Reviewed: Yes Aspirin (Aspirin EC) 81 Mg Tablet., 81 MG PO DAILY, (Reported) Entered as Reported by: MARGARETH HERNÁNDEZ on 03/09/22740 Last Action: Reviewed Atorvastatin Calcium (Atorvastatin Calcium) 20 Mg Tablet, 20 MG PO HS, (Re ported) Entered as Reported by: MARGARETH HERNÁNDEZ on 03/09/22740 Calcitriol (Calcitriol) 0.25 Mcg Capsule, 0.25 MCG PO MONWEDFRI, (Reported) Entered as Reported by: MARGARETH HERNÁNDEZ on 03/09/22740 Carvedilol (Carvedilol) 12.5 Mg Tablet, 12.5 MG PO BID, (Reported) Entered as Reported by: MARGARETH HERNÁNDEZ on 03/09/22740 Last Action: Reviewed Cholecalciferol (Vitamin D3) (Vitamin D3) 50 Mcg (2000 Unit) Capsule, 50 MCG PO DAILY, (Reported) Entered as Reported by: MARGARETH HERNÁNDEZ on 03/09/22740 Last Action: Reviewed Clonidine (Catapres-TTS 2 Patch) 0.2 Mg/24 Hour Patch.tdwk, 1 EACH TD Q7D ON , (Reported) Entered as Reported by: MARGARETH HERNÁNDEZ on 03/09/22740 Last Action: Reviewed Clonidine HCl (Clonidine HCl) 0.1 Mg Tablet, 0.1 MG PO PRN Prescribed by: JOSELO LAFLEUR on 02/22/23125 Last Action: Reviewed Finasteride (Finasteride) 5 Mg Tablet, 5 MG PO HS, (Reported) Entered as Reported by: MARGARETH HERNÁNDEZ on 12/05/181225 Last Action: Reviewed Isosorbide Mononitrate (Isosorbide Mononitrate ER) 60 Mg Tab, 60 MG PO DAILY, (Reported) Entered as Reported by: MARGARETH HERNÁNDEZ on 03/09/22740 Last Action: Reviewed Linagliptin (Tradjenta) 5 Mg Tablet, 5 MG PO DAILY, (Reported) Entered as Reported by: MARGARETH HERNÁNDEZ on 12/05/181225 Last Action: Reviewed Multivitamin (Multivitamin) 1 Each Tablet, 2 EACH PO DAILY, (Reported) Entered as Reported by: MARGARETH HERNÁNDEZ on 03/09/22740 Last Action: Reviewed Pioglitazone HCl (Pioglitazone HCl) 15 Mg Tablet, 15 MG PO DAILY, (Reported) Entered as Reported by: MARGARETH HERNÁNDEZ on 12/05/181225 Last Action: Reviewed Zinc Amino Acid Chelate (Zinc Chelated) 50 Mg Tablet, 50 MG PO DAILY, (Reported) Entered as Reported by: MARGARETH HERNÁNDEZ on 03/09/22740 Last Action: Reviewed [Berberine ] , 2 TAB PO BID, (Reported) Entered as Reported by: MARGARETH HERNÁNDEZ on 03/09/22740 Last Action: Reviewed Review of Systems Review of Systems Constitutional: see HPI, chills, fever EENTM: no symptoms reported; No nose congestion, No throat pain Respiratory: no symptoms reported; No cough Cardiovascular: no symptoms reported; No chest pain, No edema, No palpitations, No syncope Gastrointestinal: see HPI; No abdominal pain, No constipation, No diarrhea; nausea; No vomiting Genitourinary: no symptoms reported Musculoskeletal: see HPI, back pain Skin: no symptoms reported Psychiatric/Neurological: No Symptoms Reported; Denies Headache Hematologic/Lymphatic: No Symptoms Reported Immunological/Allergic: no symptoms reported Past Dubzycb-Tznndf-Bimmuh Hx Patient Social History Tobacco Use?: No Substance use?: No Alcohol Use?: No Pt feels they are or have been: No Immunizations Up To Date Influenza Vaccine Up-to-Date: Yes; Up-to-Date First/Initial COVID19 Vaccinat: YES Second COVID19 Vaccination Ryan: YES Third COVID19 Vaccination Date: YES Past Medical History Surgery/Hospitalization HX: PACEMAKER, STAGE 4 KIDNEY DISEASE, A-FIB,HTN, DIABETES, SLEEP APNEA, GLAUCOMA, T AND A, HEART CATH, SKIN CANCERS REMOVED Surgeries: Yes Adenoidectomy, Cardiac, Orthopedic, Pacemaker, Tonsillectomy Respiratory: Yes Sleep Apnea Currently Using CPAP: Yes Currently Using BIPAP: No Cardiac: Yes (COMPLETE HEART BLOCK) High Cholesterol, Hypertension Neurological: No Genitourinary: Yes (CKD STAGE 4--NO DIALYSIS) Renal Failure Gastrointestinal: No Musculoskeletal: No Endocrine: Yes Diabetes, Non-Insulin dep HEENT: Yes (DIABETIC RETINOPATHY) Glaucoma Cancer: No Psychosocial: No Integumentary: Yes (SKIN CANCER) Blood Disorders: No Family Medical History PAST SURGICAL HISTORY: -TONSILLECTOMY/ADENOIDECTOMY 10/1958 -MOLE REMOVED FROM BACK ( PRECANCEROUS) 2009 -RIGHT KNEE MENISCUS REPAIR 2013 -PACEMAKER 12/05/2018 FOR COMPLETE HEART BLOCK, BY DR. COLINDRES -CARDIAC CATH 03/09/2019--NO INTERVENTION -SKIN CANCER REMOVED 09/14/2022 -CARDIAC CATH 03/09/[address] COLINDRES: -CONCLUSION: 1. Mild coronary artery disease nonobstructive disease, mild ectasia in the right coronary artery 2. Normal left ventricular end-diastolic pressure Physical Exam Vital Signs Vital Signs - First Documented 02/21/23 18:34 Temp 38.6 Pulse 86 Resp 19 B/P (MAP) 196/98 (130) Pulse Ox 97 O2 Delivery Room Air Capillary Refill : Less Than 3 Seconds Height, Weight, BMI Height: 5'11.00" Weight: 245lbs. 0.0oz. 111.687331bg; 37.00 BMI Method: General Appearance: WD/WN, Obese, Other (PT WALKS IN ON HIS OWN, BUT IS LETHARGIC, KEEPS EYES CLOSED, AND WANTS TO TALK FOR HIM. ) HEENT: PERRL/EOMI Neck: Normal Inspection Respiratory: Normal Breath Sounds, No Accessory Muscle Use, No Respiratory Distress Cardiovascular: Regular Rate, Rhythm, No Edema, No JVD, No Murmur Gastrointestinal: Normal Bowel Sounds, No Organomegaly, Non Tender, Soft Back: No CVA Tenderness Extremity: Normal Capillary Refill, Normal Inspection, Normal Range of Motion, Non Tender, No Calf Tenderness, No Pedal Edema Neurologic/Psychiatric: Alert, Oriented x3, No Motor/Sensory Deficits, comber fixer II- XII Norm as Tested Skin: Normal Color (FLUSHED), Warm/Dry (VERY WARM); No Ecchymosis, No Petechia, No Rash Focused Exam Sepsis Stage: Sepsis Possible Source: Unknown Lactate Level 02/21/23 18:45: Lactic Acid Level 1.26 Time of Focused Exam: 19:45 Respiratory: Normal Breath Sounds, No Accessory Muscle Use, No Respiratory Distress Cardiovascular: Regular Rate, Rhythm, No Murmur Capillary Refill: Less Than 3 Seconds Skin: normal color, warm/dry Lactic Acid Level Laboratory Tests Test 02/21/23 18:45 Lactic Acid Level 1.26 MMOL/L (0.50-2.00) Within 3hrs of presentation: Admin fluids, Admin ABX, Blood cultures prior to ABX's, Focus exam, Lactate level Progress/Results/Core Measures Suspected Sepsis SIRS Temperature: Pulse: 86 Respiratory Rate: 19 Laboratory Tests 02/21/23 18:45: White Blood Count 13.9H Blood Pressure 196 /98 Mean: 130 02/21/23 18:45: Lactic Acid Level 1.26 Laboratory Tests 02/21/23 18:45: Creatinine 2.97H, INR Comment 1.0, Platelet Count 304, Total Bilirubin 0.5 Results/Orders Lab Results Laboratory Tests Test 02/21/23 18:45 02/21/23 18:50 02/21/23 20:13 Range/Units White Blood Count 13.9 H 4.3-11.0 10^3/uL Red Blood Count 4.00 L 4.30-5.52 10^6/uL Hemoglobin 12.6 L 13.3-17.7 g/dL Hematocrit 38 L 40-54 % Mean Corpuscular Volume 95 80-99 fL Mean Corpuscular Hemoglobin 32 25-34 pg Mean Corpuscular Hemoglobin Concent 33 32-36 g/dL Red Cell Distribution Width 13.0 10.0-14.5 % Platelet Count 304 130-400 10^3/uL Mean Platelet Volume 10.3 9.0-12.2 fL Immature Granulocyte % (Auto) 1 % Neutrophils (%) (Auto) 93 H 42-75 % Lymphocytes (%) (Auto) 2 L 12-44 % Monocytes (%) (Auto) 3 0-12 % Eosinophils (%) (Auto) 2 0-10 % Basophils (%) (Auto) 0 0-10 % Neutrophils # (Auto) 12.9 H 1.8-7.8 10^3/uL Lymphocytes # (Auto) 0.3 L 1.0-4.0 10^3/uL Monocytes # (Auto) 0.4 0.0-1.0 10^3/uL Eosinophils # (Auto) 0.3 0.0-0.3 10^3/uL Basophils # (Auto) 0.0 0.0-0.1 10^3/uL Immature Granulocyte # (Auto) 0.1 0.0-0.1 10^3/uL Neutrophils % (Manual) 91 % Lymphocytes % (Manual) 2 % Monocytes % (Manual) 3 % Eosinophils % (Manual) 3 % Band Neutrophils 1 % Platelet Estimate NORMAL Blood Morphology Comment NORMAL Erythrocyte Sedimentation Rate 22 0-30 MM/HR Prothrombin Time 13.7 12.2-14.7 SEC INR Comment 1.0 0.8-1.4 Activated Partial Thromboplast Time 31 24-35 SEC Sodium Level 142 135-145 MMOL/L Potassium Level 4.6 3.6-5.0 MMOL/L Chloride Level 111 H 98-107 MMOL/L Carbon Dioxide Level 19 L 21-32 MMOL/L Anion Gap 12 5-14 MMOL/L Blood Urea Nitrogen 37 H 7-18 MG/DL Creatinine 2.97 H 0.60-1.30 MG/DL Estimat Glomerular Filtration Rate 21 BUN/Creatinine Ratio 12 Glucose Level 128 H 70-105 MG/DL Lactic Acid Level 1.26 0.50-2.00 MMOL/L Calcium Level 9.2 8.5-10.1 MG/DL Corrected Calcium 9.0 8.5-10.1 MG/DL Magnesium Level 1.9 1.6-2.4 MG/DL Total Bilirubin 0.5 0.1-1.0 MG/DL Aspartate Amino Transf (AST/SGOT) 17 5-34 U/L Alanine Aminotransferase (ALT/SGPT) 19 0-55 U/L Alkaline Phosphatase 68 40-136 U/L C-Reactive Protein High Sensitivity 0.80 H 0.00-0.50 MG/DL Total Protein 7.3 6.4-8.2 GM/DL Albumin 4.3 3.2-4.5 GM/DL Amylase Level 111 25-125 U/L Lipase 45 8-78 U/L Influenza Type A (RT-PCR) Not Detected Not Detecte Influenza Type B (RT-PCR) Not Detected Not Detecte SARS-CoV-2 RNA (RT-PCR) Not Detected Not Detecte Urine Color YELLOW Urine Clarity CLEAR Urine pH 6.0 5-9 Urine Specific [place] 1.025 H 1.016-1.022 Urine Protein 2+ H NEGATIVE Urine Glucose (UA) NEGATIVE NEGATIVE Urine Ketones NEGATIVE NEGATIVE Urine Nitrite NEGATIVE NEGATIVE Urine Bilirubin NEGATIVE NEGATIVE Urine Urobilinogen 0.2 < = 1.0 MG/DL Urine Leukocyte Esterase NEGATIVE NEGATIVE Urine RBC (Auto) NEGATIVE NEGATIVE Urine RBC NONE /HPF Urine WBC RARE /HPF Urine Squamous Epithelial Cells 2-5 /HPF Urine Crystals NONE /LPF Urine Bacteria TRACE /HPF Urine Casts PRESENT /LPF Urine Granular Casts 0-2 H /LPF Urine Mucus NEGATIVE /LPF Urine Culture Indicated CULTURE PENDING My Orders Orders - CATHERINE ANDRADE DO Ed Iv/Invasive Line Start (02/21/23 18:31) Monitor-Rhythm Ecg Trace Only (02/21/23 18:31) Covid 19 Inhouse Test (02/21/23 18:31) Cbc With Automated Diff (02/21/23 18:31) Comprehensive Metabolic Panel (02/21/23 18:31) Blood Culture (02/21/23 18:31) Sputum Culture (02/21/23 18:31) Urinalysis (02/21/23 18:31) Urine Culture (02/21/23 18:31) Protime With Inr (02/21/23 18:31) Partial Thromboplastin Time (02/21/23 18:31) Chest 1 View, Ap/Pa Only (02/21/23 18:31) Ed Iv/Invasive Line Start (02/21/23 18:31) Ed Iv/Invasive Line Start (02/21/23 18:31) O2 (02/21/23 18:31) Remove Rings In Anticipation O (02/21/23 18:31) Lactic Acid Analyzer (02/21/23 18:31) Cefepime Injection (Maxipime Injection) (02/21/23 18:45) Influenza A And B By Pcr (02/21/23 18:31) Isolation Central Supply Req (02/21/23 18:31) Ed Iv/Invasive Line Start (02/21/23 18:31) Ns Iv 1000 Ml (Sodium Chloride 0.9%) (02/21/23 18:45) Amylase (02/21/23 18:31) Hs C Reactive Protein (02/21/23 18:31) Lipase (02/21/23 18:31) Magnesium (02/21/23 18:31) Erythrocyte Sedimentation Rate (02/21/23 18:31) Ondansetron Injection (Zofran Injectio (02/21/23 18:45) Acetaminophen Tablet (Tylenol Tablet) (02/21/23 18:45) Manual Differential (02/21/23 18:45) Ct Chest/Abdomen/Pelvis Wo (02/21/23 20:55) Medications Given in ED Vital Signs/I&O 02/21/23 02/21/23 02/21/23 02/21/23 18:34 19:10 19:19 20:56 Temp 38.6 38.6 37.6 Pulse 86 Resp 19 B/P (MAP) 196/98 (130) Pulse Ox 97 O2 Delivery Room Air NIV CPAP 02/21/23 22:56 Pulse 79 Resp 20 B/P (MAP) 106/58 Pulse Ox 93 O2 Delivery Room Air 02/22/23 00:00 Intake Total 1050 ml Balance 1050 ml Capillary Refill : Less Than 3 Seconds Blood Pressure Mean: 130 Progress Note : Progress Note PPE WORN COVID AND FLU TESTING DONE SEPSIS PROTOCOL INITIATED GIVEN: -IV FLUIDS -TYLENOL -ZOFRAN -CEFEPIME PT WITH SIGNIFICANT IMPROVEMENT IN MENTATION--PT IS NO LONGER LETHARGIC, IS SIT TING UP, SMILING, TALKATIVE, DOES NOT APPEAR ILL OR TO BE IN ANY DISCOMFORT OR DISTRESS. STATES HE FEELS FINE NOW. TEMP DOWN WITH TYLENOL AND IV FLUIDS--DOWN TO 37.6=99.6 NO HYPOTENSION--PT WAS VERY HYPERTENSIVE ON ARRIVAL--190'S/90'S NO DYSPNEA NO HYPOXIA NO DETERIORATION IN PT'S CONDITION DURING ER STAY DISCUSSED TEST RESULTS, NEED FOR ADMIT AND PT IS AGREEABLE TO PLAN REVIEWED PRIOR RECORDS--OUTPATIENT CARDIAC CATH AND OUTPATIENT PACEMAKER PLACEMENT Diagnostic Imaging Comments CXR--PER RADIOLOGIST REPORT AT 1925 Correlation is made with prior chest from 08/03/2022. Heart size is stable. Cardiac pacemaker is in place. Lungs are clear. Right hemidiaphragm is chronically elevated. No infiltrate, effusion or pneumothorax is detected. IMPRESSION: Stable chest. No acute cardiopulmonary process is identified. CT CHEST/ABDOMEN/PELVIS--PER RADIOLOGIST REPORT AT 220 FINDINGS: The lungs are clear. There are no effusions or pneumothoraces. There is minimal calcific atherosclerosis of the aorta. There is no hilar or mediastinal lymphadenopathy. There is a dual-chamber pacemaker. There are multiple small round low density areas in the liver which are probably cysts. There are some small stones layering in the dependent portion of the gallbladder. The pancreas is unremarkable. The spleen is not enlarged. There is renal atrophy. Adrenals are unremarkable. There is some calcific atherosclerosis of the aorta. There is a fatty umbilical hernia. Small bowel is not dilated. Appendix is normal. There is diverticulosis of the colon without evidence of diverticulitis. Urinary bladder and prostate are unremarkable. There is no intraperitoneal free air or free fluid. IMPRESSION: 1. Probably polycystic liver. This appears similar to MRI from 08/03/2022. 2/ Cholecystolithiasis. 3. Uncomplicated diverticulosis of the colon. 4. 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 5. Fatty umbilical hernia. Reviewed: Reviewed by [place] Departure Communication (Admissions) 2209--SPOKE WITH DR. HENAO, HOSPITALIST FOR [facility]. ACCEPTS PT FOR ADMIT. Impression Primary Impression: Sepsis-unknown etiology Additional Impressions: Chronic renal failure NIDDM HTN (hypertension) Disposition: ADMITTED INPATIENT Condition: Improved Admissions Decision to Admit Reason: Admit from ER (General) Decision to Admit/Date: Feb 21, 2023 Time/Decision to Admit Time: 22:10 Departure-Patient Inst. Referrals: CHRISTINE BRAND APRN (PCP/Family) Primary Care Physician Scripts Clonidine HCl (Clonidine HCl) 0.1 Mg Tablet 0.1 MG PO PRN for Systolic Blood Pressure, #1 TAB Clonidine 0.2 Transdermal patch delivers prescribed dose (change weekly-Monday) If systolic blood pressure exceeds 170, take clonidine 0.1mg in addition. *per patient's personal home medication sheet Prov: VALENCIA HENAO DO 02/22/23 CATHERINE ANDRADE DO Feb 21, 2023 19:00
[2023-02-21 19:08] LABS: BASOPHILS % (AUTO) 0 % (0-10); EOSINOPHILS # (AUTO) 0.3 10^3/uL (0.0-0.3); EOSINOPHILS % (AUTO) 2 % (0-10); HEMATOCRIT 38 % (40-54); HEMOGLOBIN 12.6 g/dL (13.3-17.7); LYMPHOCYTES # (AUTO) 0.3 10^3/uL (1.0-4.0); LYMPHOCYTES % (AUTO) 2 % (12-44); MEAN CORPUSCULAR HEMOGLOBIN 32 pg (25-34); MEAN CORPUSCULAR HGB CONC 33 g/dL (32-36); MEAN CORPUSCULAR VOLUME 95 fL (80-99); MEAN PLATELET VOLUME 10.3 fL (9.0-12.2); MONOCYTES # (AUTO) 0.4 10^3/uL (0.0-1.0); MONOCYTES % (AUTO) 3 % (0-12); NEUTROPHILS # (AUTO) 12.9 10^3/uL (1.8-7.8); NEUTROPHILS % (AUTO) 93 % (42-75); PLATELET COUNT 304 10^3/uL (130-400); WHITE BLOOD COUNT 13.9 10^3/uL (4.3-11.0)
--- NOTE | 2023-02-21 19:20 | Diagnostic Imaging Report ---
INDICATION: Fever. Time of Exam: 7:11 PM Correlation is made with prior chest from 08/03/2022. Heart size is stable. Cardiac pacemaker is in place. Lungs are clear. Right hemidiaphragm is chronically elevated. No infiltrate, effusion or pneumothorax is detected. IMPRESSION: Stable chest. No acute cardiopulmonary process is identified. Dictated by: Dictated on workstation # [id number]
[2023-02-21 19:23] LABS: ALBUMIN 4.3 GM/DL (3.2-4.5); POTASSIUM 4.6 MMOL/L (3.6-5.0)
[2023-02-21 19:24] LABS: CALCIUM 9.2 MG/DL (8.5-10.1)
[2023-02-21 19:25] LABS: TOTAL PROTEIN 7.3 GM/DL (6.4-8.2)
[2023-02-21 19:26] LABS: PROTHROMBIN TIME PATIENT 13.7 SEC (12.2-14.7)
[2023-02-21 19:27] LABS: BILIRUBIN,TOTAL 0.5 MG/DL (0.1-1.0)
[2023-02-21 19:29] LABS: CREATININE SERUM 2.97 MG/DL (0.60-1.30)
[2023-02-21 19:31] LABS: MAGNESIUM 1.9 MG/DL (1.6-2.4)
[2023-02-21 19:58] LABS: BAND NEUTROPHILS 1 %; EOSINOPHILS % (MANUAL) 3 %; ERYTHROCYTE SEDIMENTATION RATE 22 MM/HR (0-30); LYMPHOCYTES % (MANUAL) 2 %; MONOCYTES % (MANUAL) 3 %; NEUTROPHILS % (MANUAL) 91 %; PLATELET ESTIMATE NORMAL; RBC MORPH NORMAL
[2023-02-21 20:22] LABS: BILIRUBIN,URINE NEGATIVE (NEGATIVE); CLARITY,URINE CLEAR; COLOR,URINE YELLOW; GLUCOSE, URINE (UA) NEGATIVE (NEGATIVE); KETONES,URINE NEGATIVE (NEGATIVE); LEUKOCYTE ESTERASE ,URINE NEGATIVE (NEGATIVE); NITRITE,URINE NEGATIVE (NEGATIVE); PROTEIN,URINE 2+ (NEGATIVE)
[2023-02-21 20:41] LABS: BACTERIA,URINE TRACE /HPF; GRANULAR CASTS,URINE 0-2 /LPF; WBC,URINE RARE /HPF
--- NOTE | 2023-02-21 21:54 | Diagnostic Imaging Report ---
PROCEDURE: CT chest, abdomen, and pelvis without contrast. TECHNIQUE: Multiple contiguous axial images were obtained through the chest, abdomen, and pelvis without the use of intravenous contrast. Auto Exposure Controls were utilized during the CT exam to meet ALARA standards for radiation dose reduction. INDICATION: Back pain and fever. FINDINGS: The lungs are clear. There are no effusions or pneumothoraces. There is minimal calcific atherosclerosis of the aorta. There is no hilar or mediastinal lymphadenopathy. There is a dual-chamber pacemaker. There are multiple small round low density areas in the liver which are probably cysts. There are some small stones layering in the dependent portion of the gallbladder. The pancreas is unremarkable. The spleen is not enlarged. There is renal atrophy. Adrenals are unremarkable. There is some calcific atherosclerosis of the aorta. There is a fatty umbilical hernia. Small bowel is not dilated. Appendix is normal. There is diverticulosis of the colon without evidence of diverticulitis. Urinary bladder and prostate are unremarkable. There is no intraperitoneal free air or free fluid. IMPRESSION: 1. Probably polycystic liver. This appears similar to MRI from 08/03/2022. 2/ Cholecystolithiasis. 3. Uncomplicated diverticulosis of the colon. 4. 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 5. Fatty umbilical hernia. Dictated by: Dictated on workstation # [id number]
[2023-02-21] MEDS ORDERED: NS IV 1000 ML 1,000 ML ONE (23:07)
[2023-02-21] MEDS: NS IV 1000 ML 1,000 ML IV SCH (23:10)
[2023-02-21 23:30] VITALS: BP 123/58
[2023-02-21] MEDS ORDERED: ONDANSETRON 4 MG/2 ML (SDV) Z0FRAN IV PRN (23:30)
[2023-02-21] MEDS ORDERED: ACETAMINOPHEN 500 MG TAB (TYLENOL) PO PRN (23:30)
[2023-02-21] MEDS ORDERED: fentaNYL INJ 100 MCG/2 ML AMP IV PRN (23:30)
[2023-02-22] MEDS ORDERED: CHOL200059 PO (01:20)
[2023-02-22] MEDS ORDERED: CLN.1T PO (01:26)
[2023-02-22 04:00] VITALS: BP 132/66
[2023-02-22] MEDS: NS IV 1000 ML 1,000 ML IV SCH (05:29)
[2023-02-22 05:48] LABS: BASOPHILS % (AUTO) 0 % (0-10); EOSINOPHILS # (AUTO) 0.5 10^3/uL (0.0-0.3); EOSINOPHILS % (AUTO) 3 % (0-10); HEMATOCRIT 32 % (40-54); HEMOGLOBIN 10.5 g/dL (13.3-17.7); LYMPHOCYTES # (AUTO) 0.3 10^3/uL (1.0-4.0); LYMPHOCYTES % (AUTO) 2 % (12-44); MEAN CORPUSCULAR HEMOGLOBIN 31 pg (25-34); MEAN CORPUSCULAR HGB CONC 33 g/dL (32-36); MEAN CORPUSCULAR VOLUME 96 fL (80-99); MEAN PLATELET VOLUME 10.2 fL (9.0-12.2); MONOCYTES # (AUTO) 0.5 10^3/uL (0.0-1.0); MONOCYTES % (AUTO) 3 % (0-12); NEUTROPHILS # (AUTO) 14.2 10^3/uL (1.8-7.8); NEUTROPHILS % (AUTO) 91 % (42-75); PLATELET COUNT 254 10^3/uL (130-400); WHITE BLOOD COUNT 15.5 10^3/uL (4.3-11.0)
[2023-02-22 06:14] LABS: ALBUMIN 3.4 GM/DL (3.2-4.5); BILIRUBIN,TOTAL 0.4 MG/DL (0.1-1.0); CALCIUM 8.2 MG/DL (8.5-10.1); CREATININE SERUM 3.02 MG/DL (0.60-1.30); POTASSIUM 4.5 MMOL/L (3.6-5.0); TOTAL PROTEIN 5.9 GM/DL (6.4-8.2)
[2023-02-22] MEDS ORDERED: ONDANSETRON 4 MG (ZOFRAN) ORAL DISSOLVE TAB PO PRN (06:15)
[2023-02-22] MEDS ORDERED: MELATONIN 3 MG TABLET PO PRN (06:15)
[2023-02-22] MEDS ORDERED: ENOXAPARIN 40 MG/0.4 ML (LOVENOX) SYR SC SCH (06:15)
[2023-02-22] MEDS ORDERED: ONDANSETRON 4 MG/2 ML (SDV) Z0FRAN IV PRN (06:15)
[2023-02-22] MEDS ORDERED: BISACODYL 10 MG SUPP (DULCOLAX) PR PRN (06:15)
[2023-02-22] MEDS ORDERED: diphenhydrAMINE 50 MG/ML INJ (BENADRYL) IVP PRN (06:15)
[2023-02-22] MEDS ORDERED: CALCIUM CARBONATE 500 MG (TUMS) TAB.CHEW PO PRN (06:15)
[2023-02-22] MEDS ORDERED: ANTACID SUSP 30 ML UDC (MYLANTA) PO PRN (06:15)
[2023-02-22] MEDS ORDERED: diphenhydrAMINE 25 MG TAB (BENADRYL) PO PRN (06:15)
[2023-02-22] MEDS ORDERED: MILK OF MAGNESIA 400 MG/5 ML 30 ML UDC PO PRN (06:15)
[2023-02-22] MEDS ORDERED: LACTULOSE SYRUP 10GM/15ML (ENULOSE) 30ML UDC PO PRN (06:15)
[2023-02-22] MEDS ORDERED: polyethylene glycoL POWDER 17 GM (MIRALAX) PACK PO PRN (06:15)
[2023-02-22] MEDS ORDERED: ACETAMINOPHEN 325 MG TABLET PO PRN (06:15)
[2023-02-22] MEDS: inSUlin ASPART (NovoLOG) 1 UNIT/0.01 ML (CHARGE PER UNIT) SC SCH ×4 (06:22→20:41)
[2023-02-22] MEDS ORDERED: ENOXAPARIN 40 MG/0.4 ML (LOVENOX) SYR ONE (06:36)
[2023-02-22 07:59] VITALS: BP 171/74
[2023-02-22] MEDS: CEFEPIME 1,000 MG/NS 50 ML IVPB IV SCH ×4 (09:08→20:41)
[2023-02-22] MEDS: SENNOSIDES 8.6 MG (SENOKOT) TAB PO SCH ×2 (09:09→20:41)
[2023-02-22] MEDS: DOCUSATE SODIUM 100 MG (COLACE) CAP PO SCH ×2 (09:09→20:41)
--- NOTE | 2023-02-22 09:25 | History & Physical-Hospitalist ---
MILAGROS LAUGHLIN 02/22/23 0925: History of Present Illness HPI/Chief Complaint Mr. Reyes 72 yo male with pmhx significant for CKD stage 4, DM, Afib presented to ED for chills and fever of 103. Pt reports prior to coming into ED he felt tired. Sepsis protocol initiated and patient was given IV fluids, Tylenol, Zofran, and Cefepime with much improvement of his sx. Today he reports that he feels tired but reports no other sx. No immediate sick contacts but did go [place] the [place]. Monday night he felt itchy throughout his body but Monday morning that went away. Denies any N/V/D, CP, or SOB. No new or worsening sx. Source: patient Date Seen 02/22/23 Time Seen by a Provider: 08:30 Attending Physician Wendy Mcdermott Aprn PCP Admitting Physician: Jolie Henao DO Attending Physician: Jolie Henao DO Referring Physician Date of Admission Feb 21, 2023 at 22:56 Home Medications & Allergies Home Medications Reviewed patient Home Medication Reconciliation performed by pharmacy medication reconciliations mathematics technician and/or nursing. Patients Allergies have been reviewed. Allergies Allergies Coded Allergies No Known Drug Allergies (Unverified12/05/18) Past Qxujmpx-Qakkdd-Xknouc Hx Patient Social History Tobacco Use?: No Smoking Status: Never a Smoker Use of E-Cig and/or Vaping dev: No Substance use?: No Alcohol Use?: No Pt feels they are or have been: No Immunizations Up To Date First/Initial COVID19 Vaccinat: YES Second COVID19 Vaccination Ryan: YES Current Status Advance Directives: Yes Communicates: Verbally Primary Language: Hebrew Preferred Spoken Language: Hebrew Is interpretation needed?: No Sensory deficits: Vision impairment Implanted or Applied Medical D: CPAP Past Medical History Surgeries: Adenoidectomy, Cardiac, Orthopedic, Pacemaker, Tonsillectomy Sleep Apnea Currently Using CPAP: Yes Currently Using BIPAP: No High Cholesterol, Hypertension Renal Failure Diabetes, Non-Insulin dep Glaucoma Blood Disorders: No Family Medical History PAST SURGICAL HISTORY: -TONSILLECTOMY/ADENOIDECTOMY 10/1958 -MOLE REMOVED FROM BACK ( PRECANCEROUS) 2009 -RIGHT KNEE MENISCUS REPAIR 2013 -PACEMAKER 12/05/2018 FOR COMPLETE HEART BLOCK, BY DR. COLINDRES -CARDIAC CATH 03/09/2019--NO INTERVENTION -SKIN CANCER REMOVED 09/14/2022 -CARDIAC CATH 03/09/[address] COLINDRES: -CONCLUSION: 1. Mild coronary artery disease nonobstructive disease, mild ectasia in the right coronary artery 2. Normal left ventricular end-diastolic pressure Review of Systems Constitutional: malaise EENTM: no symptoms reported Respiratory: no symptoms reported Cardiovascular: no symptoms reported Gastrointestinal: no symptoms reported Genitourinary: no symptoms reported Musculoskeletal: no symptoms reported All Other Systems Reviewed Negative Unless Noted: Yes Physical Exam Physical Exam Vital Signs Vital Signs - First Documented 02/21/23 18:34 Temp 38.6 Pulse 86 Resp 19 B/P (MAP) 196/98 (130) Pulse Ox 97 O2 Delivery Room Air Capillary Refill : Less Than 3 Seconds Height, Weight, BMI Height: 5'11.00" Weight: 245lbs. 0.0oz. 111.443586zx; 38.27 BMI Method: General Appearance: No Apparent Distress, WD/WN HEENT: PERRL/EOMI Respiratory: Chest Non Tender, Lungs Clear, Normal Breath Sounds, No Accessory Muscle Use, No Respiratory Distress Cardiovascular: Regular Rate, Rhythm, Normal Peripheral Pulses Gastrointestinal: Normal Bowel Sounds, No Pulsatile Mass, Non Tender, Soft Extremity: Normal Capillary Refill, Normal Inspection, No Pedal Edema Neurologic/Psychiatric: Alert, Oriented x3, Normal Mood/Affect Skin: Normal Color, Warm/Dry Lymphatic: No Adenopathy Results Results/Procedures Labs Laboratory Tests 02/21/23 18:45 02/22/23 05:23 Patient resulted labs reviewed. Imaging: Reviewed Imaging Report Assessment/Plan Admission Diagnosis Sepsis Admission Status: Inpatient Order (span 2 midnights) Reason for Inpatient Admission: Sepsis Assessment and Plan Assessment/Plan: Sepsis of unknown etiology CBC, CMP cxr unremarkable CT abd/pelvis Cefepime Zofran pain meds prn Afib HTN Sleep Apnea CKD 4 DIabetic Retinopathy Glaucoma Restart home meds as indicated Renally dose all meds Strict I and Os Diet: Regular Code status: DNR DVT Prophylaxis: Lovenox Disposition: likely 1-2 midnights pending pt status JOLIE HENAO DO 02/23/23 0442: History of Present Illness Source: patient, family Past Ywajxlz-Usaoqc-Hcbykk Hx Patient Social History Marrital Status: Employed/Student: retired Smoking Status: Former Smoker Past Medical History High Cholesterol, Hypertension Renal Failure Review of Systems Constitutional: see HPI, fever, malaise, weakness Physical Exam Physical Exam General Appearance: No Apparent Distress, Chronically ill Eyes: Right Eye Normal Inspection, Right Eye PERRL HEENT: PERRL/EOMI, Normal ENT Inspection, Pharynx Normal, Moist Mucous Membranes Neck: Full Range of Motion, Normal Inspection, Non Tender Respiratory: Chest Non Tender, Lungs Clear, Normal Breath Sounds, No Accessory Muscle Use, No Respiratory Distress Cardiovascular: Regular Rate, Rhythm, No Edema, No Gallop, No JVD, No Murmur, Normal Peripheral Pulses Gastrointestinal: Normal Bowel Sounds, No Organomegaly, No Pulsatile Mass, Non Tender, Soft Back: Normal Inspection, No CVA Tenderness, No Vertebral Tenderness Extremity: Normal Capillary Refill, Normal Inspection, Normal Range of Motion, Non Tender, No Calf Tenderness, No Pedal Edema Neurologic/Psychiatric: Alert, Oriented x3, No Motor/Sensory Deficits, Normal Mood/Affect Skin: Normal Color, Warm/Dry Lymphatic: No Adenopathy Assessment/Plan Admission Diagnosis Fever of uncertain source Elevated lactic acid CKD Stage IV on transplant list at [facility] HLP Plan: Abx Monitor DC tomorrow Admission Status: Observation Supervisory-Addendum Brief Verification & Attestation Participated in pt care: history, MDM, physical Personally performed: exam, history, MDM, supervision of care Care discussed with: Medical Student Procedures: n/a Results interpretation: Verified all documentation Verification and Attestation of Medical Student E/M Service A medical student performed and documented this service in my presence. I reviewed and verified all information documented by the medical student and made modifications to such information, when appropriate. I personally performed the physical exam and medical decision making. Jolie Henao, Feb 23, 2023,04:40 MILAGROS LAUGHLIN Feb 22, 2023 09:25 JOLIE HENAO DO Feb 23, 2023 04:42
[2023-02-22 11:29] VITALS: BP 136/69
--- NOTE | 2023-02-22 11:43 | Diagnostic Imaging Report ---
Indication: Fever. Time of Exam: 7:17 AM Correlation is made with prior chest from one day earlier. The heart size is stable. Right hemidiaphragm is elevated. No infiltrates are detected. There is no effusion or pneumothorax. Cardiac pacemaker remains in place. IMPRESSION: Stable chest. No acute feature is detected. Dictated by: Dictated on workstation # [id number]
[2023-02-22] MEDS ORDERED: cloNIDine 0.1 MG (CATAPRES) TAB PO PRN (12:15)
[2023-02-22] MEDS ORDERED: CARV25TA PO (12:33)
[2023-02-22] MEDS ORDERED: MCT OIL PO (12:33)
[2023-02-22] MEDS ORDERED: VITAMIN C PO (12:33)
[2023-02-22] MEDS ORDERED: QUERCETIN PO (12:33)
[2023-02-22] MEDS ORDERED: BERBERINE PO (12:33)
[2023-02-22] MEDS ORDERED: VIT1CAPS PO (12:33)
[2023-02-22 15:57] VITALS: BP 152/71
[2023-02-22 20:20] VITALS: BP 158/73
[2023-02-22] MEDS ORDERED: FINASTERIDE (PROSCAR) 5 MG TAB PO SCH (21:00)
[2023-02-23 00:26] VITALS: BP 127/59
[2023-02-23 04:00] VITALS: BP 133/62
[2023-02-23 06:10] LABS: BASOPHILS % (AUTO) 0 % (0-10); EOSINOPHILS % (AUTO) 7 % (0-10); HEMATOCRIT 29 % (40-54); HEMOGLOBIN 9.7 g/dL (13.3-17.7); LYMPHOCYTES # (AUTO) 0.4 10^3/uL (1.0-4.0); LYMPHOCYTES % (AUTO) 3 % (12-44); MEAN CORPUSCULAR HEMOGLOBIN 32 pg (25-34); MEAN CORPUSCULAR HGB CONC 34 g/dL (32-36); MEAN CORPUSCULAR VOLUME 96 fL (80-99); MEAN PLATELET VOLUME 10.5 fL (9.0-12.2); MONOCYTES # (AUTO) 0.8 10^3/uL (0.0-1.0); MONOCYTES % (AUTO) 6 % (0-12); NEUTROPHILS # (AUTO) 10.8 10^3/uL (1.8-7.8); NEUTROPHILS % (AUTO) 83 % (42-75); PLATELET COUNT 215 10^3/uL (130-400); WHITE BLOOD COUNT 13.1 10^3/uL (4.3-11.0)
[2023-02-23 06:28] LABS: POTASSIUM 4.4 MMOL/L (3.6-5.0)
[2023-02-23 06:29] LABS: CALCIUM 7.8 MG/DL (8.5-10.1)
[2023-02-23 06:30] LABS: TOTAL PROTEIN 5.4 GM/DL (6.4-8.2)
[2023-02-23 06:32] LABS: BILIRUBIN,TOTAL 0.4 MG/DL (0.1-1.0)
[2023-02-23 06:34] LABS: CREATININE SERUM 3.21 MG/DL (0.60-1.30)
[2023-02-23] MEDS: inSUlin ASPART (NovoLOG) 1 UNIT/0.01 ML (CHARGE PER UNIT) SC SCH ×2 (06:38→11:00)
[2023-02-23] MEDS ORDERED: PIOGLITAZONE 30MG (ACTOS) TAB PO SCH (07:00)
[2023-02-23] MEDS ORDERED: MULTIVIT W/MINERALS TAB (THERAGRAN M) PO SCH (07:00)
[2023-02-23 07:43] VITALS: BP 160/73
[2023-02-23] MEDS ORDERED: ZINC SULFATE 220 MG CAPSULE PO SCH (08:00)
[2023-02-23] MEDS ORDERED: ISOSORBIDE MONONITRATE 60 MG (IMDUR) TAB PO SCH (09:00)
[2023-02-23] MEDS ORDERED: ZINC AMINO ACID CHELATE PO SCH (09:00)
[2023-02-23] MEDS ORDERED: VITAMIN D3 25 MCG (1,000 UNITS) TABLET PO SCH (09:00)
[2023-02-23] MEDS ORDERED: NON-FORMULARY MEDICATION 1 EA EA (Cholecalciferol (Vitamin D3) (Vitamin D3) 50 MCG) PO SCH (09:00)
[2023-02-23] MEDS ORDERED: MULTIVITAMIN PO SCH (09:00)
[2023-02-23] MEDS ORDERED: ASPIRIN E.C. 81 MG (ECOTRIN) TAB PO SCH (09:00)
[2023-02-23] MEDS ORDERED: ENOXAPARIN INJECTION 30 MG/0.3 ML SYR SC SCH (09:00)
[2023-02-23] MEDS ORDERED: NON-FORMULARY MEDICATION 1 EA EA (Pioglitazone HCl 15 MG) PO SCH (09:00)
[2023-02-23] MEDS ORDERED: ENOXAPARIN 40 MG/0.4 ML (LOVENOX) SYR SC SCH (09:00)
[2023-02-23] MEDS: CEFEPIME 1,000 MG/NS 50 ML IVPB IV SCH ×2 (10:01)
[2023-02-23] MEDS: DOCUSATE SODIUM 100 MG (COLACE) CAP PO SCH (10:02)
[2023-02-23] MEDS: SENNOSIDES 8.6 MG (SENOKOT) TAB PO SCH (10:02)
[2023-02-23 10:11] VITALS: BP 158/76
[2023-02-23] MEDS ORDERED: LINEZOLID IVPB 300 ML IV SCH (11:00)
[2023-02-23 11:48] VITALS: BP 119/66
[2023-02-23] MEDS ORDERED: FAMO-119 PO (11:56)
[2023-02-23] MEDS ORDERED: FAMOTIDINE 20 MG (PEPCID) TABLET PO NR (12:00)
--- NOTE | 2023-02-23 12:31 | Consultation - Surgery ---
[facility] 02/23/23 1231: History of Present Illness History of Present Illness Patient Consulted On(yoseph/time) 02/23/23 12:26 Date Seen by Provider: Feb 23, 2023 Time Seen by Provider: 11:23 History of Present Illness Consult requested by Dr. Henao. Patient presented to the ED on 02/21 with chills and fever. No source was found but he improved with cefepime. A rash erupted this morning over the abdomen, back and thighs. He is not having any itching or pain with it. There is also a quarter-size bruised area on his LUQ. He reports he rests a book on that location to read most days and is wondering if this may have contributed. Denies N/V/D, CP, or SOB. Allergies and Home Medications Allergies Coded Allergies: diphenhydramine (Verified Allergy, Unknown, 02/23/23) Patient Home Medication List Home Medication List Reviewed: Yes Aspirin (Aspirin EC) 81 Mg Tablet.dr, 81 MG PO DAILY, (Reported) Entered as Reported by: MARGARETH HERNÁNDEZ on 03/09/22740 Last Action: Reviewed Carvedilol (Carvedilol) 25 Mg Tablet, 25 MG PO BID, (Reported) Entered as Reported by: NA STOREY on 02/22/23 1233 Last Action: Reviewed Cholecalciferol (Vitamin D3) (Vitamin D3) 50 Mcg (2000 Unit) Capsule, 50 MCG PO DAILY, (Reported) Entered as Reported by: MARGARETH HERNÁNDEZ on 03/09/22740 Last Action: Reviewed Clonidine (Catapres-TTS 2 Patch) 0.2 Mg/24 Hour Patch.tdwk, 1 PATCH TD SUN, (Reported) Entered as Reported by: MARGARETH HERNÁNDEZ on 03/09/22740 Last Action: Reviewed Famotidine (Pepcid) 20 Mg Tablet, 20 MG PO BID Prescribed by: VALENCIA HENAO on 02/23/23 1156 Finasteride (Finasteride) 5 Mg Tablet, 5 MG PO HS, (Reported) Entered as Reported by: MARGARETH HERNÁNDEZ on 12/05/18 1226 Last Action: Reviewed Isosorbide Mononitrate (Isosorbide Mononitrate ER) 60 Mg Tab, 60 MG PO DAILY, (Reported) Entered as Reported by: MARGARETH HERNÁNDEZ on 03/09/22740 Last Action: Reviewed Linagliptin (Tradjenta) 5 Mg Tablet, 5 MG PO DAILY, (Reported) Entered as Reported by: MARGARETH HERNÁNDEZ on 12/05/181225 Last Action: Reviewed Multivitamin (Multivitamin) 1 Each Tablet, 2 EACH PO DAILY, (Reported) Entered as Reported by: MARGARETH HERNÁNDEZ on 03/09/22740 Last Action: Reviewed Pioglitazone HCl (Pioglitazone HCl) 15 Mg Tablet, 15 MG PO DAILY, (Reported) Entered as Reported by: MARGARETH HERNÁNDEZ on 12/05/181225 Last Action: Reviewed Zinc Amino Acid Chelate (Zinc Chelated) 50 Mg Tablet, 50 MG PO DAILY, (Reported) Entered as Reported by: MARGARETH HERNÁNDEZ on 03/09/22740 Last Action: Reviewed [Berberine +Mct Oil] 350 CAP, 1 EA PO BID, (Reported) Entered as Reported by: NA STOREY on 02/22/231232 Last Action: Reviewed [Vitamin C/Quercetin] 500-250 CAP, 1 EA PO DAILY, (Reported) Entered as Reported by: NA STOREY on 02/22/23 123 Last Action: Reviewed Discontinued Medications Atorvastatin Calcium (Atorvastatin Calcium) 20 Mg Tablet, 20 MG PO HS, (Reported) Discontinued Reason: No Longer Taking Entered as Reported by: MARGARETH HERNÁNDEZ on 03/09/22740 Last Action: Discontinued Calcitriol (Calcitriol) 0.25 Mcg Capsule, 0.25 MCG PO MONWEDFRI, (Reported) Discontinued Reason: No Longer Taking Entered as Reported by: MARGARETH HERNÁNDEZ on 03/09/22740 Last Action: Discontinued Carvedilol (Carvedilol) 12.5 Mg Tablet, 12.5 MG PO BID, (Reported) Discontinued Reason: Duplicate Order Entered as Reported by: MARGARETH HERNÁNDEZ on 03/09/22740 Last Action: Discontinued Clonidine HCl (Clonidine HCl) 0.1 Mg Tablet, 0.1 MG PO PRN Discontinued Reason: No Longer Taking Prescribed by: JOSELO LAFLEUR on 02/22/23 0126 Last Action: Discontinued Vit C/Quercetin/Bioflav,Rogers (Quercetin Complex Capsule) 500 Mg-250 Mg-33 Mg Capsule, 1 EACH PO DAILY, (Reported) Discontinued Reason: No Longer Taking Entered as Reported by: NA STOREY on 02/22/23 1233 Last Action: Discontinued Past Vjdsvoi-Bxmhcy-Rlzxxh Hx Patient Social History Smoking Status: Former Smoker 2nd Hand Smoke Exposure: No Recent Hopitalizations: No Alcohol Use?: No Have you traveled recently?: No Surgeries History of Surgeries: Yes Surgeries: Adenoidectomy, Cardiac, Orthopedic, Pacemaker, Tonsillectomy Respiratory History of Respiratory Disorde: Yes Respiratory Disorders: Sleep Apnea Cardiovascular History of Cardiac Disorders: Yes (COMPLETE HEART BLOCK) Cardiac Disorders: High Cholesterol, Hypertension Neurological History of Neurological Disord: No Genitourinary History of Genitourinary Disor: Yes (CKD STAGE 4--NO DIALYSIS) Genitourinary Disorders: Renal Failure Gastrointestinal History of Gastrointestinal Di: No Musculoskeletal History of Musculoskeletal Dis: No Endocrine History of Endocrine Disorders: Yes Endocrine Disorders: Diabetes, Non-Insulin dep HEENT History of HEENT Disorders: Yes (DIABETIC RETINOPATHY) HEENT Disorders: Glaucoma Cancer History of Cancer: No Psychosocial History of Psychiatric Problem: No Integumentary History of Skin or Integumenta: Yes (SKIN CANCER) Blood Transfusions History of Blood Disorders: No Family Medical History Significant Family History: No Pertinent Family Hx Review of Systems-General Constitutional: No chills, No diaphoresis EENTM: No blurred vision, No double vision Respiratory: No cough, No dyspnea on exertion Cardiovascular: No chest pain, No edema Gastrointestinal: No nausea, No vomiting Genitourinary: No decreased output, No discharge Musculoskeletal: No back pain, No gout Skin: No lumps; rash (diffuse) Physical Exam-General Problems Physical Exam Vital Signs Vital Signs - First Documented 02/21/23 18:34 Temp 38.6 Pulse 86 Resp 19 B/P (MAP) 196/98 (130) Pulse Ox 97 O2 Delivery Room Air Capillary Refill : Less Than 3 Seconds General Appearance: WD/WN, no apparent distress HEENT: PERRL/EOMI, pharynx normal Neck: full range of motion, normal inspection Respiratory: chest non-tender, no respiratory distress, no accessory muscle use Cardiovascular: no edema, no JVD Gastrointestinal: non tender, soft Back: normal inspection, no vertebral tenderness Extremities: non-tender, no pedal edema Neurologic/Psychiatric: no motor/sensory deficits, alert, normal mood/affect, oriented x 3 Skin: warm/dry, other (quarter-size bruised area on LUQ), rash (diffuse erythematous rash over abdomen, back and thighs) Lymphatic: no adenopathy Data Review Labs Laboratory Tests 02/22/23 16:02: Glucometer 138H 02/22/23 20:39: Glucometer 162H 02/23/23 05:45: White Blood Count 13.1H, Red Blood Count 3.02L, Hemoglobin 9.7L, Hematocrit 29L, Mean Corpuscular Volume 96, Mean Corpuscular Hemoglobin 32, Mean Corpuscular Hemoglobin Concent 34, Red Cell Distribution Width 13.3, Platelet Count 215, Mean Platelet Volume 10.5, Immature Granulocyte % (Auto) 1, Neutrophils (%) (Auto) 83H, Lymphocytes (%) (Auto) 3L, Monocytes (%) (Auto) 6, Eosinophils (%) (Auto) 7, Basophils (%) (Auto) 0, Neutrophils # (Auto) 10.8H, Lymphocytes # (Auto) 0.4L, Monocytes # (Auto) 0.8, Eosinophils # (Auto) 1.0H, Basophils # (Auto) 0.0, Immature Granulocyte # (Auto) 0.1, Sodium Level 138, Potassium Level 4.4, Chloride Level 114H, Carbon Dioxide Level 15L, Anion Gap 9, Blood Urea Nitrogen 37H, Creatinine 3.21H, Estimat Glomerular Filtration Rate 19, BU N/Creatinine Ratio 12, Glucose Level 148H, Calcium Level 7.8L, Corrected Calcium 8.6, Total Bilirubin 0.4, Aspartate Amino Transf (AST/SGOT) 9, Alanine Aminotransferase (ALT/SGPT) 14, Alkaline Phosphatase 45, Total Protein 5.4L, Albumin 3.0L 02/23/23 10:45: Glucometer 143H Microbiology 02/21/23 Urine Culture - Final, Complete NO GROWTH 02/21/23 Blood Culture - Preliminary, Resulted No growth Assessment/Plan Assessment/Plan Assessment/Plan Diffuse rash of abdomen, back and thighs Fever of unknown source Leukocytosis Discussed could be viral reaction or allergic reaction, likely medication reac tion Pt allergic to Benadryl so was given Pepcid Per internal med, pt will be d/c today, to return if worsening symptoms ZACKARY MARRERO DO 02/23/23 2018: History of Present Illness History of Present Illness History of Present Illness Consult requested by Dr. Henao for abdominal wound. Patient is a 72 year old male who presented to ED with fever and chills. Fever of 103. Was admitted and started on antibiotics. Has a quarter sized dark purple skin change in luq of abdomen. He rests his book on it and not sure if he caused it. Tender to touch. Nothing makes better. Has developed rash over lots of his body. Has renal disease. Overall feeling better since admission. Denies n/v fever sweats chills shortness of breath or chest pain at this time. CT chest abd/pelvis: 1. Probably polycystic liver. This appears similar to MRI from 08/03/2022. 2/ Cholecystolithiasis. 3. Uncomplicated diverticulosis of the colon. 4. 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 5. Fatty umbilical hernia. Allergies and Home Medications Allergies Coded Allergies: diphenhydramine (Verified Allergy, Unknown, 02/23/23) Patient Home Medication List Home Medication List Reviewed: Yes Aspirin (Aspirin EC) 81 Mg Tablet.dr, 81 MG PO DAILY, (Reported) Entered as Reported by: MARGARETH HERNÁNDEZ on 03/09/22740 Last Action: Reviewed Carvedilol (Carvedilol) 25 Mg Tablet, 25 MG PO BID, (Reported) Entered as Reported by: NA STOREY on 02/22/23 1233 Last Action: Reviewed Cholecalciferol (Vitamin D3) (Vitamin D3) 50 Mcg (2000 Unit) Capsule, 50 MCG PO DAILY, (Reported) Entered as Reported by: MARGARETH HERNÁNDEZ on 03/09/22740 Last Action: Reviewed Clonidine (Catapres-TTS 2 Patch) 0.2 Mg/24 Hour Patch.tdwk, 1 PATCH TD SUN, (Reported) Entered as Reported by: MARGARETH HERNÁNDEZ on 03/09/22740 Last Action: Reviewed Famotidine (Pepcid) 20 Mg Tablet, 20 MG PO BID Prescribed by: VALENCIA HENAO on 02/23/23 1156 Finasteride (Finasteride) 5 Mg Tablet, 5 MG PO HS, (Reported) Entered as Reported by: MARGARETH HERNÁNDEZ on 12/05/18 1226 Last Action: Reviewed Isosorbide Mononitrate (Isosorbide Mononitrate ER) 60 Mg Tab, 60 MG PO DAILY, (Reported) Entered as Reported by: MARGARETH HERNÁNDEZ on 03/09/22740 Last Action: Reviewed Linagliptin (Tradjenta) 5 Mg Tablet, 5 MG PO DAILY, (Reported) Entered as Reported by: MARGARETH HERNÁNDEZ on 12/05/181225 Last Action: Reviewed Multivitamin (Multivitamin) 1 Each Tablet, 2 EACH PO DAILY, (Reported) Entered as Reported by: MARGARETH HERNÁNDEZ on 03/09/22740 Last Action: Reviewed Pioglitazone HCl (Pioglitazone HCl) 15 Mg Tablet, 15 MG PO DAILY, (Reported) Entered as Reported by: MARGARETH HERNÁNDEZ on 12/05/181225 Last Action: Reviewed Zinc Amino Acid Chelate (Zinc Chelated) 50 Mg Tablet, 50 MG PO DAILY, (Reported) Entered as Reported by: MARGARETH HERNÁNDEZ on 03/09/22740 Last Action: Reviewed [Berberine +Mct Oil] 350 CAP, 1 EA PO BID, (Reported) Entered as Reported by: NA STOREY on 02/22/23 123 Last Action: Reviewed [Vitamin C/Quercetin] 500-250 CAP, 1 EA PO DAILY, (Reported) Entered as Reported by: NA STOREY on 02/22/231232 Last Action: Reviewed Discontinued Medications Atorvastatin Calcium (Atorvastatin Calcium) 20 Mg Tablet, 20 MG PO HS, (Reported) Discontinued Reason: No Longer Taking Entered as Reported by: MARGARETH HERNÁNDEZ on 03/09/22740 Last Action: Discontinued Calcitriol (Calcitriol) 0.25 Mcg Capsule, 0.25 MCG PO MONWEDFRI, (Reported) Discontinued Reason: No Longer Taking Entered as Reported by: MARGARETH HERNÁNDEZ on 03/09/22740 Last Action: Discontinued Carvedilol (Carvedilol) 12.5 Mg Tablet, 12.5 MG PO BID, (Reported) Discontinued Reason: Duplicate Order Entered as Reported by: MARGARETH HERNÁNDEZ on 03/09/22740 Last Action: Discontinued Clonidine HCl (Clonidine HCl) 0.1 Mg Tablet, 0.1 MG PO PRN Discontinued Reason: No Longer Taking Prescribed by: JOSELO LAFLEUR on 02/22/23 0126 Last Action: Discontinued Vit C/Quercetin/Bioflav,Rogers (Quercetin Complex Capsule) 500 Mg-250 Mg-33 Mg Capsule, 1 EACH PO DAILY, (Reported) Discontinued Reason: No Longer Taking Entered as Reported by: NA STOREY on 02/22/23 1233 Last Action: Discontinued Past Jglsmfy-Ydslkc-Tujjfe Hx Reviewed Nursing Assessment Reviewed/Agree w Nursing PMH: Yes Family Medical History Significant Family History: No Pertinent Family Hx Review of Systems-General Constitutional: No chills, No diaphoresis; fever EENTM: No blurred vision, No double vision Respiratory: No cough, No dyspnea on exertion Cardiovascular: No chest pain, No edema Gastrointestinal: No nausea, No vomiting Genitourinary: No decreased output, No discharge Musculoskeletal: No back pain, No gout Skin: No lumps; rash (diffuse) Psychiatric/Neurological: Denies Anxiety, Denies Depressed, Denies Emotional Problems All Other Systems Reviewed Negative Unless Noted: Yes (Negative excepted noted.) Physical Exam-General Problems Physical Exam General Appearance: WD/WN, no apparent distress, obese HEENT: PERRL/EOMI, normal ENT inspection Neck: full range of motion, normal inspection Respiratory: chest non-tender, no respiratory distress, no accessory muscle use Cardiovascular: no edema, no JVD Gastrointestinal: non tender, soft, hernia Rectal: deferred Back: normal inspection, no vertebral tenderness Extremities: non-tender, no pedal edema Neurologic/Psychiatric: no motor/sensory deficits, alert, normal mood/affect, oriented x 3 Skin: normal color, warm/dry, other (quarter-size purple discoloration area on LUQ with surrounding erythematous rash), rash (diffuse erythematous rash over abdomen, back and thighs) Lymphatic: no adenopathy Assessment/Plan Assessment/Plan Assessment/Plan Diffuse rash of abdomen, back and thighs skin discoloration luq (bruise vs spider bite...) Fever of unknown source Leukocytosis Discussed could be viral reaction or allergic reaction, likely medication reaction Pt allergic to Benadryl so was given Pepcid Per internal med, pt will be d/c today, to return if worsening symptoms If purple discoloration worsening or changes should be seen at that time. Supervisory-Addendum Brief Verification & Attestation Participated in pt care: history, MDM, physical Personally performed: exam, history, MDM, supervision of care Care discussed with: Medical Student Procedures: n/a Results interpretation: Verified all documentation Verification and Attestation of Medical Student E/M Service A medical student performed and documented this service in my presence. I reviewed and verified all information documented by the medical student and made modifications to such information, when appropriate. I personally performed the physical exam and medical decision making. Zackary Marrero, Feb 23, 2023,20:21 TERE ORTEGA Feb 23, 2023 12:31 ZACKARY MARRERO DO Feb 23, 2023 20:18
[2023-02-23 13:07] VITALS: BP 119/66
--- NOTE | 2023-02-23 14:22 | Progress Note - Hospitalist ---
MILAG[facility] LAUGHLIN 02/23/23 1422: Subjective HPI/CC On Admission Date Seen by Provider: Feb 23, 2023 Time Seen by Provider: 08:55 Mr. Reyes 72 yo male with pmhx significant for CKD stage 4, DM, Afib presented to ED for chills and fever of 103. Pt reports prior to coming into ED he felt tired. Sepsis protocol initiated and patient was given IV fluids, Tylenol, Zofran, and Cefepime with much improvement of his sx. Today he reports that he feels tired but reports no other sx. No immediate sick contacts but did go to the [place] on the weekend. Monday night he felt itchy throughout his body but Monday morning that went away. Denies any N/V/D, CP, or SOB. No new or worsening sx. Subjective/Events-last exam Today patient reports that he feels better and is no longer as fatigued. Pt reports a rash on abdomen and throughout back. pt denies any pruritus or pain. Only notes that area is warm to the touch. Pt denies any n/v, CP, or SOB. No worsening sx. No other complaints. Hospital Course: Mr. Eric Santacruz yo male with pmhx significant for CKD stage 4, DM, Afib presented to ED for chills and fever of 103. Pt reports prior to coming into ED he felt tired. Sepsis protocol initiated and patient was given IV fluids, Tylenol, Zofran, and Cefepime with much improvement of his sx. Pt was admited for sepsis of unknown etiology. Labs were unremarkable during admission. Pt reported improvemnet of symptoms. on 02/23 pt reported a rash that developed on his abdomen and back which was likely due to medication reaction. Discontinued Cefepime. Pt stable throughout stay. Discharge home with follow up with kidney doctor and pcp. Review of Systems rash on abdomen and back likely medication side effect. no pain or pruritus Focused Exam Lactate Level 02/21/23 18:45: Lactic Acid Level 1.26 Time of Focused Exam: 19:45 Objective Exam Vital Signs Vital Signs Date Time Temp Pulse Resp B/P (MAP) Pulse Ox O2 Delivery O2 Flow Rate FiO2 02/23/23 11:48 37.2 69 18 119/66 (83) 96 Room Air Capillary Refill : Less Than 3 Seconds General Appearance: No Apparent Distress, WD/WN HEENT: PERRL/EOMI Respiratory: Chest Non Tender, Lungs Clear, Normal Breath Sounds, No Accessory Muscle Use, No Respiratory Distress Cardiovascular: Regular Rate, Rhythm, Normal Peripheral Pulses Gastrointestinal: Normal Bowel Sounds, No Organomegaly, No Pulsatile Mass, Non Tender, Soft Extremity: Normal Capillary Refill, No Pedal Edema Neurologic/Psychiatric: Alert, Oriented x3, Normal Mood/Affect Skin: Warm/Dry, Ecchymosis (LUQ), Rash (abdomen and back ) Lymphatic: No Adenopathy Results/Procedures Lab Laboratory Tests 02/23/23 05:45 Patient resulted labs reviewed. Imaging: Reviewed Imaging Report Assessment/Plan Assessment and Plan Assess & Plan/Chief Complaint Assessment/Plan: Sepsis of unknown etiology CBC, CMP cxr unremarkable CT abd/pelvis Cefepime Zofran pain meds prn Rash - likely medication side effect consulted gen surg pt allergic to Benadryl gave pepcid Discontinue Cefepime Afib HTN Sleep Apnea CKD 4 DIabetic Retinopathy Glaucoma Restart home meds as indicated Renally dose all meds Strict I and Os Diet: Regular Code status: DNR DVT Prophylaxis: Lovenox Disposition: likely 1-2 midnights pending pt status JOLIE HENAO DO 02/24/23 0449: Supervisory-Addendum Brief Verification & Attestation Participated in pt care: history, MDM, physical Personally performed: exam, history, MDM, supervision of care Care discussed with: Medical Student Procedures: n/a Results interpretation: Verified all documentation Verification and Attestation of Medical Student E/M Service A medical student performed and documented this service in my presence. I reviewed and verified all information documented by the medical student and made modifications to such information, when appropriate. I personally performed the physical exam and medical decision making. Jolie Henao, Feb 24, 2023,04:49 MILAGROS LAUGHLIN Feb 23, 2023 14:22 JOLIE HENAO DO Feb 24, 2023 04:49
--- NOTE | 2023-02-24 04:51 | Discharge Summary ---
Discharge Summary Hospital Course Was the Problem List Reviewed?: Yes Problems/Dx: (1) Sepsis-unknown etiology (2) Chronic renal failure (3) HTN (hypertension) (4) NIDDM Hospital Course Date of Admission: Feb 21, 2023 at 22:56 Admission Diagnosis : Family Physician/Provider: Wendy Mcdermott Aprn Date of Discharge: 02/24/23 Discharge Diagnosis: [ ] Hospital Course: Mr. Reyes 72 yo male with pmhx significant for CKD stage 4, DM, Afib presented to ED for chills and fever of 103. Pt reports prior to coming into ED he felt tired. Sepsis protocol initiated and patient was given IV fluids, Tylenol, Zofran, and Cefepime with much improvement of his sx. Pt was admited for sepsis of unknown etiology. Labs were unremarkable during admission. Pt reported improvemnet of symptoms. on 02/23 pt reported a rash that developed on his abdomen and back which was likely due to medication reaction. Discontinued Cefepime. Pt stable throughout stay. Discharge home with follow up with kidney doctor and pcp. Labs and Pending Lab Test: Laboratory Tests 02/23/23 05:45: White Blood Count 13.1H, Red Blood Count 3.02L, Hemoglobin 9.7L, Hematocrit 29L, Mean Corpuscular Volume 96, Mean Corpuscular Hemoglobin 32, Mean Corpuscular Hemoglobin Concent 34, Red Cell Distribution Width 13.3, Platelet Count 215, Mean Platelet Volume 10.5, Immature Granulocyte % (Auto) 1, Neutrophils (%) (Auto) 83H, Lymphocytes (%) (Auto) 3L, Monocytes (%) (Auto) 6, Eosinophils (%) (Auto) 7, Basophils (%) (Auto) 0, Neutrophils # (Auto) 10.8H, Lymphocytes # (Auto) 0.4L, Monocytes # (Auto) 0.8, Eosinophils # (Auto) 1.0H, Basophils # (Auto) 0.0, Immature Granulocyte # (Auto) 0.1, Sodium Level 138, Potassium Level 4.4, Chloride Level 114H, Carbon Dioxide Level 15L, Anion Gap 9, Blood Urea Nitrogen 37H, Creatinine 3.21H, Estimat Glomerular Filtration Rate 19, BUN/Creatinine Ratio 12, Glucose Level 148H, Calcium Level 7.8L, Corrected Calcium 8.6, Total Bilirubin 0.4, Aspartate Amino Transf (AST/SGOT) 9, Alanine Aminotransferase (ALT/SGPT) 14, Alkaline Phosphatase 45, Total Protein 5.4L, Albumin 3.0L 02/23/23 10:45: Glucometer 143H Microbiology 02/21/23 Urine Culture - Final, Complete NO GROWTH 02/21/23 Blood Culture - Preliminary, Resulted No growth Home Meds Active Pepcid (Famotidine) 20 Mg Tablet 20 Mg PO BID Reported Carvedilol 25 Mg Tablet 25 Mg PO BID [Vitamin C/Quercetin] 500-250 Cap 1 Ea PO DAILY [Berberine +Mct Oil] 350 Cap 1 Ea PO BID Zinc Chelated (Zinc Amino Acid Chelate) 50 Mg Tablet 50 Mg PO DAILY Multivitamin 1 Each Tablet 2 Each PO DAILY Vitamin D3 (Cholecalciferol (Vitamin D3)) 50 Mcg (2000 Unit) Capsule 50 Mcg PO DAILY Catapres-TTS 2 Patch (Clonidine) 0.2 Mg/24 Hour Patch.tdwk 1 Patch TD SUN Aspirin EC (Aspirin) 81 Mg Tablet.dr 81 Mg PO DAILY Isosorbide Mononitrate ER (Isosorbide Mononitrate) 60 Mg Tab 60 Mg PO DAILY Pioglitazone HCl 15 Mg Tablet 15 Mg PO DAILY Tradjenta (Linagliptin) 5 Mg Tablet 5 Mg PO DAILY Finasteride 5 Mg Tablet 5 Mg PO HS Assessment/Pt Instructions pcp 1 week Discharge Planning: <30 minutes discharge planning Discharge Instructions Discharge Diet: No Restrictions Discharge Physical Examination Vital Signs Vital Signs Date Time Temp Pulse Resp B/P (MAP) Pulse Ox O2 Delivery O2 Flow Rate FiO2 02/23/23 13:07 37.2 69 18 119/66 96 Room Air General Appearance: No Apparent Distress, WD/WN, Chronically ill Allergies: Coded Allergies: diphenhydramine (Verified Allergy, Unknown, 02/23/23) Discharge Summary Date of Admission Feb 21, 2023 at 22:56 Date of Discharge Feb 23, 2023 at 13:30 Discharge Date: Feb 23, 2023 Admission Diagnosis Fever of uncertain source Elevated lactic acid CKD Stage IV on transplant list at [facility] Plan: Abx Monitor DC tomorrow VALENCIA HENAO DO Feb 24, 2023 04:51
[2023-02-26] MEDS ORDERED: CLONIDINE PATCH REMOVAL TP SCH (08:59)
[2023-02-26] MEDS ORDERED: cloNIDine 0.2 MG PATCH (CATAPRES TTS) TDSY TD SCH (09:00)
== END 2023-02-23 13:30 | disposition home or self-care (01) ==
LOC: EDUNIT# 18:12 → ER 18:14 → 4TH 22:56
PROVIDERS: ADMIT Internal Medicine; ATTEND Internal Medicine
DX: A41.9 Sepsis, unspecified organism (principal); I12.9 Hypertensive chronic kidney disease with stage 1 through stage 4 chronic kidney disease, or unspecified chronic kidney disease; E11.22 Type 2 diabetes mellitus with diabetic chronic kidney disease; N18.4 Chronic kidney disease, stage 4 (severe); E78.5 Hyperlipidemia, unspecified; R50.9 Fever, unspecified; I48.91 Unspecified atrial fibrillation; G47.30 Sleep apnea, unspecified; E66.9 Obesity, unspecified; E11.319 Type 2 diabetes mellitus with unspecified diabetic retinopathy without macular edema; H40.9 Unspecified glaucoma; R21 Rash and other nonspecific skin eruption; D72.829 Elevated white blood cell count, unspecified; Z87.891 Personal history of nicotine dependence
CPT/HCPCS: 71045 ×2; 71250; 74176; 80053 ×3; 81000; 82150; 82947 ×2; 83605; 83690; 83735; 85007; 85025 ×2; 85027; 85610; 85652; 85730; 86141; 87040; 87088; 87636; 93041; 96372 ×2; 96376 ×2; 99284; G0378; 36415

== ENCOUNTER → 2023-05-05 | Outpatient (CLI) | payer MEDICARE ==
[~2023-05-05] MED LIST changes: +CARV25TA PO; +CHOL200059 PO; +CLN.1T PO; +FAMO-119 PO; +MCT OIL PO; +QUERCETIN PO; +VIT1CAPS PO; +VITAMIN C PO
== END ==
LOC: CARD 10:28
PROVIDERS: ATTEND Internal Medicine
DX: Z01.818 Encounter for other preprocedural examination (principal); I08.1 Rheumatic disorders of both mitral and tricuspid valves; N18.6 End stage renal disease
CPT/HCPCS: 93306

== ENCOUNTER 2023-07-12 06:44 | Day surgery (SDC) | payer MEDICARE ==
[2023-07-12] VITALS (9 sets, daily range): BP systolic 137–169; BP diastolic 72–93
[~2023-07-12] VITALS: Ht 180.3 cm; Wt 124.3 kg
[~2023-07-12 06:44] MED LIST changes: -POTA10CA44 PO; +POTA10CA84 PO
[2023-07-12] MEDS ORDERED: NS IV 1000 ML 1,000 ML ONE (06:57)
[2023-07-12] MEDS ORDERED: HEParin (CATH LAB) 2,000 ML IV ONE (06:57)
[2023-07-12] MEDS ORDERED: LIDOCAINE 1% INJ 20 ML VIAL ONE (06:57)
[2023-07-12] MEDS ORDERED: NS IV 1000 ML 1,000 ML IV SCH ×2 (07:00→08:45)
[2023-07-12 07:20] LABS: HEMATOCRIT 34 % (40-54); HEMOGLOBIN 11.3 g/dL (13.3-17.7); MEAN CORPUSCULAR HEMOGLOBIN 31 pg (25-34); MEAN CORPUSCULAR HGB CONC 33 g/dL (32-36); MEAN CORPUSCULAR VOLUME 94 fL (80-99); MEAN PLATELET VOLUME 9.8 fL (9.0-12.2); PLATELET COUNT 257 10^3/uL (130-400); WHITE BLOOD COUNT 8.2 10^3/uL (4.3-11.0)
[2023-07-12] MEDS ORDERED: [UNRECOGNIZED DRUG - OTHER] PO (07:32)
[2023-07-12] MEDS ORDERED: CARV12.53 PO (07:32)
[2023-07-12] MEDS ORDERED: HEParin 1000 UNIT/ML (10ML VIAL) FOR BOLUS ONE (07:39)
[2023-07-12] MEDS ORDERED: fentaNYL INJECTION 100 MCG/2 ML VIAL ONE (07:39)
[2023-07-12] MEDS ORDERED: NITRO DRIP 25000 MCG/D5W 250 ML IV ONE (07:39)
[2023-07-12] MEDS ORDERED: VERAPAMIL 5 MG/2 ML (CALAN) VIAL IV ONE (07:39)
[2023-07-12] MEDS ORDERED: MIDAZOLAM INJ 5 MG/5 ML VIAL ONE (07:39)
[2023-07-12 07:43] LABS: BILIRUBIN,TOTAL 0.3 MG/DL (0.1-1.0); CALCIUM 8.7 MG/DL (8.5-10.1); CREATININE SERUM 3.11 MG/DL (0.60-1.30); POTASSIUM 4.1 MMOL/L (3.6-5.0); TOTAL PROTEIN 6.8 GM/DL (6.4-8.2)
[2023-07-12 07:48] LABS: PROTHROMBIN TIME PATIENT 13.6 SEC (12.2-14.7)
--- NOTE | 2023-07-12 08:16 | Cardiac Procedure Note-CS/ASA ---
Pre-Procedure Note Pre-Op Procedure Note Date of Available H&P: Jul 03, 2023 Date H&P Reviewed: Jul 12, 2023 Time H&P Reviewed: 08:16 History & Physical: H&P Reviewed, Patient Examed, No changes noted Pre-Operative Diagnosis: Coronary artery disease Moderate Sedation PreProcedure Time 08:16 ASA Score 3 Airway Lungs Heart ASA score ASA 1: a normal healthy patient ASA 2: a patient with a mild systemic disease (mid diabetes, controlled hypertension, obesity ASA 3: a patient with a severe systemic disease that limits activity (angina, COPD, prior Myocardial infarction) ASA 4: a patient with an incapacitating disease that is a constant threat to life (CHF, renal failure) ASA 5: a moribund patient not expected to survive 24 hrs. (ruptured aneurysm) ASA 6: a declared brain- patient whose organs are being harvested. For emergent operations, add the letter E after the classification Mallampati Classification Grade 3 Sedation Plan Analgesia, Amnesia, Plan communicated to team members, Discussed options with patient/fam, Discussed risks with patient/fam The patient is an appropriate candidate to undergo the planned procedure, sedation, and anesthesia. The patient immediately re-assessed prior to indication. PEPITO COLINDRES MD Jul 12, 2023 08:16
--- NOTE | 2023-07-12 08:23 | Diagnostic Imaging Report ---
INDICATION: Fell at treadmill stress test, coronary artery disease Portable chest 7:21 AM There is a dual-chamber pacemaker. Heart size and pulmonary vascularity are normal. Lungs are clear. There are no effusions or pneumothoraces. IMPRESSION: No acute abnormalities in the chest Dictated by: Dictated on workstation # [id number]
--- NOTE | 2023-07-12 08:46 | Discharge Inst-Post CATH ---
Discharge Inst-CATH/EP Problems Reviewed?: Yes Post Cardiac Cath/EP D/C Inst Follow Up/Plan Appointment with Dr. Murdock's office in 2 to 4 weeks <b>CARDIAC CATH/EP PROCEDURE DISCHARGE INSTRUCTIONS</b> ACTIVITY * Go Home directly and rest. * Limit activity of the leg (or wrist if it was used) for 7 days including aer obics, swimming, jogging, bicycling, etc. * Restrict stair-climbing for 7 days if possible, if not, climb up with your non-cath leg, then bring together on the same step. * Avoid lifting, pushing, pulling or excessive movement of the affected extremi ty for 7 days. * Customary sexual activity may be resumed after 2 days-use caution not to use a position that strains or causes pain to the affected extremity. * No driving for 24 hours. * NO SMOKING. * Avoid straining for bowel movements for 7 days. * Gentle walking on level ground is allowed. * Returning to work will depend on the type of procedure and the results. Your doctor will discuss this with you. CALL YOUR DOCTOR FOR ANY OF THE FOLLOWING: *If bleeding from the puncture site occurs- Apply gentle pressure to site with clean cloth and call your doctor or EMS. * If a knot or lump forms under the skin, increases in size, or causes pain. * If bruising appears to be worsening or moving further down your leg instead of disappearing. * Temperature above 101 F. CARE OF YOUR GROIN INCISION; * Bruising or purple discoloration of the skin near the puncture site is common. * You may shower only, no bathtub bathing for 5 days. Be careful to avoid slipping as your leg may feel stiff. * If a closure device was used on your femoral artery, please see the attached guide regarding care of the device and your leg. * Leave dressing on FOR 24 hours. CARE OF YOUR WRIST INCISION; * Bruising or purple discoloration of the skin near the puncture site is common. * You may shower. * DO NOT submerge wrist. * Leave dressing on FOR 24 hours. PEPITO MURDOCK MD Jul 12, 2023 08:46
--- NOTE | 2023-07-12 08:49 | Cardiac Cath Report ---
Cardiac Cath Report Physician (s)/Automatic Equipment Technician (s) Physician PEPITO COLINDRES MD Pre-Procedure Diagnosis Pre-Procedure Diagnosis: Coronary artery disease Post-Procedure Note Procedure Start Date: Jul 12, 2023 Name of Procedure: Left heart catheterization Findings/Procedure Note PROCEDURE NOTE: 72-year-old gentleman with history of end-stage kidney disease, hypertension and hyperlipidemia. Had an abnormal stress test, it was advised by his tubing machine tender to have a cardiac catheterization to be placed on the kidney transplant list. After explaining the procedure to the patient, all pros and cons were explained, all questions were answered. The patient signed the consent and then he was placed in the cardiac catheterization laboratory. Groin was prepped in SL fashion local anesthesia was used. Sheath placed in the right radial artery, [place] catheter was used advanced to the left ventricular cavity, pressure was measured, pullback LV to aorta was done, engage the right and left coronary system, angiogram was done. At the end of the procedure the sheath was removed. Vascular band was used FINDINGS: Hemodynamics LV 128/14, end-diastolic pressure of 14 Aorta 121/89 mean of 79 ANATOMY: Left Main is free of obstructive disease Left Anterior Descending has mild disease distally nonobstructive disease Left Circumflex has minimal disease nonobstructive disease Right Coronary Artery is a large dominant artery with mild irregularity no obstructive disease LV Gram was not done, pressure was measured CONCLUSION: Mild coronary artery disease nonobstructive disease Normal left ventricular end-diastolic pressure DISCUSSION AND RECOMMENDATION: Abnormal stress test is probably due to extracardiac attenuation, medical therapy is recommended Anesthesia Type: Conscious Sedation Estimated blood loss (mL): 10 ml Contrast Amount: 15 ml Total Radiation Dose: 482 mGy Post-Procedure Diagnosis Post-operative diagnosis: Coronary artery disease Hypertension Hyperlipidemia End-stage kidney disease PEPITO COLINDRES MD Jul 12, 2023 08:49
== END 2023-07-12 13:20 | disposition home or self-care (01) ==
LOC: CATH 06:44 → SDC 08:55 → CATH 13:20
PROVIDERS: ATTEND Internal Medicine Cardiovascular Disease
DX: I25.10 Atherosclerotic heart disease of native coronary artery without angina pectoris (principal); I12.0 Hypertensive chronic kidney disease with stage 5 chronic kidney disease or end stage renal disease; N18.6 End stage renal disease; I44.7 Left bundle-branch block, unspecified; I44.2 Atrioventricular block, complete; I08.1 Rheumatic disorders of both mitral and tricuspid valves; R60.0 Localized edema; G47.33 Obstructive sleep apnea (adult) (pediatric); I27.20 Pulmonary hypertension, unspecified; I65.23 Occlusion and stenosis of bilateral carotid arteries; M19.90 Unspecified osteoarthritis, unspecified site; E78.2 Mixed hyperlipidemia; Z95.0 Presence of cardiac pacemaker; Z79.899 Other long term (current) drug therapy; Z87.11 Personal history of peptic ulcer disease
CPT/HCPCS: 71045; 80053; 80061; 85027; 85610; 85730; 87081; 93005; 93458; C1894; 36415

== ENCOUNTER → 2023-08-09 | Outpatient (CLI) | payer MEDICARE ==
[~2023-08-09] MED LIST changes: +[UNRECOGNIZED DRUG - OTHER] PO
[2023-08-09 14:34] LABS: BASOPHILS % (AUTO) 0 % (0-10); EOSINOPHILS % (AUTO) 0 % (0-10); HEMATOCRIT 31 % (40-54); HEMOGLOBIN 10.4 g/dL (13.3-17.7); LYMPHOCYTES # (AUTO) 0.7 10^3/uL (1.0-4.0); LYMPHOCYTES % (AUTO) 6 % (12-44); MEAN CORPUSCULAR HEMOGLOBIN 31 pg (25-34); MEAN CORPUSCULAR HGB CONC 34 g/dL (32-36); MEAN CORPUSCULAR VOLUME 93 fL (80-99); MEAN PLATELET VOLUME 9.8 fL (9.0-12.2); MONOCYTES # (AUTO) 0.9 10^3/uL (0.0-1.0); MONOCYTES % (AUTO) 7 % (0-12); NEUTROPHILS # (AUTO) 10.8 10^3/uL (1.8-7.8); NEUTROPHILS % (AUTO) 86 % (42-75); PLATELET COUNT 263 10^3/uL (130-400); WHITE BLOOD COUNT 12.5 10^3/uL (4.3-11.0)
[2023-08-09 14:42] LABS: ALBUMIN 3.5 GM/DL (3.2-4.5); POTASSIUM 4.1 MMOL/L (3.6-5.0)
[2023-08-09 14:43] LABS: CALCIUM 8.7 MG/DL (8.5-10.1)
[2023-08-09 14:44] LABS: TOTAL PROTEIN 6.5 GM/DL (6.4-8.2)
[2023-08-09 14:46] LABS: BILIRUBIN,TOTAL 0.4 MG/DL (0.1-1.0)
[2023-08-09 14:48] LABS: CREATININE SERUM 3.57 MG/DL (0.60-1.30)
[2023-08-09 15:07] LABS: BAND NEUTROPHILS 0 %; BASOPHILS % (MANUAL) 0 %; EOSINOPHILS % (MANUAL) 0 %; LYMPHOCYTES % (MANUAL) 6 %; MONOCYTES % (MANUAL) 10 %; NEUTROPHILS % (MANUAL) 84 %; RBC MORPH NORMAL
== END ==
LOC: LAB 14:02
PROVIDERS: ATTEND Nurse Practitioner Family
DX: N30.01 Acute cystitis with hematuria (principal)
CPT/HCPCS: 36415; 80053; 83605; 85007; 85027; 87040